=== PATIENT | female | born 1965 | race Caucasian/White ===

== ENCOUNTER → 2018-12-08 09:21 | Outpatient (CLI) | payer OTHER, SELFPAY ==
[2018-12-08 10:31] LABS: Albumin, Serum 3.7 g/dL (3.2-5.0); BUN 22 mg/dL (7-18); BUN/Creat Ratio 29.9 RATIO (10-20); Creatinine, Serum 0.74 mg/dL (0.55-1.02); EST Glomerular Filtration Rate 87 mL/min (>60); Est Glom Filt Rate - Afr Amer 105 mL/min (>60); Glucose 91 mg/dL (74-106); Protein, Total 7.1 g/dL (6.4-8.2)
[2018-12-08 10:32] LABS: ALB/GLOB Ratio 1.1 RATIO (0.9-2.4); AST(SGOT) 22 U/L (15-37); Alanine Aminotransfer ALT/SGPT 19 U/L (13-56); Alkaline Phosphatase 70 U/L (45-117); Anion Gap 6 (5-15); Calcium,Total 8.6 mg/dL (8.5-10.1); Chloride 107 mmol/L (98-107); Cholesterol 228 mg/dL (200); Globulin 3.4 g/dL (2.2-4.2); High Density Lipoprotein 71 mg/dL; Potassium 4.2 mmol/L (3.5-5.1); Sodium Level 138 mmol/L (136-145); Thyroid Stim Hormone (TSH) 3.24 uIU/mL (0.358-3.74); Triglycerides 42 mg/dL; Very Low Density Lipoprotein 8 mg/dL (5-40)
== END ==
PROVIDERS: Family Provider Family Medicine; PCP Family Medicine; Visit Provider Nurse Practitioner Family
DX: E03.9 Hypothyroidism, unspecified (principal); Z13.220 Encounter for screening for lipoid disorders
CPT/HCPCS: 36415; 80053; 80061; 84443

== ENCOUNTER → 2019-08-03 10:08 | Outpatient (CLI) | payer BC, SELFPAY ==
--- NOTE | 2019-08-03 10:14 | RAD_ITS ---
STUDY: X-RAY CHEST REASON FOR EXAM: Female, 54 years old. Shortness of breath TECHNIQUE: Two view of the chest were performed COMPARISON: None. FINDINGS: Lungs are clear. There is increased density in the right superior mediastinum, possibly related to the aorta. There is no pneumothorax, pulmonary edema, pleural effusions or cardiomegaly. Osseous structures are intact. There is no gas under the diaphragms. [ ] RAD/Chest PA and Lateral IMPRESSION: 1. No acute cardiorespiratory disease. [ 2. Questionable finding in the right superior mediastinum, incompletely evaluated. Recommend CT of the chest with contrast for more definitive assessment. Differential possibilities are vascular, such as aortic related versus mass. ] Electronically Signed: Richard Carranza, at 17:08 EDT Tel , Service support ,
== END ==
PROVIDERS: Family Provider Family Medicine; PCP Family Medicine; Referring Provider Family Medicine; Visit Provider Family Medicine
DX: R06.02 Shortness of breath (principal)
CPT/HCPCS: 71046

== ENCOUNTER → 2019-11-09 09:05 | Outpatient (CLI) | payer BC, SELFPAY ==
--- NOTE | 2019-11-09 09:09 | RAD_ITS ---
HISTORY: COMPARE WITH PRIOR CXR. THERE WAS A RIGHT MEDIASTINAL FINDING PER PATIENT THIS PAST JULY. ADDITIONAL HISTORY: None provided. COMPARISON: 08/03/2019, 08/20/2012, 01/21/2012 and 12/26/2011 TECHNIQUE: Frontal and lateral chest radiographs. Number of images including paperwork: 2 FINDINGS: LUNGS AND PLEURA: No consolidation, mass or pleural effusion. CARDIAC SILHOUETTE: Unremarkable. MEDIASTINUM AND YESY: Mild fullness is seen in the right suprahilar region and the expect location of the azygous arch, less prominent when compared with 08/03/2019 and generally less prominent when compared with multiple prior radiographs from 2011. This appears to change in size and is most likely related to venous distention involving the azygous arch. UPPER ABDOMEN: Unremarkable. SKELETON AND SOFT TISSUES: No acute findings. OTHER DEVICES AND HARDWARE: None. RAD/Chest PA and Lateral IMPRESSION: Decrease in fullness in the region of the right azygous arch compared to 08/03/2019. This finding has been present with varying size since 2011 and is likely related to venous distention of the azygous arch. at 2223 Reported and signed by: Susan Kidd MD Electronically Signed: Susan Kidd MD at 22:23 EST Tel , Service support ,
== END ==
PROVIDERS: PCP Family Medicine; Referring Provider Family Medicine; Visit Provider Family Medicine
DX: R93.89 Abnormal findings on diagnostic imaging of other specified body structures (principal)
CPT/HCPCS: 71046

== ENCOUNTER → 2020-03-16 17:35 | Outpatient (CLI) | payer BC, SELFPAY ==
[2020-03-18 19:09] LABS: HPV Reflexed? NOT INDICATED
== END ==
PROVIDERS: PCP Family Medicine; Referring Provider Family Medicine; Visit Provider Family Medicine
DX: Z01.419 Encounter for gynecological examination (general) (routine) without abnormal findings (principal)
CPT/HCPCS: 88175; G0145

== ENCOUNTER → 2021-06-01 07:09 | Outpatient (CLI) | payer BC, SELFPAY ==
[2021-06-01 10:30] LABS: Progesterone Level 0.27 ng/mL (See Comment)
[2021-06-01 10:41] LABS: Estradiol < 11.0 pg/mL; Free T3 2.8 pg/mL (2.18-3.98); T4 Free Direct 0.82 ng/dL (0.76-1.46); Thyroid Stim Hormone (TSH) 2.64 uIU/mL (0.358-3.74)
[2021-06-07 14:09] LABS: Testosterone, % Free 1.85 % (0.50-2.80); Testosterone, Free 0.19 ng/dL (0.10-0.85); Testosterone, Total 10 ng/dL (4-50)
[2021-06-08 12:46] LABS: DHEA Sulfate 71.5 ug/dL (29.4-220.5)
== END ==
PROVIDERS: PCP Family Medicine; Referring Provider Family Medicine; Visit Provider Family Medicine
DX: E03.9 Hypothyroidism, unspecified (principal); Z78.0 Asymptomatic menopausal state
CPT/HCPCS: 36415; 82627; 82670; 84144; 84402; 84403; 84439; 84443; 84481; 82626

== ENCOUNTER → 2022-06-27 | Outpatient (CLI) | payer SELFPAY, OTHER ==
--- NOTE | 2022-06-27 09:05 | RAD_ITS ---
STUDY: X-RAY - RIGHT SHOULDER REASON FOR EXAM: Right shoulder pain, right shoulder injury 2 months ago. TECHNIQUE: 4 view(s) of the shoulder. COMPARISON: None. FINDINGS: Normal glenohumeral articulation. There is mild acromioclavicular arthrosis. Normal acromion. Normal humeral head and visualized proximal humerus. The soft tissue structures are unremarkable. Normal visualized pulmonary apex. RAD/Shoulder min 2 Views IMPRESSION: Mild acromioclavicular arthrosis. No demonstrated fracture. Electronically Signed: Gene Rizzo MD at 9:54 EDT ,
== END | disposition home or self-care (01) ==
PROVIDERS: PCP Family Medicine; Referring Provider Nurse Practitioner Family; Visit Provider Nurse Practitioner Family
DX: M25.511 Pain in right shoulder (principal)
CPT/HCPCS: 73030

== ENCOUNTER → 2022-07-30 | Outpatient (CLI) | payer OTHER, SELFPAY ==
[2022-08-05 11:57] LABS: HPV APTIMA, High Risk Negative (Negative)
== END | disposition home or self-care (01) ==
LOC: LABSPEC 13:33
PROVIDERS: PCP Family Medicine; Visit Provider Student in an Organized Health Care Education/Training Program
DX: Z12.4 Encounter for screening for malignant neoplasm of cervix (principal)
CPT/HCPCS: 87624; 88175; G0145

== ENCOUNTER → 2023-01-08 | Outpatient (CLI) | payer OTHER, SELFPAY ==
[2023-01-08 20:26] LABS: ALB/GLOB Ratio 1.3 RATIO (0.9-2.4); AST(SGOT) 30 U/L (15-37); Alanine Aminotransfer ALT/SGPT 24 U/L (13-56); Alkaline Phosphatase 86 U/L (45-117); Anion Gap 8 (5-15); BUN 19 mg/dL (7-18); BUN/Creat Ratio 22.3 RATIO (10-20); Calcium,Total 9.4 mg/dL (8.5-10.1); Chloride 105 mmol/L (98-107); Creatinine, Serum 0.85 mg/dL (0.55-1.02); EST Glomerular Filtration Rate 73 mL/min (>60); Est Glom Filt Rate - Afr Amer 88 mL/min (>60); Globulin 3.1 g/dL (2.2-4.2); Glucose 87 mg/dL (74-106); Potassium 4.2 mmol/L (3.5-5.1); Protein, Total 7.1 g/dL (6.4-8.2); Sodium Level 141 mmol/L (136-145); T4 Free Direct 0.81 ng/dL (0.76-1.46); Thyroid Stim Hormone (TSH) 2.02 uIU/mL (0.358-3.74)
== END | disposition home or self-care (01) ==
LOC: MFPLAB 17:03
PROVIDERS: PCP Family Medicine; Referring Provider Family Medicine; Visit Provider Family Medicine
DX: E03.9 Hypothyroidism, unspecified (principal)
CPT/HCPCS: 36415; 80053; 84439; 84443

== ENCOUNTER → 2023-04-08 | Outpatient (CLI) | payer BC, SELFPAY ==
[2023-04-12 12:09] LABS: HPV APTIMA, High Risk Negative (Negative)
== END | disposition home or self-care (01) ==
LOC: LABSPEC 09:05
PROVIDERS: PCP Family Medicine; Visit Provider Student in an Organized Health Care Education/Training Program
DX: Z12.4 Encounter for screening for malignant neoplasm of cervix (principal)
CPT/HCPCS: 87624; 88175; G0145

== ENCOUNTER → 2023-04-15 | Outpatient (CLI) | payer BC, SELFPAY ==
--- NOTE | 2023-04-15 14:16 | BI_ITS ---
MAMMOGRAPHY - BILATERAL DIAGNOSTIC REASON FOR EXAM: Female, 58 years old. One month history of right nipple inversion. Remote left excisional breast biopsy. PERTINENT HISTORY: Non-contributory. TECHNIQUE: Digital bilateral breast neva (3D mammographic acquisition) in the CC and MLO projections. 2-D mediolateral oblique (MLO) and craniocaudad (CC) views of both breasts were obtained. CAD: Full Field Digital Mammography with Computer Added Detection was performed. COMPARISON: Comparison is made with prior study there November 30, 2014 and August 02, 2011. FINDINGS: Breast Composition: The breasts are heterogeneously dense, which may obscure small masses. There are no dominant masses or suspicious calcifications. No other significant abnormalities are identified. There has been no significant change since the prior study. BI/DIAG MAMM W/CAD, BILAT IMPRESSION: Stable bilateral diagnostic mammogram. With the patient''s history of a right nipple inversion, correlation with targeted ultrasound is recommended. ASSESSMENT CATEGORY: BIRADS Category 0: Incomplete. Need additional imaging evaluation. A letter regarding these results will be sent to the patient by the facility within 30 days. Approximately 10% of breast cancers are not detected by mammography. A normal mammogram should not delay biopsy of a clinically suspicious abnormality. Electronically Signed: Peter Miranda MD at 15:10 EDT ,
--- NOTE | 2023-04-15 14:16 | US_ITS ---
STUDY: ULTRASOUND BREAST - RIGHT REASON FOR EXAM: Female, 58 years old. Intermittent retraction of the right nipple. TECHNIQUE: Axial and longitudinal images of the RIGHT breast were performed with a high resolution ultrasound transducer. # OF IMAGES: 18 COMPARISON: Comparison is made with prior mammogram done earlier in the day. FINDINGS: RIGHT Breast: The retroareolar region of the right breast was examined with ultrasound. No sonographic abnormality is seen. US/Breast Limited Unilateral IMPRESSION: No sonographic abnormality is seen. ASSESSMENT CATEGORY: BIRADS Category 1: Negative. A letter regarding these results will be sent to the patient by the facility within 30 days. Electronically Signed: Peter Miranda MD at 13:55 EDT ,
== END | disposition home or self-care (01) ==
PROVIDERS: PCP Family Medicine; Referring Provider Student in an Organized Health Care Education/Training Program; Visit Provider Student in an Organized Health Care Education/Training Program
DX: Z12.31 Encounter for screening mammogram for malignant neoplasm of breast (principal); N64.53 Retraction of nipple
CPT/HCPCS: 76642; 77062; 77066; G0279

== ENCOUNTER → 2023-10-04 | Outpatient (CLI) | payer BC, SELFPAY ==
[2023-10-04 14:57] LABS: Absolute Lymphocyte Count 1.62 X10^3/uL (0.83-4.51); Absolute Neutrophil Count 3.9 X10^3/uL (2.0-7.7); Basophil# 0.06 X10^3/uL; Eosinophil# 0.12 X10^3/uL; Hematocrit 44.3 % (37-47); Hemoglobin 13.7 g/dL (12.0-15.0); Lymphocyte # 1.62 X10^3/ul (0.83-4.51); Lymphocyte % 26.3 % (19-41); Mean Corp Hgb Conc 30.9 g/dL (32-36); Mean Corpuscular Hgb 28.4 pg (27.0-32.0); Mean Corpuscular Volume 91.7 fL (81-99); Monocyte# 0.48 X10^3/uL; Monocyte% 7.8 % (0-10); NRBC Flagged by Analyzer 0 % (0-5); Neutrophil # 3.85 X10^3/uL (2.7-7.7); Neutrophil % 62.6 % (47-70); Platelet Count 291 K/mm3 (150-450); RBC Distribution Width CV 14.4 % (11.6-14.6); RBC Distribution Width SD 48.6 fl (35.1-43.9); Red Blood Count 4.83 M/mm3 (4.2-5.4); White Blood Count 6.2 K/mm3 (4.4-11.0)
[2023-10-04 15:00] LABS: Erythrocyte Sedimentation Rate 14 mm/hr (0-30)
[2023-10-04 15:32] LABS: ALB/GLOB Ratio 1.1 RATIO (0.9-2.4); AST(SGOT) 21 U/L (15-37); Alanine Aminotransfer ALT/SGPT 27 U/L (13-56); Albumin, Serum 3.8 g/dL (3.2-5.0); Alkaline Phosphatase 82 U/L (45-117); Anion Gap 5 (5-15); BUN 15 mg/dL (7-18); BUN/Creat Ratio 21.1 RATIO (10-20); CRP < 2.90 mg/L (0.0-3.0); Calcium,Total 9.1 mg/dL (8.5-10.1); Chloride 104 mmol/L (98-107); Creatinine, Serum 0.71 mg/dL (0.55-1.02); EST Glomerular Filtration Rate 89 mL/min (>60); Est Glom Filt Rate - Afr Amer 107 mL/min (>60); Globulin 3.6 g/dL (2.2-4.2); Glucose 95 mg/dL (74-106); Lipase 30 U/L (13-75); Potassium 3.9 mmol/L (3.5-5.1); Protein, Total 7.4 g/dL (6.4-8.2); Sodium Level 138 mmol/L (136-145)
== END | disposition home or self-care (01) ==
LOC: MTLAB 13:40
PROVIDERS: PCP Family Medicine; Referring Provider Family Medicine; Visit Provider Family Medicine
DX: R10.84 Generalized abdominal pain (principal)
CPT/HCPCS: 36415; 80053; 83690; 85025; 85652; 86140

== ENCOUNTER → 2023-10-05 | Outpatient (CLI) | payer BC, SELFPAY ==
[2023-10-11 13:07] LABS: Pancreatic Elastase, Fecal 391 (>200)
[2023-10-15 19:06] LABS: Calprotectin, Stool <5 ug/g (0-120); Fats, Neutral Normal (.); Fats, Total Normal (.)
== END | disposition home or self-care (01) ==
LOC: LABSPEC 09:52
PROVIDERS: PCP Family Medicine; Referring Provider Family Medicine; Visit Provider Family Medicine
DX: R10.84 Generalized abdominal pain (principal)
CPT/HCPCS: 82653; 82705; 83993

== ENCOUNTER → 2023-10-28 | Outpatient (CLI) | payer BC, SELFPAY ==
--- NOTE | 2023-10-28 16:48 | CT_ITS ---
STUDY: CT ABDOMEN AND PELVIS WITH CONTRAST REASON FOR EXAM: Female, 58 years old. IV and oral contrast RADIATION DOSAGE (If Supplied By Facility): CTDIvol = ( 11.97 ) mGy, DLP = ( 679.18 ) mGycm TECHNIQUE: Transaxial images were obtained from the dome of the diaphragm to the symphysis pubis without oral contrast. Oral and IV Readi-CAT and 100mL Isovue-300 was administered. Sagittal and coronal images were reconstructed. Individualized dose optimization techniques were used for this CT. COMPARISON: None. FINDINGS: Mild bilateral lower lobe atelectasis. The visualized portions of the heart are within normal limits. Several low-attenuation structures within the liver, largest seen at the left liver lobe near the hepatic hilum measuring 1 cm compatible with liver cysts. Remainder of the liver structures are too small to characterize measuring less than 5 mm, likely benign such as cyst in the absence of known neoplasm. Remainder of the liver is normal. Normal gallbladder and extrahepatic biliary system. Normal spleen. Normal pancreas. Normal bilateral adrenal glands. Normal right kidney. Normal left kidney. Normal visualized stomach. Mild distention of several proximal jejunal loops and duodenum with mild thickening of the wall/callosal hypertrophy which may indicate enteritis. Normal colon. There is non-visualization of the appendix. There is mild atherosclerotic calcification of the abdominal aorta, without a demonstrated aneurysm. Normal inferior vena cava. Normal retroperitoneum. Normal urinary bladder. The uterus is anteverted with multiple calcifications, largest measuring 1.5 cm most compatible with calcified uterine fibroids. Normal abdominal wall. Mild spondylosis of the spine, otherwise no acute fracture or subluxation. CT/Abdomen/Pelvis WITH Contrast IMPRESSION: Possible proximal enteritis. No bowel obstruction. Fibromatous uterus, remainder of the pelvic structures unremarkable. Likely benign liver lesions compatible with liver cysts, largest measuring 1 cm and some too small to characterize. If indicated, follow-up with right upper quadrant ultrasound recommended in nonacute setting to document simple liver cysts. Otherwise normal abdominal viscera. Electronically Signed: Wendy Mayo MD at 19:48 EST ,
--- OUTSIDE RECORDS SUMMARY | 2023-10-28 17:41 | XMS RPT_ITS | CCD ---
Author Name Unknown Address [address] [place] [address] Organization [facility] Results Test Name Value Interpretation Reference Range Facil ity Clinical Notes 07-03-2021 to 07-09-2021 Note Date & Type Note Facility 07-09-2021 Note HNO ID: [id number] Author: Eliza Lim RN Service: Care Management Author Type: Registered Nurse Type: Care Mgt Progress Note Filed: 07/09/2021 2:52 PM Note Text: CARE MANAGEMENT PROGRESS NOTE SERVICE DATE: 07/09/2021 SERVICE TIME: 1450 LOS: 5 days spoke with Violeta from [facility] [phone], she states that she left it at the nurses station. this CM went back to the [facility] and checked for this O2. informed Brit that there was no tank and that i just sent the script on sat 07/08/21. Brit states that they will send a new one out but she doesn't know what time. RN aware SIGNATURE: Eliza Lim RN PATIENT NAME: Sulma Chowdary DATE: July 09, 2021 TIME: 2:50 PM PAGER/CONTACT #: [phone] [facility] 07-09-2021 Note HNO ID: [id number] Author: Eliza Lim RN Service: Care Management Author Type: Registered Nurse Type: Care Mgt Progress Note Filed: 07/09/2021 2:37 PM Note Text: CARE MANAGEMENT PROGRESS NOTE SERVICE DATE: 07/09/2021 SERVICE TIME: 1430 LOS: 5 days called MICU and they state that they have no portable tank for this pt. [facility] message this CM and wanted my number. awaiting return phone call SIGNATURE: Eliza Lim RN PATIENT NAME: Sulma Epi Pringle DATE: July 09, 2021 TIME: 2:36 PM PAGER/CONTACT #: [phone] [facility] 07-09-2021 Note HNO ID: [id number] Author: Margo Donaldson MD Service: Pulmonary Disease Author Type: Physician Type: Progress Notes Filed: 07/09/2021 2:17 PM Note Text: Pulmonary/Critical Care Progress Note PATIENT NAME: Sulma Pringle DATE of SERVICE: July 09, 2021 TIME of SERVICE: 2:15 PM Admitting Physician: Herrera Alatorre MD Attending Physician: Herrera Alatorre MD S: Doing a little better today with improvement in her shortness of breath or cough. Denies chest pain. Tolerating anticoagulation well. Pertinent positive findings reported other system reviews were negative Current Facility-Administered Medications Medication Dose Route Frequency - NaCl 0.9% iv flush bag 20 mL INTRAVENOUS PRN - sodium chloride 0.9 % (flush) 3-5 mL (BD POSIFLUSH) 3-5 mL INTRAVENOUS q 12 H - ondansetron 4 mg tab(s) (ZOFRAN) 4 mg ORAL q 6 H PRN Or - ondansetron (PF) 4 mg injection (ZOFRAN) 4 mg INTRAVENOUS q 6 H PRN - docusate sodium 100 mg cap(s) (COLACE) 100 mg ORAL BID PRN - acetaminophen 650 mg tab(s) (TYLENOL) 650 mg ORAL q 6 H PRN - melatonin 3 mg tab(s) 3 mg ORAL HS PRN - guaiFENesin 600 mg ER tab(s) (MUCINEX) 600 mg ORAL q 12 H PRN - albuterol HFA 90 mcg/actuation 2 Puff (PROVENTIL HFA, VENTOLIN HFA) 2 Puff INHALATION q 4 H PRN - dexAMETHasone (DECADRON) tab(s) 6 mg 6 mg ORAL DAILY Or - dexAMETHasone sodium phosphate (PF) 6 mg injection (DECADRON) 6 mg INTRAVENOUS DAILY - thyroid 45 mg tab(s) 45 mg ORAL DAILY (7 AM) - benzonatate 100 mg cap(s) (TESSALON PERLE) 100 mg ORAL TID - HYDROcodone-homatropine 5-1.5 mg/5 mL (5 mL) 5 mL (HYDROMET) 5 mL ORAL HS PRN - iv contrast (radiology procedure) INTRAVENOUS DIRECTED PRN - apixaban 10 mg tab(s) (ELIQUIS) 10 mg ORAL BID Followed by - [START ON 07/16/2021] apixaban 5 mg tab(s) (ELIQUIS) 5 mg ORAL BID O: PHYSICAL EXAMINATION: Blood pressure 99/59, pulse (!) 58, temperature 36.7 ?C (98 ?F), temperature source Oral, resp. rate 16, height 154.9 cm (5' 1 ), weight 65.6 kg (144 lb 11.2 oz), last menstrual period 08/05/2013, SpO2 94 %., Body mass index is 27.34 kg/m?. GENERAL: Cooperative, pleasant, in no acute distress. NECK: no jugulovenous distention, supple LUNGS: Good breath sounds of both lung dixon with soft bibasilar crackles. CARDIAC: Regular rate and rhythm; no murmurs ABDOMEN: Abdomen soft, non-tender. BS normal. EXTREMITIES: No edema. LABORATORY: CBC, Coags, BMP, Mg, Phos Recent Labs 07/09/21 1210 07/08/21 0934 07/07/21 1913 07/07/21 0743 07/07/21 0743 WBC 14.36* 10.71 8.43 < > 8.33 HB 13.5 13.0 12.4 < > 13.4 HCT 41.6 40.8 38.0 < > 42.5 PLT 311 337 327 < > 343 NA 137 140 -- -- 137 K 4.5 4.1 -- -- 4.4 CHLOR 100 102 -- -- 105 CO2 26 24 -- -- 21* BUN 19 16 -- -- 14 CREAT 0.65* 0.62* -- -- 0.55* GLUC 113* 86 -- -- 96 CA 8.7 8.3* -- -- 8.5 MG 2.0 1.9 -- -- 2.1 < > = values in this interval not displayed. Liver Function, Amylase, AND Lipase Recent Labs 07/07/211912 TPROT 5.4* ALB 2.7* ALT 20 AST 19 ALKPHOS 50 TBILI 0.2 IMAGING STUDIES: CT of the chest was reviewed and results were discussed with the patient. Bilateral pulmonary embolism were seen. Groundglass opacities compatible with Covid pneumonia. 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 ASSESSMENT AND PLAN: Acute hypoxic respiratory failure: Likely secondary to COVID-19 pneumonia Now with evidence of acute pulmonary embolism on her CT scan of the chest. Was placed on full dose anticoagulation with Lovenox yesterday Plan to switch to oral anticoagulants today to facilitate discharge. Completed a 5-day course of remdesivir and continues to take dexamethasone. Hope to discharge home on oxygen supplementation today or tomorrow if she continues to improve. SIGNATURE: Margo Donaldson MD DATE: July 09, 2021 TIME: 2:15 PM This note was partially created using voice recognition software and is inherently subject to errors including those of syntax and sound-alike substitutions which may escape proofreading. In such instances, original meaning may be extrapolated by contextual derivation. [facility] 07-09-2021 Note HNO ID: [id number] Author: Eliza Lim RN Service: Care Management Author Type: Registered Nurse Type: Care Mgt Progress Note Filed: 07/09/2021 2:13 PM Note Text: CARE MANAGEMENT PROGRESS NOTE SERVICE DATE: 07/09/2021 SERVICE TIME: 1410 LOS: 5 days per [facility] they state they dropped off the O2 on , per nursing she went to the unit. this CM checked pt room and found no O2 tank. informed P that this CM just sent the script on 07/08/21. awaiting response SIGNATURE: Eliza Lim RN PATIENT NAME: Sulma Chowdary DATE: July 09, 2021 TIME: 2:11 PM PAGER/CONTACT #: [phone] [facility] 07-09-2021 Note HNO ID: [id number] Author: Eliza Lim RN Service: Care Management Author Type: Registered Nurse Type: Care Mgt Progress Note Filed: 07/09/2021 1:47 PM Note Text: CARE MANAGEMENT PROGRESS NOTE SERVICE DATE: 07/09/2021 SERVICE TIME: 1345 LOS: 5 days called pt pharmacy to [facility]. the [facility] is [phone], gave pt a card for eliques a free 30 day supply. also asked pt if she received her O2, she states no. [facility] states that they delivered an O2 tank last week. working with [facility] to fugure out where the O2 tank is SIGNATURE: Eliza Lim RN PATIENT NAME: Sulma Pringle DATE: July 09, 2021 TIME: 1:44 PM PAGER/CONTACT #: [phone] [facility] 07-09-2021 Note HNO ID: [id number] Author: Eliza Lim RN Service: Care Management Author Type: Registered Nurse Type: Care Mgt Progress Note Filed: 07/09/2021 1:12 PM Note Text: CARE MANAGEMENT PROGRESS NOTE SERVICE DATE: 07/09/2021 SERVICE TIME: 1310 LOS: 5 days script sent to [facility] on 07/08/21 for home O2. per notes pt CT of the chest showed bilateral PEs. CM to f/u SIGNATURE: Eliza Lim RN PATIENT NAME: Sulma Chowdary [place] DATE: July 09, 2021 TIME: 1:11 PM PAGER/CONTACT #: [phone] [facility] 07-09-2021 Note HNO ID: [id number] Author: Herrera Alatorre MD Service: General Internal Medicine Author Type: Physician Type: Progress Notes Filed: 07/09/2021 11:28 AM Note Text: INTERNAL MEDICINE PROGRESS NOTE Name: Sulma Chowdary [facility] SERVICE DATE: July 09, 2021 ASSESSMENT AND PLAN Active Problems: Pneumonia due to COVID-19 virus POA: Yes Assessment AND Plan: decadron. DC home today if insurance is paying for eliquis. PE, eliquis. SUBJECTIVE INTERVAL HPI: no c/o. OBJECTIVE PHYSICAL EXAM: Blood pressure 99/59, pulse (!) 58, temperature 36.7 ?C (98 ?F), temperature source Oral, resp. rate 16, height 154.9 cm (5' 1 ), weight 65.6 kg (144 lb 11.2 oz), last menstrual period 08/05/2013, SpO2 94 %., Body mass index is 27.34 kg/m?. GENERAL: Cooperative, pleasant, in no acute distress. SKIN: Skin color, texture, turgor normal. No rashes or lesions. NECK: no jugulovenous distention, supple. No lymphadenopathy. LUNGS: Lungs clear to auscultation. Good diaphragmatic excursion. CARDIAC: normal S1 and S2; no rubs, murmurs, or gallops ABDOMEN: Abdomen soft, non-tender. BS normal. No masses or organomegaly. EXTREMITIES: No deformities, edema, clubbing or skin discoloration. NEURO: Alert, oriented to person, place, and time. No focal weakness. PULSES: 2+ radial 2+ carotid MEDICATION: Current Facility-Administered Medications Medication Dose Route Frequency - NaCl 0.9% iv flush bag 20 mL INTRAVENOUS PRN - sodium chloride 0.9 % (flush) 3-5 mL (BD POSIFLUSH) 3-5 mL INTRAVENOUS q 12 H - ondansetron 4 mg tab(s) (ZOFRAN) 4 mg ORAL q 6 H PRN Or - ondansetron (PF) 4 mg injection (ZOFRAN) 4 mg INTRAVENOUS q 6 H PRN - docusate sodium 100 mg cap(s) (COLACE) 100 mg ORAL BID PRN - acetaminophen 650 mg tab(s) (TYLENOL) 650 mg ORAL q 6 H PRN - melatonin 3 mg tab(s) 3 mg ORAL HS PRN - guaiFENesin 600 mg ER tab(s) (MUCINEX) 600 mg ORAL q 12 H PRN - albuterol HFA 90 mcg/actuation 2 Puff (PROVENTIL HFA, VENTOLIN HFA) 2 Puff INHALATION q 4 H PRN - dexAMETHasone (DECADRON) tab(s) 6 mg 6 mg ORAL DAILY Or - dexAMETHasone sodium phosphate (PF) 6 mg injection (DECADRON) 6 mg INTRAVENOUS DAILY - thyroid 45 mg tab(s) 45 mg ORAL DAILY (7 AM) - benzonatate 100 mg cap(s) (TESSALON PERLE) 100 mg ORAL TID - HYDROcodone-homatropine 5-1.5 mg/5 mL (5 mL) 5 mL (HYDROMET) 5 mL ORAL HS PRN - iv contrast (radiology procedure) INTRAVENOUS DIRECTED PRN - apixaban 10 mg tab(s) (ELIQUIS) 10 mg ORAL BID Followed by - [START ON 07/16/2021] apixaban 5 mg tab(s) (ELIQUIS) 5 mg ORAL BID DATA: Disposition: Home URINE OUTPUT: No intake or output data in the 24 hours ending 07/09/21 1128 SIGNATURE: Herrera Alatorre MD DATE: July 09, 2021 [facility] 07-09-2021 Note HNO ID: [id number] Author: Elis Ann PA-C Service: General Internal Medicine Author Type: Physician Despatching And Receiving Clerk Type: Plan of Care Filed: 07/09/2021 5:02 AM Note Text: Received page that CT chest which was done overnight returned with bilateral acute PEs. VSS. She has been on prophylactic Lovenox 40 mg subq q24 hours. Will change to Lovenox treatment dosage at 1mg/kg subq q12 hours. Please notify primary attending and Pulmonary of findings in am. Elis Ann PA-C July 09, 2021 5:02 AM [facility] 07-08-2021 Note HNO ID: [id number] Author: Margo Donaldson MD Service: Pulmonary Disease Author Type: Physician Type: Progress Notes Filed: 07/08/2021 4:53 PM Note Text: Pulmonary/Critical Care Progress Note PATIENT NAME: Sulma Pringle DATE of SERVICE: July 08, 2021 TIME of SERVICE: 4:49 PM Admitting Physician: Herrera Alatorre MD Attending Physician: Herrera Alatorre MD S: Feels about the same with stable shortness of breath and nonproductive cough. Denies chest pain. Stable sats requiring 3 L nasal cannula. Pertinent positive findings reported other system reviews were negative Current Facility-Administered Medications Medication Dose Route Frequency - enoxaparin 40 mg injection (LOVENOX) 40 mg SUBCUTANEOUS q 24 HR - NaCl 0.9% iv flush bag 20 mL INTRAVENOUS PRN - sodium chloride 0.9 % (flush) 3-5 mL (BD POSIFLUSH) 3-5 mL INTRAVENOUS q 12 H - ondansetron 4 mg tab(s) (ZOFRAN) 4 mg ORAL q 6 H PRN Or - ondansetron (PF) 4 mg injection (ZOFRAN) 4 mg INTRAVENOUS q 6 H PRN - docusate sodium 100 mg cap(s) (COLACE) 100 mg ORAL BID PRN - acetaminophen 650 mg tab(s) (TYLENOL) 650 mg ORAL q 6 H PRN - melatonin 3 mg tab(s) 3 mg ORAL HS PRN - guaiFENesin 600 mg ER tab(s) (MUCINEX) 600 mg ORAL q 12 H PRN - albuterol HFA 90 mcg/actuation 2 Puff (PROVENTIL HFA, VENTOLIN HFA) 2 Puff INHALATION q 4 H PRN - dexAMETHasone (DECADRON) tab(s) 6 mg 6 mg ORAL DAILY Or - dexAMETHasone sodium phosphate (PF) 6 mg injection (DECADRON) 6 mg INTRAVENOUS DAILY - thyroid 45 mg tab(s) 45 mg ORAL DAILY (7 AM) - benzonatate 100 mg cap(s) (TESSALON PERLE) 100 mg ORAL TID - HYDROcodone-homatropine 5-1.5 mg/5 mL (5 mL) 5 mL (HYDROMET) 5 mL ORAL HS PRN - iv contrast (radiology procedure) INTRAVENOUS DIRECTED PRN O: PHYSICAL EXAMINATION: Blood pressure 109/57, pulse 70, temperature 36.7 ?C (98 ?F), temperature source Oral, resp. rate 18, height 154.9 cm (5' 1 ), weight 67.1 kg (148 lb), last menstrual period 08/05/2013, SpO2 95 %., Body mass index is 27.96 kg/m?. GENERAL: Cooperative, pleasant, in no acute distress. NECK: no jugulovenous distention, supple LUNGS: Good breath sounds of both lung dixon with soft bibasilar crackles. CARDIAC: Regular rate and rhythm; no murmurs ABDOMEN: Abdomen soft, non-tender. BS normal. EXTREMITIES: No edema. LABORATORY: CBC, Coags, BMP, Mg, Phos Recent Labs 07/08/21 0934 07/07/21 1913 07/07/21 0743 07/06/21 0533 07/06/21 0533 WBC 10.71 8.43 8.33 < > 8.95 HB 13.0 12.4 13.4 < > 13.3 HCT 40.8 38.0 42.5 < > 40.6 PLT 337 327 343 < > 323 NA 140 -- 137 -- 140 K 4.1 -- 4.4 -- Unable to assay. Specimen hemolyzed. CHLOR 102 -- 105 -- 106 CO2 24 -- 21* -- 23 BUN 16 -- 14 -- 14 CREAT 0.62* -- 0.55* -- 0.61* GLUC 86 -- 96 -- 92 CA 8.3* -- 8.5 -- 8.4* MG 1.9 -- 2.1 -- 2.0 < > = values in this interval not displayed. Liver Function, Amylase, AND Lipase Recent Labs 07/07/21 1913 TPROT 5.4* ALB 2.7* ALT 20 AST 19 ALKPHOS 50 TBILI 0.2 ASSESSMENT AND PLAN: Acute hypoxic respiratory failure: Likely secondary to COVID-19 pneumonia Clinically appears to be somewhat stable with a past 24 to 48 hours. D-dimer mildly increased to 12,300 today from 1533 days ago. CRP also increased some today. Lower extremity Dopplers were negative for DVT yesterday. I will repeat her CT scan of the chest with IV contrast given her marked increase in her D-dimer level and the questionable thrombus with there is a vigorous vein on her prior CT. Hold off on full dose anticoagulation for now given her relatively stable respiratory status pending CT results. Completed a 5-day course of remdesivir yesterday We will continue with dexamethasone. Discussed above with the patient in details. SIGNATURE: Margo Donaldson MD DATE: July 08, 2021 TIME: 4:49 PM This note was partially created using voice recognition software and is inherently subject to errors including those of syntax and sound-alike substitutions which may escape proofreading. In such instances, original meaning may be extrapolated by contextual derivation. [facility] 07-08-2021 Note HNO ID: [id number] Author: Herrera Alatorre MD Service: General Internal Medicine Author Type: Physician Type: Progress Notes Filed: 07/08/2021 9:35 PM Note Text: INTERNAL MEDICINE PROGRESS NOTE Name: Sulma Pringle SERVICE DATE: July 08, 2021 ASSESSMENT AND PLAN Active Problems: Pneumonia due to COVID-19 virus POA: Yes Assessment AND Plan: decadron. DC home in a.m. Hypotension, IV saline. Resolved. SUBJECTIVE INTERVAL HPI: no c/o. OBJECTIVE PHYSICAL EXAM: Blood pressure 106/65, pulse 61, temperature 37.1 ?C (98.7 ?F), temperature source Oral, resp. rate 18, height 154.9 cm (5' 1 ), weight 67.1 kg (148 lb), last menstrual period 08/05/2013, SpO2 93 %., Body mass index is 27.96 kg/m?. GENERAL: Cooperative, pleasant, in no acute distress. SKIN: Skin color, texture, turgor normal. No rashes or lesions. NECK: no jugulovenous distention, supple. No lymphadenopathy. LUNGS: Lungs clear to auscultation. Good diaphragmatic excursion. CARDIAC: normal S1 and S2; no rubs, murmurs, or gallops ABDOMEN: Abdomen soft, non-tender. BS normal. No masses or organomegaly. EXTREMITIES: No deformities, edema, clubbing or skin discoloration. NEURO: Alert, oriented to person, place, and time. No focal weakness. PULSES: 2+ radial 2+ carotid MEDICATION: Current Facility-Administered Medications Medication Dose Route Frequency - enoxaparin 40 mg injection (LOVENOX) 40 mg SUBCUTANEOUS q 24 HR - NaCl 0.9% iv flush bag 20 mL INTRAVENOUS PRN - sodium chloride 0.9 % (flush) 3-5 mL (BD POSIFLUSH) 3-5 mL INTRAVENOUS q 12 H - ondansetron 4 mg tab(s) (ZOFRAN) 4 mg ORAL q 6 H PRN Or - ondansetron (PF) 4 mg injection (ZOFRAN) 4 mg INTRAVENOUS q 6 H PRN - docusate sodium 100 mg cap(s) (COLACE) 100 mg ORAL BID PRN - acetaminophen 650 mg tab(s) (TYLENOL) 650 mg ORAL q 6 H PRN - melatonin 3 mg tab(s) 3 mg ORAL HS PRN - guaiFENesin 600 mg ER tab(s) (MUCINEX) 600 mg ORAL q 12 H PRN - albuterol HFA 90 mcg/actuation 2 Puff (PROVENTIL HFA, VENTOLIN HFA) 2 Puff INHALATION q 4 H PRN - dexAMETHasone (DECADRON) tab(s) 6 mg 6 mg ORAL DAILY Or - dexAMETHasone sodium phosphate (PF) 6 mg injection (DECADRON) 6 mg INTRAVENOUS DAILY - thyroid 45 mg tab(s) 45 mg ORAL DAILY (7 AM) - benzonatate 100 mg cap(s) (TESSALON PERLE) 100 mg ORAL TID - HYDROcodone-homatropine 5-1.5 mg/5 mL (5 mL) 5 mL (HYDROMET) 5 mL ORAL HS PRN - iv contrast (radiology procedure) INTRAVENOUS DIRECTED PRN DATA: Disposition: Home URINE OUTPUT: No intake or output data in the 24 hours ending 07/08/212133 SIGNATURE: Herrera Alatorre MD DATE: July 08, 2021 [facility] 07-07-2021 Note HNO ID: [id number] Author: Herrera Alatorre MD Service: General Internal Medicine Author Type: Physician Type: Progress Notes Filed: 07/08/2021 9:35 PM Note Text: INTERNAL MEDICINE PROGRESS NOTE Name: Sulma Pringle SERVICE DATE: July 07, 2021 ASSESSMENT AND PLAN Active Problems: Pneumonia due to COVID-19 virus POA: Yes Assessment AND Plan: decadron and remdesivir. Hypotension, IV saline. SUBJECTIVE INTERVAL HPI: no c/o. OBJECTIVE PHYSICAL EXAM: Blood pressure (!) 80/49, pulse 68, temperature 36.8 ?C (98.2 ?F), temperature source Oral, resp. rate 18, height 154.9 cm (5' 1 ), weight 68.4 kg (150 lb 11.2 oz), last menstrual period 08/05/2013, SpO2 94 %., Body mass index is 28.47 kg/m?. GENERAL: Cooperative, pleasant, in no acute distress. SKIN: Skin color, texture, turgor normal. No rashes or lesions. NECK: no jugulovenous distention, supple. No lymphadenopathy. LUNGS: Lungs clear to auscultation. Good diaphragmatic excursion. CARDIAC: normal S1 and S2; no rubs, murmurs, or gallops ABDOMEN: Abdomen soft, non-tender. BS normal. No masses or organomegaly. EXTREMITIES: No deformities, edema, clubbing or skin discoloration. NEURO: Alert, oriented to person, place, and time. No focal weakness. PULSES: 2+ radial 2+ carotid MEDICATION: Current Facility-Administered Medications Medication Dose Route Frequency - enoxaparin 40 mg injection (LOVENOX) 40 mg SUBCUTANEOUS q 24 HR - NaCl 0.9% iv flush bag 20 mL INTRAVENOUS PRN - sodium chloride 0.9 % (flush) 3-5 mL (BD POSIFLUSH) 3-5 mL INTRAVENOUS q 12 H - ondansetron 4 mg tab(s) (ZOFRAN) 4 mg ORAL q 6 H PRN Or - ondansetron (PF) 4 mg injection (ZOFRAN) 4 mg INTRAVENOUS q 6 H PRN - docusate sodium 100 mg cap(s) (COLACE) 100 mg ORAL BID PRN - acetaminophen 650 mg tab(s) (TYLENOL) 650 mg ORAL q 6 H PRN - melatonin 3 mg tab(s) 3 mg ORAL HS PRN - guaiFENesin 600 mg ER tab(s) (MUCINEX) 600 mg ORAL q 12 H PRN - albuterol HFA 90 mcg/actuation 2 Puff (PROVENTIL HFA, VENTOLIN HFA) 2 Puff INHALATION q 4 H PRN - dexAMETHasone (DECADRON) tab(s) 6 mg 6 mg ORAL DAILY Or - dexAMETHasone sodium phosphate (PF) 6 mg injection (DECADRON) 6 mg INTRAVENOUS DAILY - thyroid 45 mg tab(s) 45 mg ORAL DAILY (7 AM) - benzonatate 100 mg cap(s) (TESSALON PERLE) 100 mg ORAL TID - HYDROcodone-homatropine 5-1.5 mg/5 mL (5 mL) 5 mL (HYDROMET) 5 mL ORAL HS PRN DATA: Disposition: Home URINE OUTPUT: No intake or output data in the 24 hours ending 07/07/21 1636 SIGNATURE: Herrera Alatorre MD DATE: July 07, 2021 [facility] 07-07-2021 Note HNO ID: [id number] Author: Tammie Espitia APRN.CNP Service: General Internal Medicine Author Type: Nurse Practitioner Type: Progress Notes Filed: 07/07/2021 12:58 PM Note Text: DEPARTMENT OF INTERNAL MEDICINE PROGRESS NOTE Name: Sulma Pringle SERVICE DATE: 07/07/2021 SERVICE TIME: 12:39 PM Primary Attending: Tammie Espitia APRN.UPPER TIER ASSESSMENT AND PLAN This is a 56 year old female with PMH mild intermittent asthma, hypothyroidism who was transferred from [place] ED on 07/03 to [facility] after presenting for a second encounter for generalized weakness, fatigue, cough, nausea, diarrhea, and chills in setting of +COVID-19. Patient reports her symptoms started around 06/24/21.She went to an Urgent Care Center on 06/25/2021 and apparently tested positive for SARS-CoV-2. 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 CXR and CT were obtained prior to transfer to [facility]; Imaging findings significant for abnormal structure along there right side of the mediastinum just lateral to the inferior aspect of the trachea. ID and CTS were consulted upon arrival. She was started on RDV 07/03 in addition to decadron. After review of imaging by CTS and [facility] radiology it was their opinion that imaging demonstrates enlarged azygos vein/SVC venous system without thrombus. No surgical intervention was recommended. It has been advised for the patient to follow up for MRI Chest/Abd at [facility] to elucidate etiology of dilatation. The patient was transferred to ICU on 07/05/21 due to worsening oxygen requirements for HFNC. Her oxygen requirements improved and she was weaned to NC and transferred to [facility] on 07/06. Active Problems: Pneumonia due to COVID-19 virus Acute hypoxic respiratory failure Lung mass Mild intermittent asthma Breathing stable Weaned to 3 L NC today CRP improcing 1.6 dDimer increased 1530 (9.15) procal 0.09 (07/03) CXR 07/05/21- Bibasilar interstitial opacities better visualize in the recent CT chest. ?Compared to the previous chest x-ray there has been no significant interval change. CT chest as above US today negative for VTE Plan: Day 5 RDV Day 02/27 Decadron Continue lovenox PPx Continue bronchodilators PRN Add scheduled tessalon perle and hydromet HS PRN Continue mucinex Wean oxygent as tolerated OP FU Lung mass as outlined above Hypotension SBP 80s, appears near baseline Asymptomatic procal .09 No prior TTE Plan: Gentle hydration (as ordered by primary service) Resolved Problems: * No resolved hospital problems. * SUBJECTIVE INTERVAL HPI: Denies DODSON. Continue to have intermittent cough with phlem production. C/O chest tightness with coughing. No dizziness, abdominal pain, N/V/D. Denies calf pain. No significant bleeding or bruising. MEDICATIONS: Reviewed OBJECTIVE PHYSICAL EXAM: BP 80/49 Pulse 55 Temp (Src) 98.2 (Oral) Resp 18 Ht 5' 1 (1.55m) Wt 150 lb 11.2 oz (68.4kg) SpO2 94% LMP 08/05/2013 BMI 28.49 kg/(m2). O2 Therapy: Nasal Cannula, Liters: 3.00 GENERAL: Alert, no distress, cooperative SKIN: Skin color, texture, turgor normal. No rashes or lesions. NECK: No jugulovenous distention, Supple BACK: Back symmetric, Normal curvature, ROM normal LUNGS: Lungs clear to auscultation, Good diaphragmatic excursion CARDIAC: Normal S1 and S2; no rubs, murmurs, or gallops ABDOMEN: Abdomen soft, non-tender, BS normal EXTREMITIES: Extremities normal, No deformities, edema, clubbing or skin discoloration. Good capillary refill., No ulcers NEURO: Negative PULSES: 2+ radial, 2+ dorsalis pedis DATA: Diagnostic tests reviewed for today's visit: Most recent labs and imaging results. Most recent EKG VTE Prophylaxis: Lovenox 40mg Sub Q Daily Disposition: TBD Plan of care discussed with: Provider, RN, Patient SIGNATURE: Tammie Espitia CNP DATE: July 07, 2021 TIME: 12:39 PM [facility] 07-07-2021 Note HNO ID: [id number] Author: Herrera Alatorre MD Service: General Internal Medicine Author Type: Physician Type: Progress Notes Filed: 07/07/2021 11:36 AM Note Text: INTERNAL MEDICINE PROGRESS NOTE Name: Sulma Pringle SERVICE DATE: July 07, 2021 ASSESSMENT AND PLAN Active Problems: Pneumonia due to COVID-19 virus POA: Yes Assessment AND Plan: decadron and remdesivir. Hypotension, IV saline. SUBJECTIVE INTERVAL HPI: no c/o. OBJECTIVE PHYSICAL EXAM: Blood pressure (!) 80/49, pulse (!) 55, temperature 36.8 ?C (98.2 ?F), temperature source Oral, resp. rate 18, height 154.9 cm (5' 1 ), weight 68.4 kg (150 lb 11.2 oz), last menstrual period 08/05/2013, SpO2 94 %., Body mass index is 28.47 kg/m?. GENERAL: Cooperative, pleasant, in no acute distress. SKIN: Skin color, texture, turgor normal. No rashes or lesions. NECK: no jugulovenous distention, supple. No lymphadenopathy. LUNGS: Lungs clear to auscultation. Good diaphragmatic excursion. CARDIAC: normal S1 and S2; no rubs, murmurs, or gallops ABDOMEN: Abdomen soft, non-tender. BS normal. No masses or organomegaly. EXTREMITIES: No deformities, edema, clubbing or skin discoloration. NEURO: Alert, oriented to person, place, and time. No focal weakness. PULSES: 2+ radial 2+ carotid MEDICATION: Current Facility-Administered Medications Medication Dose Route Frequency - enoxaparin 40 mg injection (LOVENOX) 40 mg SUBCUTANEOUS q 24 HR - NaCl 0.9% iv flush bag 20 mL INTRAVENOUS PRN - sodium chloride 0.9 % (flush) 3-5 mL (BD POSIFLUSH) 3-5 mL INTRAVENOUS q 12 H - ondansetron 4 mg tab(s) (ZOFRAN) 4 mg ORAL q 6 H PRN Or - ondansetron (PF) 4 mg injection (ZOFRAN) 4 mg INTRAVENOUS q 6 H PRN - docusate sodium 100 mg cap(s) (COLACE) 100 mg ORAL BID PRN - acetaminophen 650 mg tab(s) (TYLENOL) 650 mg ORAL q 6 H PRN - melatonin 3 mg tab(s) 3 mg ORAL HS PRN - guaiFENesin 600 mg ER tab(s) (MUCINEX) 600 mg ORAL q 12 H PRN - albuterol HFA 90 mcg/actuation 2 Puff (PROVENTIL HFA, VENTOLIN HFA) 2 Puff INHALATION q 4 H PRN - remdesivir 100 mg in NaCl 0.9% 250 mL Vial-Mate/ADD-Philippi 100 mg INTRAVENOUS q 24 HR - dexAMETHasone (DECADRON) tab(s) 6 mg 6 mg ORAL DAILY Or - dexAMETHasone sodium phosphate (PF) 6 mg injection (DECADRON) 6 mg INTRAVENOUS DAILY - thyroid 45 mg tab(s) 45 mg ORAL DAILY (7 AM) - benzonatate 100 mg cap(s) (TESSALON PERLE) 100 mg ORAL TID - HYDROcodone-homatropine 5-1.5 mg/5 mL (5 mL) 5 mL (HYDROMET) 5 mL ORAL HS PRN DATA: Disposition: Home URINE OUTPUT: No intake or output data in the 24 hours ending 07/07/21 8505 SIGNATURE: Herrera Alatorre MD DATE: July 07, 2021 [facility] 07-06-2021 Note HNO ID: [id number] Author: Jean Marie Pantoja MD Service: Pulmonary Disease Author Type: Physician Type: Progress Notes Filed: 07/06/2021 5:27 PM Note Text: Pulmonary / Critical Care Progress Note Patient Name: Sulma Pringle Assessment/Plan: ? Acute respiratory failure Covid pneumonia Abnormal hilar/mediastinal structure could be dilated azygos vein versus adenopathy versus mass Continue to titrate oxygen down, later on could try on nasal cannula and titrate oxygen Continue remdesivir, Decadron Continue DVT prophylaxis Okay to regular medical floor Interval History Respiratory status is stable and she is better and has intermittent dry cough. She is on high flow oxygen 40% Objective: BP 95/46 Pulse 62 Temp (Src) 97.7 (Oral) Resp 23 Ht 5' 1 (1.55m) Wt 135 lb 5.8 oz (61.4kg) SpO2 92% LMP 08/05/2013 BMI 25.59 kg/(m2). O2 Therapy: Room Air, Liters: 3, %FIO2: 40 Pertinent positive findings reported other system reviews were negative Physical Exam: General appearance: Alert comfortable No distress Lungs: Clear to auscultation Heart: RRR No M/G Abdomen: Abdomen soft, non-tender. Bowel sounds normal. Extremities: No e/c/c Medications: Current Facility-Administered Medications Medication Dose Route Frequency - enoxaparin 40 mg injection (LOVENOX) 40 mg SUBCUTANEOUS q 24 HR - NaCl 0.9% iv flush bag 20 mL INTRAVENOUS PRN - sodium chloride 0.9 % (flush) 3-5 mL (BD POSIFLUSH) 3-5 mL INTRAVENOUS q 12 H - ondansetron 4 mg tab(s) (ZOFRAN) 4 mg ORAL q 6 H PRN Or - ondansetron (PF) 4 mg injection (ZOFRAN) 4 mg INTRAVENOUS q 6 H PRN - docusate sodium 100 mg cap(s) (COLACE) 100 mg ORAL BID PRN - acetaminophen 650 mg tab(s) (TYLENOL) 650 mg ORAL q 6 H PRN - melatonin 3 mg tab(s) 3 mg ORAL HS PRN - guaiFENesin 600 mg ER tab(s) (MUCINEX) 600 mg ORAL q 12 H PRN - albuterol HFA 90 mcg/actuation 2 Puff (PROVENTIL HFA, VENTOLIN HFA) 2 Puff INHALATION q 4 H PRN - benzonatate 100 mg cap(s) (TESSALON PERLE) 100 mg ORAL TID PRN - remdesivir 100 mg in NaCl 0.9% 250 mL Vial-Mate/ADD-Philippi 100 mg INTRAVENOUS q 24 HR - dexAMETHasone (DECADRON) tab(s) 6 mg 6 mg ORAL DAILY Or - dexAMETHasone sodium phosphate (PF) 6 mg injection (DECADRON) 6 mg INTRAVENOUS DAILY - thyroid 45 mg tab(s) 45 mg ORAL DAILY (7 AM) Labs: Hemoglobin (g/dL) Date Value 07/06/2021 13.3 Hematocrit (%) Date Value 07/06/2021 40.6 WBC (k/uL) Date Value 07/06/2021 8.95 Platelet Count (k/uL) Date Value 07/06/2021 323 Glucose (mg/dL) Date Value 07/06/2021 92 Potassium (mmol/L) Date Value 07/06/2021 Unable to assay. Specimen hemolyzed. Sodium (mmol/L) Date Value 07/06/2021 140 Chloride (mmol/L) Date Value 07/06/2021 106 CO2 (mmol/L) Date Value 07/06/2021 23 Creatinine (mg/dL) Date Value 07/06/2021 0.61 BUN (mg/dL) Date Value 07/06/2021 14 Anion Gap (mmol/L) Date Value 07/06/2021 11 Calcium (mg/dL) Date Value 07/06/2021 8.4 . Most recent labs / imaging / data from ancillary staff and consultants were reviewed ACTIVE PROBLEM LIST Pneumonia Due to Covid-19 Virus Jean Marie Pantoja MD. Pager # [phone] [facility] 07-06-2021 Note HNO ID: [id number] Author: Hrerera Alatorre MD Service: General Internal Medicine Author Type: Physician Type: Progress Notes Filed: 07/06/2021 8:09 PM Note Text: INTERNAL MEDICINE PROGRESS NOTE Name: Sulma Pringle SERVICE DATE: July 06, 2021 ASSESSMENT AND PLAN Active Problems: Pneumonia due to COVID-19 virus POA: Yes Assessment AND Plan: decadron and remdesivir. Resolved Problems: * No resolved hospital problems. * SUBJECTIVE INTERVAL HPI: C/o malaise, fatigue and dry cough. OBJECTIVE PHYSICAL EXAM: Blood pressure 97/57, pulse 89, temperature 36.5 ?C (97.7 ?F), temperature source Oral, resp. rate 23, height 154.9 cm (5' 1 ), weight 61.4 kg (135 lb 5.8 oz), last menstrual period 08/05/2013, SpO2 97 %., Body mass index is 25.58 kg/m?. GENERAL: Cooperative, pleasant, in no acute distress. SKIN: Skin color, texture, turgor normal. No rashes or lesions. NECK: no jugulovenous distention, supple. No lymphadenopathy. LUNGS: Lungs clear to auscultation. Good diaphragmatic excursion. CARDIAC: normal S1 and S2; no rubs, murmurs, or gallops ABDOMEN: Abdomen soft, non-tender. BS normal. No masses or organomegaly. EXTREMITIES: No deformities, edema, clubbing or skin discoloration. NEURO: Alert, oriented to person, place, and time. No focal weakness. PULSES: 2+ radial 2+ carotid MEDICATION: Current Facility-Administered Medications Medication Dose Route Frequency - enoxaparin 40 mg injection (LOVENOX) 40 mg SUBCUTANEOUS q 24 HR - NaCl 0.9% iv flush bag 20 mL INTRAVENOUS PRN - sodium chloride 0.9 % (flush) 3-5 mL (BD POSIFLUSH) 3-5 mL INTRAVENOUS q 12 H - ondansetron 4 mg tab(s) (ZOFRAN) 4 mg ORAL q 6 H PRN Or - ondansetron (PF) 4 mg injection (ZOFRAN) 4 mg INTRAVENOUS q 6 H PRN - docusate sodium 100 mg cap(s) (COLACE) 100 mg ORAL BID PRN - acetaminophen 650 mg tab(s) (TYLENOL) 650 mg ORAL q 6 H PRN - melatonin 3 mg tab(s) 3 mg ORAL HS PRN - guaiFENesin 600 mg ER tab(s) (MUCINEX) 600 mg ORAL q 12 H PRN - albuterol HFA 90 mcg/actuation 2 Puff (PROVENTIL HFA, VENTOLIN HFA) 2 Puff INHALATION q 4 H PRN - benzonatate 100 mg cap(s) (TESSALON PERLE) 100 mg ORAL TID PRN - remdesivir 100 mg in NaCl 0.9% 250 mL Vial-Mate/ADD-Philippi 100 mg INTRAVENOUS q 24 HR - dexAMETHasone (DECADRON) tab(s) 6 mg 6 mg ORAL DAILY Or - dexAMETHasone sodium phosphate (PF) 6 mg injection (DECADRON) 6 mg INTRAVENOUS DAILY - thyroid 45 mg tab(s) 45 mg ORAL DAILY (7 AM) DATA: Disposition: Home URINE OUTPUT: Intake/Output Summary (Last 24 hours) at 07/06/2021 1400 Last data filed at 07/06/2021 0900 Gross per 24 hour Intake 490 ml Output 1110 ml Net -620 ml SIGNATURE: Herrera Alatorre MD DATE: July 06, 2021 [facility] 07-06-2021 Note HNO ID: [id number] Author: Katie Robles APRN.CNP Service: Critical Care Author Type: Nurse Practitioner Type: Progress Notes Filed: 07/06/2021 11:28 AM Note Text: SERVICE DATE: 07/06/2021 SERVICE TIME: 11:27 AM MICU PROGRESS NOTE Admission Date: 07/03/2021 Hospital Day # 2 SUBJECTIVE Interval Events: Breathing improved, no pain. Tolerating 50L 40% HFNC, transfer to [facility] today OBJECTIVE Vital Signs (last filed) Range in last 24h Temp: 36.5 ?C (97.7 ?F) (07/06/21 1200) Temp Min: 36.5 ?C (97.7 ?F) Max: 36.9 ?C (98.4 ?F) Pulse: 86 (07/06/21 1100) Pulse Min: 44 Max: 86 Resp: 21 (07/06/21 1100) Resp Min: 9 Max: 25 BP: 97/57 (07/06/21 1000) BP Min: 78/49 Max: 105/55 MAP Non Invasive (Mean Arterial Pressure): 70 (07/06/21 1000) MAP Non Invasive (Mean Arterial Pressure) Min: 52 Max: 76 No data recorded SpO2: 94 % (07/06/21 1100) SpO2 Min: 87 % Max: 98 % Pain Level: 0 (07/06/21 0800) Fluid Balance: Intake/Output Summary (Last 24 hours) at 07/06/2021 0659 Last data filed at 07/05/20211999 Gross per 24 hour Intake 730 ml Output 1550 ml Net -820 ml Last Weight: 61.4 kg (135 lb 5.8 oz) (07/05/211999) Admit Weight: 61.2 kg (135 lb) (07/03/21323) DIET REGULAR Lines, Drains, and Airways Line Peripheral 07/03/21 0631 Left Forearm 22 Gauge 3 days Peripheral 07/05/21 1131 Right Hand 22 Gauge <1 day Vent/Oxygen: Supplemental Oxygen: Yes. FiO2 40 %FIO2 Min: 40 Max: 45 Physical Examination Performed Oral Mucosa: Moist mucous membranes Eyes: PERRLA Neck: Unremarkable; No adenopathy or JVD Cardiovascular: Regular rhythm Respiratory: Reduced breath sounds bilat Abdomen: Soft, Nontender and Positive bowel sounds Extremities: Edema- No Peripheral Pulses- Present all extremities Capillary Refill- less than 3 seconds Skin: Abnormalities- No Breakdown- No Neurologic: Awake, oriented, Alert, Follows commands and Moving all extremities Infusion Medications Diagnostic tests reviewed today: Most recent labs and imaging results. ICU Checklist Last Documented/Reviewed time: 07/06/2021 9:46 AM A= Assess, Prevent, Manage Pain Pain adequately controlled?: Yes C= Choice of Sedation and Analgesia RASS at Goal?: Yes B= Both Spontaneous Awakening and Breathing Trials Ventilator: None D= Delirium: Assess, Prevent and Manage ICU Delirium Status: CAM Negative - no action required Sleep adequate?: Yes Restraint Status: None E= Early Mobility/Excercise ICU Mobility: ICU Mobility-Pt Has Been Out of Bed: Yes F= Family Engagement and Empowerment ICU plan of care visit at bedside in last 24 hours: Yes, Provider, RN, Patient/ designee ICU Disposition: ICU Disposition- Is Patient Clinically Ready to Transfer to [facility] or SDU?: Yes, transfer to SDU or [facility] today Discharge Planning: To be determined Prevention: Line Status: None [place] Status: None Pressure Injury Status: None GI/Stress Ulcer Prophylaxis: None - not required Nutrition is at Goal: Yes VTE Prophylaxis: Chemoprophylaxis: Low Molecular Wt Heparin Mechanical Prophylaxis: Knee high SCD Indication for MICU Admission: Hypoxia, HFNC initiation, COVID19 Significant PMH/PSH: - Hypothyroid - Asthma Hospital Course: This is a 56yoF who was admitted to [facility] on 07/03 from [place] ED. She presented to ED with complaints of malaise, chills, nausea, dry cough, diarrhea. She was known to be COVID +, approximated 06/25 (symptoms began 06/24). 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 CXR with interstitial prominence in left perihilar region. CT Chest shows this to be an abnormal structure though to be a ?dilated azygos vein, mass, thrombus, or adenopathy. CT chest also significant for bilateral GGO and negative for PE. She was transferred to [facility] on 2L NC and initiated on decadron and remdesivir with ID and CTS consult. On 07/05 she became increasingly hypoxic, requiring 6L NC ->VM then transferred to MICU for HFNC initiation on 07/05. BP borderline with MAPs 60-70. Significant New Events Past 24 hrs: Initiated on HFNC yesterday, tolerating 50L 40%. Stable to m/o to [facility] with HFNC, accepted by Dr Estrada with Dr Pantoja on consult A/P of Major Active Problems: #COVID 19 PNA Unclear initiation of disease, believes +PCR on 06/25 #Acute hypoxic respiratory failure 2/2 COVID 19 #Abnormal ?Mass/thrombus of?Azygos-SVC junction CT Chest 07/02 - abnormal mediastinal structure, b/l GGO, no clear PE but poor study CRP 2.8 Plan: - Continue decadron (07/03-*), remdesivir (07/03-*) - ID consulted, appreciate recs - initiate HFNC, wean for SpO2>90% - trend COVID markers - lovenox prophylaxis - CTS consulted - enlarged azygos vein/SVC venous system without thrombus - No acute surgical intervention needed - MRI Chest/Abd to elucidate etiology of dilation @ CC (more content not included)... [facility] 07-06-2021 Note HNO ID: [id number] Author: QUYNH Rios Service: Care Management Author Type: Public Policy Associate Type: Care Mgt Progress Note Filed: 07/06/2021 9:33 AM Note Text: CARE MANAGEMENT PROGRESS NOTE SERVICE DATE: 07/06/2021 SERVICE TIME: 9:30 AM LOS: 2 days Needs Prior to Discharge: To Be Determined Patient remains on hi-flow 50/40. Per bed huddle, transfer out of ICU is anticipated today pending bed availability. CM continuing to follow and assist with D/C planning. SIGNATURE: QUYNH Rios PATIENT NAME: Sulma Pringle DATE: July 06, 2021 TIME: 9:32 AM PAGER/CONTACT #: [phone] [facility] 07-05-2021 Note HNO ID: [id number] Author: Jean Marie Pantoja MD Service: Pulmonary Disease Author Type: Physician Type: Progress Notes Filed: 07/05/2021 6:12 PM Note Text: Pulmonary / Critical Care PATIENT NAME: Sulma Fanbraulio Primary Care Physician: Rashad Ortez MD Chief Complaint / Reason for evaluation: Acute respiratory failure, Covid pneumonia HPI: This is a 56 year old female with past medical history significant for asthma, hypothyroidism. She was transferred to [facility] from [place] ED on July 03. She presented to the hospital with worsening shortness of breath, cough generalized fatigue and fever started around June 25. CT chest showed no pulmonary embolism and abnormal structure in the right hilum could be dilated azygos vein versus adenopathy versus mass. She was admitted to the medical floor she had increased oxygen requirement this morning and transferred to the intensive care unit. She is currently comfortable on high flow oxygen 45% FiO2. Past Medical History: PAST MEDICAL HISTORY Diagnosis Date - Asthma - Hypothyroidism Past Surgical History: PAST SURGICAL HISTORY Procedure Laterality Date - CATARACT EXTRACTION HX Bilateral 2016 - COLONOSCOP W/ OR W/O BRSH SPEC 09/14/2013 Colonoscopy - PAST SURGICAL HISTORY OF 1998 right foot surgery - PAST SURGICAL HISTORY OF 1994 lumpectomy left breast Family History: FAMILY HISTORY Problem Relation Age of Onset - Diabetes Mother - COPD Mother - Heart disease Mother - Cancer Father skin AND prostate - Parkinson?s Disease Father - Diabetes Brother borderline - Diabetes Paternal Grandmother Social History: Social History Tobacco Use - Smoking status: Never Smoker - Smokeless tobacco: Never Used Vaping Use - Vaping Use: Never used Substance Use Topics - Alcohol use: Yes Comment: once a month - Drug use: No Medications: albuterol HFA (PROVENTIL HFA, VENTOLIN HFA) 90 mcg/actuation inhaler, Inhale 2 Puffs as instructed as needed., Disp: , Rfl: ondansetron orally disintegrating (ZOFRAN ODT) 4 mg disintegrating tablet, Take 1 tablet by mouth every 8 hours as needed for nausea/vomiting for up to 5 days., Disp: 15 tablet, Rfl: 0 thyroid, pork, (ARMOUR THYROID) 60 mg tab, Take 45 mg by mouth once daily. , Disp: , Rfl: Current Facility-Administered Medications Medication Dose Route Frequency - enoxaparin 40 mg injection (LOVENOX) 40 mg SUBCUTANEOUS q 24 HR - NaCl 0.9% iv flush bag 20 mL INTRAVENOUS PRN - sodium chloride 0.9 % (flush) 3-5 mL (BD POSIFLUSH) 3-5 mL INTRAVENOUS q 12 H - ondansetron 4 mg tab(s) (ZOFRAN) 4 mg ORAL q 6 H PRN Or - ondansetron (PF) 4 mg injection (ZOFRAN) 4 mg INTRAVENOUS q 6 H PRN - docusate sodium 100 mg cap(s) (COLACE) 100 mg ORAL BID PRN - acetaminophen 650 mg tab(s) (TYLENOL) 650 mg ORAL q 6 H PRN - melatonin 3 mg tab(s) 3 mg ORAL HS PRN - guaiFENesin 600 mg ER tab(s) (MUCINEX) 600 mg ORAL q 12 H PRN - albuterol HFA 90 mcg/actuation 2 Puff (PROVENTIL HFA, VENTOLIN HFA) 2 Puff INHALATION q 4 H PRN - benzonatate 100 mg cap(s) (TESSALON PERLE) 100 mg ORAL TID PRN - remdesivir 100 mg in NaCl 0.9% 250 mL Vial-Mate/ADD-Philippi 100 mg INTRAVENOUS q 24 HR Allergies: ALLERGIES Allergen Reactions - Bactrim [Sulfametho* Rash, Itching - Latex Rash Review of Systems: All other reviewed and negative other than HPI. Vitals: Patient Vitals for the past 24 hrs: BP Temp Temp src Pulse Resp SpO2 07/05/21 1544 ? ? ? (!) 53 10 97 % 07/05/21 1400 91/51 ? ? 61 11 95 % 07/05/21 1300 105/55 ? ? (!) 53 15 97 % 07/05/21 1200 86/50 ? ? (!) 58 9 97 % 07/05/21 1145 ? ? ? (!) 59 16 97 % 07/05/21 1130 (!) 80/47 ? ? (!) 55 17 98 % 07/05/21 1115 ? ? ? (!) 55 8 97 % 07/05/21 1100 89/60 ? ? (!) 54 15 97 % 07/05/21 1045 90/54 ? ? (!) 57 11 96 % 07/05/21 1030 (!) 89/48 ? ? (!) 52 7 99 % 07/05/21 1015 91/59 ? ? (!) 57 17 99 % 07/05/21 1000 85/60 ? ? (!) 54 19 97 % 07/05/21 0945 (!) 78/50 ? ? (!) 57 17 93 % 07/05/21 0930 89/52 37.4 ?C (99.3 ?F) Axillary ? ? 95 % 07/05/21 0847 ? 93 % 07/05/21 0840 ? 88 % 07/05/21 0820 (!) 81/46 36.6 ?C (97.9 ?F) Oral (!) 57 21 92 % 07/05/21 0600 ? 93 % 07/05/21 0432 ? 92 % 07/04/212011 100/62 36.8 ?C (98.3 ?F) Oral (!) 50 20 96 % Body mass index is 25.51 kg/m?. Physical Exam: General appearance: Alert comfortable No distress Head Non traumatic, normal external ears Eyes: Clear sclera, normal eye movements Oropharynx: Clear mucosa Neck: Supple, no adenopathy; Lungs: Clear to auscultation Heart: RR No M/G Abdomen: Abdomen soft, non-tender. Bowel sounds normal. Extremities: No e/c/c Neuro: #1 acute respiratory failure oriented Non focal Labs: Glucose (mg/dL) Date Value 07/05/2021 89 Potassium (mmol/L) Date Value 07/05/2021 3.8 Sodium (mmol/L) Date Value 07/05/2021 140 Chloride (mmol/L) Date Value 07/05/2021 105 CO2 (mmol/L) (more content not included)... [facility] 07-05-2021 Note HNO ID: [id number] Author: QUYNH Rios Service: Care Management Author Type: Public Policy Associate Type: Care Mgt Progress Note Filed: 07/05/2021 1:02 PM Note Text: CARE MANAGEMENT PROGRESS NOTE SERVICE DATE: 07/05/2021 SERVICE TIME: 1:00 PM LOS: 1 day Needs Prior to Discharge: To Be Determined Patient transferred to ICU for hi-flow O2. Plan TBD. CM continuing to follow and assist. SIGNATURE: QUYNH Rios PATIENT NAME: Sulma Pringle DATE: July 05, 2021 TIME: 1:01 PM PAGER/CONTACT #: [phone] [facility] 07-04-2021 Note HNO ID: [id number] Author: Johnathon Elizalde APRN.CNP Service: General Internal Medicine Author Type: Nurse Practitioner Type: Progress Notes Filed: 07/04/2021 1:53 PM Note Text: INTERNAL MEDICINE PROGRESS NOTE SERVICE DATE: 07/04/2021 SERVICE TIME: 1500 ADMITTING PHYSICIAN: Herrera Alatorre MD Subjective CHIEF COMPLAINT: Weakness, cough, SOB, DODSON Current Facility-Administered Medications Medication Dose Route Frequency - enoxaparin 40 mg injection (LOVENOX) 40 mg SUBCUTANEOUS q 24 HR - NaCl 0.9% iv flush bag 20 mL INTRAVENOUS PRN - sodium chloride 0.9 % (flush) 3-5 mL (BD POSIFLUSH) 3-5 mL INTRAVENOUS q 12 H - ondansetron 4 mg tab(s) (ZOFRAN) 4 mg ORAL q 6 H PRN Or - ondansetron (PF) 4 mg injection (ZOFRAN) 4 mg INTRAVENOUS q 6 H PRN - docusate sodium 100 mg cap(s) (COLACE) 100 mg ORAL BID PRN - acetaminophen 650 mg tab(s) (TYLENOL) 650 mg ORAL q 6 H PRN - melatonin 3 mg tab(s) 3 mg ORAL HS PRN - guaiFENesin 600 mg ER tab(s) (MUCINEX) 600 mg ORAL q 12 H PRN - albuterol HFA 90 mcg/actuation 2 Puff (PROVENTIL HFA, VENTOLIN HFA) 2 Puff INHALATION q 4 H PRN - benzonatate 100 mg cap(s) (TESSALON PERLE) 100 mg ORAL TID PRN - dexAMETHasone sodium phosphate (PF) 6 mg injection (DECADRON) 6 mg INTRAVENOUS DAILY - remdesivir 100 mg in NaCl 0.9% 250 mL Vial-Mate/ADD-Philippi 100 mg INTRAVENOUS q 24 HR INTERVAL HISTORY OF PRESENT ILLNESS: Course/HPI: Admitted on 07/03was transferred here from [place] emergency room where she had presented for the second time with general malaise, chills nausea dry cough and diarrhea. Patient is unsure of when she exactly tested + believes it may have been one week ago. 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 One dose of decadron was started in the ED at [place] CXR and CT was obtained at [facility]. Imaging shows abnormal structure along there right side of the mediastinum just lateral to the inferior aspect of the trachea , for which we have now consulted CTS. 07/04: Patient chart reviewed and patient was seen examined and interviewed. No acute events overnight. States she feels about the same, has some mild shortness of breath at rest and shortness of breath and dyspnea on exertion. No chest pain. Has a dry cough. Cough is provoked by taking deep breaths. No fevers, no chills. No abdominal pain. No vomiting, nausea, diarrhea. Currently on remdesivir day #2 and dexamethasone day #2. Currently on 2 L O2 per nasal cannula SPO2 is 96% Objective PHYSICAL EXAM: Patient Vitals for the past 24 hrs: BP Temp Temp src Pulse Resp SpO2 07/04/21 1100 ? 96 % 07/04/21 0655 99/52 36.9 ?C (98.5 ?F) Oral 81 17 97 % 07/03/21 2024 100/57 36.8 ?C (98.3 ?F) Oral 64 16 94 % 07/03/21 1515 111/55 36.9 ?C (98.5 ?F) Oral 62 17 96 % Body mass index is 25.51 kg/m?. GENERAL: Alert, no distress, cooperative SKIN: Skin color, texture, turgor normal. No rashes or lesions. OROPHARYNX: Lips, mucosa, and tongue are normal.Teeth and gums, normal. Oropharynx normal. NECK: No jugulovenous distention, Supple LUNGS: Lungs clear to auscultation. Good diaphragmatic excursion. CARDIAC: Normal S1 and S2; no rubs, murmurs, or gallops ABDOMEN: Normal abdominal exam and Soft, nontender EXTREMITIES: Normal exam of the extremities NEURO: Alert, oriented X 3 PULSES: 2+ radial, 2+ carotid DATA: Diagnostic tests reviewed for today's visit: Most recent labs and imaging results. Assessment/Plan Active Problems: Pneumonia due to COVID-19 virus POA: Yes Acute hypoxic respiratory failure due to above -Continue remdesivir day #2, dexamethasone, day #2 -Infectious diseases following -Maintain SPO2 above 90%, currently on 2 L O2 per nasal cannula SPO2 is 96% -Supportive care -Lovenox for DVT proph Abnormal CT finding. ?Mass/thrombus of Azygos-SVC junction - Seen by CTS and per their recommendations, after having discussed with Radiology who is of the opinion that imaging demonstrates an enlarged azygos vein/SVC venous system without thrombusis that imaging - No acute surgical intervention needed - MRI Chest/Abd to elucidate etiology of dilation. However, this MRI is unable to be performed at [place] and will need to be done at [facility], presumably as outpatient. Patient counseled on plan of care Plan of care discussed with: Provider, RN, Patient. Total unit/floor time dedicated to this specific patient: 25 minutes. Greater than 50% of total time was spent in counseling and/or coordination of care and as detailed above. Resolved Problems: * No resolved hospital problems. * Medication and Non-Pharmacologic VTE Prophylaxis/Anticoagulants Anticoagulant AND Antiplatelet Medications (From admission, onward) Start Dose Route Frequency Last Action Ordered Stop 07/03/21 0330 enoxaparin 40 mg injection (LOVENOX) (RXTEST_VTEMEDRISK) 40 mg SUBCUTANEOUS EVERY 24 HOURS Given, 07/04 0353 (more content not included)... 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 Last discharge within 30 days: No Advance Directive: Current Advance Directive: None Computer Tech Attempted to Assist with AD Completion: Yes Action: Education Provided Health LiteracyHow often do you need to have someone help you when you read instructions, pamphlets, or other written material from your doctor or pharmacy? : 1 - Never How confident are you filling out medical forms by yourself?: 1 - Extremely If Patient scores > 3 on either question, the following interventions were put into place:: Patient did not score > 3 on either question. 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) Primary Contact: Extended Emergency Contact Information Primary Emergency Contact: Wally Pringle Address: [address] [place] [address] Mobile Relation: Spouse Supportive Patient Contact:: Yes Contact Resources: Family Family Name/Phone: Wally Merchant (spouse) [phone] Caregiver AssessmentCaregiver is ready, willing and able to meet the patient's needs as recommended by the inter-professional team:: No Caregiver needed Does the patient have an acute stroke diagnosis, or has the patient had a stroke during this admission?: No Patient's transition needs and plan for meeting these needs: Home, possibolRespiratory DME Patient's perception of need for this admission: COVID 19 + Medication Adherance I am convinced of the importance of my prescription medication: 0 - Agree Completely I worry that my prescription medication will do more harm than good to me : 0 - Disagree Completely I feel financially burdened by my mad-mt-acfcam expenses for my prescription medication:: 0 - Disagree Completely Risk Score: 0 Patient is categorized as: Low risk < 2 Are you interested in bedside delivery of your medications? No prefers [facility] Is Patient Psychosocially Complex?: No ASSESSMENT AND PLAN: Medical Needs: Medical Needs: Respiratory Insufficiency RT needs: Oxygen Psychosocial Needs: Psychosocial Needs: None FREEDOM OF CHOICE EXPLAINED: [place] of Choice Given: No Reason Not Given: No placements necessary POTENTIAL TRANSITION PLANS Respiratory;To Be Determined COVID 19+. CM assessment completed with pt telephonically after explanation of my role in her care. Imaging shows concern for developing COVID PNA. Also, abnormal finding on CT chest with concern for thrombus vs mass. ID consulted> on NC 2L, remdesivir until 07/05 and decadron with no listed stop date. CTS was consulted for abnormal CT finding. Pt has not been tested. She lives with her spouse in a ranch style home with 1 flight of steps to the basement. She maneuvers the steps without difficulty. Her spouse has not been vaccinated but is not ill at this time. She is IPTA. She drives. 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 She is not active with C, has no DME in the home and uses no assistive devices to assist with ambulation. She manages her prescription medications and is compliant. Anticipate no skilled needs at [place] but may eed home O2 arranged at [place]. She is agreeable to referral to [facility] if O2 is needed and is aware that CM will follow her case and assist as needed. She will have transportation home at [place]. Addendum 12:51 [facility] unable to provide O2 serviecs at [place], out of their service area. Referral placed to [facility] Patient for review. SIGNATURE: Maria Luz Ortez RN PATIENT NAME: Sulma Pringle DATE: (more content not included)... [facility] 07-04-2021 Note HNO ID: [id number] Author: Herrera Alatorre MD Service: General Internal Medicine Author Type: Physician Type: Progress Notes Filed: 07/06/2021 8:09 PM Note Text: INTERNAL MEDICINE PROGRESS NOTE Name: Sulma Pringle SERVICE DATE: July 04, 2021 ASSESSMENT AND PLAN Active Problems: Pneumonia due to COVID-19 virus POA: Yes Assessment AND Plan: decadron and remdesivir. Resolved Problems: * No resolved hospital problems. * SUBJECTIVE INTERVAL HPI: C/o malaise, fatigue and dry cough. OBJECTIVE PHYSICAL EXAM: Blood pressure 99/52, pulse 81, temperature 36.9 ?C (98.5 ?F), temperature source Oral, resp. rate 17, height 154.9 cm (5' 1 ), weight 61.2 kg (135 lb), last menstrual period 08/05/2013, SpO2 97 %., Body mass index is 25.51 kg/m?. GENERAL: Cooperative, pleasant, in no acute distress. SKIN: Skin color, texture, turgor normal. No rashes or lesions. NECK: no jugulovenous distention, supple. No lymphadenopathy. LUNGS: Lungs clear to auscultation. Good diaphragmatic excursion. CARDIAC: normal S1 and S2; no rubs, murmurs, or gallops ABDOMEN: Abdomen soft, non-tender. BS normal. No masses or organomegaly. EXTREMITIES: No deformities, edema, clubbing or skin discoloration. NEURO: Alert, oriented to person, place, and time. No focal weakness. PULSES: 2+ radial 2+ carotid MEDICATION: Current Facility-Administered Medications Medication Dose Route Frequency - enoxaparin 40 mg injection (LOVENOX) 40 mg SUBCUTANEOUS q 24 HR - NaCl 0.9% iv flush bag 20 mL INTRAVENOUS PRN - sodium chloride 0.9 % (flush) 3-5 mL (BD POSIFLUSH) 3-5 mL INTRAVENOUS q 12 H - ondansetron 4 mg tab(s) (ZOFRAN) 4 mg ORAL q 6 H PRN Or - ondansetron (PF) 4 mg injection (ZOFRAN) 4 mg INTRAVENOUS q 6 H PRN - docusate sodium 100 mg cap(s) (COLACE) 100 mg ORAL BID PRN - acetaminophen 650 mg tab(s) (TYLENOL) 650 mg ORAL q 6 H PRN - melatonin 3 mg tab(s) 3 mg ORAL HS PRN - guaiFENesin 600 mg ER tab(s) (MUCINEX) 600 mg ORAL q 12 H PRN - albuterol HFA 90 mcg/actuation 2 Puff (PROVENTIL HFA, VENTOLIN HFA) 2 Puff INHALATION q 4 H PRN - benzonatate 100 mg cap(s) (TESSALON PERLE) 100 mg ORAL TID PRN - dexAMETHasone sodium phosphate (PF) 6 mg injection (DECADRON) 6 mg INTRAVENOUS DAILY - remdesivir 100 mg in NaCl 0.9% 250 mL Vial-Mate/ADD-[place] 100 mg INTRAVENOUS q 24 HR DATA: Disposition: Home URINE OUTPUT: Intake/Output Summary (Last 24 hours) at 07/04/2021 1053 Last data filed at 07/04/2021 0655 Gross per 24 hour Intake 120 ml Output 400 ml Net -280 ml SIGNATURE: Herrera Alatorre MD DATE: July 04, 2021 [facility] 07-03-2021 Note HNO ID: [id number] Author: Vaishali Swann APRN.UPPER TIER Service: General Internal Medicine Author Type: Nurse Practitioner Type: Progress Notes Filed: 07/03/2021 3:35 PM Note Text: PROGRESS NOTE - INTERNAL MEDICINE SERVICE DATE: 07/03/2021 SERVICE TIME: 12:49 PM ADMITTING PHYSICIAN: Herrera Alatorre MD SUBJECTIVE CHIEF COMPLAINT: Shortness of Breath Current Facility-Administered Medications Medication Dose Route Frequency - enoxaparin 40 mg injection (LOVENOX) 40 mg SUBCUTANEOUS q 24 HR - NaCl 0.9% iv flush bag 20 mL INTRAVENOUS PRN - sodium chloride 0.9 % (flush) 3-5 mL (BD POSIFLUSH) 3-5 mL INTRAVENOUS q 12 H - ondansetron 4 mg tab(s) (ZOFRAN) 4 mg ORAL q 6 H PRN Or - ondansetron (PF) 4 mg injection (ZOFRAN) 4 mg INTRAVENOUS q 6 H PRN - docusate sodium 100 mg cap(s) (COLACE) 100 mg ORAL BID PRN - acetaminophen 650 mg tab(s) (TYLENOL) 650 mg ORAL q 6 H PRN - melatonin 3 mg tab(s) 3 mg ORAL HS PRN - guaiFENesin 600 mg ER tab(s) (MUCINEX) 600 mg ORAL q 12 H PRN - albuterol HFA 90 mcg/actuation 2 Puff (PROVENTIL HFA, VENTOLIN HFA) 2 Puff INHALATION q 4 H PRN - benzonatate 100 mg cap(s) (TESSALON PERLE) 100 mg ORAL TID PRN - dexAMETHasone sodium phosphate (PF) 6 mg injection (DECADRON) 6 mg INTRAVENOUS DAILY - remdesivir 200 mg in NaCl 0.9% 250 mL 200 mg INTRAVENOUS ONCE INTERVAL HISTORY OF PRESENT ILLNESS: Admitted on 07/03wa transferred here from [place] emergency room where she had presented for the second time with general malaise, chills nausea dry cough and diarrhea. Patient is unsure of when she exactly tested + believes it may have been one week ago. 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 One dose of decadron was started in the ED at [place] CXR and CT was obtained at [place]. Imaging shows abnormal structure along there right side of the mediastinum just lateral to the inferior aspect of the trachea , for which we have now consulted CTS. She is dyspneic with any exertion. I will continue her decadron and have consulted ID. Plan to start RDV today . OBJECTIVE PHYSICAL EXAM: Patient Vitals for the past 24 hrs: BP Temp Temp src Pulse Resp SpO2 Height Weight 07/03/21 1159 100/64 36.8 ?C (98.2 ?F) Oral 64 14 95 % ? ? 07/03/21 1119 ? 94 % ? ? 07/03/21 0903 ? 95 % ? ? 07/03/21 0901 100/52 36.7 ?C (98 ?F) Oral 61 16 92 % ? ? 07/03/21 0400 118/66 37.1 ?C (98.8 ?F) Oral 61 16 96 % ? ? 07/03/21 0324 ? 154.9 cm (5' 1 ) 61.2 kg (135 lb) 07/03/21 0107 90/55 36.9 ?C (98.5 ?F) Oral 64 16 95 % ? ? Body mass index is 25.51 kg/m?. GENERAL: Alert, no distress, cooperative SKIN: Skin color, texture, turgor normal. No rashes or lesions. OROPHARYNX: Lips, mucosa, and tongue are normal.Teeth and gums, normal. Oropharynx normal. NECK: No jugulovenous distention, No carotid bruits, Carotid pulse normal contour, Supple LUNGS: Lungs clear to auscultation. Good diaphragmatic excursion. CARDIAC: Normal S1 and S2; no rubs, murmurs, or gallops ABDOMEN: Abdomen soft, non-tender, BS normal, No masses or organomegaly EXTREMETIES: No ulcers, Extremities normal, No deformities, edema, clubbing or skin discoloration. Good capillary refill. NEURO: Alert, oriented X 3, Gait normal. Non-focal. Reflexes normal and symmetric. Sensation grossly intact., Cranial nerves II-XII intact PULSES: 2+ radial, 2+ carotid DATA: Diagnostic tests reviewed for today's visit: Most recent labs and imaging results. CBC, Coags, BMP, Mg, Phos Recent Labs 07/03/2163207/02/21190506/30/21 1815 WBC 3.48* 5.29 4.32 HB 13.5 12.9 13.8 HCT 42.3 39.3 42.1 PLT 241 210 178 INR -- 1.0 -- NA 138 129* 132* K 4.1 3.8 4.3 CHLOR 106 97 98 CO2 20* 18* 20* BUN 11 10 14 CREAT 0.63* 0.70 0.75 GLUC 137* 132* 120* CA 8.5 8.1* 8.6 MG -- 1.7 -- CSF AND Dilantin Liver Function, Amylase, AND Lipase Recent Labs 07/03/2163207/02/21190506/30/21 1815 TPROT 6.2 6.0* 6.7 ALB 3.4* 3.3* 3.9 ALT 29 26 17 AST 62* 58* 43* ALKPHOS 55 49 58 TBILI 0.3 0.4 0.3 LIPASE -- 51 -- Cardiac Enzymes ABGs Lipids: No results found for: CHOL, HDL, LDL, TG No results found for: LVEF No results found for: HBA1C Assessment/Plan Active Problems: Pneumonia due to COVID-19 virus POA: Yes Assessment AND Plan: Symptoms began over week ago unsure if she first tested + on 06/25 was in [place] ER x2 this weekend c/o myalgia cough diarrhea presented on 07/02 with abd pain , nausea and pleuritic type chest pain she is unvaccinated In [place] was mildly hypotensive 94/57 afebrile labs showed mild hyponatremia 129 HsTNT neg , ddimer 720 CT chest GGO and concern for abnormality ? Mass versus thrombus in the azygous vein leading to the SVC ferritin 574.7 crp 6.0 procal 0.09 AST 62 currently on supplemental Ox started on Decadron in ED plan: start RDV continue Decadron follow labs (more content not included)... [facility] 07-03-2021 Note HNO ID: [id number] Author: Herrera Alatorre MD Service: General Internal Medicine Author Type: Physician Type: Progress Notes Filed: 07/03/2021 7:47 PM Note Text: INTERNAL MEDICINE PROGRESS NOTE Name: Sulma Pringle SERVICE DATE: July 03, 2021 ASSESSMENT AND PLAN Active Problems: Pneumonia due to COVID-19 virus POA: Yes Assessment AND Plan: decadron and remdesivir. Resolved Problems: * No resolved hospital problems. * SUBJECTIVE INTERVAL HPI: C/o malaise, fatigue and dry cough. OBJECTIVE PHYSICAL EXAM: Blood pressure 100/52, pulse 61, temperature 36.7 ?C (98 ?F), temperature source Oral, resp. rate 16, height 154.9 cm (5' 1 ), weight 61.2 kg (135 lb), last menstrual period 08/05/2013, SpO2 95 %., Body mass index is 25.51 kg/m?. GENERAL: Cooperative, pleasant, in no acute distress. SKIN: Skin color, texture, turgor normal. No rashes or lesions. NECK: no jugulovenous distention, supple. No lymphadenopathy. LUNGS: Lungs clear to auscultation. Good diaphragmatic excursion. CARDIAC: normal S1 and S2; no rubs, murmurs, or gallops ABDOMEN: Abdomen soft, non-tender. BS normal. No masses or organomegaly. EXTREMITIES: No deformities, edema, clubbing or skin discoloration. NEURO: Alert, oriented to person, place, and time. No focal weakness. PULSES: 2+ radial 2+ carotid MEDICATION: Current Facility-Administered Medications Medication Dose Route Frequency - enoxaparin 40 mg injection (LOVENOX) 40 mg SUBCUTANEOUS q 24 HR - NaCl 0.9% iv flush bag 20 mL INTRAVENOUS PRN - sodium chloride 0.9 % (flush) 3-5 mL (BD POSIFLUSH) 3-5 mL INTRAVENOUS q 12 H - ondansetron 4 mg tab(s) (ZOFRAN) 4 mg ORAL q 6 H PRN Or - ondansetron (PF) 4 mg injection (ZOFRAN) 4 mg INTRAVENOUS q 6 H PRN - docusate sodium 100 mg cap(s) (COLACE) 100 mg ORAL BID PRN - acetaminophen 650 mg tab(s) (TYLENOL) 650 mg ORAL q 6 H PRN - melatonin 3 mg tab(s) 3 mg ORAL HS PRN - guaiFENesin 600 mg ER tab(s) (MUCINEX) 600 mg ORAL q 12 H PRN - albuterol HFA 90 mcg/actuation 2 Puff (PROVENTIL HFA, VENTOLIN HFA) 2 Puff INHALATION q 4 H PRN - benzonatate 100 mg cap(s) (TESSALON PERLE) 100 mg ORAL TID PRN DATA: Disposition: Home URINE OUTPUT: No intake or output data in the 24 hours ending 07/03/21 1008 LABORATORY: CBC, Coags, BMP, Mg, Phos Recent Labs 07/03/21 0633 07/02/21 1906 06/30/21 1815 WBC 3.48* 5.29 4.32 HB 13.5 12.9 13.8 HCT 42.3 39.3 42.1 PLT 241 210 178 INR -- 1.0 -- NA 138 129* 132* K 4.1 3.8 4.3 CHLOR 106 97 98 CO2 20* 18* 20* BUN 11 10 14 CREAT 0.63* 0.70 0.75 GLUC 137* 132* 120* CA 8.5 8.1* 8.6 MG -- 1.7 -- No results found for: TSH Liver Function, Amylase, AND Lipase Recent Labs 07/03/21 0633 07/02/21 1906 06/30/21 1815 TPROT 6.2 6.0* 6.7 ALB 3.4* 3.3* 3.9 ALT 29 26 17 AST 62* 58* 43* ALKPHOS 55 49 58 TBILI 0.3 0.4 0.3 LIPASE -- 51 -- Cardiac Enzymes ABGs SIGNATURE: Herrera Alatorre MD DATE: July 03, 2021 [facility] Summary Purpose Family History No Family History Records FoundNo Family History Records FoundNo Family History Records Found Advance Directives No Advanced Directives Records FoundNo Advanced Directives Records FoundNo Advanced Directives Records Found Additional Source Comments INFORMATION SOURCE (unrecogn ized section and content) DATE CREATED AUTHOR AUTHOR'S ORGANIZ ATION 07/11/2021 [facility] DATE CREATED AUTHOR AUTHOR'S ORGANIZ ATION 07/19/2021 [facility] FOR RECORDS PERTAINING TO PATIENTS WHO ARE OR HAVE BEEN ENROLLED IN A CHEMICAL DEPENDENCY/SUBSTANCEABUSE PROGRAM, SOME INFORMATION MAY BE OMITTED. This clinical summary was aggregated from multiple sources. Caution should be exercised in using it in the provision of clinical care. This summary normalizes information from multiple sources, and as a consequence, information in this document may materially change the coding, format and clinical context of patient data. In addition, data may be omitted in some cases. CLINICAL DECISIONS SHOULD BE BASED ON THE PRIMARY CLINICAL RECORDS. [facility]. provides no warranty or guarantee of the accuracy or completeness of information in this document.
== END | disposition home or self-care (01) ==
LOC: CT 16:43
PROVIDERS: PCP Family Medicine; Referring Provider Family Medicine; Visit Provider Family Medicine
DX: R10.84 Generalized abdominal pain (principal)
CPT/HCPCS: 74177; Q9967

== ENCOUNTER → 2023-10-31 | Outpatient (CLI) | payer BC, SELFPAY ==
--- OUTSIDE RECORDS SUMMARY | 2023-10-31 07:07 | XMS RPT_ITS | CCD ---
Author Name Unknown Address [address] [place] [address] Organization [facility] Results Test Name Value Interpretation Reference Range Facil ity Clinical Notes 07-03-2021 to 07-09-2021 Note Date & Type Note Facility 07-09-2021 Note HNO ID: [id number] Author: Eliza Lim RN Service: Care Management Author Type: Registered Nurse Type: Care Mgt Progress Note Filed: 07/09/2021 2:52 PM Note Text: CARE MANAGEMENT PROGRESS NOTE SERVICE DATE: 07/09/2021 SERVICE TIME: 1450 LOS: 5 days spoke with Violeta from [facility] [phone], she states that she left it at the nurses station. this CM went back to the [facility] and checked for this O2. informed Brit that there was no tank and that i just sent the script on sat 07/08/21. Brit states that they will send a new one out but she doesn't know what time. RN aware SIGNATURE: Eliza Lim RN PATIENT NAME: Sulma Chowdary DATE: July 09, 2021 TIME: 2:50 PM PAGER/CONTACT #: [phone] [facility] 07-09-2021 Note HNO ID: [id number] Author: Eliza Lim RN Service: Care Management Author Type: Registered Nurse Type: Care Mgt Progress Note Filed: 07/09/2021 2:37 PM Note Text: CARE MANAGEMENT PROGRESS NOTE SERVICE DATE: 07/09/2021 SERVICE TIME: 1430 LOS: 5 days called MICU and they state that they have no portable tank for this pt. [facility] message this CM and wanted my number. awaiting return phone call SIGNATURE: Eliza Lim RN PATIENT NAME: Sulma Epi Pringle DATE: July 09, 2021 TIME: 2:36 PM PAGER/CONTACT #: [phone] [facility] 07-09-2021 Note HNO ID: [id number] Author: Margo Donaldson MD Service: Pulmonary Disease [...] meaning may be extrapolated by contextual derivation. [facility] 07-09-2021 Note HNO ID: [id number] Author: Eliza Lim RN Service: Care Management [...] 09, 2021 TIME: 2:11 PM PAGER/CONTACT #: [phone] [facility] 07-09-2021 Note HNO ID: [id number] Author: Eliza Lim RN Service: Care Management Author Type: Registered Nurse Type: Care Mgt Progress Note Filed: 07/09/2021 1:47 PM Note Text: CARE MANAGEMENT PROGRESS NOTE SERVICE DATE: 07/09/2021 SERVICE TIME: 1345 LOS: 5 days called pt pharmacy to [facility]. the [facility] is [phone], gave pt a card for eliques a free 30 day supply. also asked pt if she received her O2, she states no. [facility] states that they delivered an O2 tank last week. working with [facility] to fugure out where the O2 tank is SIGNATURE: Eliza Lim RN PATIENT NAME: Sulma Pringle DATE: July 09, 2021 TIME: 1:44 PM PAGER/CONTACT #: [phone] [facility] 07-09-2021 Note HNO ID: [id number] Author: Eliza Lim RN Service: Care Management Author Type: Registered Nurse Type: Care Mgt Progress Note Filed: 07/09/2021 1:12 PM Note Text: CARE MANAGEMENT PROGRESS NOTE SERVICE DATE: 07/09/2021 SERVICE TIME: 1310 LOS: 5 days script sent to [facility] on 07/08/21 for home O2. per notes pt CT of the chest showed bilateral PEs. CM to f/u SIGNATURE: Eliza Lim RN PATIENT NAME: Sulma Chowdary [place] DATE: July 09, 2021 TIME: 1:11 PM PAGER/CONTACT #: [phone] [facility] 07-09-2021 Note HNO ID: [id number] Author: Herrera Alatorre MD Service: General Internal Medicine Author Type: Physician Type: Progress Notes Filed: 07/09/2021 11:28 AM Note Text: INTERNAL MEDICINE PROGRESS NOTE Name: [facility] SERVICE DATE: July 09, 2021 ASSESSMENT AND [...] Herrera Alatorre MD DATE: July 09, 2021 [facility] 07-09-2021 Note HNO ID: [id number] Author: Elis Ann PA-C Service: General Internal Medicine Author Type: Physician Volumetric Weigher Type: Plan of Care Filed: 07/09/2021 5:02 [...] Ann PA-C July 09, 2021 5:02 AM [facility] 07-08-2021 Note HNO ID: [id number] Author: Margo Donaldson MD Service: Pulmonary Disease [...] meaning may be extrapolated by contextual derivation. [facility] 07-08-2021 Note HNO ID: [id number] Author: Herrera Alatorre MD Service: General Internal [...] Herrera Alatorre MD DATE: July 08, 2021 [facility] 07-07-2021 Note HNO ID: [id number] Author: Herrera Alatorre MD Service: General Internal [...] Herrera Alatorre MD DATE: July 07, 2021 [facility] 07-07-2021 Note HNO ID: [id number] Author: Tammie Espitia APRN.CNP Service: General Internal Medicine Author Type: Nurse Practitioner Type: Progress Notes Filed: 07/07/2021 12:58 PM Note Text: DEPARTMENT OF INTERNAL MEDICINE PROGRESS NOTE Name: Sulma Pringle SERVICE DATE: 07/07/2021 SERVICE TIME: 12:39 PM Primary Attending: Tammie Espitia APRN.CUTTER GRIND TOOL TECHNICIAN ASSESSMENT AND PLAN This is a 56 year old female with PMH mild intermittent asthma, hypothyroidism who was transferred from [facility] ED on 07/03 to [facility] after presenting for a second encounter [...] decadron was started in the ED at [facility]. CXR and CT were obtained prior to transfer to [facility]; Imaging findings significant for abnormal structure along there right side of the mediastinum just lateral to the inferior aspect of the trachea. ID and CTS were consulted upon arrival. She was started on RDV 07/03 in addition to decadron. After review of imaging by CTS and [facility] radiology it was their opinion that imaging demonstrates enlarged azygos vein/SVC venous system without thrombus. No surgical intervention was recommended. It has been advised for the patient to follow up for MRI Chest/Abd at [facility] to elucidate etiology of dilatation. The patient was transferred to ICU on 07/05/21 due to worsening oxygen requirements for HFNC. Her oxygen requirements improved and she was weaned to NC and transferred to [facility] on 07/06. Active Problems: Pneumonia due to [...] DATE: July 07, 2021 TIME: 12:39 PM [facility] 07-07-2021 Note HNO ID: [id number] Author: Herrera Alatorre MD Service: General Internal [...] 100 mg in NaCl 0.9% 250 mL Vial-Mate/ADD-Newalla 100 mg INTRAVENOUS q 24 HR - [...] data in the 24 hours ending 07/07/21 7435 SIGNATURE: Herrera Alatorre MD DATE: July 07, 2021 [facility] 07-06-2021 Note HNO ID: [id number] Author: Jean Marie Pantoja MD Service: Pulmonary [...] 100 mg in NaCl 0.9% 250 mL Vial-Mate/ADD-Newalla 100 mg INTRAVENOUS q 24 HR - [...] Virus Jean Marie Pantoja MD. Pager # [phone] [facility] 07-06-2021 Note HNO ID: [id number] Author: Herrera Alatorre MD Service: General Internal [...] 100 mg in NaCl 0.9% 250 mL Vial-Mate/ADD-Newalla 100 mg INTRAVENOUS q 24 HR - [...] Herrera Alatorre MD DATE: July 06, 2021 [facility] 07-06-2021 Note HNO ID: [id number] Author: Katie Robles APRN.CNP Service: Critical Care Author Type: Nurse Practitioner Type: Progress Notes Filed: 07/06/2021 11:28 AM Note Text: SERVICE DATE: 07/06/2021 SERVICE TIME: 11:27 AM MICU PROGRESS NOTE Admission Date: 07/03/2021 Hospital Day # 2 SUBJECTIVE Interval Events: Breathing improved, no pain. Tolerating 50L 40% HFNC, transfer to [facility] today OBJECTIVE Vital Signs (last filed) Range [...] Is Patient Clinically Ready to Transfer to [facility] or SDU?: Yes, transfer to SDU or [facility] today Discharge Planning: To be determined Prevention: [...] is a 56yoF who was admitted to [facility] on 07/03 from [facility] ED. She presented to ED with complaints [...] negative for PE. She was transferred to [facility] on 2L NC and initiated on decadron and remdesivir with ID and CTS consult. On 07/05 she became increasingly hypoxic, requiring 6L NC ->VM then transferred to MICU for HFNC initiation on 07/05. BP borderline with MAPs 60-70. Significant New Events Past 24 hrs: Initiated on HFNC yesterday, tolerating 50L 40%. Stable to m/o to [facility] with HFNC, accepted by Dr Estrada with [...] dilation @ [facility] (more content not included)... [facility] 07-06-2021 Note HNO ID: [id number] Author: QUYNH Rios Service: Care Management Author Type: Dairy Husbandry Worker Type: Care Mgt Progress Note Filed: 07/06/2021 [...] 06, 2021 TIME: 9:32 AM PAGER/CONTACT #: [phone] [facility] 07-05-2021 Note HNO ID: [id number] Author: Jean Marie Pantoja MD Service: Pulmonary [...] for asthma, hypothyroidism. She was transferred to [facility] from [facility] ED on July 03. She presented to [...] 100 mg in NaCl 0.9% 250 mL Vial-Mate/ADD-Newalla 100 mg INTRAVENOUS q 24 HR Allergies: [...] 105 CO2 (mmol/L) (more content not included)... [facility] 07-05-2021 Note HNO ID: [id number] Author: QUYNH Rios Service: Care Management Author Type: Dairy Husbandry Worker Type: Care Mgt Progress Note Filed: 07/05/2021 1:02 PM Note Text: CARE MANAGEMENT PROGRESS NOTE SERVICE DATE: 07/05/2021 SERVICE TIME: 1:00 PM LOS: 1 day Needs Prior to Discharge: To Be Determined Patient transferred to ICU for hi-flow O2. Plan TBD. CM continuing to follow and assist. SIGNATURE: QUYNH Rios PATIENT NAME: Sulma Pringle DATE: July 05, 2021 TIME: 1:01 PM PAGER/CONTACT #: [phone] [facility] 07-04-2021 Note HNO ID: [id number] Author: Johnathon Elizalde APRN.CNP Service: General Internal Medicine Author Type: Nurse Practitioner Type: Progress Notes Filed: 07/04/2021 1:53 PM Note Text: INTERNAL MEDICINE PROGRESS NOTE SERVICE DATE: 07/04/2021 SERVICE TIME: 1500 ADMITTING PHYSICIAN: Herrera Alatorre MD Subjective CHIEF COMPLAINT: Weakness, cough, SOB, DODSNO Current Facility-Administered Medications Medication Dose Route Frequency [...] 100 mg in NaCl 0.9% 250 mL Vial-Mate/ADD-Newalla 100 mg INTRAVENOUS q 24 HR INTERVAL HISTORY OF PRESENT ILLNESS: Course/HPI: Admitted on 07/03was transferred here from [facility] emergency room where she had presented for [...] decadron was started in the ED at [facility] CXR and CT was obtained [facility]. Imaging shows abnormal structure along there right [...] MRI is unable to be performed at [facility] and will need to be done at [facility], presumably as outpatient. Patient counseled on plan [...] Given, 07/04 0353 (more content not included)... [facility] 07-04-2021 Note HNO ID: [id number] Author: Maria Luz Ortez RN Service: Care Management Author Type: Registered Nurse Type: Care Mgt Initial Assessment Filed: 07/04/2021 1:01 PM Note Text: CARE MANAGEMENT: ASSESSMENT AND DISCHARGE PLAN SERVICE DATE: July 04, 2021 SERVICE TIME: 11:03 AM PRIMARY CARE PHYSICIAN: Rashad Ortez MD (confirmed with pt) ADMISSION STATUS: Inpatient Needs Prior to Discharge: To Be Determined;Discharge Prescriptions;Oxygen Set-up MEDICAL: BLUE ACCESS PPO Patient/Child Neurologist Stated Goals: To have reduction in symptoms;To return home to life as it was;To be cured/healed Health Insurance: [employer] Issues Impacting Discharge Plan: Newly diagnosed;Chronic Newly Diagnosed: COVID 19 + Last Discharge Date: 07/03/21 Is this Within the Past 30 days? 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 No prefers [facility] Is Patient Psychosocially Complex?: No ASSESSMENT AND PLAN: Medical Needs: Medical Needs: Respiratory Insufficiency RT needs: Oxygen Psychosocial Needs: Psychosocial Needs: None FREEDOM OF CHOICE EXPLAINED: [place] of Choice Given: No Reason Not Given: [...] She drives. 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 She is not active with [facility], has no DME in the home and uses no assistive devices to assist with ambulation. She manages her prescription medications and is compliant. Anticipate no skilled needs at [place] but may eed home O2 arranged at [place]. She is agreeable to referral to [facility] if O2 is needed and is aware that CM will follow her case and assist as needed. She will have transportation home at [place]. Addendum 12:51 [facility] unable to provide [facility] serviecs at [place], out of their service area. Referral placed to [facility] Patient for review. SIGNATURE: Maria Luz Ortez RN PATIENT NAME: Sulma Pringle DATE: (more content not included)... [facility] 07-04-2021 Note HNO ID: [id number] Author: Herrera Alatorre MD Service: General Internal [...] 100 mg in NaCl 0.9% 250 mL Vial-Mate/ADD-Newalla 100 mg INTRAVENOUS q 24 HR DATA: Disposition: Home URINE OUTPUT: Intake/Output Summary (Last 24 hours) at 07/04/2021 1053 Last data filed at 07/04/2021 0655 Gross per 24 hour Intake 120 ml Output 400 ml Net -280 ml SIGNATURE: Herrera Alatorre MD DATE: July 04, 2021 [facility] 07-03-2021 Note HNO ID: [id number] Author: Vaishali Swann APRN.CUTTER GRIND TOOL TECHNICIAN Service: General Internal Medicine Author Type: Nurse [...] ILLNESS: Admitted on 07/03wa transferred here from [facility] emergency room where she had presented for [...] decadron was started in the ED at [facility] CXR and CT was obtained at [facility]. Imaging shows abnormal structure along there right [...] first tested + on 06/25 was in [facility] ER x2 this weekend c/o myalgia cough diarrhea presented on 07/02 with abd pain , nausea and pleuritic type chest pain she is unvaccinated [place] [facility] was mildly hypotensive 94/57 afebrile labs showed mild hyponatremia 129 HsTNT neg , ddimer 720 CT chest GGO and concern for abnormality ? Mass versus thrombus in the azygous vein leading to the SVC ferritin 574.7 crp 6.0 procal 0.09 AST 62 currently on supplemental Ox started on Decadron in ED plan: start RDV continue Decadron follow labs (more content not included)... [facility] 07-03-2021 Note HNO ID: [id number] Author: Herrera Alatorre MD Service: General Internal [...] Herrera Alatorre MD DATE: July 03, 2021 [facility] Summary Purpose Family History No Family History Records FoundNo Family History Records FoundNo Family History Records Found Advance Directives No Advanced Directives Records FoundNo Advanced Directives Records FoundNo Advanced Directives Records Found Additional Source Comments INFORMATION SOURCE (unrecogn ized section and content) DATE CREATED AUTHOR AUTHOR'S ORGANIZ ATION 07/11/2021 [facility] DATE CREATED AUTHOR AUTHOR'S ORGANIZ ATION 07/19/2021 [facility] FOR RECORDS PERTAINING TO PATIENTS WHO [...] BE BASED ON THE PRIMARY CLINICAL RECORDS. [employer] [facility]. provides no warranty or guarantee of the accuracy or completeness of information in this document.
[2023-10-31 10:22] LABS: Absolute Neutrophil Count 4.4 X10^3/uL (2.0-7.7); Basophil# 0.08 X10^3/uL; Basophil% 1.3 % (0-1); Eosinophil# 0.13 X10^3/uL; Erythrocyte Sedimentation Rate 23 mm/hr (0-30); Hematocrit 46.7 % (37-47); Hemoglobin 14.4 g/dL (12.0-15.0); Lymphocyte % 20.4 % (19-41); Mean Corp Hgb Conc 30.8 g/dL (32-36); Mean Corpuscular Hgb 28.5 pg (27.0-32.0); Mean Corpuscular Volume 92.5 fL (81-99); Mean Platelet Vol. 10.6 fl (6.2-12.0); Monocyte# 0.42 X10^3/uL; Monocyte% 6.6 % (0-10); NRBC Flagged by Analyzer 0 % (0-5); Neutrophil # 4.44 X10^3/uL (2.7-7.7); Neutrophil % 69.5 % (47-70); Platelet Count 313 K/mm3 (150-450); RBC Distribution Width CV 14.6 % (11.6-14.6); RBC Distribution Width SD 49.2 fl (35.1-43.9); Red Blood Count 5.05 M/mm3 (4.2-5.4); White Blood Count 6.4 K/mm3 (4.4-11.0)
[2023-10-31 11:00] LABS: ALB/GLOB Ratio 0.9 RATIO (0.9-2.4); AST(SGOT) 23 U/L (15-37); Alanine Aminotransfer ALT/SGPT 24 U/L (13-56); Albumin, Serum 3.5 g/dL (3.2-5.0); Alkaline Phosphatase 91 U/L (45-117); Anion Gap 6 (5-15); BUN 21 mg/dL (7-18); BUN/Creat Ratio 26.5 RATIO (10-20); CRP < 2.90 mg/L (0.0-3.0); Calcium,Total 9.6 mg/dL (8.5-10.1); Chloride 106 mmol/L (98-107); Creatinine, Serum 0.79 mg/dL (0.55-1.02); EST Glomerular Filtration Rate 78 mL/min (>60); Est Glom Filt Rate - Afr Amer 95 mL/min (>60); Globulin 3.8 g/dL (2.2-4.2); Glucose 80 mg/dL (74-106); Potassium 3.9 mmol/L (3.5-5.1); Protein, Total 7.3 g/dL (6.4-8.2); Sodium Level 139 mmol/L (136-145)
[2023-11-01 07:08] LABS: Toxoplasma Gondii IgG < 3.0 IU/mL (0.0-7.1); Toxoplasma Gondii IgM < 3.0 AU/mL (0.0-7.9)
== END | disposition home or self-care (01) ==
LOC: MTLAB 07:02
PROVIDERS: PCP Family Medicine; Referring Provider Family Medicine; Visit Provider Family Medicine
DX: K52.9 Noninfective gastroenteritis and colitis, unspecified (principal)
CPT/HCPCS: 36415; 80053; 85025; 85652; 86140; 86777; 86778

== ENCOUNTER → 2024-01-06 | Outpatient (CLI) | payer BC, SELFPAY ==
[2024-01-06 17:53] LABS: CRP < 2.90 mg/L (0.0-3.0)
[2024-01-08 15:08] LABS: Endomysial Antibody IgA Negative (Negative); Immunoglobulin A 176 mg/dL (87-352); t-Transglutaminase IgA <2 U/mL (0-3)
== END | disposition home or self-care (01) ==
LOC: MTLAB 15:37
PROVIDERS: PCP Family Medicine; Referring Provider Internal Medicine Gastroenterology; Visit Provider Internal Medicine Gastroenterology
DX: R10.9 Unspecified abdominal pain (principal)
CPT/HCPCS: 36415; 82784; 83516; 86140; 86255

== ENCOUNTER → 2024-01-29 | Outpatient (CLI) | payer BC, SELFPAY ==
--- NOTE | 2024-01-29 08:15 | RAD_ITS ---
PROCEDURE: SMALL BOWEL SERIES DATE OF EXAMINATION: January 29, 2024.. INDICATION: Female, 58 years old. Abdominal pain and bloating. PHYSICIAN: Peter Miranda M.D. TECHNIQUE: Radiographic and fluoroscopic images were taken of the small intestine following the ingestion of barium. COMPARISON: None. FINDINGS: A preliminary supine KUB was obtained. There is an unremarkable bowel gas pattern. Fecal material is present throughout the colon. Phleboliths are present within the pelvis. The lung bases are unremarkable. The osseous structures are normal. The patient orally ingested approximately 12 ounces of thin barium Normal visualized fundus, body, and antrum of the stomach. Normal duodenal bulb, C-loop, and proximal jejunum. Normal visualized mucosal folds of the jejunum and ileum. There are no demonstrated dilatations, strictures, or masses of the small intestine. There is no mass displacement of the loops of small intestine. There is a normal motor pattern with barium reaching the colon within approximately 30 minutes. Spot films under fluoroscopic observation demonstrated a normal terminal ileum and ileocecal valve. RAD/Small Bowel Series Only IMPRESSION: Normal small bowel series. Electronically Signed: Peter Miranda MD at 14:22 EDT ,
== END | disposition home or self-care (01) ==
LOC: RAD 07:55
PROVIDERS: PCP Family Medicine; Referring Provider Internal Medicine Gastroenterology; Visit Provider Internal Medicine Gastroenterology
DX: R10.9 Unspecified abdominal pain (principal)
CPT/HCPCS: 74250

== ENCOUNTER → 2024-06-01 | Outpatient (CLI) | payer BC, SELFPAY ==
[2024-06-01 08:57] LABS: Absolute Lymphocyte Count 1.27 X10^3/uL (0.83-4.51); Absolute Neutrophil Count 6.1 X10^3/uL (2.0-7.7); Basophil# 0.09 X10^3/uL; Basophil% 1.1 % (0-1); Eosinophil# 0.17 X10^3/uL; Eosinophils% 2.1 % (0-5); Hematocrit 42.5 % (37-47); Hemoglobin 13.2 g/dL (12.0-15.0); Lymphocyte # 1.27 X10^3/ul (0.83-4.51); Lymphocyte % 15.7 % (19-41); Mean Corp Hgb Conc 31.1 g/dL (32-36); Mean Corpuscular Hgb 28.4 pg (27.0-32.0); Mean Corpuscular Volume 91.6 fL (81-99); Monocyte# 0.46 X10^3/uL; Monocyte% 5.7 % (0-10); NRBC Flagged by Analyzer 0 % (0-5); Neutrophil # 6.05 X10^3/uL (2.7-7.7); Platelet Count 281 K/mm3 (150-450); RBC Distribution Width CV 14.7 % (11.6-14.6); RBC Distribution Width SD 49.3 fl (35.1-43.9); Red Blood Count 4.64 M/mm3 (4.2-5.4); White Blood Count 8.1 K/mm3 (4.4-11.0)
[2024-06-01 11:04] LABS: PTHIN 30.8 pg/mL (18.4-80.1)
[2024-06-01 12:07] LABS: ALB/GLOB Ratio 1.1 RATIO (0.9-2.4); AST(SGOT) 24 U/L (15-37); Alanine Aminotransfer ALT/SGPT 19 U/L (13-56); Albumin, Serum 3.5 g/dL (3.2-5.0); Alkaline Phosphatase 78 U/L (45-117); Anion Gap 4 (5-15); BUN 20 mg/dL (7-18); BUN/Creat Ratio 29.2 RATIO (10-20); Chloride 108 mmol/L (98-107); Cholesterol 220 mg/dL (200); Creatinine, Serum 0.68 mg/dL (0.55-1.02); EST Glomerular Filtration Rate 93 mL/min (>60); Est Glom Filt Rate - Afr Amer 112 mL/min (>60); Estradiol < 11.0 pg/mL; Free T3 2.1 pg/mL (2.18-3.98); Globulin 3.3 g/dL (2.2-4.2); Glucose 88 mg/dL (74-106); High Density Lipoprotein 67 mg/dL; Potassium 3.9 mmol/L (3.5-5.1); Protein, Total 6.8 g/dL (6.4-8.2); Sodium Level 140 mmol/L (136-145); T4 Free Direct 0.76 ng/dL (0.76-1.46); Thyroid Stim Hormone (TSH) 4.26 uIU/mL (0.358-3.74); Triglycerides 82 mg/dL; Very Low Density Lipoprotein 16 mg/dL (5-40)
== END | disposition home or self-care (01) ==
PROVIDERS: PCP Family Medicine; Referring Provider Family Medicine; Visit Provider Family Medicine
DX: E03.9 Hypothyroidism, unspecified (principal); J45.909 Unspecified asthma, uncomplicated; Z13.220 Encounter for screening for lipoid disorders
CPT/HCPCS: 36415; 80053; 80061; 82670; 83970; 84439; 84443; 84481; 85025

== ENCOUNTER → 2024-08-04 | Outpatient (CLI) | payer BC, SELFPAY ==
[2024-08-04 11:17] LABS: Free T3 5.8 pg/mL (2.18-3.98); T4 Free Direct 1.03 ng/dL (0.76-1.46); Thyroid Stim Hormone (TSH) 0.565 uIU/mL (0.358-3.740)
== END | disposition home or self-care (01) ==
LOC: MTLAB 07:31
PROVIDERS: PCP Family Medicine; Referring Provider Family Medicine; Visit Provider Family Medicine
DX: E03.9 Hypothyroidism, unspecified (principal)
CPT/HCPCS: 36415; 84439; 84443; 84481

== ENCOUNTER → 2025-06-30 | Outpatient (CLI) | payer OTHER, SELFPAY ==
[2025-06-30 12:57] LABS: Hematocrit 43.2 % (37-47); Hemoglobin 13.8 g/dL (12.0-15.0); Immature Granulocytes Count 0.020 X10^3/uL (0.0-0.0); Mean Corp Hgb Conc 31.9 g/dL (32-36); Mean Corpuscular Volume 90.2 fL (81-99); Mean Platelet Vol. 10.8 fl (6.2-12.0); NRBC Flagged by Analyzer 0 % (0-5); Platelet Count 293 K/mm3 (150-450); RBC Distribution Width CV 14.6 % (11.6-14.6); RBC Distribution Width SD 49.1 fl (35.1-43.9); Red Blood Count 4.79 M/mm3 (4.2-5.4); White Blood Count 5.7 K/mm3 (4.4-11.0)
[2025-06-30 13:20] LABS: AST(SGOT) 20 U/L (<=31); Alanine Aminotransfer ALT/SGPT 12 U/L (<=34); Albumin, Serum 4.4 g/dL (3.4-4.8); Alkaline Phosphatase 87 U/L (35-104); Anion Gap 12 (5-15); BUN 19 mg/dL (4-19); BUN/Creat Ratio 24.5 RATIO (10-20); Calcium,Total 9.8 mg/dL (7.6-11.0); Carbon Dioxide 22.7 mmol/L (21.0-32.0); Chloride 105 mmol/L (98-108); Cholesterol 251 mg/dL (<=200); Globulin 2.9 g/dL (2.2-4.2); Glucose 100 mg/dL (70-99); Low Density Lipoprotein Calc. 165 mg/dL; Potassium 4.3 mmol/L (3.3-5.1); Triglycerides 68 mg/dL; Very Low Density Lipoprotein 14 mg/dL (5-40); cholesterol:hdl ratio screen 3.47
[2025-06-30 14:00] LABS: Free T3 4.6 pg/mL (2.18-3.98)
[2025-07-01 04:07] LABS: PROGESTERONE 0.1 ng/mL (.)
[2025-07-02 09:08] LABS: HPV APTIMA, High Risk Negative (Negative)
== END | disposition home or self-care (01) ==
PROVIDERS: PCP Family Medicine; Referring Provider Family Medicine; Visit Provider Family Medicine
DX: Z12.4 Encounter for screening for malignant neoplasm of cervix (principal); N95.2 Postmenopausal atrophic vaginitis; E03.9 Hypothyroidism, unspecified; Z13.220 Encounter for screening for lipoid disorders; J45.909 Unspecified asthma, uncomplicated
CPT/HCPCS: 36415; 80053; 80061; 82670; 84144; 84403; 84439; 84443; 84481; 85025; 87624; 88175; G0145

== ENCOUNTER → 2025-07-16 | Outpatient (CLI) | payer OTHER, SELFPAY ==
--- NOTE | 2025-07-16 08:52 | US_ITS ---
EXAM: DIAG MAMM W/CAD, BILAT; BREAST LIMITED UNILATERAL; BILAT BRST KRISTINE STAND ALONE 07/16/2025 CLINICAL HISTORY: F, Age 60 y/o , INVERTED RIGHT NIPPLE; ABD MAMM; RT NIPPLE INVERSION TECHNIQUE: Procedure Code: BIDMWCADB; USBRSTLIMIT; BIBILATBRTOM Modality: MG; US Procedure: DIAG MAMM W/CAD, BILAT; BREAST LIMITED UNILATERAL; BILAT BRST KRISTINE STAND ALONE. COMPARISON: Prior exam(s) dated 04/15/2023, 11/30/2014. FINDINGS: MAMMOGRAM: TISSUE DENSITY: There are scattered areas of fibroglandular density. Bilateral Breast Mammographic Findings: The patient presents with right nipple inversion which the patient reports has not significantly changed over the past 2 years. On the present examination, there are no suspicious mammographic findings in the retroareolar right breast, to account for the patient's reported right nipple inversion. Otherwise, there are no suspicious findings in the right breast. No significant masses, calcifications or other abnormalities are identified in the left breast. ULTRASOUND: Ultrasound performed of the retroareolar right breast demonstrates no suspicious sonographic findings. US/Breast Limited Unilateral IMPRESSION: 1. There are no suspicious mammographic or sonographic findings to account for the patient's reported right nipple problem. Clinical management is recommended with physical examination. 2. There is no evidence of malignancy in either breast. OVERALL FINAL ASSESSMENT BI-RADS 1: NEGATIVE RECOMMENDATION: Routine annual follow-up in 1 Year Additional Recommendation none A letter with findings and recommendations will be mailed to the patient. Reading Location: [id number]
--- NOTE | 2025-07-16 08:56 | BI_ITS ---
EXAM: DIAG MAMM W/CAD, BILAT; BREAST LIMITED UNILATERAL; BILAT BRST KRISTINE STAND ALONE 07/16/2025 CLINICAL HISTORY: F, Age 60 y/o , INVERTED RIGHT NIPPLE; ABD MAMM; RT NIPPLE INVERSION TECHNIQUE: Procedure Code: [id number]; USBRSTLIMIT; BIBILATBRTOM Modality: MG; US Procedure: DIAG MAMM W/CAD, BILAT; BREAST LIMITED UNILATERAL; BILAT BRST KRISTINE STAND ALONE. COMPARISON: Prior exam(s) dated 04/15/2023, 11/30/2014. FINDINGS: MAMMOGRAM: TISSUE DENSITY: There are scattered areas of fibroglandular density. Bilateral Breast Mammographic Findings: The patient presents with right nipple inversion which the patient reports has not significantly changed over the past 2 years. On the present examination, there are no suspicious mammographic findings in the retroareolar right breast, to account for the patient's reported right nipple inversion. Otherwise, there are no suspicious findings in the right breast. No significant masses, calcifications or other abnormalities are identified in the left breast. ULTRASOUND: Ultrasound performed of the retroareolar right breast demonstrates no suspicious sonographic findings. BI/Bilat Brst Kristine Stand Alone IMPRESSION: 1. There are no suspicious mammographic or sonographic findings to account for the patient's reported right nipple problem. Clinical management is recommended with physical examination. 2. There is no evidence of malignancy in either breast. OVERALL FINAL ASSESSMENT BI-RADS 1: NEGATIVE RECOMMENDATION: Routine annual follow-up in 1 Year Additional Recommendation none A letter with findings and recommendations will be mailed to the patient. Reading Location: [id number]
--- NOTE | 2025-07-16 09:00 | BI_ITS ---
EXAM: DIAG MAMM W/CAD, BILAT; BREAST LIMITED UNILATERAL; BILAT BRST KRISTINE STAND ALONE 07/16/2025 CLINICAL HISTORY: F, Age 60 y/o , INVERTED RIGHT NIPPLE; ABD MAMM; RT NIPPLE INVERSION TECHNIQUE: Procedure Code: [id number]; USBRSTLIMIT; BIBILATBRTOM Modality: MG; US Procedure: DIAG MAMM W/CAD, BILAT; BREAST LIMITED UNILATERAL; BILAT BRST KRISTINE STAND ALONE. COMPARISON: Prior exam(s) dated 04/15/2023, 11/30/2014. FINDINGS: MAMMOGRAM: TISSUE DENSITY: There are scattered areas of fibroglandular density. Bilateral Breast Mammographic Findings: The patient presents with right nipple inversion which the patient reports has not significantly changed over the past 2 years. On the present examination, there are no suspicious mammographic findings in the retroareolar right breast, to account for the patient's reported right nipple inversion. Otherwise, there are no suspicious findings in the right breast. No significant masses, calcifications or other abnormalities are identified in the left breast. ULTRASOUND: Ultrasound performed of the retroareolar right breast demonstrates no suspicious sonographic findings. BI/DIAG MAMM W/CAD, BILAT IMPRESSION: 1. There are no suspicious mammographic or sonographic findings to account for the patient's reported right nipple problem. Clinical management is recommended with physical examination. 2. There is no evidence of malignancy in either breast. OVERALL FINAL ASSESSMENT BI-RADS 1: NEGATIVE RECOMMENDATION: Routine annual follow-up in 1 Year Additional Recommendation none A letter with findings and recommendations will be mailed to the patient. Reading Location: [id number]
== END | disposition home or self-care (01) ==
PROVIDERS: PCP Family Medicine; Referring Provider Family Medicine; Visit Provider Family Medicine
DX: N64.59 Other signs and symptoms in breast (principal); R92.8 Other abnormal and inconclusive findings on diagnostic imaging of breast
CPT/HCPCS: 76642; 77062; 77066; G0279

== ENCOUNTER → 2025-10-19 | Outpatient (CLI) | payer OTHER, SELFPAY ==
--- NOTE | 2025-10-19 14:59 | RAD_ITS ---
PROCEDURE: ABDOMEN SINGLE VIEW 10/19/2025 REASON FOR EXAM: BACK PAIN, PASSING KIDNEY STONES. TECHNIQUE: Procedure Code: RADABD Modality: DX Procedure: ABDOMEN SINGLE VIEW COMPARISON: World History Teacher for a small-bowel series of 01/29/2024 RAD/Abdomen Single View IMPRESSION: Calcified left small uterine fibroid again seen. Multiple pelvic phleboliths a gain noted. Degenerative changes of the spine appear stable. Mild symmetric sacroiliac joint degenerative changes are noted. The bowel-gas pattern is unremarkable. No mass or mass effect is seen. Although limited by overlying stool, no urinary tract calculus is clearly evide nt. Reading Location: [place] [id number]
--- OUTSIDE RECORDS SUMMARY | 2025-10-19 19:56 | XMS RPT_ITS | CCD ---
Author Organization [facility] CliniSyfl Care Team Providers Care Manager Machine Name Role Phone Pérez ANAYA, Dr. Solorzano Primary Care Physician Dr. Vanessa Ortez MD Attending Physician Dr. Vanessa Ortez MD Referring Provider Vanessa Ortez Attending Unavailable Vanessa Ortez Primary Care Unavailable Vanessa Ortez Referring Unavailable Vanessa Ortez Attending Unavailable Vanessa Ortez Primary Care Unavailable Vanessa Ortez Referring Unavailable Vanessa Ortez Referring Unavailable Vanessa Ortez Attending Unavailable Vanessa Ortez Primary Care Unavailable Vanessa Ortez Referring Unavailable Bj Guido Attending Unavailable Vanessa Ortez Primary Care Unavailable Allergies Allergy Classification Reported Allergen(s) Allergy Type Date of Onset Reaction(s) Facility (2 sources) Sulfamethoxazole Drug Allergy 5 [facility] (2 sources) Trimethoprim Drug Allergy 5 [facility] (1 source) Sulfamethoxazole Drug Allergy 5 [facility] (1 source) Trimethoprim Drug Allergy 5 [facility] Medications Current Medications Medication Drug Class(es) Dates Sig (Normalized) Sig (Original) [id number] 200 actuat albuterol 0.09 mg/actuat metered dose inhaler (2 sources) beta2-Adrenergic Agonist Start: 12-11-2024 estradiol 1 mg oral tablet (2 sources) Estrogen Start: 12-11-2024 take 1 tablet by mouth once daily ipratropium bromide 0.021 mg/actuat metered dose nasal spray (2 sources) Anticholinergic Start: 12-11-2024 meloxicam 15 mg oral tablet (2 sources) Nonsteroidal Anti-inflammatory Drug Start: 12-11-2024 take 1 mg by mouth once daily thyroid (mcc) 90 mg oral tablet (2 sources) Start: 12-11-2024 Completed/Discontinued Medications Medication Drug Class(es) Dates Sig (Normalized) Sig (Original) amoxicillin 875 mg / clavulanate 125 mg oral tablet (2 sources) Penicillin-class Antibacterial Start: 12-11-2024 End: 12-21-2024 Amoxicillin-Pot Clavulanate 875-125 mg tablet Discontinued 1 {tbl} PO Q12H 20 10 0 December 11, 2024 1:00am December 20, 2024 1:00am December 21, 2024 1:13am Acute sinusitis, unspecified Problems Active Problems Problem Classification Problem Date Documented Da te Episodic/Chronic Asthma (2 sources) Asthma; Translations: [Unspecified asthma, uncomplicated] 12-11-2024 Chronic Nonmalignant breast conditions (1 source) Other signs and symptoms in breast; Translations: [Other signs and symptoms in breast] Onset: 07-21-2025 Episodic Osteoarthritis (2 sources) Osteoarthritis; Translations: [Unspecified osteoarthritis, unspecified site] 12-11-2024 Chronic Other screening for suspected conditions (not mental disorders or infectious disease) (1 source) Encounter for screening for malignant neoplasm of cervix; Translations: [Encounter for screening for malignant neoplasm of cervix] Onset: 07-08-2025 Episodic Thyroid disorders (3 sources) Hypothyroidism; Translations: [Hypothyroidism, unspecified] Onset: 08-30-2024 12-11-2024 Chronic Past or Other Problems Problem Classification Problem Date Documented Da te Episodic/Chronic Other upper respiratory infections (5 sources) Acute sinusitis; Translations: [Acute sinusitis, unspecified] Onset: 12-11-2024 12-11-2024 Episodic Results Test Name Value Interpretation Reference Range Facility [facility] n 07-16-2025 Bilat [facility] Alone [facility] [address] [place] [address] Bil[facility] Alone MR#: [id number] Acct: [id number] Name: SULMA BHATIA Rep #: [id number] : 1965 F 60 From: Crystal Tiwari MD PCP: Dr. Vanessa Ortez MD Status: REG CLI Study: Bilat [facility]st [facility] Stand Alone Date of Exam: 06/22 04/14 Exam# [id number] Ordering Dr: Vanessa Ortez MD EXAM: DIAG MAMM W/CAD, BILAT; BREAST LIMITED UNILATERAL; BILAT BRST [facility] STAND ALONE 07/16/2025 CLINICAL HISTORY: F, Age 60 y/o , INVERTED RIGHT NIPPLE; ABD MAMM; RT NIPPLE INVERSION TECHNIQUE: Procedure Code: BIDMWCADB; USBRSTLIMIT; BIBILATBRTOM Modality: MG; US Procedure: DIAG MAMM W/CAD, BILAT; BREAST LIMITED UNILATERAL; BILAT BRST [facility] STAND ALONE. COMPARISON: Prior exam(s) dated 04/15/2023, 11/30/2014. FINDINGS: MAMMOGRAM: TISSUE DENSITY: There are scattered areas of fibroglandular density. Bilateral Breast Mammographic Findings: The patient presents with right nipple inversion which the patient reports has not significantly changed over the past 2 years. On the present examination, there are no suspicious mammographic findings in the retroareolar right breast, to account for the patient's reported right nipple inversion. Otherwise, there are no suspicious findings in the right breast. No significant masses, calcifications or other abnormalities are identified in the left breast. ULTRASOUND: Ultrasound performed of the retroareolar right breast demonstrates no suspicious sonographic findings. BI/Bilat [facility] Stand Alone IMPRESSION: 1. There are no suspicious mammographic or sonographic findings to account for the patient's reported right nipple problem. Clinical management is recommended with physical examination. 2. There is no evidence of malignancy in either breast. OVERALL FINAL ASSESSMENT BI-RADS 1: NEGATIVE RECOMMENDATION: Routine annual follow-up in 1 Year Additional Recommendation none A letter with findings and recommendations will be mailed to the patient. Reading Location: [id number] CC: Dr. Vanessa Ortez MD Computer Operations Technician: Signed Normal [facility] Breast Limited Unilateralon 07-16-2025 Breast Limited Unilateral [facility] [address] [place] [address] Breast Limited Unilateral MR#: [id number] Acct: [id number] Name: SULMA BHATIA Rep #: [id number] : 1965 F 60 From: Crystal Tiwari MD PCP: Dr. Vanessa Ortez MD Status: REG CLI Study: Breast Limited Unilateral Date of Exam: Exam# [id number] Ordering Dr: Vanessa Ortez MD EXAM: DIAG MAMM W/CAD, BILAT; BREAST LIMITED UNILATERAL; BILAT BRST [facility] STAND ALONE 07/16/2025 CLINICAL HISTORY: F, Age 60 y/o , INVERTED RIGHT NIPPLE; ABD MAMM; RT NIPPLE INVERSION TECHNIQUE: Procedure Code: BIDMWCADB; USBRSTLIMIT; BIBILATBRTOM Modality: MG; US Procedure: DIAG MAMM W/CAD, BILAT; BREAST LIMITED UNILATERAL; BILAT BRST [facility] STAND ALONE. COMPARISON: Prior exam(s) dated 04/15/2023, 11/30/2014. FINDINGS: MAMMOGRAM: TISSUE DENSITY: There are scattered areas of fibroglandular density. Bilateral Breast Mammographic Findings: The patient presents with right nipple inversion which the patient reports has not significantly changed over the past 2 years. On the present examination, there are no suspicious mammographic findings in the retroareolar right breast, to account for the patient's reported right nipple inversion. Otherwise, there are no suspicious findings in the right breast. No significant masses, calcifications or other abnormalities are identified in the left breast. ULTRASOUND: Ultrasound performed of the retroareolar right breast demonstrates no suspicious sonographic findings. US/Breast Limited Unilateral IMPRESSION: 1. There are no suspicious mammographic or sonographic findings to account for the patient's reported right nipple problem. Clinical management is recommended with physical examination. 2. There is no evidence of malignancy in either breast. OVERALL FINAL ASSESSMENT BI-RADS 1: NEGATIVE RECOMMENDATION: Routine annual follow-up in 1 Year Additional Recommendation none A letter with findings and recommendations will be mailed to the patient. Reading Location: [facility] CC: Dr. Vanessa Ortez MD Computer Operations Technician: Signed Normal [facility] Breast imaging reportOrdered By: Crystal Tiwari on 07-16-2025 Study report [facility] [address] [place] [address] DIAG MAMM W/CAD, BILAT MR#: [id number] Acct: [id number] Name: SULMA BHATIA Rep #: [id number] : 1965 F 60 From: Melinda Tiwari MD PCP: Dr. Vanessa Ortez MD Status: REG CLI Study:DIAG MAMM W/CAD, BILAT Date of Exam: 07/16/25 Exam# [id number] Ordering Dr: Dwaine Ortez MD EXAM: DIAG MAMM W/CAD, BILAT; BREAST LIMITED UNILATERAL; BILAT BRST [facility] STAND ALONE 07/16/2025 CLINICAL HISTORY: F, Age 60 y/o , INVERTED RIGHT NIPPLE; ABD MAMM; RT NIPPLE INVERSION TECHNIQUE: Procedure Code: BIDMWCADB; USBRSTLIMIT; BIBILATBRTOM Modality: MG; US Procedure:DIAG MAMM W/CAD, BILAT; BREAST LIMITED UNILATERAL; BILAT BRST [facility] STAND ALONE. COMPARISON: Prior exam(s) dated 04/15/2023, 11/30/2014. FINDINGS: MAMMOGRAM: TISSUE DENSITY: There are scattered areas of fibroglandular density. Bilateral Breast Mammographic Findings: The patient presents with right nipple inversion which the patient reports has not significantly changed over the past 2 years. On the present examination, there are no suspicious mammographic findings in theretroareolar right breast, to account for the patient's reported right nipple inversion. Otherwise, there are no suspicious findings in the right breast. No significant masses, calcifications or other abnormalities are identified in the left breast. ULTRASOUND: Ultrasound performed of the retroareolar right breast demonstrates no suspicioussonographic findings. BI/DIAG MAMM W/CAD, BILAT IMPRESSION: 1. There are no suspicious mammographic or sonographic findings to account for the patient's reported right nipple problem. Clinical management is recommended with physical examination. 2. There is no evidence of malignancy in either breast. OVERALL FINAL ASSESSMENT BI-RADS 1: NEGATIVE RECOMMENDATION: Routine annual follow-up in 1 Year Additional Recommendation none A letter with findings and recommendations will be mailed to the patient. Reading Location: [facility] CC: Dr. Vanessa Ortez MD ~ Computer Operations Technician: Signed [facility] Study report [facility] [address] [place], [place] [address] Bilat Brst [facility] Stand Alone MR#: [id number] Acct: [id number] Name: SULMA BHATIA Rep #: [id number] : 1965 F 60 From: Melinda Tiwari MD PCP: Dr. Vanessa Ortez MD Status: REG CLI Study:Bilat Brst [facility] Stand Alone Date of Exa m: 07/16/25 Exam# [id number] Ordering Dr: Dwaine Ortez MD EXAM: DIAG MAMM W/CAD, BILAT; BREAST LIMITED UNILATERAL; BILAT BRST [facility] STAND ALONE 07/16/2025 CLINICAL HISTORY: F, Age 60 y/o , INVERTED RIGHT NIPPLE; ABD MAMM; RT NIPPLE INVERSION TECHNIQUE: Procedure Code: BIDMWCADB; USBRSTLIMIT; BIBILATBRTOM Modality: MG; US Procedure:DIAG MAMM W/CAD, BILAT; BREAST LIMITED UNILATERAL; BILAT BRST [facility] STAND ALONE. COMPARISON: Prior exam(s) dated 04/15/2023, 11/30/2014. FINDINGS: MAMMOGRAM: TISSUE DENSITY: There are scattered areas of fibroglandular density. Bilateral Breast Mammographic Findings: The patient presents with right nipple inversion which the patient reports has not significantly changed over the past 2 years. On the present examination, there are no suspicious mammographic findings in theretroareolar right breast, to account for the patient's reported right nipple inversion. Otherwise, there are no suspicious findings in the right breast. No significant masses, calcifications or other abnormalities are identified in the left breast. ULTRASOUND: Ultrasound performed of the retroareolar right breast demonstrates no suspicioussonographic findings. BI/Bilat Brst [facility] Stand Alone IMPRESSION: 1. There are no suspicious mammographic or sonographic findings to account for the patient's reported right nipple problem. Clinical management is recommended with physical examination. 2. There is no evidence of malignancy in either breast. OVERALL FINAL ASSESSMENT BI-RADS 1: NEGATIVE RECOMMENDATION: Routine annual follow-up in 1 Year Additional Recommendation none A letter with findings and recommendations will be mailed to the patient. Reading Location: [facility] CC: Dr. Vanessa Ortez MD ~ Computer Operations Technician: Signed [facility] DIAG MAMM W/CAD, BILATon DIAG MAMM W/CAD, BILAT [facility] [address] [place], [place] [address] DIAG MAMM W/CAD, BILAT MR#: [id number] Acct: [id number] Name: SULMA BHATIA Rep #: [id number] : 1965 F 60 From: Crystal Tiwari MD PCP: Dr. Vanessa Ortez MD Status: REG CLI Study: DIAG MAMM W/CAD, BILAT Date of Exam: 07/16/25 Exam# [id number] Ordering Dr: Vanessa Ortez MD EXAM: DIAG MAMM W/CAD, BILAT; BREAST LIMITED UNILATERAL; BILAT BRST [facility] STAND ALONE 07/16/2025 CLINICAL HISTORY: F, Age 60 y/o , INVERTED RIGHT NIPPLE; ABD MAMM; RT NIPPLE INVERSION TECHNIQUE: Procedure Code: BIDMWCADB; USBRSTLIMIT; BIBILATBRTOM Modality: MG; US Procedure: DIAG MAMM W/CAD, BILAT; BREAST LIMITED UNILATERAL; BILAT BRST [facility] STAND ALONE. COMPARISON: Prior exam(s) dated 04/15/2023, 11/30/2014. FINDINGS: MAMMOGRAM: TISSUE DENSITY: There are scattered areas of fibroglandular density. Bilateral Breast Mammographic Findings: The patient presents with right nipple inversion which the patient reports has not significantly changed over the past 2 years. On the present examination, there are no suspicious mammographic findings in the retroareolar right breast, to account for the patient's reported right nipple inversion. Otherwise, there are no suspicious findings in the right breast. No significant masses, calcifications or other abnormalities are identified in the left breast. ULTRASOUND: Ultrasound performed of the retroareolar right breast demonstrates no suspicious sonographic findings. BI/DIAG MAMM W/CAD, BILAT IMPRESSION: 1. There are no suspicious mammographic or sonographic findings to account for the patient's reported right nipple problem. Clinical management is recommended with physical examination. 2. There is no evidence of malignancy in either breast. OVERALL FINAL ASSESSMENT BI-RADS 1: NEGATIVE RECOMMENDATION: Routine annual follow-up in 1 Year Additional Recommendation none A letter with findings and recommendations will be mailed to the patient. Reading Location: [id number] CC: Dr. Vanessa Ortez MD Computer Operations Technician: Signed Normal [facility] PAP IG HPV HR APTIMAon 07-02 ADEQ Comment Normal . [facility] Comment on above: Order Comment: Order Date: 06/30/25 Order Info: 0786-1 - CMP Order Info: [id number] - LIPID Order Info: 3051-0 - T3F Order Info: 3016-3 - TSH Order Info: 3027 - T4F Result Comment: Sati sfactory for evaluation. Endocervical and/or squamous metaplastic cells (endocervical component) are present. Performed By: #### L 501.9520, L506.0400, L100.0100, L500.4050, L500.4100, L501.01305 #### [facility] [address] [place], [place], [id number] COMM . Normal . [facility] Comment on above: Order Comment: Order Date: 06/30/25 Order Info: 0786-1 - CMP Order Info: [id number] - LIPID Order Info: 3051-0 - T3F Order Info: 3016-3 - TSH Order Info: 3024-7 - T4F Performed By: #### L 501.9520, L506.0400, L100.0100, L500.4050, L500.4100, L501.24260 #### [facility] [address] [place], [place], [id number] COMMENT Comment Normal . [facility] Comment on above: Order Comment: Order Date: 06/30/25 Order Info: 0786-1 - CMP Order Info: [id number] - LIPID Order Info: 3051-0 - T3F Order Info: 301-3 - TSH Order Info: 302-7 - T4F Result Comment: This liquid based ThinPrep(R) pap test was screened with the use of an image guided system. Performed By: #### L 501.9520, L506.0400, L100.0100, L500.4050, L500.4100, L501.18234 #### [facility] [address] [place], [place], [id number] DIAG Comment Normal . [facility] Comment on above: Order Comment: Order Date: 06/30/25 Order Info: 07-1 - CMP Order Info: [id number] - LIPID Order Info: 3051-0 - T3F Order Info: 3 - TSH Order Info: 302-7 - T4F Result Comment: NEGA TIVE FOR INTRAEPITHELIAL LESION OR MALIGNANCY. Performed By: #### L 501.9520, L506.0400, L100.0100, L500.4050, L500.4100, L501.00842 #### [facility] [address] [place], [place], [id number] HPV APTIMA, HR Negative Normal Negative [facility] Comment on above: Order Comment: Order Date: 06/30/25 Order Info: 0786-1 - CMP Order Info: [id number] - LIPID Order Info: 3051-0 - T3F Order Info: 3 - TSH Order Info: 302-7 - T4F Result Comment: This nucleic acid amplification test detects fourteen high- risk HPV types (16,18,31,33,35,39,45,51,52,56,58,59,66,68) without differentiation. Performed at: [address] [id number] Machine Grinder: Tierra Blas MD, Phone: [phone] Performed at: =[address] [id number] Machine Grinder: Tierra Blas MD, Phone: [phone] Performed By: #### L 501.9520, L506.0400, L100.0100, L500.4050, L500.4100, L501.71311 #### [facility] [address] [place], [place], [id number] PAPSMR Comment Normal . [facility] Comment on above: Order Comment: Order Date: 06/30/25 Order Info: 0786-1 - CMP Order Info: 30486-7 - LIPID Order Info: 3051-0 - T3F Order Info: 3016-3 - TSH Order Info: 3027 - T4F Result Comment: The Pap smear is a screening test designed to aid in the detection of premalignant and malignant conditions of the uterine cervix. It is not a diagnostic procedure and should not be used as the sole means of detecting cervical cancer. Both false-positive and false-negative reports do occur. Performed By: #### L 501.9520, L506.0400, L100.0100, L500.4050, L500.4100, L501.12545 #### [facility] [address] [place], [address] PERFORM Comment Normal . [facility] Comment on above: Order Comment: Order Date: 06/30/25 Order Info: 0786-1 - CMP Order Info: [id number] - LIPID Order Info: 3051-0 - T3F Order Info: 3 - TSH Order Info: 7 - T4F Result Comment: Cam Tanner, Counter Tender (ASCP) Performed By: #### L 501.9520, L506.0400, L100.0100, L500.4050, L500.4100, L501.27455 #### [facility] [address] [place], [place], [id number] PROGESTERONE 4317on 07-01-20 25 PROGESTERONE 0.1 ng/mL Normal . [facility] Comment on above: Order Comment: Order Date: 06/30/25 Order Info: 0786-1 - CMP Order Info: [id number] - LIPID Order Info: 3051-0 - T3F Order Info: 3016-3 - TSH Order Info: 3024-7 - T4F Result Comment: Foll icular phase 0.1 - 0.9 Luteal phase 1.8 - 23.9 Ovulation phase 0.1 - 12.0 First trimester 11.0 - 44.3 Second trimester 25.4 - 83.3 Third trimester 58.7 - 214.0 Postmenopausal 0.0 - 0.1 Performed at: [address] [id number] Machine Grinder: Thomas Cha PhD, Phone: [phone] Performed By: #### L 501.4920, L506.0400, L100.0100, L500.4050, L500.4100, L501.60220 #### [facility] [address] [place], [address] Absolute lymphocyte countOrd ered By: Vanessa Ortez on 06-30-2025 Lymphocytes Auto (Unsp spec) [#/Vol] 1.44 10*3/uL 0.83-4.51 [facility] Absolute neutrophil countOrd ered By: Vanessa Ortez on 06-30-2025 Neutrophils (Bld) [#/Vol] 3.7 10*3/uL 2.0-7.7 [facility] Anion gap in Serum or Plasma Ordered By: Vanessa Ortez on 06-30-2025 Anion gap [Moles/Vol] 12 mmol/L 5-15 [facility] Automated lymphocyte count a s percentage of total leukocytesOrdered By: Vanessa Ortez on 06-30-2025 Lymphocytes/100 WBC Auto (Unsp spec) 25.2 % 19-41 [facility] BUN/creatinine ratioOrdered By: Vanessa Ortez on 06-30-2025 Urea nitrogen/Creatinine [Mass ratio] 24.5 mg/mg High 10-20 [facility] Basophil percentageOrdered B y: Vanessa Ortez on 06-30-2025 Basophils/100 WBC (Bld) 1.2 % High 0-1 [facility] Bilirubin, totalOrdered By: Vanessa Ortez on 06-30-2025 Bilirubin [Mass/Vol] 0.47 mg/dL 0.00-1.30 [facility] CBC W/Diff, Automatedon 06-21 0-2024 Absolute Lymph 1.44 X10 3/uL Normal 0.83-4.51 [facility] Comment on above: Order Comment: Order Date: 06/30/25 Order Info: 183-10 - CBCD Performed By: #### L 501.9520, L506.0400, L100.0100, L500.4050, L500.4100, L501.00189 #### [facility] [address] [place], [address] Absolute Neut 3.7 X10 3/uL Normal 2.0-7.7 [facility] Comment on above: Order Comment: Order Date: 06/30/25 Order Info: 01801-19 - CBCD Performed By: #### L 501.9520, L506.0400, L100.0100, L500.4050, L500.4100, L501.92463 #### [facility] [address] [place], [address] Basophils/100 WBC (Bld) 1.2 % High 0-1 [facility] Comment on above: Order Comment: Order Date: 06/30/25 Order Info: 01801-19 - CBCD Performed By: #### L 501.9520, L506.0400, L100.0100, L500.4050, L500.4100, L501.51486 #### [facility] [address] [place], [address] Eosinophils/100 WBC (Bld) 2.1 % Normal 0-5 [facility] Comment on above: Order Comment: Order Date: 06/30/25 Order Info: 01801-19 - CBCD Performed By: #### L 501.9520, L506.0400, L100.0100, L500.4050, L500.4100, L501.50636 #### [facility] [address] [place], [place], [id number] Erythrocyte distribution width (RBC) [Ratio] 14.6 % Normal 11.6-14.6 [facility] Comment on above: Order Comment: Order Date: 06/30/25 Order Info: 0184-1 - CBCD Performed By: #### L 501.9520, L506.0400, L100.0100, L500.4050, L500.4100, L501.12471 #### [facility] [address] [place], [place], [id number] Hematocrit (Bld) [Volume fraction] 43.2 % Normal 37-47 [facility] Comment on above: Order Comment: Order Date: 06/30/25 Order Info: 0184-1 - CBCD Performed By: #### L 501.9520, L506.0400, L100.0100, L500.4050, L500.4100, L501.93644 #### [facility] [address] [place], [place], [id number] Hemoglobin (Bld) [Mass/Vol] 13.8 g/dL Normal 12.0-15.0 [facility] Comment on above: Order Comment: Order Date: 06/30/25 Order Info: 0184-1 - CBCD Performed By: #### L 501.9520, L506.0400, L100.0100, L500.4050, L500.4100, L501.74824 #### [facility] [address] [place], [place], [id number] IG% 0.400 Normal 0.0-0.9 [facility] Comment on above: Order Comment: Order Date: 06/30/25 Order Info: 0184-1 - CBCD Result Comment: IG% - Immature Granulocytes (promyelocytes, myelocytes and metamyelocytes) > 1% indicates that a LEFT SHIFT is Present. Performed By: #### L 501.9520, L506.0400, L100.0100, L500.4050, L500.4100, L501.34486 #### [facility] [address] [place], [address] Lymphocytes/100 WBC (Bld) 25.2 % Normal 19-41 [facility] Comment on above: Order Comment: Order Date: 06/30/25 Order Info: 01801-19 - CBCD Performed By: #### L 501.9520, L506.0400, L100.0100, L500.4050, L500.4100, L501.01292 #### [facility] [address] [place], [address] MCH (RBC) [Entitic mass] 28.8 pg Normal 27.0-32.0 [facility] Comment on above: Order Comment: Order Date: 06/30/25 Order Info: 01801-19 - CBCD Performed By: #### L 501.9520, L506.0400, L100.0100, L500.4050, L500.4100, L501.67934 #### [facility] [address] [place], [address] MCHC (RBC) [Mass/Vol] 31.9 g/dL Low 32-36 [facility] Comment on above: Order Comment: Order Date: 06/30/25 Order Info: 01801-19 - CBCD Performed By: #### L 501.9520, L506.0400, L100.0100, L500.4050, L500.4100, L501.63934 #### [facility] [address] [place], [address] MCV (RBC) [Entitic vol] 90.2 fL Normal 81-99 [facility] Comment on above: Order Comment: Order Date: 06/30/25 Order Info: 018- - CBCD Performed By: #### L 501.9520, L506.0400, L100.0100, L500.4050, L500.4100, L501.63872 #### [facility] [address] [place], [address] Monocytes/100 WBC (Bld) 7.2 % Normal 0-10 [facility] Comment on above: Order Comment: Order Date: 06/30/25 Order Info: 0184-1 - CBCD Performed By: #### L 501.9520, L506.0400, L100.0100, L500.4050, L500.4100, L501.51556 #### [facility] [address] [place], [address] Neutrophils/100 WBC (Bld) 63.9 % Normal 47-70 [facility] Comment on above: Order Comment: Order Date: 06/30/25 Order Info: 0184-1 - CBCD Performed By: #### L 501.9520, L506.0400, L100.0100, L500.4050, L500.4100, L501.44393 #### [facility] [address] [place], [address] Nucleated RBC (Bld) [#/Vol] 0 10*3/uL Normal 0-5 [facility] Comment on above: Order Comment: Order Date: 06/30/25 Order Info: 0184-1 - CBCD Performed By: #### L 501.9520, L506.0400, L100.0100, L500.4050, L500.4100, L501.16213 #### [facility] [address] [place], [address] Platelet mean volume (Bld) [Entitic vol] 10.8 fL Normal 6.2-12.0 [facility] Comment on above: Order Comment: Order Date: 06/30/25 Order Info: 0184-1 - CBCD Performed By: #### L 501.9520, L506.0400, L100.0100, L500.4050, L500.4100, L501.69119 #### [facility] [address] [place], [address] Platelets (Bld) [#/Vol] 293 10*3/uL Normal 150-450 [facility] Comment on above: Order Comment: Order Date: 06/30/25 Order Info: 0184-1 - CBCD Performed By: #### L 501.9520, L506.0400, L100.0100, L500.4050, L500.4100, L501.66697 #### [facility] [address] [place], [address] RBC (Bld) [#/Vol] 4.79 10*6/uL Normal 4.2-5.4 [facility] Comment on above: Order Comment: Order Date: 06/30/25 Order Info: 0184- - CBCD Performed By: #### L 501.9520, L506.0400, L100.0100, L500.4050, L500.4100, L501.91413 #### [facility] [address] [place], [address] RDW SD 49.1 fl High 35.1-43.9 [facility] Comment on above: Order Comment: Order Date: 06/30/25 Order Info: 0184-1 - CBCD Performed By: #### L 501.9520, L506.0400, L100.0100, L500.4050, L500.4100, L501.30707 #### [facility] [address] [place], [address] WBC (Bld) [#/Vol] 5.7 10*3/uL Normal 4.4-11.0 [facility] Comment on above: Order Comment: Order Date: 06/30/25 Order Info: 0184-1 - CBCD Performed By: #### L 501.9520, L506.0400, L100.0100, L500.4050, L500.4100, L501.87896 #### [facility] [address] [place], [address] Calculated very low density lipoprotein (VLDL) cholesterol measurementOrdered By: Vanessa Ortez on 06-30-2025 Calculated very low density lipoprotein (VLDL) cholesterol measurement 14 mg/dL 5-40 [facility] Carbon dioxide, total [Moles /volume] in Central venous bloodOrdered By: Vanessa Ortez on 06-30-2025 CO2 [Moles/Vol] 22.7 mmol/L 21.0-32.0 [facility] Cervical or vagninal specime n microscopic examination by cytology stain (reported asOrdered By: Vanessa Ortez on 06-30-2025 Cytology report Cyto stain Doc (Cvx/Vag) Comment . [facility] Comment on above: The Pap smear is a s creening test designed to aid in thedetection of premalignant and malignant conditions of theuterine cervix. It is not a diagnostic procedure andshould not be used as the sole means of detecting cervicalcancer. Both false-positive and false-negative reports dooccur. Chloride assayOrdered By: Dwaine Ortez on 06-30-2025 Chloride [Moles/Vol] 105 mmol/L 98-108 [facility] Comprehensive Metabolic Prof ilon 06-30-2025 Albumin [Mass/Vol] 4.4 g/dL Normal 3.4-4.8 [facility] Comment on above: Order Comment: Order Date: 06/30/25 Order Info: 0786-1 - CMP Order Info: [id number] - LIPID Order Info: 3051-0 - T3F Order Info: 3016-3 - TSH Order Info: 3024-7 - T4F Performed By: #### L 501.9520, L506.0400, L100.0100, L500.4050, L500.4100, L501.68593 #### [facility] [address] [place], [place], [address] Albumin/Globulin [Mass ratio] 1.5 {ratio} Normal 0.9-2.4 [facility] Comment on above: Order Comment: Order Date: 06/30/25 Order Info: 0786-1 - CMP Order Info: [id number] - LIPID Order Info: 3051-0 - T3F Order Info: 3016-3 - TSH Order Info: 3024-7 - T4F Performed By: #### L 501.9520, L506.0400, L100.0100, L500.4050, L500.4100, L501.46754 #### [facility] [address] [place], [address] ALK PHOS 87 U/L Normal 35-104 [facility] Comment on above: Order Comment: Order Date: 06/30/25 Order Info: 86-1 - CMP Order Info: [id number] - LIPID Order Info: 3051-0 - T3F Order Info: 3 - TSH Order Info: 3027 - T4F Performed By: #### L 501.9520, L506.0400, L100.0100, L500.4050, L500.4100, L501.96534 #### [facility] [address] [place], [address] ALT [Catalytic activity/Vol] 12 U/L Normal <=34 [facility] Comment on above: Order Comment: Order Date: 06/30/25 Order Info: 785- - CMP Order Info: [id number] - LIPID Order Info: 3051-0 - T3F Order Info: 3016-3 - TSH Order Info: 3024-7 - T4F Performed By: #### L 501.9520, L506.0400, L100.0100, L500.4050, L500.4100, L501.61975 #### [facility] [address] [place], [address] AST [Catalytic activity/Vol] 20 U/L Normal <=31 [facility] Comment on above: Order Comment: Order Date: 06/30/25 Order Info: 86-1 - CMP Order Info: [id number] - LIPID Order Info: 3051-0 - T3F Order Info: 3016-3 - TSH Order Info: 3024-7 - T4F Performed By: #### L 501.9520, L506.0400, L100.0100, L500.4050, L500.4100, L501.96468 #### [facility] [address] [place], [address] Bilirubin [Mass/Vol] 0.47 mg/dL Normal 0.00-1.30 [facility] Comment on above: Order Comment: Order Date: 06/30/25 Order Info: 07-1 - CMP Order Info: [id number] - LIPID Order Info: 3051-0 - T3F Order Info: 301-3 - TSH Order Info: 302-7 - T4F Performed By: #### L 501.9520, L506.0400, L100.0100, L500.4050, L500.4100, L501.79000 #### [facility] [address] [place], [place], [address] BUN/CRE 24.5 RATIO High 10-20 [facility] Comment on above: Order Comment: Order Date: 06/30/25 Order Info: 785-10 - CMP Order Info: - LIPID Order Info: 3051-0 - T3F Order Info: 3 - TSH Order Info: 3027 - T4F Performed By: #### L 501.9520, L506.0400, L100.0100, L500.4050, L500.4100, L501.02589 #### [facility] [address] [place], [address] Calcium [Mass/Vol] 9.8 mg/dL Normal 7.6-11.0 [facility] Comment on above: Order Comment: Order Date: 06/30/25 Order Info: 07-1 - CMP Order Info: [id number] - LIPID Order Info: 3051-0 - T3F Order Info: 3016-3 - TSH Order Info: 3024-7 - T4F Performed By: #### L 501.9520, L506.0400, L100.0100, L500.4050, L500.4100, L501.55712 #### [facility] [address] [place], [address] Chloride [Moles/Vol] 105 mmol/L Normal 98-108 [facility] Comment on above: Order Comment: Order Date: 06/30/25 Order Info: 0786-1 - CMP Order Info: [id number] - LIPID Order Info: 3051-0 - T3F Order Info: 3016-3 - TSH Order Info: 3024-7 - T4F Performed By: #### L 501.9520, L506.0400, L100.0100, L500.4050, L500.4100, L501.12769 #### [facility] [address] [place], [address] CO2 [Moles/Vol] 22.7 mmol/L Normal 21.0-32.0 [facility] Comment on above: Order Comment: Order Date: 06/30/25 Order Info: 785- - CMP Order Info: [id number] - LIPID Order Info: 3051-0 - T3F Order Info: 3016-3 - TSH Order Info: 3024-7 - T4F Performed By: #### L 501.9520, L506.0400, L100.0100, L500.4050, L500.4100, L501.88830 #### [facility] [address] [place], [address] Creatinine [Mass/Vol] 0.75 mg/dL Normal 0.70-1.20 [facility] Comment on above: Order Comment: Order Date: 06/30/25 Order Info: 785-1 - CMP Order Info: [id number] - LIPID Order Info: 3051-0 - T3F Order Info: 3016-3 - TSH Order Info: 3024-7 - T4F Performed By: #### L 501.9520, L506.0400, L100.0100, L500.4050, L500.4100, L501.02611 #### [facility] [address] [place], [place], [address] GAP 12 Normal 5-15 [facility] Comment on above: Order Comment: Order Date: 06/30/25 Order Info: 785- - CMP Order Info: - LIPID Order Info: 3051-0 - T3F Order Info: 3 - TSH Order Info: 7 - T4F Performed By: #### L 501.9520, L506.0400, L100.0100, L500.4050, L500.4100, L501.98586 #### [facility] [address] [place], [address] GFR/1.73 sq M.predicted among non-blacks MDRD (S/P/Bld) [Vol rate/Area] 89 mL/min/{1.73_m2} Normal >60 [facility] Comment on above: Order Comment: Order Date: 06/30/25 Order Info: 785-10 - CMP Order Info: - LIPID Order Info: 3050-0 - T3F Order Info: 3015-12 - TSH Order Info: 3024-04 - T4F Result Comment: mL/m in/1.73m2 CKD-EPI Creatinine Equation (2020) Performed By: #### L 501.9520, L506.0400, L100.0100, L500.4050, L500.4100, L501.30392 #### [facility] [address] [place], [place], [address] Globulin (S) [Mass/Vol] 2.9 g/dL Normal 2.2-4.2 [facility] Comment on above: Order Comment: Order Date: 06/30/25 Order Info: 785-10 - CMP Order Info: - LIPID Order Info: 3051-0 - T3F Order Info: 3 - TSH Order Info: 7 - T4F Performed By: #### L 501.9520, L506.0400, L100.0100, L500.4050, L500.4100, L501.16728 #### [facility] [address] [place], [address] Glucose [Mass/Vol] 100 mg/dL High 70-99 [facility] Comment on above: Order Comment: Order Date: 06/30/25 Order Info: 0786-1 - CMP Order Info: 63630-5 - LIPID Order Info: 3051-0 - T3F Order Info: 3016-3 - TSH Order Info: 3024-7 - T4F Performed By: #### L 501.9520, L506.0400, L100.0100, L500.4050, L500.4100, L501.67954 #### [facility] [address] [place], [address] Potassium [Moles/Vol] 4.3 mmol/L Normal 3.3-5.1 [facility] Comment on above: Order Comment: Order Date: 06/30/25 Order Info: 785-10 - CMP Order Info: [id number] - LIPID Order Info: 3051-0 - T3F Order Info: 3016-3 - TSH Order Info: 3024-7 - T4F Performed By: #### L 501.9520, L506.0400, L100.0100, L500.4050, L500.4100, L501.05733 #### [facility] [address] [place], [address] Sodium [Moles/Vol] 140 mmol/L Normal 133-145 [facility] Comment on above: Order Comment: Order Date: 06/30/25 Order Info: 785-1 - CMP Order Info: [id number] - LIPID Order Info: 3051-0 - T3F Order Info: 3016-3 - TSH Order Info: 3024-7 - T4F Performed By: #### L 501.9520, L506.0400, L100.0100, L500.4050, L500.4100, L501.45493 #### [facility] [address] [place], [address] T PROT 7.2 g/dL Normal 5.9-8.4 [facility] Comment on above: Order Comment: Order Date: 06/30/25 Order Info: 0786-1 - CMP Order Info: [id number] - LIPID Order Info: 3051-0 - T3F Order Info: 3016-3 - TSH Order Info: 3024-7 - T4F Performed By: #### L 501.9520, L506.0400, L100.0100, L500.4050, L500.4100, L501.29227 #### [facility] [address] [facility] [place], [place], [id number] Urea nitrogen [Mass/Vol] 19 mg/dL Normal 4-19 [facility] Comment on above: Order Comment: Order Date: 06/30/25 Order Info: 0786-1 - CMP Order Info: [id number] - LIPID Order Info: 3051-0 - T3F Order Info: 3 - TSH Order Info: 7 - T4F Performed By: #### L 501.9520, L506.0400, L100.0100, L500.4050, L500.4100, L501.42699 #### [facility] [address] [facility] [place], [place], [address] Detection in cervical specim en of any of human papilloma virus (HPV) 16, 18, 31, 33,Ordered By: Vanessa Ortez on 06-30-2025 HPV 16+18+31+33+35+39+45+51 +52+56+58+59+66+68 DNA Probe+sig amp Ql (Cvx) Negative Negative [facility] Comment on above: This nucleic acid am plification test detects fourteen high-risk HPV types (16,18,31,33,35,39,45,51,52,56,58,59,66,68)without differentiation.Performed at: [address] [id number] Director: Tierra Blas MD, Phone: [phone] at: =[address] [id number] Director: Tierra Blas MD, Phone: [phone] Eosinophil percentageOrdered By: Vanessa Ortez on 06-30-2025 Eosinophils/100 WBC (Bld) 2.1 % 0-5 [facility] Erythrocyte distribution wid th ratioOrdered By: Vanessa Ortez on 06-30-2025 Erythrocyte distribution width (RBC) [Ratio] 14.6 % 11.6-14.6 [facility] Erythrocyte distribution wid th standard deviationOrdered By: Vanessa Ortez on 06-30-2025 Erythrocyte distribution width (RBC) [Ratio] 49.1 fl High 35.1-43.9 [facility] Estradiolon 06-30-2025 ESTRADIOL < 5.0 Normal [facility] Comment on above: Order Comment: Order Date: 06/30/25 Order Info: 0786-1 - CMP Order Info: [id number] - LIPID Order Info: 3051-0 - T3F Order Info: 3016-3 - TSH Order Info: 3024-7 - T4F Result Comment: FEMA LES ADULT FEMALE: Premenopausal: 15-350 pg/mL(E2 levels vary widely through the menstrual cycle) Postmenopausal: <10 pg/mL DON STAGES MEAN AGE REFERENCE RANGES Stage I(>14 days and prepubertal) 7.1 years Undetectable-20 pg/mLL Stage II 10.5 years Undetectable-24 pg/mL Stage III 11.6 years Undetectable-60 pg/mL Stage IV 12.3 years 15-85 pg/mL Stage V 14.5 years 15-350 pg/mL Puberty onset (transition from Don stage I to Don stage II) occurs for girls at a median age of 10.5 (/- 2) years. There is evidence that it may occur up to 1 year earlier in obese girls and in girls. Progression through Don stages is variable. Don stage V (adult) should be reached by age 18. Performed By: #### L 501.9520, L506.0400, L100.0100, L500.4050, L500.4100, L501.89424 #### [facility] [address] [place], [address] Free G7Peogysg By: Vanessa woodard on 06-30-2025 Free T3 [Mass/Vol] 4.6 pg/mL High 2.18-3.98 [facility] Comment on above: Order Comment: Order Date: 06/30/25 Order Info: 0786-1 - CMP Order Info: [id number] - LIPID Order Info: 3051-0 - T3F Order Info: 3016-3 - TSH Order Info: 3024-7 - T4F N Performed By: #### L 501.9520, L506.0400, L100.0100, L500.4050, L500.4100, L501.05574 #### [facility] [address] [place], [place], [id number] Glomerular filtration rate ( GFR) estimation/1.73 sq m using serum, plasma, or whole bOrdered By: Vanessa Ortez on 06-30-2025 GFR/1.73 sq M.predicted among non-blacks MDRD (S/P/Bld) [Vol rate/Area] 89 mL/min/{1.73_m2} >60 [facility] Comment on above: mL/min/1.73m2 CKD-EP I Creatinine Equation (2020) Hematocrit Auto (Bld) [Volum e fraction]Ordered By: Vanessa Ortez on 06-30-2025 Hematocrit (Bld) [Volume fraction] 43.2 % 37-47 [facility] Hemoglobin measurementOrdere d By: Vanessa Ortez on 06-30-2025 Hemoglobin (Bld) [Mass/Vol] 13.8 g/dL 12.0-15.0 [facility] Immature granulocytes/100 WB C Auto (Bld)Ordered By: Vanessa Ortez on 06-30-2025 Immature granulocytes/100 WBC (Bld) 0.400 % 0.0-0.9 [facility] Comment on above: IG% - Immature Granu locytes (promyelocytes, myelocytes and metamyelocytes) > 1% indicates that a LEFT SHIFT is Present. L509.3001Ordered By: Vanessa bethea on 06-30-2025 Testosterone [Mass/Vol] 11.40 ng/dL Normal 5-32 [facility] Comment on above: Order Comment: Order Date: 06/30/25 Order Info: 0786- - CMP Order Info: [id number] - LIPID Order Info: 3051-0 - T3F Order Info: 3 - TSH Order Info: 3024-04 - T4F Performed By: #### L 501.9520, L506.0400, L100.0100, L500.4050, L500.4100, L501.22614 #### [facility] [address] [place], [place], [id number] LDL calc ser/plasOrdered By: Vanessa rOtez on 06-30-2025 Cholesterol in LDL [Mass/Vol] 165 mg/dL [facility] Comment on above: Vhtyivaxag=234-588 m g/dL & Higher Uymb=821 mg/dL or greaterFriedwald Equation for LDL-C Laboratory - Chemistry and C hemistry - challengeOrdered By: Vanessa Ortez on 06-30-2025 AST [Catalytic activity/Vol] 20 U/L <32 [facility] - CytologyOrdered By: Vanessa Ortez on 06-30-2025 Counter Tender Cyto stain Nom (Cvx/Vag) [ID] Comment . [facility] Comment on above: Alfredito Tanner, Cyt ologist (ASCP) Laboratory - Miscellaneous t estsOrdered By: Vanessa Ortez on 06-30-2025 Service comment (Unsp spec) [Interp] . . [facility] Lipid Profileon 06-30-2025 CHOL:HDL 3.47 Normal [facility] Comment on above: Order Comment: Order Date: 06/30/25 Order Info: 0786-1 - CMP Order Info: [id number] - LIPID Order Info: 0 - T3F Order Info: 3015-12 - TSH Order Info: 3024-04 - T4F Performed By: #### L 501.9520, L506.0400, L100.0100, L500.4050, L500.4100, L501.14668 #### [facility] [address] [place], [place], [id number] Cholesterol [Mass/Vol] 251 mg/dL High <=200 [facility] Comment on above: Order Comment: Order Date: 06/30/25 Order Info: 86- - CMP Order Info: - LIPID Order Info: 0 T3F Order Info: 3015-12 - TSH Order Info: 3024-04 T4 Result Comment: Chol esterol level, Desirable <200 mg/dL Borderline high cholesterol 200-239 mg/dL High cholesterol >=240 mg/dL Recommendations of the NCEP Adult Treatment Panel for the following risk-cutoff thresholds for the [place] population. Performed By: #### L 501.9520, L506.0400, L100.0100, L500.4050, L500.4100, L501.13200 #### [facility] [address] [place], [address] Cholesterol in HDL [Mass/Vol] 72 mg/dL Normal [facility] Comment on above: Order Comment: Order Date: 06/30/25 Order Info: 07 - CMP Order Info: - LIPID Order Info: T3F Order Info: 3015-12 - TSH Order Info: 3024-04 Result Comment: Yani onal Cholesterol Education Program (NCEP) guidelines: <40 mg/dL: Low HDL-cholesterol (major risk factor for CHD) >= 60 mg/dL: High HDL-cholesterol (negative risk factor for CHD) HDL-cholesterol is affected by a number of factors, e.g. smoking, exercise, hormones, sex and age. Performed By: #### L 501.9520, L506.0400, L100.0100, L500.4050, L500.4100, L501.84776 #### [facility] [address] [place], [address] Cholesterol in LDL [Mass/Vol] 165 mg/dL Normal [facility] Comment on above: Order Comment: Order Date: 06/30/25 Order Info: 0786 - CMP Order Info: [id number] - LIPID Order Info: 0 - T3F Order Info: 3015-12 - TSH Order Info: 3024-04 T4 Result Comment: Bord biepgf=210-740 mg/dL Higher Tdlf=213 mg/dL or greater Friedwald Equation for LDL-C Performed By: #### L 501.9520, L506.0400, L100.0100, L500.4050, L500.4100, L501.23445 #### [facility] [address] [place], [address] Cholesterol in VLDL [Mass/Vol] 14 mg/dL Normal 5-40 [facility] Comment on above: Order Comment: Order Date: 06/30/25 Order Info: 0786-1 - CMP Order Info: 73940-2 - LIPID Order Info: 3050-0 - T3F Order Info: 3015-12 - TSH Order Info: 3024-04 T4F Performed By: #### L 501.9520, L506.0400, L100.0100, L500.4050, L500.4100, L501.57039 #### [facility] [address] [place], [address] ( Triglyceride [Mass/Vol] 68 mg/dL Normal [facility] Comment on above: Order Comment: Order Date: 06/30/25 Order Info: 0786- - CMP Order Info: [id number] - LIPID Order Info: 0 - T3F Order Info: 3015-12 - TSH Order Info: 3024-04 - T4F Result Comment: The drugs N-Acetylcysteine and Metamizole may falsely depress this assay. Normal range: <150 mg/dL Borderline High: 150-199 mg/dL High: 200-499 mg/dL Very High: >500 mg/dL Performed By: #### L 501.9520, L506.0400, L100.0100, L500.4050, L500.4100, L501.76318 #### [facility] [address] [place], [place], [id number] MCV (mean corpuscular volume ) determinationOrdered By: Vanessa Ortez on 06-30-2025 MCV (RBC) [Entitic vol] 90.2 fL 81-99 [facility] Mean corpuscular hemoglobin (MCH) determinationOrdered By: Vanessa Ortez on 06-30-2025 MCH (RBC) [Entitic mass] 28.8 pg 27.0-32.0 [facility] Mean corpuscular hemoglobin concentration (MCHC) determinationOrdered By: Vanessa Ortez on 06-30-2025 MCHC (RBC) [Mass/Vol] 31.9 g/dL Low 32-36 [facility] Mean platelet volume determi nationOrdered By: Vanessa Ortez on 06-30-2025 Platelet mean volume (Bld) [Entitic vol] 10.8 fL 6.2-12.0 [facility] Monocyte percentageOrdered B y: Vanessa Ortez on 06-30-2025 Monocytes/100 WBC (Bld) 7.2 % 0-10 [facility] Neutrophil percentageOrdered By: Vanessa Ortez on 06-30-2025 Neutrophils/100 WBC (Bld) 63.9 % 47-70 [facility] No Panel InformationOrdered By: Vanessa Ortez on 06-30-2025 Pap Smear Specimen Adequacy Comment . [facility] Comment on above: Satisfactory for sumaya luation. Endocervical and/or squamous metaplasticcells (endocervical component) are present. Nucleated red blood cell per centageOrdered By: Vanessa Ortez on 06-30-2025 Nucleated RBC/100 WBC (Bld) [Ratio] 0 % 0-5 [facility] Platelet countOrdered By: Dwaine Ortez on 06-30-2025 Platelets (Bld) [#/Vol] 293 10*3/uL 150-450 [facility] Potassium measurement (mass/ volume)Ordered By: Vanessa Ortez on 06-30-2025 Potassium (Unsp spec) [Mass/Vol] 4.3 mmol/L 3.3-5.1 [facility] RBC Auto (Bld) [#/Vol]Ordere d By: Vanessa Ortez on 06-30-2025 RBC (Bld) [#/Vol] 4.79 10*6/uL 4.2-5.4 [facility] Screening total cholesterol/ high density lipoprotein (HDL) cholesterol ratioOrdered By: Vanessa Ortez on 06-30-2025 Cholesterol.total/Yumi sterol in HDL [Mass ratio] 3.47 {ratio} [facility] Serum creatinine measurement (mass/volume)Ordered By: Vanessa Ortez on 06-30-2025 Creatinine [Mass/Vol] 0.75 mg/dL 0.70-1.20 [facility] Serum globulin measurementOr dered By: Vanessa Ortez on 06-30-2025 Globulin (S) [Mass/Vol] 2.9 g/dL 2.2-4.2 [facility] Serum glucose measurement (m ass/volume)Ordered By: Vanessa Ortez on 06-30-2025 Glucose [Mass/Vol] 100 mg/dL High 70-99 [facility] Serum or plasma alanine weston otransferase (ALT) measurementOrdered By: Vanessa Ortez on 06-30-2025 ALT [Catalytic activity/Vol] 12 U/L <35 [facility] Serum or plasma albumin kerry urement (mass/volume)Ordered By: Vanessa Ortez on 06-30-2025 Albumin [Mass/Vol] 4.4 g/dL 3.4-4.8 [facility] Serum or plasma albumin/glob ulin mass ratioOrdered By: Vanessa Ortez on 06-30-2025 Albumin/Globulin [Mass ratio] 1.5 {ratio} 0.9-2.4 [facility] Serum or plasma alkaline jaky sphatase measurementOrdered By: Vanessa Ortez on 06-30-2025 ALP [Catalytic activity/Vol] 87 U/L 35-104 [facility] Serum or plasma calcium kerry urement (mass/volume)Ordered By: Vanessa Ortez on 06-30-2025 Calcium [Mass/Vol] 9.8 mg/dL 7.6-11.0 [facility] Serum or plasma cholesterol in HDL measurement (mass/volume)Ordered By: Vanessa Ortez on 06-30-2025 Cholesterol in HDL [Mass/Vol] 72 mg/dL >40 [facility] Comment on above: National Cholesterol Education Program (NCEP) guidelines:<40 mg/dL: Low HDL-cholesterol (major risk factor for CHD)>= 60 mg/dL: High HDL-cholesterol (negative risk factor for CHD)HDL-cholesterol is affected by a number of factors, e.g. smoking, exercise, hormones, sex and age. Serum or plasma cholesterol measurement (mass/volume)Ordered By: Vanessa Ortez on 06-30-2025 Cholesterol [Mass/Vol] 251 mg/dL High <201 [facility] Comment on above: Cholesterol level, D esirable <200 mg/dLBorderline high cholesterol 200-239 mg/dLHigh cholesterol >=240 mg/dLRecommendations of the NCEP Adult Treatment Panel for the following risk-cutoff thresholds for the [place] population. Serum or plasma estradiol me asurement after follitropin dose (mass/volume)Ordered By: Vanessa Ortez on 06-30-2025 E2 post dose follitropin [Mass/Vol] < 5.0 pg/mL [facility] Comment on above: FEMALES ADULT FEMALE : Premenopausal: 15-350 pg/mL(E2 levels vary widely through the menstrual cycle) Postmenopausal: <10 pg/mL DON STAGES MEAN AGE REFERENCE RANGES Stage I(>14 days and prepubertal) 7.1 years Undetectable-20 pg/mLL Stage II 10.5 years Undetectable-24 pg/mL Stage III 11.6 years Undetectable-60 pg/mL Stage IV 12.3 years 15-85 pg/mL Stage V 14.5 years 15-350 pg/mL Puberty onset (transition from Don stage I to Don stage II) occurs for girls at a median age of 10.5 (/- 2) years. There is evidence that it may occur up to 1 year earlier in obese girls and in girls.Progression through Don stages is variable. Don stage V (adult) should be reached by age 18. Serum or plasma urea nitroge n measurement (mass/volume)Ordered By: Vanessa Ortez on 06-30-2025 Urea nitrogen [Mass/Vol] 19 mg/dL 4-19 [facility] Sodium levelOrdered By: Vanessa Ortez on 06-30-2025 Sodium [Moles/Vol] 140 mmol/L 133-145 [facility] T4 Free Directon 06-30-2025 T4 FREE DIRECT 1.00 ng/dL Normal 0.76-1.46 [facility] Comment on above: Order Comment: Order Date: 06/30/25 Order Info: [id number] - CMP Order Info: [id number] - LIPID Order Info: [id number] - T3F Order Info: [id number] - TSH Order Info: [id number] - T4F N Performed By: #### L [id number], L506.0400, L100.0100, L500.4050, L500.4100, L501.65338 #### [facility] [address] [place], [place], [id number] T4 freeOrdered By: Vanessa woodard on 06-30-2025 Free T4 [Mass/Vol] 1.00 ng/dL 0.76-1.46 [facility] TSH DL <= 0.005 mIU/L QnOrde red By: Vanessa Ortez on 06-30-2025 TSH Qn 0.894 uIU/mL 0.300-4.200 [facility] Thyroid Stim Hormone (TSH)on 06-30-2025 TSH 0.894 uIU/mL Normal 0.300-4.200 [facility] Comment on above: Order Comment: Order Date: 06/30/25 Order Info: [id number] - CMP Order Info: [id number] - LIPID Order Info: [id number] - T3F Order Info: [id number] - TSH Order Info: [id number] - T4F Performed By: #### L [id number], L506.0400, L100.0100, L500.4050, L500.4100, L501.89231 #### [facility] [address] [place], [place], [id number] Total proteinOrdered By: Ana Ortez on 06-30-2025 Protein [Mass/Vol] 7.2 g/dL 5.9-8.4 [facility] Triglycerides measurementOrd ered By: Vanessa Ortez on 06-30-2025 Triglyceride [Mass/Vol] 68 mg/dL <199 [facility] Comment on above: The drugs N-Acetylcy steine and Metamizole may falsely depress this assay. Normal range: <150 mg/dLBorderline High: 150-199 mg/dLHigh: 200-499 mg/dLVery High: >500 mg/dL White blood cell (WBC) count Ordered By: Vanessa Ortez on 06-30-2025 WBC (Bld) [#/Vol] 5.7 10*3/uL 4.4-11.0 [facility] Urgent Care Visit Reporton 0 12-11-2024 Urgent Care Visit Report [facility] [address], [address] [place] [address] OFFICE VISIT Date of Service: 12/11/24 MR#: [id number] Acct: [id number] Name: SULMA BHATIA Rep #: [id number] : 1965 Provider: APOLLO Gold Age/Sex: 59/F Location: [facility] Status: Signed Intake Vital Signs 12/11/24 06:22 Height 5 ft 1 in Weight: 156 lb BMI 29.5 BP 126/64 H Blood Pressure Location Lt brachial Position Sitting Respiration 15 Pulse 56 L Pulse Source NIBP Temp 97.8 F Temp Source Oral Pulse Oximetry (%) 96 Oxygen Delivery Method room air Intake Visit Reasons: SORE THROAT Chief Complaint: ST, BLAS, drainage, ear pain, cough 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 Is patient in pain?: Yes Allergies sulfamethoxazole (From Bactrim) Allergy (Mild, Verified 12/11/24 06:23) Rash trimethoprim (From Bactrim) Allergy (Mild, Verified 12/11/24 06:23) Rash Medications ???Medication ???Instructions ???Recorded ???Confirmed ???Type albuterol sulfate 90 mcg/actuation 1 - 2 puff inhalation Q4 PRN cou gh 12/11/24 12/11/24 History aerosol inhaler amoxicillin 875 mg-potassium 1 tab PO Q12H 10 days #20 tabs 12/11/24 Rx clavulanate 125 mg tablet estradiol 1 mg tablet (Estrace) 1 mg PO QDAY 12/11/24 12/11/24 His tory ipratropium bromide 21 mcg (0.03 1 - 2 spray intranasal Q6 PRN coug h 12/11/24 12/11/24 History %) nasal spray meloxicam 15 mg tablet mg PO DAILY 12/11/24 12/11/24 Hist ory thyroid (pork) 90 mg tablet (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 denies fever, BA. concern for strep PFSH Medical History (Updated 12/11/24 @ 07:12 by Bj BUSTILLOS, PA) Hypothyroidism Asthma Osteoarthritis Surgical History (Updated 12/11/24 @ 06:32 by Kateryna Bishop) No significant past surgical history Family History (Updated 12/11/24 @ 06:33 by Kateryna Bishop) Other Diabetes Social History (Updated 12/11/24 @ 06:32 by Kateryna Bishop) Smoking Status: Never smoker alcohol intake: never substance use type: does not use HPI HPI Chief Complaint: ST, BLAS, drainage, ear pain, cough Details: SULMA BHATIA, is a 59 F who presents to the office today for complaint of sore throat, drainage and cough as well as sinus congestion for the past 5 days. Patient denies hemoptysis, shortness of breath or difficult breathing. No nausea, vomiting or diarrhea. No loss of taste or smell. No other associated symptoms or alleviating/aggravating factors. ROS Const Constitutional: No other Exam Const General: cooperative and healthy appearing HENMT Head: normal to inspection Ears: hearing grossly normal bilaterally, TM's normal bilaterally and EAC's normal Nose: nasal discharge purulent Face and sinus: sinus tenderness frontal and maxillary Mouth: oral mucosae normal Throat: abnormal tonsil bilaterally erythema and hypertrophy 1+ and postnasal drainage Resp Effort Inspection: normal respiratory effort Auscultation: Bilateral: Clear to Auscultation Cardio Rate: regular rate Rhythm: regular rhythm Neuro General: patient alert and CN's II-XI intact bilaterally Psych Appearance: grossly normal Mental Status: mental status grossly normal Results POC SALIMA Covid FluAB PCR POC Salima Covid PCR Not Detected Last Edit by Kateryna Bishop on 12/11/24 06:40 POC SALIMA FLU NOT DETECTED FLU A B Last Edit by Kateryna Bishop on 12/11/24 06:40 POC Salima Rapid Strep POC Salima Rapid Strep Negative Last Edit by Kateryna Bishop on 12/11/24 06:40 Coding Level of Care Code Off vis,new,level 3 Diagnoses Acute sinusitis J01.90 Assessment and Plan Assessment and Plan (1) Acute sinusitis: Status: Acute Plan: Augmentin as prescribed today. Patient tested negative for COVID and influenza as well as strep in the office today. Encouraged to get plenty of rest, drink lots of clear liquids, and use Tylenol or Ibuprofen (unless contraindicated) for fever and comfort. Patient also educated on other symptomatic management techniques. To be seen in 7-10 days if no improvement; sooner if worsening of symptoms. Patient advised of potential red flags and when appropriate to report to the ED. Patient verbalized understanding and agreement with all the above. (2) Acute sinusitis: Status: Acute Orders: Orders POC Salima Covid FLUAB PCR Today J02.9 - Acute pharyngitis, unspecified POC Salima Rapid Strep A Today Medications: New amoxicillin-pot clavulanate 875-125 mg 1 TAB PO Q12H 10 days 20 tabs 0RF J01.90 - Acute sinusitis, unspecified Clinical Quality Measures Fall (more content not included)... Normal [facility] Free T3on 08-04-2024 Free T3 [Mass/Vol] 5.8 pg/mL High 2.18-3.98 [facility] Comment on above: Performed By: #### L [id number], L501.9520, L506.0400 #### [facility] [address] [place], [address] T4 Free Directon 08-04-2024 T4 FREE DIRECT 1.03 ng/dL Normal 0.76-1.46 [facility] Comment on above: Performed By: #### L 501.67484, L501.9520, L506.0400 #### [facility] [address] [place], [address] Thyroid Stim Hormone (TSH)on 08-04-2024 TSH 0.565 uIU/mL Normal 0.358-3.740 [facility] Comment on above: Performed By: #### L 501.04229, L501.9520, L506.0400 #### [facility] [address] [place], [address] No Panel InformationOrdered By: Thomas Mercedes on 01-06-2024 C-Reactive Protein Extended Range < 2.90 mg/L 0.0-3.0 [facility] Comment on above: C-Reactive Protein ( CRP) provides useful information for thediagnosis, therapy and monitoring of inflammatory processesand associated diseases. For the evaluation of Relative Riskfor Cardiovascular Disease, a High Sensitivity CRP (HSCRP)should be ordered. Endomysial IgA Antibody Negative Negative [facility] Serum or plasma IgA measurem ent (mass/volume)Ordered By: Thomas Mercedes on 01-06-2024 IgA [Mass/Vol] 176 mg/dL 87-352 [facility] Comment on above: Performed at: [place] [id number] Director: Thomas Cha PhD, Phone: [phone] Serum tissue transglutaminas e IgA antibody assay (units/volume)Ordered By: Thomas Mercedes on 01-06-2024 tTG IgA Qn (S) <2 U/mL 0-3 [facility] Comment on above: Negative 0 - 3 Weak Positive 4 - 10 Positive >10 Tissue Transglutaminase (tTG) has been identified as the endomysial antigen. Studies have demonstr- ated that endomysial IgA antibodies have over 99% specificity for gluten sensitive enteropathy. Absolute lymphocyte countOrd ered By: Vanessa Ortez on 10-31-2023 Lymphocytes Auto (Unsp spec) [#/Vol] 1.30 10*3/uL 0.83-4.51 [facility] Basophil percentageOrdered B y: Vanessa Ortez on 10-31-2023 Basophils/100 WBC (Bld) 1.3 % 0-1 [facility] Bilirubin [Mass/Vol] 0.60 mg/dL 0.20-1.00 [facility] Comment on above: For patients on eltr ombopag therapy, use of Dimension [place] TBIL is not recommended. Chloride [Moles/Vol] 106 mmol/L 98-107 [facility] Eosinophils/100 WBC (Bld) 2.0 % 0-5 [facility] Glucose [Mass/Vol] 80 mg/dL 74-106 [facility] Neutrophils (Bld) [#/Vol] 4.4 10*3/uL 2.0-7.7 [facility] Neutrophils/100 WBC (Bld) 69.5 % 47-70 [facility] Potassium [Moles/Vol] 3.9 mmol/L 3.5-5.1 [facility] Protein [Mass/Vol] 7.3 g/dL 6.4-8.2 [facility] Sodium [Moles/Vol] 139 mmol/L 136-145 [facility] WBC (Bld) [#/Vol] 6.4 10*3/uL 4.4-11.0 [facility] Blood erythrocytes count (nu mber/volume)Ordered By: Vanessa Ortez on 10-31-2023 RBC (Bld) [#/Vol] 5.05 10*6/uL 4.2-5.4 [facility] Blood hemoglobin measurement (mass/volume)Ordered By: Vanessa Ortez on 10-31-2023 Hemoglobin (Bld) [Mass/Vol] 14.4 g/dL 12.0-15.0 [facility] Blood lymphocytes/100 leukoc ytesOrdered By: Vanessa Ortez on 10-31-2023 Lymphocytes/100 WBC (Bld) 20.4 % 19-41 [facility] Blood monocytes/100 leukocyt esOrdered By: Vanessa Ortez on 10-31-2023 Monocytes/100 WBC (Bld) 6.6 % 0-10 [facility] Blood platelet mean volumeOr dered By: Vanessa Ortez on 10-31-2023 Platelet mean volume (Bld) [Entitic vol] 10.6 fL 6.2-12.0 [facility] Determination of erythrocyte mean corpuscular volume (MCV)Ordered By: Vanessa Ortez on 10-31-2023 MCV (RBC) [Entitic vol] 92.5 fL 81-99 [facility] Erythrocyte sedimentation ra teOrdered By: Vanessa Ortez on 10-31-2023 ESR (Bld) [Velocity] 23 mm/h 0-30 [facility] Hematocrit Auto (Bld) [Volum e fraction]Ordered By: Vanessa Ortez on 10-31-2023 Hematocrit (Bld) [Volume fraction] 46.7 % 37-47 [facility] - Chemistry and C hemistry - challengeOrdered By: Vanessa Ortez on 10-31-2023 ALP [Catalytic activity/Vol] 91 U/L 45-117 [facility] ALT [Catalytic activity/Vol] 24 U/L 13-56 [facility] CO2 [Moles/Vol] 27.0 mmol/L 21.0-32.0 [facility] Globulin (S) [Mass/Vol] 3.8 g/dL 2.2-4.2 [facility] Urea nitrogen/Creatinine [Mass ratio] 26.5 mg/mg 10-20 [facility] - Hematology and Cell countsOrdered By: Vanessa Ortez on 10-31-2023 Erythrocyte distribution width (RBC) [Entitic vol] 49.2 fL 35.1-43.9 [facility] Erythrocyte distribution width (RBC) [Ratio] 14.6 % 11.6-14.6 [facility] Immature granulocytes/100 WBC (Bld) 0.200 % 0.0-0.9 [facility] Comment on above: IG% - Immature Granu locytes (promyelocytes, myelocytes and metamyelocytes) > 1% indicates that a LEFT SHIFT is Present. MCH (RBC) [Entitic mass] 28.5 pg 27.0-32.0 [facility] Nucleated RBC/100 WBC (Bld) [Ratio] 0 % 0-5 [facility] MCHC Auto (RBC) [Mass/Vol]Or dered By: Vanessa Ortez on 10-31-2023 MCHC (RBC) [Mass/Vol] 30.8 g/dL 32-36 [facility] No Panel InformationOrdered By: Vanessa Ortez on 10-31-2023 Estimated GFR (MDRD) Amer 95 mL/min >60 [facility] Comment on above: GFR Calc Estimated GFR (MDRD) Non-Af Amer 78 mL/min >60 [facility] Comment on above: Non- GFR Calc Platelets bldOrdered By: Ana Ortez on 10-31-2023 Platelets (Bld) [#/Vol] 313 10*3/uL 150-450 [facility] Serum Toxoplasma gondii IgG antibody assay (units/volume)Ordered By: Vanessa Ortez on 10-31-2023 T. gondii IgG Qn (S) < 3.0 IU/mL 0.0-7.1 [facility] Comment on above: Negative <7.2 Equivo mariely 7.2 - 8.7 Positive >8.7 Serum Toxoplasma gondii IgM antibody assay by immunoassay (units/volume)Ordered By: Vanessa Ortez on 10-31-2023 T. gondii IgM IA Qn (S) < 3.0 AU/mL 0.0-7.9 [facility] Comment on above: Negative <8.0 Equivo mariely 8.0 - 9.9 Positive >9.9 Serum or plasma C reactive p rotein measurement (mass/volume)Ordered By: Vanessa Ortez on 10-31-2023 CRP [Mass/Vol] mg/L 0.0-3.0 [facility] Comment on above: C-Reactive Protein ( CRP) provides useful information for thediagnosis, therapy and monitoring of inflammatory processesand associated diseases. For the evaluation of Relative Riskfor Cardiovascular Disease, a High Sensitivity CRP (HSCRP)should be ordered. Serum or plasma albumin kerry urement (mass/volume)Ordered By: Vanessa Ortez on 10-31-2023 Albumin [Mass/Vol] 3.5 g/dL 3.2-5.0 [facility] Serum or plasma albumin/glob ulin mass ratioOrdered By: Vanessa Ortez on 10-31-2023 Albumin/Globulin [Mass ratio] 0.9 {ratio} 0.9-2.4 [facility] Serum or plasma calcium kerry urement (mass/volume)Ordered By: Vanessa Ortez on 10-31-2023 Calcium [Mass/Vol] 9.6 mg/dL 8.5-10.1 [facility] Serum or plasma creatinine m easurement (mass/volume)Ordered By: Vanessa Ortez on 10-31-2023 Creatinine [Mass/Vol] 0.79 mg/dL 0.55-1.02 [facility] Comment on above: The validity of the calculated GFR & GFRAA in patients over 70 years has not been determined. Clinical correlation is essential. Serum or plasma urea nitroge n measurement (mass/volume)Ordered By: Vanessa Ortez on 10-31-2023 Urea nitrogen [Mass/Vol] 21 mg/dL 7-18 [facility] Thin prep Papanicolaou smear with manual screeningOrdered By: Vanessa Ortez on 10-31-2023 Thin prep Papanicolaou smear with manual screening 23 U/L 15-37 [facility] Thin prep Papanicolaou smear with manual screening 6 5-15 [facility] No Panel InformationOrdered By: Vanessa Ortez on 10-05-2023 Stool Calprotectin <5 ug/g 0-120 [facility] Comment on above: Concentration Interp retation Follow-Up< 5 - 50 ug/g Normal None>50 -120 ug/g Borderline Re-evaluate in 4-6 weeks >120 ug/g Abnormal Repeat as clinically indicatedPerformed at: [facility] [id number] Director: Thomas Cha PhD, Phone: [phone] at: [facility] [id number] Director: Carlos Alberto Bailey MD, Phone: [phone] Stool Neutral Fats Normal . [facility] Comment on above: Normal (<60 Droplets /HPF) Stool Pancreatic Elastase 391 >200 [facility] Comment on above: Result Units: ug Nidia st./g Severe Pancreatic Insufficiency: <100 Moderate Pancreatic Insufficiency: 100 - 200 Normal: >200Performed at: [facility] [id number] Director: Carlos Alberto Bailey MD, Phone: [phone] Qualitative fecal fat or lip idsOrdered By: Vansesa Ortez on 10-05-2023 Fat Ql (Stl) Normal . [facility] Comment on above: Normal (<100 Droplet s/HPF) Absolute lymphocyte countOrd ered By: Vanessa Ortez on 10-04-2023 Lymphocytes Auto (Unsp spec) [#/Vol] 1.62 10*3/uL 0.83-4.51 [facility] Basophil percentageOrdered B y: Vanessa Ortez on 10-04-2023 Basophils/100 WBC (Bld) 1.0 % 0-1 [facility] Bilirubin [Mass/Vol] 0.50 mg/dL 0.20-1.00 [facility] Comment on above: For patients on eltr ombopag therapy, use of Dimension [place] TBIL is not recommended. Chloride [Moles/Vol] 104 mmol/L 98-107 [facility] Eosinophils/100 WBC (Bld) 2.0 % 0-5 [facility] Glucose [Mass/Vol] 95 mg/dL 74-106 [facility] Neutrophils (Bld) [#/Vol] 3.9 10*3/uL 2.0-7.7 [facility] Neutrophils/100 WBC (Bld) 62.6 % 47-70 [facility] Potassium [Moles/Vol] 3.9 mmol/L 3.5-5.1 [facility] Protein [Mass/Vol] 7.4 g/dL 6.4-8.2 [facility] Sodium [Moles/Vol] 138 mmol/L 136-145 [facility] WBC (Bld) [#/Vol] 6.2 10*3/uL 4.4-11.0 [facility] Blood erythrocytes count (nu mber/volume)Ordered By: Vanessa Ortez on 10-04-2023 RBC (Bld) [#/Vol] 4.83 10*6/uL 4.2-5.4 [facility] Blood hemoglobin measurement (mass/volume)Ordered By: Vanessa Ortez on 10-04-2023 Hemoglobin (Bld) [Mass/Vol] 13.7 g/dL 12.0-15.0 [facility] Blood lymphocytes/100 leukoc ytesOrdered By: Vanessa Ortez on 10-04-2023 Lymphocytes/100 WBC (Bld) 26.3 % 19-41 [facility] Blood monocytes/100 leukocyt esOrdered By: Vanessa Ortez on 10-04-2023 Monocytes/100 WBC (Bld) 7.8 % 0-10 [facility] Blood platelet mean volumeOr dered By: Vanessa Ortez on 10-04-2023 Platelet mean volume (Bld) [Entitic vol] 10.0 fL 6.2-12.0 [facility] Determination of erythrocyte mean corpuscular volume (MCV)Ordered By: Vanessa Ortez on 10-04-2023 MCV (RBC) [Entitic vol] 91.7 fL 81-99 [facility] Erythrocyte sedimentation ra teOrdered By: Vanessa Ortez on 10-04-2023 ESR (Bld) [Velocity] 14 mm/h 0-30 [facility] Hematocrit Auto (Bld) [Volum e fraction]Ordered By: Vanessa Ortez on 10-04-2023 Hematocrit (Bld) [Volume fraction] 44.3 % 37-47 [facility] - Chemistry and C hemistry - challengeOrdered By: Vanessa Ortez on 10-04-2023 ALP [Catalytic activity/Vol] 82 U/L 45-117 [facility] ALT [Catalytic activity/Vol] 27 U/L 13-56 [facility] CO2 [Moles/Vol] 29.0 mmol/L 21.0-32.0 [facility] Globulin (S) [Mass/Vol] 3.6 g/dL 2.2-4.2 [facility] Lipase [Catalytic activity/Vol] 30 U/L 13-75 [facility] Comment on above: Please note:LIPASE r evised reference range effective 23. New Lipase methodology. Expected to produce lower values than the previous assay method. NEW Reference Range: 13 - 75 U/L Urea nitrogen/Creatinine [Mass ratio] 21.1 mg/mg 10-20 [facility] - Hematology and Cell countsOrdered By: Vanessa Ortez on 10-04-2023 Erythrocyte distribution width (RBC) [Entitic vol] 48.6 fL 35.1-43.9 [facility] Erythrocyte distribution width (RBC) [Ratio] 14.4 % 11.6-14.6 [facility] Immature granulocytes/100 WBC (Bld) 0.300 % 0.0-0.9 [facility] Comment on above: IG% - Immature Granu locytes (promyelocytes, myelocytes and metamyelocytes) > 1% indicates that a LEFT SHIFT is Present. MCH (RBC) [Entitic mass] 28.4 pg 27.0-32.0 [facility] Nucleated RBC/100 WBC (Bld) [Ratio] 0 % 0-5 [facility] MCHC Auto (RBC) [Mass/Vol]Or dered By: Vanessa Ortez on 10-04-2023 MCHC (RBC) [Mass/Vol] 30.9 g/dL 32-36 [facility] No Panel InformationOrdered By: Vanessa Ortez on 10-04-2023 Estimated GFR (MDRD) Amer 107 mL/min >60 [facility] Comment on above: GFR Calc Estimated GFR (MDRD) Non-Af Amer 89 mL/min >60 [facility] Comment on above: Non- GFR Calc Platelets bldOrdered By: Ana Ortez on 10-04-2023 Platelets (Bld) [#/Vol] 291 10*3/uL 150-450 [facility] Serum or plasma C reactive p rotein measurement (mass/volume)Ordered By: Vanessa Ortez on 10-04-2023 CRP [Mass/Vol] mg/L 0.0-3.0 [facility] Comment on above: C-Reactive Protein ( CRP) provides useful information for thediagnosis, therapy and monitoring of inflammatory processesand associated diseases. For the evaluation of Relative Riskfor Cardiovascular Disease, a High Sensitivity CRP (HSCRP)should be ordered. Serum or plasma albumin kerry urement (mass/volume)Ordered By: Vanessa Ortez on 10-04-2023 Albumin [Mass/Vol] 3.8 g/dL 3.2-5.0 [facility] Serum or plasma albumin/glob ulin mass ratioOrdered By: Vanessa Ortez on 10-04-2023 Albumin/Globulin [Mass ratio] 1.1 {ratio} 0.9-2.4 [facility] Serum or plasma calcium kerry urement (mass/volume)Ordered By: Vanessa Ortez on 10-04-2023 Calcium [Mass/Vol] 9.1 mg/dL 8.5-10.1 [facility] Serum or plasma creatinine m easurement (mass/volume)Ordered By: Vanessa Ortez on 10-04-2023 Creatinine [Mass/Vol] 0.71 mg/dL 0.55-1.02 [facility] Comment on above: The validity of the calculated GFR & GFRAA in patients over 70 years has not been determined. Clinical correlation is essential. Serum or plasma urea nitroge n measurement (mass/volume)Ordered By: Vanessa Ortez on 10-04-2023 Urea nitrogen [Mass/Vol] 15 mg/dL 7-18 [facility] Thin prep Papanicolaou smear with manual screeningOrdered By: Vanessa Ortez on 10-04-2023 Thin prep Papanicolaou smear with manual screening 21 U/L 15-37 [facility] Thin prep Papanicolaou smear with manual screening 5 5-15 [facility] Cervical or vagninal specime n microscopic examination by cytology stain (reported asOrdered By: Dr. Bernal on 04-08-2023 Cytology report Cyto stain Doc (Cvx/Vag) Comment . [facility] Comment on above: The Pap smear is a s creening test designed to aid in thedetection of premalignant and malignant conditions of theuterine cervix. It is not a diagnostic procedure andshould not be used as the sole means of detecting cervicalcancer. Both false-positive and false-negative reports dooccur. Detection in cervical specim en of any of human papilloma virus (HPV) 16, 18, 31, 33,Ordered By: Dr. Bernal on 04-08-2023 HPV 16+18+31+33+35+39+45+51 +52+56+58+59+66+68 DNA Probe+sig amp Ql (Cvx) Negative Negative [facility] Comment on above: This nucleic acid am plification test detects fourteen high-risk HPV types (16,18,31,33,35,39,45,51,52,56,58,59,66,68)without differentiation. Laboratory - CytologyOrdered By: Dr. Bernal on 04-08-2023 Counter Tender Cyto stain Nom (Cvx/Vag) [ID] Comment . [facility] Comment on above: Michael Harkins totechnologist (ASCP) Laboratory - Miscellaneous t estsOrdered By: Dr. Bernal on 04-08-2023 Service comment (Unsp spec) [Interp] Comment . [facility] Comment on above: This liquid based Th inPrep(R) pap test was screened withthe use of an image guided system. Service comment (Unsp spec) [Interp] . . [facility] Liquid-based cerv Pap + CT/G C by TIMOTHY w reflex to high-risk HPV for ASCUSOrdered By: Dr. Bernal on 04-08-2023 Cytology report Cyto stain.thin prep Doc (Cvx/Vag) Comment . [facility] Comment on above: Criteria not met, HP V Genotype not performed.Performed at: [facility] [id number] Director: Tierra Blas MD, Phone: [phone] at: [facility] [id number] [place], [place] [id number] Director: Eric Emery MD, Phone: [phone] at: =G - [facility] [id number] [id number] Director: Tierra Blas MD, Phone: [phone] No Panel InformationOrdered By: Dr. Bernal on 04-08-2023 Pap Smear QC Review Comment . [facility] Comment on above: Michael Mckeon totechnologist Pathology report final diagnosis Narrative Comment . [facility] Comment on above: NEGATIVE FOR INTRAEP ITHELIAL LESION OR MALIGNANCY.THIS SPECIMEN WAS RESCREENED PART OF OUR SIDER PROGRAM. Basophil percentageOrdered B y: Dr. Ortez on 01-08-2023 Bilirubin [Mass/Vol] 0.30 mg/dL 0.20-1.00 [facility] Comment on above: For patients on eltr ombopag therapy, use of Dimension [place] TBIL is not recommended. Chloride [Moles/Vol] 105 mmol/L 98-107 [facility] Glucose [Mass/Vol] 87 mg/dL 74-106 [facility] Potassium [Moles/Vol] 4.2 mmol/L 3.5-5.1 [facility] Protein [Mass/Vol] 7.1 g/dL 6.4-8.2 [facility] Sodium [Moles/Vol] 141 mmol/L 136-145 [facility] Laboratory - Chemistry and C hemistry - challengeOrdered By: Dr. Ortez on 01-08-2023 ALP [Catalytic activity/Vol] 86 U/L 45-117 [facility] ALT [Catalytic activity/Vol] 24 U/L 13-56 [facility] CO2 [Moles/Vol] 28.0 mmol/L 21.0-32.0 [facility] Free T4 [Mass/Vol] 0.81 ng/dL 0.76-1.46 [facility] Globulin (S) [Mass/Vol] 3.1 g/dL 2.2-4.2 [facility] Urea nitrogen/Creatinine [Mass ratio] 22.3 mg/mg 10-20 [facility] No Panel InformationOrdered By: Dr. Ortez on 01-08-2023 Estimated GFR (MDRD) Amer 88 mL/min >60 [facility] Comment on above: GFR Calc Estimated GFR (MDRD) Non-Af Amer 73 mL/min >60 [facility] Comment on above: Non- GFR Calc Thyroid Stimulating Hormone (TSH) 2.02 uIU/mL 0.358-3.74 [facility] Serum or plasma albumin kerry urement (mass/volume)Ordered By: Dr. Ortez on 01-08-2023 Albumin [Mass/Vol] 4.0 g/dL 3.2-5.0 [facility] Serum or plasma albumin/glob ulin mass ratioOrdered By: Dr. Ortez on 01-08-2023 Albumin/Globulin [Mass ratio] 1.3 {ratio} 0.9-2.4 [facility] Serum or plasma calcium kerry urement (mass/volume)Ordered By: Dr. Ortez on 01-08-2023 Calcium [Mass/Vol] 9.4 mg/dL 8.5-10.1 [facility] Serum or plasma creatinine m easurement (mass/volume)Ordered By: Dr. Ortez on 01-08-2023 Creatinine [Mass/Vol] 0.85 mg/dL 0.55-1.02 [facility] Comment on above: The validity of the calculated GFR & GFRAA in patients over 70 years has not been determined. Clinical correlation is essential. Serum or plasma urea nitroge n measurement (mass/volume)Ordered By: Dr. Ortez on 01-08-2023 Urea nitrogen [Mass/Vol] 19 mg/dL 7-18 [facility] Thin prep Papanicolaou smear with manual screeningOrdered By: Dr. Ortez on 01-08-2023 Thin prep Papanicolaou smear with manual screening 30 U/L 15-37 [facility] Thin prep Papanicolaou smear with manual screening 8 5-15 [facility] CNPNon [facility] -------- SULMA BHATIA ([id number]) 1965 F Date Time Provider Department 07/18/21 VANESSA ORTEZ During your visit today, we recorded the following information about you: James Ferreira 07/18/2021 12:45 PM Signed PATIENT INFORMATION Record ID: [id number] Patient Name: [facility] Hospital: Mishel Schoenchen: [facility] Attending: Herrera Alatorre Center: Internal Medicine and Geriatrics INSTRUCTIONS SN to remind patient of next upcoming appointment date, time, location All Clear SURVEY INFORMATION Medical/Nurse Behavioral Geneticist: James Alcaraz 1. Your discharge instructions are important in guiding you through the recovery process. Is there anything I could help you clarify on your discharge instructions? (Standard Question) No, no clarification needed 2. We encourage a follow up appointment with your physician. Do you have one scheduled? If not; What is the name of the doctor you should be seeing for your follow-up care? (Standard Question) Yes 3. Many patients have concerns about their medications once they are home. Do you have any questions about getting or taking your medications? (Standard Question) No 4. Do you have any new or worsening symptoms? (Standard Question) No Allergies As of Date: 07/18/2021 Noted Allergy Reaction BACTRIM (SULFAMETHOXAZOLE) 08/21/2013 2 - Rash 9 - Itching LATEX 08/21/2013 2 - Rash Date Reviewed: 07/10/2021 Reviewed by: Kami Sepulveda RN - Fully Assessed Reason for Visit: Follow Up Phone Call [[phone]] Cmt: All clear Prescriptions as of 07/18/2021 - apixaban (ELIQUIS) 5 mg tab(s) Take 1 tablet by mouth twice daily. - albuterol HFA (PROVENTIL HFA, VENTOLIN HFA) 90 mcg/actuation inhaler Inhale 2 Puffs as instructed as needed. - thyroid, pork, (ARMOUR THYROID) 60 mg tab Take 45 mg by mouth once daily. Problem List As Of Date 07/18/2021 Noted Resolved Pneumonia due to COVID-19 virus [U07.1, J12.82] 07/03/2021 Encounter Status:Closed by JAMES LE on 07/18/21 Normal [facility] Basic Metabolic Panlon 07-10 Anion gap [Moles/Vol] 10 mmol/L Normal 9-18 [facility] Comment on above: Performed By: #### C BC, BMP, MG1, CRP ####[place] [phone] Calcium [Mass/Vol] 8.8 mg/dL Normal 8.5-10.5 [facility] Comment on above: Performed By: #### C BC, BMP, MG1, CRP ####[place] [phone] Chloride [Moles/Vol] 101 mmol/L Normal 98-110 [facility] Comment on above: Performed By: #### C BC, BMP, MG1, CRP ####[place] [phone] CO2 [Moles/Vol] 28 mmol/L Normal 23-32 [facility] Comment on above: Performed By: #### C BC, BMP, MG1, CRP ####[place] [phone] Creatinine [Mass/Vol] 0.74 mg/dL Normal 0.70-1.40 [facility] Comment on above: Performed By: #### C BC, BMP, MG1, CRP ####[place] [phone] eGFR- Amer. >60 Normal >60 [facility] Comment on above: Performed By: #### C BC, BMP, MG1, CRP ####[place] [phone] eGFR-All Other Races >60 Normal >60 [facility] Comment on above: Result Comment: eGFR (Estimated GFR) Units of measure: mL/min/1.73 meters squared eGFR is derived from the reexpressed MDRD Study equation using the following parameters: serum creatinine, age, gender and race. The creatinine assay has been calibrated to be traceable to IDMS. An eGFR <60 mL/min/1.73m2 for >3 months is consistent with chronic kidney disease. Refer to KDOQI guidelines for clinical interpretation. In patients with unstable renal function, e.g. those with acute kidney injury, the eGFR may not accurately reflect actual GFR. Performed By: #### C BC, BMP, MG1, CRP ####[place] [phone] Glucose [Mass/Vol] 94 mg/dL Normal 65-100 [facility] Comment on above: Performed By: #### C BC, BMP, MG1, CRP ####[place] [phone] Potassium [Moles/Vol] 4.7 mmol/L Normal 3.5-5.0 [facility] Comment on above: Performed By: #### C BC, BMP, MG1, CRP ####[place] [phone] Sodium [Moles/Vol] 139 mmol/L Normal 132-148 [facility] Comment on above: Performed By: #### C BC, BMP, MG1, CRP ####[place] [phone] Urea nitrogen [Mass/Vol] 18 mg/dL Normal 8-25 [facility] Comment on above: Performed By: #### C BC, BMP, MG1, CRP ####[place] [phone] C-Reactive Proteinon 021 C-Reactive Protein 1.9 mg/dL High <0.9 [facility] Comment on above: Performed By: #### C BC, BMP, MG1, CRP ####[place] [phone] CBCon 07-10-2021 Absolute nRBC <0.01 Normal <0.01 [facility] Comment on above: Performed By: #### C BC, BMP, MG1, CRP ####[place] [phone] Erythrocyte distribution width (RBC) [Ratio] 13.9 % Normal 11.5-15.0 [facility] Comment on above: Performed By: #### C BC, BMP, MG1, CRP ####[place] [phone] Hematocrit (Bld) [Volume fraction] 40.8 % Normal 36.0-46.0 [facility] Comment on above: Performed By: #### C BC, BMP, MG1, CRP ####[place] [address] Hemoglobin (Bld) [Mass/Vol] 13.0 g/dL Normal 11.5-15.5 [facility] Comment on above: Performed By: #### C BC, BMP, MG1, CRP ####[place] [address] MCH 28.3 pG Normal 26.0-34.0 [facility] Comment on above: Performed By: #### C BC, BMP, MG1, CRP ####[place] [address] MCHC (RBC) [Mass/Vol] 31.9 g/dL Normal 30.5-36.0 [facility] Comment on above: Performed By: #### C BC, BMP, MG1, CRP ####[place] [address] MCV (RBC) [Entitic vol] 88.9 fL Normal 80.0-100.0 [facility] Comment on above: Performed By: #### C BC, BMP, MG1, CRP ####[place] [address] Platelet mean volume (Bld) [Entitic vol] 9.8 fL Normal 9.0-12.7 [facility] Comment on above: Performed By: #### C BC, BMP, MG1, CRP ####[address] [place] [phone] Platelets (Bld) [#/Vol] 294 10*3/uL Normal 150-400 [facility] Comment on above: Performed By: #### C BC, BMP, MG1, CRP ####[address] [phone] RBC (Bld) [#/Vol] 4.59 10*6/uL Normal 3.90-5.20 [facility] Comment on above: Performed By: #### C BC, BMP, MG1, CRP ####[address] [phone] WBC (Bld) [#/Vol] 9.68 10*3/uL Normal 3.70-11.00 [facility] Comment on above: Performed By: #### C BC, BMP, MG1, CRP ####[address] [phone] CNDSon 07-10-2021 [facility] HNO ID: [id number] Author: Herrera Alatorre MD Service: General Internal Medicine Author Type: Physician Type: Discharge Summary Filed: 07/10/2021 2:01 PM Note Text: DISCHARGE SUMMARY PATIENT NAME: Sulma Bhatia ADMISSION DATE: 07/03/2021 DISCHARGE DATE: 07/10/2021 Attending Physician: Herrera Alatorre MD Code Status: Full Code Highest Readmission Risk Score: 19 The 30 day readmissions risk score is derived from an internally validated risk model which evaluates patient level characteristics, utilization history, medication orders and lab results up until the day of discharge. Patients with a score of 40 or above are considered highest risk for readmission. Specific patient level drivers will be listed at the bottom of the summary. Reason for Hospitalization: Diagnosis: Active Problems: Pneumonia due to COVID-19 virus POA: Yes Resolved Problems: * No resolved hospital problems. * Hospital Course as Described to the Patient: You were admitted for covid pneumonia and treated with decadron and remdesivir. Developed Pulmonary embolism (clots in the lung) from covid. Home with blood thinners for 3 months. Follow up with your physician in 2-4 weeks. LABS AND PROCEDURES PENDING AT DISCHARGE: No pending results. Operations During Hospitalization: Procedures During Hospitalization: Consulting Teams During Hospitalization: Treatment Team: Attending Provider: Herrera Alatorre MD Consulting: Loida Russell V, MD Consulting: Jean Marie Pantoja MD Consulting: Jayro Merino MD None Patient Condition @ Discharge: Discharge Disposition: Discharge Physical Exam: VITAL SIGNS: BP (!) 91/49 Pulse 64 Temp 36.6 ?C (97.9 ?F) (Oral) Resp 16 Ht 154.9 cm (5' 1) Wt 65.6 kg (144 lb 11.2 oz) LMP 08/05/2013 SpO2 95% BMI 27.34 kg/m? GENERAL: Alert, no distress, cooperative NECK: No jugulovenous distention, No carotid bruits, Carotid pulse normal contour, Supple LUNGS: Lungs clear to auscultation, Good diaphragmatic excursion CARDIAC: Normal S1 and S2; no rubs, murmurs, or gallops ABDOMEN: Abdomen soft, non-tender, BS normal, No masses or organomegaly EXTREMITIES: Extremities normal, no deformities, edema, clubbing or skin discoloration. Good capillary refill., No ulcers Diet: Activity: Wound/Surgical Site Care: ALLERGIES Allergen Reactions - Bactrim [Sulfametho* Rash, Itching - Latex Rash Discharge Medications: Current Discharge Medication List START taking these medications !! apixaban (ELIQUIS) 10 mg Take 10 mg by mouth twice daily. Qty: 28 tablet Refills: 0 !! apixaban (ELIQUIS) 5 mg Take 5 mg by mouth twice daily. Qty: 60 tablet Refills: 2 dexAMETHasone (DECADRON) 6 mg Take 6 mg by mouth once daily. Qty: 4 tablet Refills: 0 !! - Potential duplicate medications found. Please discuss with provider. CONTINUE these medications which have NOT CHANGED albuterol HFA (PROVENTIL HFA, VENTOLIN HFA) 2 Puffs Inhale 2 Puffs as instructed as needed. thyroid (pork) 45 mg Take 45 mg by mouth once daily. STOP taking these medications ondansetron orally disintegrating (ZOFRAN ODT) 4 mg Comments: Reason for Stopping: Future Appointments: Follow Up with PCP: Vanessa Ortez MD Appointments for Next 45 Days None Discharge Information Row Name Admission (Current) from 07/03/2021 in [facility] PK1C Durable Medical Equipment Agency [facility] [place] Equipment Needed O2- PLEASE CALL OFFICE WHEN YOU ARE HOME. TY The patient's risk for 30-day readmission is determined using the following contributing factors: Pt variables contributing to increased readmission risk: 18 Most Recent BUN Result 17 Active Medication Orders 8.5 First Resulted Calcium During Admission 2 Number of Previous ED Visits (6 mos.) 1 Previous ED Visit (6 mos.)? 1 Insurance - Private Coverage 1 Discharge Disposition - Home 1 Active Anticoagulant TIME OF CARE: Discharge Management: I personally spent greater than 30 minutes involved in the discharge management of this patient. SIGNATURE: Herrera Alatorre MD PATIENT NAME: Sulma Bhatia DATE: July 10, 2021 TIME: 1:59 PM Normal [facility] CONSULT PROGon 07-10-2021 CONSULT PROG HNO ID: [id number] Author: Shirley Dior APRN.CORK FLOOR INSTALLER Service: Pulmonary Disease Author Type: Nurse Practitioner Type: Consult Progress Note Filed: 07/10/2021 3:03 PM Note Text: Pulmonary/Critical Care Progress Note PATIENT NAME: Sulma Bhatia DATE of SERVICE: July 10, 2021 TIME of SERVICE: 2:59 PM Admitting Physician: Herrera Alatorre MD Attending Physician: Herrera Alatorre MD S: patient states less sob today, minimal cough, no chest pain, currently on 2L NC. Pertinent positive findings reported other system reviews [...] ORAL BID O: PHYSICAL EXAMINATION: Blood pressure (!) 91/49, pulse 64, temperature 36.6 ?C (97.9 ?F), temperature source Oral, resp. rate 16, height 154.9 cm (5' 1), weight 65.6 kg (144 lb 11.2 oz), last menstrual period 08/05/2013, SpO2 95 %., Body mass index is 27.34 kg/m?. GENERAL: Cooperative, pleasant, in no acute distress. NECK: no jugulovenous distention, supple LUNGS: Lungs clear with slight crackles in left lower lobe. CARDIAC: Regular rate and rhythm; no murmurs ABDOMEN: Abdomen soft, non-tender. BS normal. EXTREMITIES: No edema. LABORATORY: CBC, Coags, BMP, Mg, Phos Recent Labs 07/10/21 0756 07/09/21 1210 07/08/21 0934 WBC 9.68 14.36* 10.71 HB 13.0 13.5 13.0 HCT 40.8 41.6 40.8 PLT 294 311 337 NA 139 137 140 K 4.7 4.5 4.1 CHLOR 101 100 102 CO2 28 26 24 BUN 18 19 16 CREAT 0.74 0.65* 0.62* GLUC 94 113* 86 CA 8.8 8.7 8.3* MG 2.3 2.0 1.9 Liver Function, Amylase, AND Lipase Recent Labs 07/07/21 191 TPROT 5.4* ALB 2.7* ALT 20 AST 19 ALKPHOS 50 TBILI 0.2 IMAGING STUDIES: CT chest with bilateral pulmonary embolisms noted and groundglass opacities that are correlating with COVID pneumonia. ASSESSMENT AND PLAN: Acute Hypoxic Respiratory Failure: Likely secondary to COVID Pneumonia. New evidence of bilateral pulmonary embolism on recent CT of chest. Treatment plan transitioned to oral Eliquis, patient tolerating medication well so far. Patient completed 5-day course of Remdesivir with plan to finish 2 more days of dexamethasone outpatient. Plan for discharge today with home oxygen, patient with overall improvement in respiratory status, can be cleared for discharge from pulmonary perspective. SIGNATURE: Shirley Dior APRN.CORK FLOOR INSTALLER DATE: July 10, 2021 TIME: 2:59 PM This note was partially created using voice recognition software and is inherently subject to errors including those of syntax and sound-alike substitutions which may escape proofreading. In such instances, original meaning may be extrapolated by contextual derivation. Normal [facility] Magnesiumon 07-10-2021 Magnesium [Mass/Vol] 2.3 mg/dL Normal 1.7-2.6 [facility] Comment on above: Performed By: #### C BC, BMP, MG1, CRP ####[facility] [place], [place] [phone] NURSING PROGon 07-10-2021 NURSING PROG HNO ID: [id number] Author: Kami Sepulveda RN Service: ? Author Type: Registered Nurse Type: Nursing Progress Note Filed: 07/10/2021 5:33 PM Note Text: Nursing Progress Note Patient Name: Sulma Bhatia Patient Location: [id number]/[id number] Daily Note: 162- This RN went over D/c instructions with pt and pt understands everything explained to her. Pt has her o2 tank in the room with her. Pt states she has all of her belongings. Pt states her is on his way to pick pt up. 4- Spoke with Pharmacist Ryan about giving pt eliquis early before discharge and he gave ok to give. This note was completed by: Kami Sepulveda Normal [facility] Basic Metabolic Panlon 07-09 Anion gap [Moles/Vol] 11 mmol/L Normal 9-18 [facility] Comment on above: Performed By: #### C BC, BMP, MG1 ####[place] [phone] Calcium [Mass/Vol] 8.7 mg/dL Normal 8.5-10.5 [facility] Comment on above: Performed By: #### C BC, BMP, MG1 ####[place] [phone] Chloride [Moles/Vol] 100 mmol/L Normal 98-110 [facility] Comment on above: Performed By: #### C BC, BMP, MG1 ####[place] [phone] CO2 [Moles/Vol] 26 mmol/L Normal 23-32 [facility] Comment on above: Performed By: #### C BC, BMP, MG1 ####[place] [phone] Creatinine [Mass/Vol] 0.65 mg/dL Low 0.70-1.40 [facility] Comment on above: Performed By: #### C BC, BMP, MG1 ####[place] [phone] eGFR- Amer. >60 Normal >60 [facility] Comment on above: Performed By: #### C BC, BMP, MG1 ####[place] [phone] eGFR-All Other Races >60 Normal >60 [facility] Comment on above: Result Comment: eGFR (Estimated GFR) Units of measure: mL/min/1.73 meters squared eGFR is derived from the reexpressed MDRD Study equation using the following parameters: serum creatinine, age, gender and race. The creatinine assay has been calibrated to be traceable to IDMS. An eGFR <60 mL/min/1.73m2 for >3 months is consistent with chronic kidney disease. Refer to KDOQI guidelines for clinical interpretation. In patients with unstable renal function, e.g. those with acute kidney injury, the eGFR may not accurately reflect actual GFR. Performed By: #### C BC BMP, MG1 ####[place] [phone] Glucose [Mass/Vol] 113 mg/dL High 65-100 [facility] Comment on above: Performed By: #### Laxmi BC BMP, MG1 ####[place] [phone] Potassium [Moles/Vol] 4.5 mmol/L Normal 3.5-5.0 [facility] Comment on above: Performed By: #### Laxmi BC BMP, MG1 ####[place] [phone] Sodium [Moles/Vol] 137 mmol/L Normal 132-148 [facility] Comment on above: Performed By: #### Laxmi BC BMP, MG1 ####[place] [phone] Urea nitrogen [Mass/Vol] 19 mg/dL Normal 8-25 [facility] Comment on above: Performed By: #### C BC, BMP, MG1 ####[place] [phone] CBCon 07-09-2021 Absolute nRBC <0.01 Normal <0.01 [facility] Comment on above: Performed By: #### Laxmi BC, BMP, MG1 ####[place] [phone] Erythrocyte distribution width (RBC) [Ratio] 13.9 % Normal 11.5-15.0 [facility] Comment on above: Performed By: #### C GEETA LONG, MG1 ####[place] [phone] Hematocrit (Bld) [Volume fraction] 41.6 % Normal 36.0-46.0 [facility] Comment on above: Performed By: #### C GEETA LONG, MG1 ####[place] [phone] Hemoglobin (Bld) [Mass/Vol] 13.5 g/dL Normal 11.5-15.5 [facility] Comment on above: Performed By: #### C GEETA LONG, MG1 ####[place] [phone] MCH 28.4 pG Normal 26.0-34.0 [facility] Comment on above: Performed By: #### GEETA BRAR, MG1 ####[place] [address] MCHC (RBC) [Mass/Vol] 32.5 g/dL Normal 30.5-36.0 [facility] Comment on above: Performed By: #### C GEETA LONG, MG1 ####[place] [phone] MCV (RBC) [Entitic vol] 87.4 fL Normal 80.0-100.0 [facility] Comment on above: Performed By: #### C GEETA LONG, MG1 ####[place] [phone] Platelet mean volume (Bld) [Entitic vol] 10.1 fL Normal 9.0-12.7 [facility] Comment on above: Performed By: #### GEETA BRAR, MG1 ####[place] [phone] Platelets (Bld) [#/Vol] 311 10*3/uL Normal 150-400 [facility] Comment on above: Performed By: #### C ETHAN BMP, MG1 ####[facility] [place], [place] [phone] RBC (Bld) [#/Vol] 4.76 10*6/uL Normal 3.90-5.20 [facility] Comment on above: Performed By: #### C BC, BMP, MG1 ####[facility] [place], [place] [phone] WBC (Bld) [#/Vol] 14.36 10*3/uL High 3.70-11.00 [facility] Comment on above: Performed By: #### C BC, BMP, MG1 ####[facility] [place], [place] [phone] CT CHEST W IVCON PEon 2020 CT CHEST W IVCON PE * * *Final Report* * * DATE OF EXAM: Jul 09 2021 4:12AM [facility] 0540 - CT CHEST W IVCON PE / PROCEDURE REASON: PE suspected, intermediate prob, positive D-dimer * * * * Physician Interpretation * * * * EXAMINATION: CHEST CT WITH CONTRAST (PULMONARY EMBOLISM PROTOCOL) CLINICAL HISTORY: Chest pain, Covid Technique: Spiral CT acquisition of the chest from the thoracic inlet to the upper abdomen following IV contrast. Axial 1 and 3 mm thick slices plus coronal and sagittal reformatted images. MQ: CTCP_5 Contrast: 85 mL Omnipaque [address] Radiation dose: Integrated Dose-length product (DLP) for this visit = 399 mGy*cm CT Dose Reduction Employed: Automated exposure control (AEC) Comparison: CT chest 07/02/2021 RESULT: Limitations: None. Evaluation for thromboembolic disease: - Right heart chambers: No thromboembolic disease. - Main pulmonary arteries: No thromboembolic disease. - Lobar pulmonary arteries: No thromboembolic disease. - Segmental pulmonary arteries: Right upper lobe, left lower lobe - Subsegmental pulmonary arteries: Right upper lobe, left lower lobe, right lower lobe - Additional pulmonary artery findings: The main pulmonary artery is normal in caliber. Lines, tubes, and devices: None. Lung parenchyma and airways: Scattered rounded and confluent areas of groundglass opacities, heaviest in the lung bases is not significantly changed compared to the prior exam. Pleural space: No pleural effusion. No pleural thickening. Lower neck, lymph nodes, and mediastinum: Redemonstration of a 1.2 cm nodule along the inferior aspect of the right thyroid lobe could represent an exophytic right thyroid lobe nodule versus a parathyroid lesion. No lymphadenopathy in the supraclavicular, axillary, mediastinal, or hilar regions. 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 Heart, pericardium, and thoracic vessels: The thoracic aorta is normal in caliber. The cardiac chambers are normal in size. No coronary artery atherosclerotic calcifications are noted, although the study is not optimized for coronary assessment. No pericardial effusion or thickening. Bones and soft tissues: No destructive bone lesion. Chest wall is unremarkable. Upper abdomen: No abnormality in the imaged upper abdomen. Public Health Sanitarian Technician (topogram) images: No additional findings. IMPRESSION: 1. Right upper and left lower lobe segmental pulmonary emboli along with right upper and bilateral lower lobe subsegmental pulmonary emboli. 2. Bilateral groundglass opacities consistent with Covid pneumonia. 3. 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 CRITICAL TEST/RESULTS: CRITICAL TEST/RESULTS: Acuity: Critical Finding: Pulmonary embolus Communication: Communicated with Anali, the patient's nurse, on 07/09/2021 at 0432 hours via verbal communication. Computer Operations Technician: LEVON Transcribe Date/Time: Jul 09 2021 4:14A Dictated by : HENRIK GALLARDO MD This examination was interpreted and the report reviewed and electronically signed by: HENRIK GALLARDO MD on Jul 09 2021 4:36AM EST [id number] CRITICAL!! Invalid Interpretation Code [facility] Magnesiumon 07-09-2021 Magnesium [Mass/Vol] 2.0 mg/dL Normal 1.7-2.6 [facility] Comment on above: Performed By: #### C ETHAN, BMP, MG1 ####[facility] [place], [place] [phone] NURSING PROGon 07-09-2021 NURSING PROG HNO ID: [id number] Author: Gabby Peng RN Service: Nursing Author Type: Registered Nurse Type: Nursing Progress Note Filed: 07/09/2021 5:07 AM Note Text: Nursing Progress Note Patient Name: Sulma Bhatia [id number] Daily Note: 0430: spoke with radiology regarding pt's chest CT. Positive for bilateral PEs . Covering house LIP notified by this RN. Pt on 2 L NC stating at 94%. No reports of chest pain or shortness of breath. Vitals stable. Will continue to assess and monitor pt. 0500: Lovenox dose switched from 40mg Q24 hours to 70mg Q12 hours. Administering first dose now. Will continue to assess and monitor pt. This note was completed by: Gabby Peng Normal [facility] Basic Metabolic Panlon 07-08 Anion gap [Moles/Vol] 14 mmol/L Normal -18 [facility] Comment on above: Performed By: #### B MP, CRP, MG1, CBC ####[address] [phone] Calcium [Mass/Vol] 8.3 mg/dL Low 8.5-10.5 [facility] Comment on above: Performed By: #### B MP, CRP, MG1, CBC ####[address] [phone] Chloride [Moles/Vol] 102 mmol/L Normal 98-110 [facility] Comment on above: Performed By: #### B MP, CRP, MG1, CBC ####[address] [phone] CO2 [Moles/Vol] 24 mmol/L Normal 23-32 [facility] Comment on above: Performed By: #### B MP, CRP, MG1, CBC ####[address] [phone] Creatinine [Mass/Vol] 0.62 mg/dL Low 0.70-1.40 [facility] Comment on above: Performed By: #### B MP, CRP, MG1, CBC ####[place] [phone] eGFR- Amer. >60 Normal >60 [facility] Comment on above: Performed By: #### B MP, CRP, MG1, CBC ####[place] [phone] eGFR-All Other Races >60 Normal >60 [facility] Comment on above: Result Comment: eGFR (Estimated GFR) Units of measure: mL/min/1.73 meters squared eGFR is derived from the reexpressed MDRD Study equation using the following parameters: serum creatinine, age, gender and race. The creatinine assay has been calibrated to be traceable to IDMS. An eGFR <60 mL/min/1.73m2 for >3 months is consistent with chronic kidney disease. Refer to KDOQI guidelines for clinical interpretation. In patients with unstable renal function, e.g. those with acute kidney injury, the eGFR may not accurately reflect actual GFR. Performed By: #### B MP, CRP, MG1, CBC ####[place] [phone] Glucose [Mass/Vol] 86 mg/dL Normal 65-100 [facility] Comment on above: Performed By: #### B MP, CRP, MG1, CBC ####[place] [phone] Potassium [Moles/Vol] 4.1 mmol/L Normal 3.5-5.0 [facility] Comment on above: Performed By: #### B MP, CRP, MG1, CBC ####[place] [phone] Sodium [Moles/Vol] 140 mmol/L Normal 132-148 [facility] Comment on above: Performed By: #### B MP, CRP, MG1, CBC ####[place] [phone] Urea nitrogen [Mass/Vol] 16 mg/dL Normal 8-25 [facility] Comment on above: Performed By: #### B MP, CRP, MG1, CBC ####[place] [phone] C-Reactive Proteinon 021 C-Reactive Protein 3.6 mg/dL High <0.9 [facility] Comment on above: Performed By: #### B MP, CRP, MG1, CBC ####[place] [phone] CBCon 07-08-2021 Absolute nRBC <0.01 Normal <0.01 [facility] Comment on above: Performed By: #### B MP, CRP, MG1, CBC ####[place] [phone] Erythrocyte distribution width (RBC) [Ratio] 14.1 % Normal 11.5-15.0 [facility] Comment on above: Performed By: #### B MP, CRP, MG1, CBC ####[place] [phone] Hematocrit (Bld) [Volume fraction] 40.8 % Normal 36.0-46.0 [facility] Comment on above: Performed By: #### B MP, CRP, MG1, CBC ####[place] [phone] Hemoglobin (Bld) [Mass/Vol] 13.0 g/dL Normal 11.5-15.5 [facility] Comment on above: Performed By: #### B MP, CRP, MG1, CBC ####[place] [phone] MCH 28.6 pG Normal 26.0-34.0 [facility] Comment on above: Performed By: #### B MP, CRP, MG1, CBC ####[place] [phone] MCHC (RBC) [Mass/Vol] 31.9 g/dL Normal 30.5-36.0 [facility] Comment on above: Performed By: #### B MP, CRP, MG1, CBC ####[place] [phone] MCV (RBC) [Entitic vol] 89.9 fL Normal 80.0-100.0 [facility] Comment on above: Performed By: #### B MP, CRP, MG1, CBC ####[place] [phone] Platelet mean volume (Bld) [Entitic vol] 10.4 fL Normal 9.0-12.7 [facility] Comment on above: Performed By: #### B MP, CRP, MG1, CBC ####[place] [phone] Platelets (Bld) [#/Vol] 337 10*3/uL Normal 150-400 [facility] Comment on above: Performed By: #### B MP, CRP, MG1, CBC ####[place] [phone] RBC (Bld) [#/Vol] 4.54 10*6/uL Normal 3.90-5.20 [facility] Comment on above: Performed By: #### B MP, CRP, MG1, CBC ####[place] [phone] WBC (Bld) [#/Vol] 10.71 10*3/uL Normal 3.70-11.00 [facility] Comment on above: Performed By: #### B MP, CRP, MG1, CBC ####[place] [phone] D dimeron 07-08-2021 D dimer 31691 ng/mL FEU High <500 [facility] Comment on above: Result Comment: 500 ng/mL FEU is the D Dimer cutoff to exclude DVT (deep vein thrombosis) and PE (pulmonary embolism) in patients with a low pre test probability. Supplemental Comment: In patients over 50 years with a low pre test probability for DVT and/or PE, an age adjusted D dimer cutoff can be calculated as [age x 10] ng/mL FEU. For example, a patient of 88 years would have an age adjusted D dimer cutoff of 880 ng/mL FEU. For patients with a suspected DVT, a D dimer level below 500 ng/mL FEU has a negative predictive value of >98.9%, a sensitivity of >96.9% and a specificity of >35.7%. For patients with a suspected PE, a D dimer level below 500 ng/mL FEU has a negative predictive value of >98.5%, and a sensitivity of >96.5% and a specificity of >38.8%. Reference: Ale M, et al. AUSTIN 2014 311:1117 and Jack Lao N, et al. Anila Int Med 2016 165:253. Performed By: #### D DMER #### [place] [id number] [place] [address] Magnesiumon 07-08-2021 Magnesium [Mass/Vol] 1.9 mg/dL Normal 1.7-2.6 [facility] Comment on above: Performed By: #### C DPCR #### [facility] [employer] [address] [place], [place] [address] Basic Metabolic Panlon 07-07 Anion gap [Moles/Vol] 11 mmol/L Normal 9-18 [facility] Comment on above: Performed By: #### C DPCR #### [facility] [employer] [address] [place], [place] [address] Calcium [Mass/Vol] 8.5 mg/dL Normal 8.5-10.5 [facility] Comment on above: Performed By: #### C DPCR #### [facility] [employer] [address] [place], [place] [address] Chloride [Moles/Vol] 105 mmol/L Normal 98-110 [facility] Comment on above: Performed By: #### C DPCR #### [facility] [employer] [address] [place], [place] [address] CO2 [Moles/Vol] 21 mmol/L Low 23-32 [facility] Comment on above: Performed By: #### C DPCR #### [facility] [employer] [address] [place], [place] [address] Creatinine [Mass/Vol] 0.55 mg/dL Low 0.70-1.40 [facility] Comment on above: Performed By: #### C DPCR #### [facility] [employer] [address] [place], [place] [address] eGFR- Amer. >60 Normal >60 [facility] Comment on above: Performed By: #### C DPCR #### [facility] [employer] [address] [place], [place] [address] eGFR-All Other Races >60 Normal >60 [facility] Comment on above: Result Comment: eGFR (Estimated GFR) Units of measure: mL/min/1.73 meters squared eGFR is derived from the reexpressed MDRD Study equation using the following parameters: serum creatinine, age, gender and race. The creatinine assay has been calibrated to be traceable to IDMS. An eGFR <60 mL/min/1.73m2 for >3 months is consistent with chronic kidney disease. Refer to KDOQI guidelines for clinical interpretation. In patients with unstable renal function, e.g. those with acute kidney injury, the eGFR may not accurately reflect actual GFR. Performed By: #### C DPCR #### [facility] [employer] [address] [place], [place] [address] Glucose [Mass/Vol] 96 mg/dL Normal 65-100 [facility] Comment on above: Performed By: #### C DPCR #### [facility] [employer] [address] [place], [place] [address] Potassium [Moles/Vol] 4.4 mmol/L Normal 3.5-5.0 [facility] Comment on above: Performed By: #### C DPCR #### [facility] [employer] [address] [place], [place] [address] Sodium [Moles/Vol] 137 mmol/L Normal 132-148 [facility] Comment on above: Performed By: #### C DPCR #### [facility] [employer] [address] [place], [place] [address] Urea nitrogen [Mass/Vol] 14 mg/dL Normal 8-25 [facility] Comment on above: Performed By: #### C DPCR #### [facility] [employer] [address] [place], [place] [address] CASE MANAGEMon 07-07-2021 CASE MANAGEM HNO ID: [id number] Author: HOSSEIN Xiao Service: ? Author Type: Crab Fisherman Type: Care Mgt Progress Note Filed: 07/07/2021 3:56 PM Note Text: CARE MANAGEMENT WEEKEND PLANNING NOTE DISCHARGE OR POSSIBLE DISCHARGE Date/Time: 07/08 Disposition: DME - Equipment Needed: o2, Company: [employer], Phone #: [phone], Fax #: ., Delivery Date: 07/09 and Delivery Location: Hospital Transport: Car family Other Concerns: Possible weekend dc. 3L of o2. Will need paper script Weekend Job Placement Counselor Pager #: ELIZA HO [phone] SIGNATURE: HOSSEIN Xiao PATIENT NAME: Sulma Chowdary DATE: July 07, 2021 TIME: 3:55 PM PAGER/CONTACT #: [phone] Normal [facility] CBCon 07-07-2021 Absolute nRBC <0.01 Normal <0.01 [facility] Comment on above: Performed By: #### C BC, HFP #### [place] [address] Erythrocyte distribution width (RBC) [Ratio] 13.6 % Normal 11.5-15.0 [facility] Comment on above: Performed By: #### C BC, HFP #### [place] [address] Hematocrit (Bld) [Volume fraction] 38.0 % Normal 36.0-46.0 [facility] Comment on above: Performed By: #### C BC, HFP #### [place] [address] Hemoglobin (Bld) [Mass/Vol] 12.4 g/dL Normal 11.5-15.5 [facility] Comment on above: Performed By: #### C BC, HFP #### [place] [address] MCH 28.6 pG Normal 26.0-34.0 [facility] Comment on above: Performed By: #### C BC, HFP #### [place] [address] MCHC (RBC) [Mass/Vol] 32.6 g/dL Normal 30.5-36.0 [facility] Comment on above: Performed By: #### C BC, HFP #### [place] [address] MCV (RBC) [Entitic vol] 87.8 fL Normal 80.0-100.0 [facility] Comment on above: Performed By: #### C BC, HFP #### [place] [address] Platelet mean volume (Bld) [Entitic vol] 10.3 fL Normal 9.0-12.7 [facility] Comment on above: Performed By: #### C BC, HFP #### [place] [address] Platelets (Bld) [#/Vol] 327 10*3/uL Normal 150-400 [facility] Comment on above: Performed By: #### C BC, HFP #### [place] [phone] RBC (Bld) [#/Vol] 4.33 10*6/uL Normal 3.90-5.20 [facility] Comment on above: Performed By: #### C BC, HFP #### [address] [address] WBC (Bld) [#/Vol] 8.43 10*3/uL Normal 3.70-11.00 [facility] Comment on above: Performed By: #### C BC, HFP #### [facility] [address] [place] [id number] Absolute nRBC <0.01 Normal <0.01 [facility] Comment on above: Performed By: #### C DPCR #### [place] [address] [place], [place] [address] Erythrocyte distribution width (RBC) [Ratio] 14.0 % Normal 11.5-15.0 [facility] Comment on above: Performed By: #### C DPCR #### [place] [address] [place], [place] [address] Hematocrit (Bld) [Volume fraction] 42.5 % Normal 36.0-46.0 [facility] Comment on above: Performed By: #### C DPCR #### [place] [address] [place], [place] [address] Hemoglobin (Bld) [Mass/Vol] 13.4 g/dL Normal 11.5-15.5 [facility] Comment on above: Performed By: #### C DPCR #### [place] [address] [place], [place] [address] MCH 28.3 pG Normal 26.0-34.0 [facility] Comment on above: Performed By: #### C DPCR #### [place] [address] [place], [place] [address] MCHC (RBC) [Mass/Vol] 31.5 g/dL Normal 30.5-36.0 [facility] Comment on above: Performed By: #### C DPCR #### [facility] [address] [place], [place] [address] MCV (RBC) [Entitic vol] 89.7 fL Normal 80.0-100.0 [facility] Comment on above: Performed By: #### C DPCR #### [facility] [address] [place], [place] [address] Platelet mean volume (Bld) [Entitic vol] 10.4 fL Normal 9.0-12.7 [facility] Comment on above: Performed By: #### C DPCR #### [facility] [address] [place], [place] [address] Platelets (Bld) [#/Vol] 343 10*3/uL Normal 150-400 [facility] Comment on above: Performed By: #### C DPCR #### [facility] [address] [place], [place] [id number] RBC (Bld) [#/Vol] 4.74 10*6/uL Normal 3.90-5.20 [facility] Comment on above: Performed By: #### C DPCR #### [facility] [address] [place], [place] [id number] WBC (Bld) [#/Vol] 8.33 10*3/uL Normal 3.70-11.00 [facility] Comment on above: Performed By: #### C DPCR #### [place] [address] [place], [place] [address] CONSULT PROGon 07-07-2021 CONSULT PROG HNO ID: [id number] Author: Margo Donaldson MD Service: Pulmonary Disease Author Type: Physician Type: Consult Progress Note Filed: 07/07/2021 4:40 PM Note Text: Pulmonary/Critical Care Progress Note PATIENT NAME: Sulma Bhatia DATE of SERVICE: July 07, 2021 TIME of SERVICE: 3:51 PM Admitting Physician: Herrera Alatorre MD Attending Physician: Herrera Alatorre MD S: patient with less shortness of breath today, mild non-productive cough, currently 3L NC. Pertinent positive findings reported other system reviews [...] mL (HYDROMET) 5 mL ORAL HS PRN O: PHYSICAL EXAMINATION: Blood pressure (!) 80/49, pulse 68, temperature 36.8 ?C (98.2 ?F), temperature source Oral, resp. rate 18, height 154.9 cm (5' 1), weight 68.4 kg (150 lb 11.2 oz), last menstrual period 08/05/2013, SpO2 94 %., Body mass index is 28.47 kg/m?. GENERAL: Cooperative, pleasant, in no acute distress. NECK: no jugulovenous distention, supple LUNGS: Lungs slightly diminished in bases. CARDIAC: Regular rate and rhythm; no murmurs ABDOMEN: Abdomen soft, non-tender. BS normal. EXTREMITIES: No edema. LABORATORY: CBC, Coags, BMP, Mg, Phos Recent Labs 07/07/21 0743 07/06/21 0533 07/05/21 0704 WBC 8.33 8.95 8.91 HB 13.4 13.3 12.9 HCT 42.5 40.6 40.3 PLT 343 323 307 NA 137 140 140 K 4.4 Unable to assay. Specimen hemolyzed. 3.8 CHLOR 105 106 105 CO2 21* 23 22* BUN 14 14 16 CREAT 0.55* 0.61* 0.76 GLUC 96 92 89 CA 8.5 8.4* 8.2* MG 2.1 2.0 -- Liver Function, Amylase, AND Lipase Recent Labs 07/05/21 0704 TPROT 5.5* ALB 2.9* ALT 24 AST 32 ALKPHOS 47 TBILI 0.4 ASSESSMENT AND PLAN: Acute Hypoxic Respiratory Failure: Likely related to COVID Pneumonia, and abnormal hilar/mediastinal structure on exam. CT chest with bilateral lower lobe infiltrates and and abnormal hilar/mediastinal structure, will consult CT surgery for follow up. Patient with overall improvement, initially requiring HF NC and able to be weaned down to NC. Completed Remdesivir treatment today, Decadron until 07/12. Continue to wean supplemental oxygen and attempt 2L NC today. Continue with bronchodilator therapy as ordered. SIGNATURE: Shirley Dior APRN.[employer] FLOOR INSTALLER DATE: July 07, 2021 TIME: 3:51 PM This note was partially created using voice recognition software and is inherently subject to errors including those of syntax and sound-alike substitutions which may escape proofreading. In such instances, original meaning may be extrapolated by contextual derivation. Pulmonary/critical care attending. I have seen and evaluated the patient and discussed the case with the nurse practitioner. Labs and imaging studies have been reviewed. I agree with the physical exam, assessment and plan as documented in the nurse practitioner?s note. Acute hypoxic respiratory failure: Likely secondary to COVID-19 pneumonia Slowly improving with current treatment plan We will continue with remdesivir (day 5/5), dexamethasone and Lovenox for DVT prophylaxis. Wean down FiO2 as tolerated. Likely DC home on supplemental oxygen. Thank you, will follow Margo Donaldson MD, FCCP July 07, 2021 Normal [facility] Hepatic Functn Panelon 07-07 Albumin [Mass/Vol] 2.7 g/dL Low 3.5-5.0 [facility] Comment on above: Performed By: #### C , [facility] #### [place] [id number] [place] [address] ALP [Catalytic activity/Vol] 50 U/L Normal 34-123 [facility] Comment on above: Performed By: #### C BC, HFP #### [place] [phone] ALT [Catalytic activity/Vol] 20 U/L Normal 0-45 [facility] Comment on above: Performed By: #### C BC, HFP #### [place] [phone] AST [Catalytic activity/Vol] 19 U/L Normal 7-40 [facility] Comment on above: Performed By: #### C BC, HFP #### [place] [phone] Bilirubin [Mass/Vol] 0.2 mg/dL Normal 0.2-1.3 [facility] Comment on above: Performed By: #### C BC, HFP #### [place] [phone] Bilirubin,Conjugated <0.2 Normal <0.2 [facility] Comment on above: Performed By: #### C BC, HFP #### [place] [phone] Protein [Mass/Vol] 5.4 g/dL Low 6.0-8.4 [facility] Comment on above: Performed By: #### C BC, HFP #### [place] [phone] MEDICAL EMERon 07-07-2021 MEDICAL SAMIR HNO ID: [id number] Author: Philippe Chen APRN.[employer] F[employer] INSTALLER Service: General Internal Medicine Author Type: Nurse Practitioner Type: Chg in Clinical Condition Filed: 07/07/2021 8:01 AM Note Text: Pt's + hypotension, SBP 80, ordered 1 L IVF NS. Monitor - continue with orders in Mani Chen APRN.[employer] FLOOR INSTALLER, house coverage Normal [facility] Magnesiumon 07-07-2021 Magnesium [Mass/Vol] 2.1 mg/dL Normal 1.7-2.6 [facility] Comment on above: Performed By: #### C DPCR #### [facility] [address] [place], [place] [address] NT Pro BNPon 07-07-2021 PRO B Natr Peptide 836 pg/mL High <125 [facility] Comment on above: Performed By: #### D DMER, TSH, FIBCT #### [facility] [address] [place] [address] NURSING PROGon 07-07-2021 NURSING PROG HNO ID: [id number] Author: Earlene Garcia, RN Service: Nursing Author Type: Registered Nurse Type: Nursing Progress Note Filed: 07/07/2021 8:02 AM Note Text: Nursing Progress Note Patient Name: Sulma Bhatia Patient Location: [place] [address]/[place] [address] Daily Note: 0752: Pt BP 80/49. Page sent to house. Pt not symptomatic. Will continue to monitor 0802: order received for bolus This note was completed by: Tami Garcia Normal [facility] THERAPY NTon 07-07-2021 THERAPY NT HNO ID: [id number] Author: Rosamaria Haddad, PT Service: Physical Therapy Author Type: Physical Therapist Type: Therapy (PT/OT/Speech/Resp) Filed: 07/07/2021 12:02 PM Note Text: Physical Therapy Evaluation SERVICE DATE: 07/07/2021 SERVICE TIME: 1125 to 1140 ROOM: [place] [address] Recommended Discharge Disposition: Home PT 6 Clicks Score: 24 Precautions/Activity Restrictions: Lines/Tubes/Drains Isolation Type: Contact AND Droplet Precautions-Plus Eyewear Reason for Hospital Admission: Covid pneumonia, acute respiratory failure Relevant Past Medical History: asthma, hypothyroid Response to Therapy Interventions: Good participation in activities Treatment Interventions: Education Home Environment Patient Lives With: Spouse Assistance Available: PRN Entry To Home: Stairs;With Rail Number Of Stairs Into Home: 3 Number Of Stairs To Bed/Bath: 0 Equipment Owned: (none) Prior Functional Level: Within Functional Limits Prior Functional Level Comments: pt independent Patient Report: pt pleasant and cooperative CURRENT FUNCTIONAL STATUS: Most recent performance Current Functional Mobility Assist Level Additional Information Rolling Modified Independent Supine to Sit Modified Independent Sit to Supine Modified Independent Scooting Modified Independent Sit to Stand Modified Independent Stand to Sit Modified Independent Bed to Chair Toilet/Commode Gait Modified Independent Gait Device: None Gait Distance (feet): 30' in room Stairs Curb Step Car Transfer Blank dixon indicate activity not attempted Balance: Dynamic Standing Dynamic Standing Balance: Good Patient accepts moderate challenge, able to maintain balance while picking up object off floor -HLM: 7: Walk 25 feet or more Learning/Educational Needs: Safety Goals for Plan of Care: Patient /Caregiver Goals: Go Home Patient will be discontinued from Physical Therapy when no further skilled needs are identified in this setting. PLAN: PT Frequency: Discontinue therapy services Reasons Therapy Services Discontinued: No skilled needs;Independent in all functional mobility Plan of Care developed with: Patient TREATMENT INTERVENTIONS: Therapy Diagnosis: No Skilled Need Interventions Provided: Evaluation $ Evaluation-Low (46918) Billed Units: 1 unit Educated in use of IS, pursed lip breathing, energy conservation, importance of mobility as tolerated Training AND education provided in: Energy conservation, Role of Physical Therapy, Benefits of in-hospital mobility The following therapeutic skills were used: Activity dosing, Assessment of tolerance including vitals response to activity Total Treatment Time (minutes): 15 Please see discipline specific clinical documentation flowsheet for complete details for this therapy evaluation/treatment. SIGNATURE: Rosamaria Haddad PT PATIENT NAME: Sulma Bhatia DATE: July 07, 2021 TIME: 12:02 PM [facility] US DVT LOWER BILon 1 US DVT LOWER MARKIE * * *Final Report* * * DATE OF EXAM: Jul 07 2021 9:59AM FVU 1005 - US DVT LOWER MARKIE / PROCEDURE REASON: Leg swelling * * * * Physician Interpretation * * * * EXAMINATION: RIGHT AND LEFT LOWER EXTREMITY DEEP VENOUS ULTRASOUND WITH DOPPLER IMAGING CLINICAL HISTORY: Covid positive TECHNIQUE: Grayscale with compression maneuvers, color Doppler and spectral Doppler imaging of the right and left proximal deep veins was performed. Grayscale with compression maneuvers of the right and left peroneal and posterior tibial veins was performed. The right and left great and small saphenous veins were evaluated at their insertion to the deep system. Images were obtained and stored in a permanent archive. MQ: [id number] COMPARISON: None RESULT: RIGHT LOWER EXTREMITY PROXIMAL DEEP VEINS Distal External Iliac, Common Femoral and Proximal Profunda Veins: Compression: Normal Doppler: Normal, spontaneous respirophasic flow. Normal response to augmentation. Femoral vein: Compression: Normal Doppler: Normal, spontaneous respirophasic flow. Normal response to augmentation. Popliteal vein: Compression: Normal Doppler: Normal, spontaneous respirophasic flow. Normal response to augmentation. CALF DEEP VEINS Peroneal veins: Normal compression. Posterior tibial veins: Normal compression. Gastrocnemius and Soleal veins: Not imaged. SUPERFICIAL VEINS Great saphenous: Patent and compressible at insertion into common femoral vein; not otherwise assessed. Small Saphenous: Patent and compressible in the proximal calf, not otherwise assessed. LEFT LOWER EXTREMITY PROXIMAL DEEP VEINS Distal External Iliac, Common Femoral and Proximal Profunda Veins: Compression: Normal Doppler: Normal, spontaneous respirophasic flow. Normal response to augmentation. Femoral vein: Compression: Normal Doppler: Normal, spontaneous respirophasic flow. Normal response to augmentation. Popliteal vein: Compression: Normal Doppler: Normal, spontaneous respirophasic flow. Normal response to augmentation. CALF DEEP VEINS Peroneal veins: Normal compression. Posterior tibial veins: Normal compression. Gastrocnemius and Soleal veins: Not imaged. SUPERFICIAL VEINS Great saphenous: Patent and compressible at insertion into common femoral vein; not otherwise assessed. Small Saphenous: Patent and compressible in the proximal calf, not otherwise assessed. IMPRESSION: Negative study for proximal DVT in the left and right lower extremities. Negative study for calf DVT in the left and right lower extremities. Negative study for superficial thrombophlebitis in the imaged segments of the left and right lower extremities. Computer Operations Technician: PSCB Transcribe Date/Time: Jul 07 2021 10:03A Dictated by : ZACHERY MICHAEL MD This examination was interpreted and the report reviewed and electronically signed by: ZACHERY MICHAEL MD on Jul 07 2021 10:03AM EST [id number] Normal [facility] Basic Metabolic Panlon 07-06 Anion gap [Moles/Vol] 11 mmol/L Normal 9-18 [facility] Comment on above: Performed By: #### C DPCR #### [facility] [employer] [address] [place], [place] [address] Calcium [Mass/Vol] 8.4 mg/dL Low 8.5-10.5 [facility] Comment on above: Performed By: #### C DPCR #### [facility] [employer] [address] [place], [place] [address] Chloride [Moles/Vol] 106 mmol/L Normal 98-110 [facility] Comment on above: Performed By: #### C DPCR #### [facility] [employer] [address] [place] [address] CO2 [Moles/Vol] 23 mmol/L Normal 23-32 [facility] Comment on above: Performed By: #### C DPCR #### [facility] [employer] [address] [place] [address] Creatinine [Mass/Vol] 0.61 mg/dL Low 0.70-1.40 [facility] Comment on above: Performed By: #### C DPCR #### [facility] [employer] [address] [place] [id number] eGFR- Amer. >60 Normal >60 [facility] Comment on above: Performed By: #### C DPCR #### [facility] [employer] [address] [place] [id number] eGFR-All Other Races >60 Normal >60 [facility] Comment on above: Result Comment: eGFR (Estimated GFR) Units of measure: mL/min/1.73 meters squared eGFR is derived from the reexpressed MDRD Study equation using the following parameters: serum creatinine, age, gender and race. The creatinine assay has been calibrated to be traceable to IDMS. An eGFR <60 mL/min/1.73m2 for >3 months is consistent with chronic kidney disease. Refer to KDOQI guidelines for clinical interpretation. In patients with unstable renal function, e.g. those with acute kidney injury, the eGFR may not accurately reflect actual GFR. Performed By: #### C DPCR #### [facility] [employer] [address], [place] [id number] Glucose [Mass/Vol] 92 mg/dL Normal 65-100 [facility] Comment on above: Performed By: #### C DPCR #### [facility] [employer] [address] [place], [place] [phone] Potassium Unable to assay. Specimen hemolyzed. Normal 3.5-5.0 [facility] Comment on above: Performed By: #### C DPCR #### [facility] [employer] [address] [place], [place] [phone] Sodium [Moles/Vol] 140 mmol/L Normal 132-148 [facility] Comment on above: Performed By: #### C DPCR #### [facility] [employer] [address] [place], [place] [phone] Urea nitrogen [Mass/Vol] 14 mg/dL Normal 8-25 [facility] Comment on above: Performed By: #### C DPCR #### [facility] [employer] [address] [place], [place] [phone] C-Reactive Proteinon 021 C-Reactive Protein 2.8 mg/dL High <0.9 [facility] Comment on above: Performed By: #### C DPCR #### [facility] [employer] [address] [place], [place] [address] CASE MANAGEMon 07-06-2021 CASE MANAGEM HNO ID: [id number] Author: HOSSEIN Xiao Service: ? Author Type: Crab Fisherman Type: Care Mgt Progress Note Filed: 07/06/2021 12:34 PM Note Text: CARE MANAGEMENT PROGRESS NOTE SERVICE DATE: 07/06/2021 SERVICE TIME: 12:34 PM LOS: 2 days Needs Prior to Discharge: To Be Determined Transfer back from ICU. On high-flow. Anticipate dc home with home o2. SIGNATURE: HOSSEIN Xiao PATIENT NAME: Sulma Chowdary DATE: July 06, 2021 TIME: 12:34 PM PAGER/CONTACT #: [phone] Normal [facility] CBCon 07-06-2021 Absolute nRBC <0.01 Normal <0.01 [facility] Comment on above: Performed By: #### C DPCR #### [facility] [employer] [address] [place], [place] [address] Erythrocyte distribution width (RBC) [Ratio] 14.1 % Normal 11.5-15.0 [facility] Comment on above: Performed By: #### C DPCR #### [facility] [employer] [facility] [place], [place] [address] Hematocrit (Bld) [Volume fraction] 40.6 % Normal 36.0-46.0 [facility] Comment on above: Performed By: #### C DPCR #### [facility] [employer] [address] [place] [address] Hemoglobin (Bld) [Mass/Vol] 13.3 g/dL Normal 11.5-15.5 [facility] Comment on above: Performed By: #### C DPCR #### [facility] [employer] [facility] [place], [place] [address] MCH 29.0 pG Normal 26.0-34.0 [facility] Comment on above: Performed By: #### C DPCR #### [facility] [employer] [facility] [place], [place] [address] MCHC (RBC) [Mass/Vol] 32.8 g/dL Normal 30.5-36.0 [facility] Comment on above: Performed By: #### C DPCR #### [facility] [employer] [facility] [place], [place] [address] MCV (RBC) [Entitic vol] 88.6 fL Normal 80.0-100.0 [facility] Comment on above: Performed By: #### C DPCR #### [facility] [employer] [facility] [place], [place] [address] Platelet mean volume (Bld) [Entitic vol] 9.9 fL Normal 9.0-12.7 [facility] Comment on above: Performed By: #### C DPCR #### [facility] [address] [place] [id number] Platelets (Bld) [#/Vol] 323 10*3/uL Normal 150-400 [facility] Comment on above: Performed By: #### C DPCR #### [place] [address] [place] [id number] RBC (Bld) [#/Vol] 4.58 10*6/uL Normal 3.90-5.20 [facility] Comment on above: Performed By: #### C DPCR #### [place] [address] [place] [address] WBC (Bld) [#/Vol] 8.95 10*3/uL Normal 3.70-11.00 [facility] Comment on above: Performed By: #### C DPCR #### [place] [id number] Magnesiumon 07-06-2021 Magnesium [Mass/Vol] 2.0 mg/dL Normal 1.7-2.6 [facility] Comment on above: Performed By: #### C DPCR #### [place] [address] [place] [id number] NURSING PROGon 07-06-2021 NURSING PROG HNO ID: [id number] Author: Dhara Fitzpatrick RN Service: ? Author Type: Registered Nurse Type: Nursing Progress Note Filed: 07/06/2021 12:01 PM Note Text: Nursing Progress Note Patient Name: Sulma Bhatia Patient Location: [facility]/[id number] Transfer Note: Patient transferred into room/unit [facility] 135 in stable condition on a NR mask. Respiratory called to set up patient on Hi-Flow. Actions taken: No futher actions taken at this time. Will continue to monitor and check with patient. This note was completed by: Dhara Fitzpatrick [facility] NURSING PROG HNO ID: [id number] Author: Beatriz Mccauley RN Service: Nursing Author Type: Registered Nurse Type: Nursing Progress Note Filed: 07/06/2021 11:59 AM Note Text: Nursing Progress Note Patient Name: Sulma Bhatia [facility] [place] [address] Note: 0700 Report received from off going RN 08 Assessment complete see doc flowsheet, pt awake, remains HFNC, vitals stable at this time, pt denies pain/discomfort at this time 1000 Dr. Pantoja and medical team rounding, pt to be possibly moved to [facility]. Medical floor 1110 Report called to Jesenia SIDDIQUI, pt to be transferred to [facility] without tele, transport to be called. 1140 Transport at bedside pt to transport without tele per orders, belongings with pt, vitals stable, care relinquished This note was completed by: Beatriz Mccauley [facility] THERAPY NTon 07-06-2021 THERAPY NT HNO ID: [id number] Author: Nilsa Conteh OT/Una Service: Occupational Therapy Author Type: Occupational Therapist Type: Therapy (PT/OT/Speech/Resp) Filed: 07/06/2021 3:11 PM Note Text: OCCUPATIONAL THERAPY MISSED VISIT SERVICE DATE: 07/06/2021 SERVICE TIME: 1510 to 1510 ROOM: [place] [address] Attempted Evaluation. Patient not seen due to No Skilled Needs. Per RN, pt ind with functional mobility and ADLs. Has been ambulating to the bathroom on her own. No Skilled OT needs required. Will discontinue OT consult at this time. SIGNATURE: Nilsa Conteh OT/L PATIENT NAME: Sulma Bhatia DATE: July 06, 2021 TIME: 3:10 PM Normal [facility] ALLIED HEALTHon 07-05-2021 ALLIED HEALTH HNO ID: [id number] Author: RT Bailee(R) Service: Radiology Author Type: Technologist Type: Allied Health Filed: 07/05/2021 11:24 AM Note Text: Radiology Service Progress Note PATIENT NAME: Sulma Bhatia DATE OF SERVICE: July 05, 2021 TIME: 11:23 AM PATIENT IDENTITY VERIFICATION COMPLETED USING TWO (2) IDENTIFIERS: Name and Date of confirmed by patient verbally and Name and Date of confirmed by identification band. FALL SCREENING: Has the patient had 2 falls in the last year or 1 fall with injury or currently using an Ambulatory Assistive Device (Walker, Cane, Wheelchair, Crutches, etc.)? Inpatient: Screened on floor PATIENT GENDER DATA: Male PATIENT RELEVANT IMPLANT DATA REVIEWED: Not Applicable RADIOLOGY DEPARTMENT: General X-ray: Exam(s) Completed: Chest X-Ray PERIPHERAL IV DATA: Not applicable SIGNED BY: RT Bailee(R) July 05, 2021 11:23 AM Normal [facility] C-Reactive Proteinon 021 C-Reactive Protein 1.6 mg/dL High <0.9 [facility] Comment on above: Performed By: #### D DMER, TSH, FIBCT #### [place] [phone] CBC and Differentialon 07-05 Abs Baso 0.00 k/uL Normal <0.11 [facility] Comment on above: Performed By: #### D DMER, TSH, FIBCT #### [place] [phone] Abs Dickenson 0.45 k/uL Normal <0.87 [facility] Comment on above: Performed By: #### D DMER, TSH, FIBCT #### [place] [phone] Abs Neut 7.93 k/uL High 1.45-7.50 [facility] Comment on above: Performed By: #### D DMER, TSH, FIBCT #### [place] [phone] ANC(includeSEG+BAND) 7.93 k/uL Normal [facility] Comment on above: Performed By: #### D DMER, TSH, FIBCT #### [place] [phone] Basophils/100 WBC (Bld) 0.0 % Normal [facility] Comment on above: Performed By: #### D DMER, TSH, FIBCT #### [address] DTYPE Manual Diff Normal [facility] Comment on above: Performed By: #### D DMER, TSH, FIBCT #### [address] Eosinophils (Bld) [#/Vol] 0.00 10*3/uL Normal <0.46 [facility] Comment on above: Performed By: #### D DMER, TSH, FIBCT #### [address] Eosinophils/100 WBC (Bld) 0.0 % Normal [facility] Comment on above: Performed By: #### D DMER, TSH, FIBCT #### [address] Erythrocyte distribution width (RBC) [Ratio] 14.4 % Normal 11.5-15.0 [facility] Comment on above: Performed By: #### D DMER, TSH, FIBCT #### [address] Hematocrit (Bld) [Volume fraction] 40.3 % Normal 36.0-46.0 [facility] Comment on above: Performed By: #### D DMER, TSH, FIBCT #### [place] [phone] Hemoglobin (Bld) [Mass/Vol] 12.9 g/dL Normal 11.5-15.5 [facility] Comment on above: Performed By: #### D DMER, TSH, FIBCT #### [place] [phone] Lymphocytes (Bld) [#/Vol] 0.53 10*3/uL Low 1.00-4.00 [facility] Comment on above: Performed By: #### D DMER, TSH, FIBCT #### [phone] Lymphocytes/100 WBC (Bld) 6.0 % Normal [facility] Comment on above: Performed By: #### D DMER, TSH, FIBCT #### [place] [phone] MCH 28.7 pG Normal 26.0-34.0 [facility] Comment on above: Performed By: #### D DMER, TSH, FIBCT #### [place] [phone] MCHC (RBC) [Mass/Vol] 32.0 g/dL Normal 30.5-36.0 [facility] Comment on above: Performed By: #### D DMER, TSH, FIBCT #### [place] [phone] MCV (RBC) [Entitic vol] 89.8 fL Normal 80.0-100.0 [facility] Comment on above: Performed By: #### D DMER, TSH, FIBCT #### [place] [phone] Monocytes/100 WBC (Bld) 5.0 % Normal [facility] Comment on above: Performed By: #### D DMER, TSH, FIBCT #### [place] [phone] Neutrophils/100 WBC (Bld) 89.0 % Normal [facility] Comment on above: Performed By: #### D DMER, TSH, FIBCT #### [place] [address] Platelet Estimate Platelet estimate adequate Normal [facility] Comment on above: Performed By: #### D DMER, TSH, FIBCT #### [place] [address] Platelet mean volume (Bld) [Entitic vol] 10.6 fL Normal 9.0-12.7 [facility] Comment on above: Performed By: #### D DMER, TSH, FIBCT #### [place] [address] Platelets (Bld) [#/Vol] 307 10*3/uL Normal 150-400 [facility] Comment on above: Performed By: #### D DMER, TSH, FIBCT #### [place] [address] RBC (Bld) [#/Vol] 4.49 10*6/uL Normal 3.90-5.20 [facility] Comment on above: Performed By: #### D DMER, TSH, FIBCT #### [place] [address] Red Cell Morph SEE COMMENT Normal [facility] Comment on above: Result Comment: Unre markable Performed By: #### D DMER, TSH, FIBCT #### [place] [address] WBC (Bld) [#/Vol] 8.91 10*3/uL Normal 3.70-11.00 [facility] Comment on above: Performed By: #### D DMER, TSH, FIBCT #### [place] [address] Comp Metabolic Panelon 07-05 Albumin [Mass/Vol] 2.9 g/dL Low 3.5-5.0 [facility] Comment on above: Performed By: #### D DMER, TSH, FIBCT #### [place] [address] ALP [Catalytic activity/Vol] 47 U/L Normal 34-123 [facility] Comment on above: Performed By: #### D DMER, TSH, FIBCT #### [place] [phone] ALT [Catalytic activity/Vol] 24 U/L Normal 0-45 [facility] Comment on above: Performed By: #### D DMER, TSH, FIBCT #### [place] [phone] Anion gap [Moles/Vol] 13 mmol/L Normal 9-18 [facility] Comment on above: Performed By: #### D DMER, TSH, FIBCT #### [place] [phone] AST [Catalytic activity/Vol] 32 U/L Normal 7-40 [facility] Comment on above: Performed By: #### D DMER, TSH, FIBCT #### [place] [phone] Bilirubin [Mass/Vol] 0.4 mg/dL Normal 0.2-1.3 [facility] Comment on above: Performed By: #### D DMER, TSH, FIBCT #### [place] [phone] Calcium [Mass/Vol] 8.2 mg/dL Low 8.5-10.5 [facility] Comment on above: Performed By: #### D DMER, TSH, FIBCT #### [place] [phone] Chloride [Moles/Vol] 105 mmol/L Normal 98-110 [facility] Comment on above: Performed By: #### D DMER, TSH, FIBCT #### [place] [phone] CO2 [Moles/Vol] 22 mmol/L Low 23-32 [facility] Comment on above: Performed By: #### D DMER, TSH, FIBCT #### [place] [phone] Creatinine [Mass/Vol] 0.76 mg/dL Normal 0.70-1.40 [facility] Comment on above: Performed By: #### D DMER TSH, FIBCT #### [place] [phone] eGFR- Amer. >60 Normal >60 [facility] Comment on above: Performed By: #### D DMER TSH, FIBCT #### [place] [phone] eGFR-All Other Races >60 Normal >60 [facility] Comment on above: Result Comment: eGFR (Estimated GFR) Units of measure: mL/min/1.73 meters squared eGFR is derived from the reexpressed MDRD Study equation using the following parameters: serum creatinine, age, gender and race. The creatinine assay has been calibrated to be traceable to IDMS. An eGFR <60 mL/min/1.73m2 for >3 months is consistent with chronic kidney disease. Refer to KDOQI guidelines for clinical interpretation. In patients with unstable renal function, e.g. those with acute kidney injury, the eGFR may not accurately reflect actual GFR. Performed By: #### D DMER TSH, FIBCT #### [place] [phone] Glucose [Mass/Vol] 89 mg/dL Normal 65-100 [facility] Comment on above: Performed By: #### D DMER TSH, FIBCT #### [place] [phone] Potassium [Moles/Vol] 3.8 mmol/L Normal 3.5-5.0 [facility] Comment on above: Performed By: #### D DMER TSH, FIBCT #### [place] [phone] Protein [Mass/Vol] 5.5 g/dL Low 6.0-8.4 [facility] Comment on above: Performed By: #### D DMER, TSH, FIBCT #### [place] [address] Sodium [Moles/Vol] 140 mmol/L Normal 132-148 [facility] Comment on above: Performed By: #### D DMER, TSH, FIBCT #### [place] [id number] [place] [phone] Urea nitrogen [Mass/Vol] 16 mg/dL Normal 8-25 [facility] Comment on above: Performed By: #### D DMER, TSH, FIBCT #### [facility] [address] [place] [phone] D dimeron 07-05-2021 D dimer 1530 ng/mL FEU High <500 [facility] Comment on above: Result Comment: 500 ng/mL FEU is the D Dimer cutoff to exclude DVT (deep vein thrombosis) and PE (pulmonary embolism) in patients with a low pre test probability. Supplemental Comment: In patients over 50 years with a low pre test probability for DVT and/or PE, an age adjusted D dimer cutoff can be calculated as [age x 10] ng/mL FEU. For example, a patient of 88 years would have an age adjusted D dimer cutoff of 880 ng/mL FEU. For patients with a suspected DVT, a D dimer level below 500 ng/mL FEU has a negative predictive value of >98.9%, a sensitivity of >96.9% and a specificity of >35.7%. For patients with a suspected PE, a D dimer level below 500 ng/mL FEU has a negative predictive value of >98.5%, and a sensitivity of >96.5% and a specificity of >38.8%. Reference: Ale M, et al. AUSTIN 2014 311:1117 and Jack Lao N, et al. Anila Int Med 2016 165:253. Performed By: #### D DMER, TSH, FIBCT #### [place] [id number] [place] [phone] Fibrinogenon 07-05-2021 Fibrinogen 421 mg/dL High 200-400 [facility] Comment on above: Performed By: #### D DMER, TSH, FIBCT #### [place] [id number] [place] [phone] HISTORY PHYSICALon HISTORY PHYSICAL HNO ID: [id number] Author: Katie Robles APRN.CORK FLOOR INSTALLER Service: Critical Care Author Type: Nurse Practitioner Type: HANDP Filed: 07/05/2021 11:50 AM Note Text: SERVICE DATE: 07/05/2021 SERVICE TIME: 11:46 AM MICU ADMISSION HISTORY AND PHYSICAL NOTE Admission Date: 07/03/2021 HPI Indication for MICU Admission: Hypoxia, HFNC initiation, COVID19 Significant PMH/PSH: - Hypothyroid - Asthma Hospital Course: This is a 56yoF who was admitted to [facility] on 07/03 from [place] [facility]. She presented to ED with complaints [...] negative for PE. She was transferred to [facility] on 2L NC and initiated on decadron and remdesivir with ID and CTS consult. Significant New Events Past 24 hrs: Hypoxic intermittently with exertion requiring increase to 6L NC in the AM of 07/05 with SpO2 saturations maintaining in the 80s. Increased to VM with improved saturations however increasing dyspnea. Unable to diurese given hypotension with SBP in the 80s. Transferred to MICU 07/05 for HFNC initiation. 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 CT Chest 07/02 - abnormal mediastinal structure, b/l GGO, no clear PE but poor study Plan: - Continue decadron (07/03-*), remdesivir (07/03-*) - ID consulted, appreciate recs - initiate HFNC, wean for SpO2>90% - trend COVID markers - check ABG, CXR on admission - lovenox prophylaxis - CTS consulted - enlarged azygos vein/SVC venous system without thrombus - No acute surgical intervention needed - MRI Chest/Abd to elucidate etiology of dilation @ [facility] o/p - resume thyroid tab, check TSH Barriers to transfer out of MICU: HFNC SUBJECTIVE PAST MEDICAL HISTORY Diagnosis Date - Asthma - Hypothyroidism PAST SURGICAL HISTORY Procedure Laterality Date - CATARACT EXTRACTION HX Bilateral 2015 - COLONOSCOP W/ OR W/O [facility] SPEC 09/14/2013 Colonoscopy - PAST SURGICAL HISTORY OF 1998 right foot surgery - PAST SURGICAL HISTORY OF 1994 lumpectomy left breast FAMILY HISTORY Problem Relation Age of Onset - Diabetes Mother - COPD Mother - Heart disease Mother - Cancer Father skin AND prostate - Parkinson?s Disease Father - Diabetes Brother borderline - Diabetes Paternal Grandmother Social History Tobacco Use - Smoking status: Never Smoker - Smokeless tobacco: Never Used Vaping Use - Vaping Use: Never used Substance Use Topics - Alcohol use: Yes Comment: once a month - Drug use: No ALLERGIES Allergen Reactions - Bactrim [Sulfametho* Rash, Itching - Latex Rash Prior to Admission Medications albuterol HFA (PROVENTIL HFA, VENTOLIN HFA) 90 [...] mouth once daily. , Disp: , Rfl: Review of Systems ROS: GENERAL: Positive for fever at home, malaise intermittently HEENT: Negative RESPIRATORY: Positive for productive cough, shortness of breath on exertion CARDIOVASCULAR: Positive for chest tightness when short of breath GI: Negative for abdominal discomfort, blood in stools or black stools : Negative for dysuria, frequency and incontinence MUSCULOSKELETAL: Negative for joint pain or swelling, back pain, and muscle pain. ENDOCRINE: Negative for cold or heat intolerance, polyuria, polydipsia and goiter. NEURO: Negative All other systems negative. OBJECTIVE Admission Weight: Weight: 61.2 kg (135 lb). BMI 25.51 kg/(m2) Vital Signs Temp: 37.4 ?C (99.3 ?F) (07/05/21 0930) Pulse: (!) 55 (07/05/21 1115) Resp: 8 (07/05/21 1115) BP: 89/60 (07/05/21 1100) MAP Non Invasive (Mean Arterial Pressure): 67 (07/05/21 1100) SpO2: 97 % (07/05/21 1115) Pain Level: 0 (07/05/21 0945) Diet Orders Placed This Encounter DIET REGULAR Infusion Medications Lines, Drains, and Airways Line Peripheral 07/03/21 0631 Left Forearm 22 Gauge 2 days Peripheral 07/05/21 1131 Right Hand 22 Gauge <1 day Physical Examination Performed Oral Mucosa: Moist mucous membranes Feeding Tube: No Eyes: PERRLA Neck: Unremarkable; No adenopathy or JVD Cardiovascular: Regular rhythm Relevant Hemodynamic Data: hypotensive, SBP 80 Respiratory: Reduced breath sounds bilat O2 Therapy: Hi-Flow Face M (more content not included)... Normal [facility] MEDICAL EMERon 07-05-2021 MEDICAL [facility] HNO ID: [id number] Author: Johnathon Elizalde APRN.CORK FLOOR INSTALLER Service: General Internal Medicine Author Type: Nurse Practitioner Type: Chg in Clinical Condition Filed: 07/05/2021 9:10 AM Note Text: Patient seen and assessed this morning. Informed by RN that patient is now requiring 6 L oxygen with oxygen saturations in the mid 80s. Increasing FiO2 to a Ventimask. Patient is hypotensive with systolic in the 80s. Patient seen and examined admits to worsening shortness of breath, not feeling well this morning, breathing is worse. On exam she is resting in bed no distress, appears dyspneic with conversation. Has bilateral crackles to the lungs posteriorly from bases up to the apices. Normal heart sounds. Discussed case with Dr. Pantoja. Patient accepted to the ICU for high flow initiation. Holding off on Lasix due to hypotension Ordered CXR and ABG Considering to Give one time Lovenox 20 mg to equal 60 mg total for PE treatment dose. Although per radiology report, no obvious large thromboembolus within the main pulmonary arteryary embolus the comments do remark CT Chest was of limited diagnostic quality for assessment for acute pulmonary embolus. Patient got bed in ICU quickly - can obtain CXR and ABG in ICU to expedite transfer. WIll update Dr. Alatorre A/P COVID 19 pneumonia Acute hypoxic respiratory failure - continue Dexa, Remdesivir. O2,. Anticipates needs HFNC and if she goes on HFNC may be candidate for Baricitinib Will repeat CRP STAT. D/w Dr. Pantoja and Dr. Mora. Abnormal CT - Enlarged azygos vein/SVC -Seen by CTS and per their recommendations, after having discussed with Radiology who is of the opinion that imaging demonstrates an enlarged azygos vein/SVC venous system without thrombusis that imaging - No acute surgical intervention needed - MRI Chest/Abd to elucidate etiology of dilation. However, this MRI is unable to be performed at [place] and will need to be done at [facility], presumably as outpatient. Total unit/floor time dedicated to this specific patient: 40 minutes. Greater than 50% of total time was spent in counseling and/or coordination of care and as detailed above. SIGNATURE: Johnathon Elizalde APRN.CNP PATIENT NAME: Sulma Bhatia DATE: July 05, 2021 TIME: 9:02 AM Pager/Contact #: [phone] [facility] NURSING PROGon 07-05-2021 NURSING PROG HNO ID: [id number] Author: Sania Botello RN Service: ? Author Type: Registered Nurse Type: Nursing Progress Note Filed: 07/06/2021 7:04 AM Note Text: Nursing Progress Note Patient Name: Sulma Bhatia Patient [facility] [place] [address] Note: 1910 Report received from off going nurse. 2000 Assessment complete, see flowsheet. 0000 Assessment complete, see flowsheet. 0040 Multidisciplinary team rounding and received update on patient status, anticipates patient may be transferred out of MICU per team. 0400 Assessment complete, see flowsheet. 0710 Report given to oncoming nurse. This note was completed by: Sania Botello [facility] NURSING PROG HNO ID: [id number] Author: Jena Key, RN Service: Nursing Author Type: Registered Nurse Type: Nursing Progress Note Filed: 07/05/2021 6:54 PM Note Text: Nursing Progress Note Patient Name: Sulma Bhatia [facility] Daily Note: 924: Pt arrived from [facility] via bed on 45% VM. 929: Pt had to use toilet to urinate and was able to ambulate with minimal assistance. 0945: Pt assessment complete. Pt AANDOx3, pleasant and cooperative. Pt denies pain, denies SOB. Pt placed on 50L/45% Hi-Flow. 1020: Dr Pantoja in to see pt during rounds. 1100: CXR done bedside. 1200: Pt assessment complete. No changes from earlier. 1400: Pt remains in bed, watching TV. No s/s of distress. 1600: Pt assessment complete. No changes from earlier. 1800: Pt resting. No s/s of distress. 1900: Report given to night order selector RN. This note was completed by: Jena Key [facility] NURSING PROG HNO ID: [id number] Author: Dhara Fitzpatrick RN Service: ? Author Type: Registered Nurse Type: Nursing Progress Note Filed: 07/05/2021 9:38 AM Note Text: Nursing Progress Note Patient Name: Sulma Bhatia [facility] Daily Note: Patient called out to nurse's station stated she was having some chest tightness. Vitals upon assessment were BP 81/46 and O2 88-90% on 6L O2. Patient stated her BP runs low but is never this low. She stated she was not lightheaded or dizzy and had not got up to go to the bathroom. Not complaining of shortness of breath, just chest tightness. Patient began to eat breakfast and desatted to 85% on the 6L. VENUS Henriquez at bedside rounding. Stated he will call ICU to assess patient for Hi-Flow. 0930: Patient transferred to MICU bed 23 on a Venti Mask 45% This note was completed by: Dhara Fitzpatrick [facility] NURSING PROG HNO ID: [id number] Author: Henrik Arvizu RN Service: Nursing Author Type: Registered Nurse Type: Nursing Progress Note Filed: 07/05/2021 6:13 AM Note Text: Nursing Progress Note Patient Name: Sulma Bhatia Patient Location: [place] [address] [address] Daily Note: 0430: Pt on 2L NC with oxygen saturation at 89-91%. This RN increased oxygen to 3.5L. Pt saturation is at 93%. 0600: Pt was up walking to bathroom. Pt's oxygen began to drop to 86-88%. Increased O2 to 6L. Patient is back to bed and oxygen is 94-95% on 6L. Pt complains of sore,dry throat from coughing. Humidification added to oxygen. No other complaints at this time. Will continue to monitor. This note was completed by: Henrik Arvizu [facility] Staph aureus PCRon 1 MRSA PCR Negative [facility] Comment on above: Performed By: #### D DMER, TSH, FIBCT #### [address] [address] S aureus Spec Source Nasal [facility] Comment on above: Performed By: #### D DMER, TSH, FIBCT #### [place] [phone] Staph aureus PCR Negative Normal [facility] Comment on above: Performed By: #### D DMER, TSH, FIBCT #### [phone] TSHon 07-05-2021 TSH Qn 5.950 m[IU]/L High 0.270-4.200 [facility] Comment on above: Performed By: #### D DMER, TSH, FIBCT #### [place] [phone] XR CHEST 1V FRONTALon 2020 XR CHEST 1V FRONTAL * * *Final Report* * * DATE OF EXAM: Jul 05 2021 11:21AM FVX 5290 - XR CHEST 1V FRONTAL / PROCEDURE REASON: Acute respiratory illness * * * * Physician Interpretation * * * * EXAMINATION: CHEST RADIOGRAPH (SINGLE VIEW AP OR PA) CLINICAL HISTORY: Acute respiratory illness MQ: XC1_5 Comparison: 07/02/2021 at [address] also obtained the same day RESULT: Lines, tubes, and devices: None. Lungs and pleura: There is interstitial prominence bilaterally. These findings were better visualize in the recent CT scan. These involve the lung bases and the left upper lobe. There is no pneumothorax or effusions. Cardiomediastinal silhouette: Normal cardiomediastinal silhouette. Other: . IMPRESSION: Bibasilar interstitial opacities better visualize in the recent CT chest. Compared to the previous chest x-ray there has been no significant interval change.. Computer Operations Technician: PSCAngi Transcribe Date/Time: Jul 05 2021 11:27A Dictated by : GEORGE AQUINO MD This examination was interpreted and the report reviewed and electronically signed by: GEORGE AQUINO MD on Jul 05 2021 11:29AM EST [id number] Normal [facility] Bilirubin,Conjugatedon 07-04 Bilirubin,Conjugated <0.2 Normal <0.2 [facility] Comment on above: Performed By: #### D DMER, TSH, FIBCT #### [place] [phone] CBC and Differentialon 07-04 Abs Baso <0.03 Normal <0.11 [facility] Comment on above: Performed By: #### D DMER, TSH, FIBCT #### [place] [phone] Abs Eosin <0.03 Normal <0.46 [facility] Comment on above: Performed By: #### D DMER, TSH, FIBCT #### [place] [phone] Abs Dickenson 0.21 k/uL Normal <0.87 [facility] Comment on above: Performed By: #### D DMER, TSH, FIBCT #### [place] [phone] Abs Neut 8.07 k/uL High 1.45-7.50 [facility] Comment on above: Performed By: #### D DMER, TSH, FIBCT #### [place] [phone] Absolute nRBC <0.01 Normal <0.01 [facility] Comment on above: Performed By: #### D DMER, TSH, FIBCT #### [place] [phone] Basophils/100 WBC (Bld) 0.0 % Normal [facility] Comment on above: Performed By: #### D DMER, TSH, FIBCT #### [place] [phone] DTYPE Auto Diff Normal [facility] Comment on above: Performed By: #### D DMER, TSH, FIBCT #### [place] [phone] Eosinophils/100 WBC (Bld) 0.0 % Normal [facility] Comment on above: Performed By: #### D DMER, TSH, FIBCT #### [place] [phone] Erythrocyte distribution width (RBC) [Ratio] 14.5 % Normal 11.5-15.0 [facility] Comment on above: Performed By: #### D DMER, TSH, FIBCT #### [place] [phone] Hematocrit (Bld) [Volume fraction] 40.3 % Normal 36.0-46.0 [facility] Comment on above: Performed By: #### D DMER, TSH, FIBCT #### [place] [phone] Hemoglobin (Bld) [Mass/Vol] 12.8 g/dL Normal 11.5-15.5 [facility] Comment on above: Performed By: #### D DMER, TSH, FIBCT #### [place] [phone] Lymphocytes (Bld) [#/Vol] 0.89 10*3/uL Low 1.00-4.00 [facility] Comment on above: Performed By: #### D DMER, TSH, FIBCT #### [place] [phone] Lymphocytes/100 WBC (Bld) 9.7 % Normal [facility] Comment on above: Performed By: #### D DMER, TSH, FIBCT #### [place] [phone] MCH 28.3 pG Normal 26.0-34.0 [facility] Comment on above: Performed By: #### D DMER, TSH, FIBCT #### [place] [address] MCHC (RBC) [Mass/Vol] 31.8 g/dL Normal 30.5-36.0 [facility] Comment on above: Performed By: #### D DMER, TSH, FIBCT #### [place] [address] MCV (RBC) [Entitic vol] 89.2 fL Normal 80.0-100.0 [facility] Comment on above: Performed By: #### D DMER, TSH, FIBCT #### [phone] Monocytes/100 WBC (Bld) 2.3 % Normal [facility] Comment on above: Performed By: #### D DMER, TSH, FIBCT #### [place] [phone] Neutrophils/100 WBC (Bld) 88.0 % Normal [facility] Comment on above: Performed By: #### D DMER, TSH, FIBCT #### [place] [phone] NRBCs 0.0 /100 WBC Normal 0 [facility] Comment on above: Performed By: #### D DMER, TSH, FIBCT #### [place] [phone] Platelet mean volume (Bld) [Entitic vol] 10.8 fL Normal 9.0-12.7 [facility] Comment on above: Performed By: #### D DMER, TSH, FIBCT #### [place] [phone] Platelets (Bld) [#/Vol] 284 10*3/uL Normal 150-400 [facility] Comment on above: Performed By: #### D DMER, TSH, FIBCT #### [place] [phone] RBC (Bld) [#/Vol] 4.52 10*6/uL Normal 3.90-5.20 [facility] Comment on above: Performed By: #### D DMER, TSH, FIBCT #### [place] [phone] WBC (Bld) [#/Vol] 9.17 10*3/uL Normal 3.70-11.00 [facility] Comment on above: Performed By: #### D DMER, TSH, FIBCT #### [place] [address] CONSULTon 07-04-2021 CONSULT HNO ID: [id number] Author: Otis Aquino PA-C Service: Thoracic Surgery Author Type: Physician Behavioral Geneticist Type: Consults Filed: 07/04/2021 11:37 AM Note Text: // [facility] SUR[facility] CONSULT NOTE Sulma Bhatia [id number] Requesting Provider: Vaishali Swann APRN.[employer] FLOOR INSTALLER Cardiothoracic Physician: Jayro Merino MD Admit Date: 07/03/2021 LOS : 0 Chief Complaint: Abnormal CT finding. ?Mass/thrombus of Azygos-SVC junction. HPI: Sulma Bhatia is a 56 year old female who presented to [facility] ED early this AM with complaint of abdominal pain, nausea, productive cough, and bilateral pleuritic chest pain - worse with inspiration. Patient states her symptoms have been intermittent since recently being diagnosed with COVID-19 on 06/25/2021, per patient. She reported that as of late, her symptoms had been worsening. Patient denied fevers, however patient stated she was weak. CXR revealed mild interstitial prominence left perihilar region, concerning for developing pneumonia. A follow up CT revealed bilateral ground-glass opacities consistent with COVID-19 and an abnormal structure right mediastinum unclear etiology. ?mass/thrombus in or near azygos-SVC junction. Patient transferred to [facility] for further monitoring and workup. Thoracic surgery service consulted. Patient not vaccinated for COVID-19.?No history of anticoagulation. Currently receiving dexamethasone and remdesivir. Patient stable, afebrile, without leukocytosis. Saturating 95% on 2L NC. LDH, CRP, and procalcitonin elevated. PAST MEDICAL HISTORY: PAST MEDICAL HISTORY Diagnosis Date - Asthma - Hypothyroidism PAST SURGICAL HISTORY: PAST SURGICAL HISTORY Procedure Laterality Date - CATARACT EXTRACTION HX Bilateral 2016 - COLONOSCOP W/ OR W/O [facility] SPEC 09/14/2013 Colonoscopy - PAST SURGICAL HISTORY OF 1998 right foot surgery - PAST SURGICAL HISTORY OF 1994 lumpectomy left breast FAMILY HISTORY: FAMILY HISTORY Problem Relation Age of Onset - Diabetes Mother - COPD Mother - Heart disease Mother - Cancer Father skin AND prostate - Parkinson?s Disease Father - Diabetes Brother borderline - Diabetes Paternal Grandmother SOCIAL HISTORY: Social History Tobacco Use - Smoking status: Never Smoker - Smokeless tobacco: Never Used Vaping Use - Vaping Use: Never used Substance Use Topics - Alcohol use: Yes Comment: once a month - Drug use: No MEDICATIONS: Prior to Admission Medications: albuterol HFA (PROVENTIL HFA, VENTOLIN HFA) 90 mcg/actuation inhaler Inhale 2 Puffs as instructed as needed. ondansetron orally disintegrating (ZOFRAN ODT) 4 mg disintegrating tablet Take 1 tablet by mouth every 8 hours as needed for nausea/vomiting for up to 5 days. thyroid, pork, (ARMOUR THYROID) 60 mg tab Take 45 mg by mouth once daily. ALLERGIES: ALLERGIES Allergen Reactions - Bactrim [Sulfametho* Rash, Itching - Latex Rash COMPLETE REVIEW OF SYSTEMS Constitutional: No weight loss, malaise or fevers. HEENT: Negative for frequent or significant headaches, No changes in hearing or vision, no nose bleeds or other nasal problems Resp: Pleuritic pain. Negative for cough, wheezing, or shortness of breath Cardiovascular: Negative for chest pain, leg swelling or palpitations GI: Abd pain, nausea. Negative for blood in stools or black stools or change in bowel habits : No history of dysuria, frequency, or incontinence and No difficulty urination, nocturia >1 times per night or hematuria Musculoskeletal: Negative for joint pain or swelling, back pain or muscle pain Endo: Negative for cold or heat intolerance, polyuria, polydipsia and goiter Neurologic: No history or headaches, syncope, paralysis, seizures or tremors Skin: Negative for lesions, rash, and itching. Pain: Negative for pain, history of chronic pain, or current treatment for a chronic pain condition Additional systems reviewed: No additional systems reviewed PHYSICAL EXAM Constitutional: Well developed and Well nourished HEENT: PERRLA Resp: Clear and Respiratory effort: normal Cardiovascular: Regular rate AND rhythm GI: Soft and Non-tender Integumentary: Clammy Musculoskeletal: No deformities Neurological/Psychiatric : Oriented to time, place AND person Additional systems reviewed: No additional systems reviewed DATA: Laboratory: Recent Labs 07/03/21 0633 07/02/21 1906 06/30/21 1815 WBC 3.48* 5.29 4.32 HB 13.5 12.9 13.8 HCT 42.3 39.3 42.1 PLT 241 210 178 Recent Labs 07/03/21 0633 07/02/21 1906 06/30/21 1815 NA 138 129* 132* K 4.1 3.8 4.3 BUN 11 10 14 CREAT 0.63* 0.70 0.75 GLUC 137* 132* 120* MG -- 1.7 -- Recent Labs 07/02/21 1906 INR 1.0 Radiology: CT Chest W IV CON: IMPRESSION: 1. Abnormal structure along the right side of the mediastinum just lateral to the inferior aspect of the trachea. This m (more content not included)... Normal [facility] Comp Metabolic Panelon 07-04 Albumin [Mass/Vol] 3.0 g/dL Low 3.5-5.0 [facility] Comment on above: Performed By: #### D DMER, TSH, FIBCT #### [address] [address] ALP [Catalytic activity/Vol] 48 U/L Normal 34-123 [facility] Comment on above: Performed By: #### D DMER, TSH, FIBCT #### [address] [address] ALT [Catalytic activity/Vol] 27 U/L Normal 0-45 [facility] Comment on above: Performed By: #### D DMER, TSH, FIBCT #### [address] [address] Anion gap [Moles/Vol] 13 mmol/L Normal 9-18 [facility] Comment on above: Performed By: #### D DMER, TSH, FIBCT #### [address] [address] AST [Catalytic activity/Vol] 43 U/L High 7-40 [facility] Comment on above: Performed By: #### D DMER, TSH, FIBCT #### [place] [address] Bilirubin [Mass/Vol] 0.3 mg/dL Normal 0.2-1.3 [facility] Comment on above: Performed By: #### D DMER, TSH, FIBCT #### [place] [phone] Calcium [Mass/Vol] 8.4 mg/dL Low 8.5-10.5 [facility] Comment on above: Performed By: #### D DMER, TSH, FIBCT #### [place] [phone] Chloride [Moles/Vol] 105 mmol/L Normal 98-110 [facility] Comment on above: Performed By: #### D DMER, TSH, FIBCT #### [place] [phone] CO2 [Moles/Vol] 20 mmol/L Low 23-32 [facility] Comment on above: Performed By: #### D DMER, TSH, FIBCT #### [place] [phone] Creatinine [Mass/Vol] 0.65 mg/dL Low 0.70-1.40 [facility] Comment on above: Performed By: #### D DMER, TSH, FIBCT #### [phone] eGFR- Amer. >60 Normal >60 [facility] Comment on above: Performed By: #### D DMER, TSH, FIBCT #### [place] [phone] eGFR-All Other Races >60 Normal >60 [facility] Comment on above: Result Comment: eGFR (Estimated GFR) Units of measure: mL/min/1.73 meters squared eGFR is derived from the reexpressed MDRD Study equation using the following parameters: serum creatinine, age, gender and race. The creatinine assay has been calibrated to be traceable to IDMS. An eGFR <60 mL/min/1.73m2 for >3 months is consistent with chronic kidney disease. Refer to KDOQI guidelines for clinical interpretation. In patients with unstable renal function, e.g. those with acute kidney injury, the eGFR may not accurately reflect actual GFR. Performed By: #### D DMER, TSH, FIBCT #### [place] [phone] Glucose [Mass/Vol] 158 mg/dL High 65-100 [facility] Comment on above: Performed By: #### D DMER, TSH, FIBCT #### [place] [address] Potassium [Moles/Vol] 3.8 mmol/L Normal 3.5-5.0 [facility] Comment on above: Performed By: #### D DMER, TSH, FIBCT #### [place] [phone] Protein [Mass/Vol] 5.5 g/dL Low 6.0-8.4 [facility] Comment on above: Performed By: #### D DMER, TSH, FIBCT #### [place] [phone] Sodium [Moles/Vol] 138 mmol/L Normal 132-148 [facility] Comment on above: Performed By: #### D DMER, TSH, FIBCT #### [place] [phone] Urea nitrogen [Mass/Vol] 14 mg/dL Normal 8-25 [facility] Comment on above: Performed By: #### D DMER, TSH, FIBCT #### [place] [phone] Protimeon 07-04-2021 PT INR 1.0 Normal 0.9-1.3 [facility] Comment on above: Result Comment: Myesha min K Antagonist (VKA) Therapeutic Range: INR 2 to 3 (Target INR of 2.5) Note: For patients treated with VKA drugs, such as warfarin, the [place] [employer] 2012 Guideline recommends a therapeutic INR range of 2 to 3 (target INR of 2.5). This recommendation includes high-risk patients with antiphospholipid syndrome with previous arterial or venous thromboembolism, current-generation mechanical or bioprosthetic aortic heart valve replacement. Note: Patients with mechanical aortic valve replacement and additional risk factors for thromboembolic events (atrial fibrillation, previous thromboembolism, LV dysfunction, hypercoagulable conditions) or an older generation mechanical AVR (i.e., ball in-Cage) or any mechanical MVR should have a INR therapeutic range of 2.5 to 3.5 (target INR of 3). Grace GH, et al. Chest 2012, 141:7S-47S Magdy OROPEZA et al. [facility] 2017, 70: 252-289 Performed By: #### P T #### [facility] [address] [place] [address] PT Sec 10.3 sec Normal 9.7-13.0 [facility] Comment on above: Performed By: #### P T #### [facility] [address] [place] [address] ALLIED HEALTHon 07-03-2021 ALLIED HEALTH HNO ID: [id number] Author: Mary Hernandez It Security Consulting Director Service: Quality Author Type: ? Type: Allied Health Filed: 07/03/2021 7:26 AM Note Text: ISOLATION NOTE Admission Date: 07/03/2021 Type of Isolation Recommended: Contact and Droplet Precautions Plus Eyewear (Cranberry Isolation Sign) Indication: COVID-19 ? Maintain Contact/Droplet and Eyewear isolation signage ? Remain in private room or cohort when deemed appropriate ? Don an N95 (or PAPR) prior to entering the patient room ? Avoid entering room during aerosol generating procedure when possible ? Restrict room access to essential personnel only ? Contact Infection Prevention prior to discontinuing precautions when criteria are met ? Limit transport and movement of the patient to medically necessary purposes Date Isolation Initiated: 07/03/2021 Anticipated Duration of Isolation: In consultation with Infection Prevention Type and Date of Positive Test(s): 06/25/2021 SIGNATURE: Mary Hernandez It Security Consulting Director PATIENT NAME: Sulma Chowdary DATE: July 03, 2021 TIME: 7:24 AM PAGER/CONTACT #: [phone] Infection Prevention after hours/weekend pager: Consult [facility] Infection Prevention Call Schedule Normal [facility] C difficile PCRon 07-03-2021 C difficile PCR Negative Normal [facility] Comment on above: Performed By: #### C DPCR #### [facility] [employer] [address] [place] [id number] C-Reactive Proteinon 021 C-Reactive Protein 6.0 mg/dL High <0.9 [facility] Comment on above: Performed By: #### D DMER, TSH, FIBCT #### [place] [phone] CBC and Differentialon 07-03 Abs Baso <0.03 Normal <0.11 [facility] Comment on above: Performed By: #### D DMER, TSH, FIBCT #### [phone] Abs Eosin <0.03 Normal <0.46 [facility] Comment on above: Performed By: #### D DMER, TSH, FIBCT #### [place] [phone] Abs Dickenson 0.19 k/uL Normal <0.87 [facility] Comment on above: Performed By: #### D DMER, TSH, FIBCT #### [phone] Abs Neut 2.69 k/uL Normal 1.45-7.50 [facility] Comment on above: Performed By: #### D DMER, TSH, FIBCT #### [place] [phone] Absolute nRBC <0.01 Normal <0.01 [facility] Comment on above: Performed By: #### D DMER, TSH, FIBCT #### [phone] Basophils/100 WBC (Bld) 0.0 % Normal [facility] Comment on above: Performed By: #### D DMER, TSH, FIBCT #### [place] [phone] DTYPE Auto Diff Normal [facility] Comment on above: Performed By: #### D DMER, TSH, FIBCT #### [place] [address] Eosinophils/100 WBC (Bld) 0.0 % Normal [facility] Comment on above: Performed By: #### D DMER, TSH, FIBCT #### [place] [phone] Erythrocyte distribution width (RBC) [Ratio] 14.4 % Normal 11.5-15.0 [facility] Comment on above: Performed By: #### D DMER, TSH, FIBCT #### [phone] Hematocrit (Bld) [Volume fraction] 42.3 % Normal 36.0-46.0 [facility] Comment on above: Performed By: #### D DMER, TSH, FIBCT #### [place] [phone] Hemoglobin (Bld) [Mass/Vol] 13.5 g/dL Normal 11.5-15.5 [facility] Comment on above: Performed By: #### D DMER, TSH, FIBCT #### [phone] Lymphocytes (Bld) [#/Vol] 0.59 10*3/uL Low 1.00-4.00 [facility] Comment on above: Performed By: #### D DMER, TSH, FIBCT #### [phone] Lymphocytes/100 WBC (Bld) 17.0 % Normal [facility] Comment on above: Performed By: #### D DMER, TSH, FIBCT #### [phone] MCH 28.6 pG Normal 26.0-34.0 [facility] Comment on above: Performed By: #### D DMER, TSH, FIBCT #### [place] [phone] MCHC (RBC) [Mass/Vol] 31.9 g/dL Normal 30.5-36.0 [facility] Comment on above: Performed By: #### D DMER, TSH, FIBCT #### [place] [phone] MCV (RBC) [Entitic vol] 89.6 fL Normal 80.0-100.0 [facility] Comment on above: Performed By: #### D DMER, TSH, FIBCT #### [place] [phone] Monocytes/100 WBC (Bld) 5.5 % Normal [facility] Comment on above: Performed By: #### D DMER, TSH, FIBCT #### [place] [phone] Neutrophils/100 WBC (Bld) 77.5 % Normal [facility] Comment on above: Performed By: #### D DMER, TSH, FIBCT #### [place] [phone] NRBCs 0.0 /100 WBC Normal 0 [facility] Comment on above: Performed By: #### D DMER, TSH, FIBCT #### [place] [phone] Platelet mean volume (Bld) [Entitic vol] 10.9 fL Normal 9.0-12.7 [facility] Comment on above: Performed By: #### D DMER, TSH, FIBCT #### [place] [phone] Platelets (Bld) [#/Vol] 241 10*3/uL Normal 150-400 [facility] Comment on above: Performed By: #### D DMER, TSH, FIBCT #### [place] [phone] RBC (Bld) [#/Vol] 4.72 10*6/uL Normal 3.90-5.20 [facility] Comment on above: Performed By: #### D DMER, TSH, FIBCT #### [place] [phone] WBC (Bld) [#/Vol] 3.48 10*3/uL Low 3.70-11.00 [facility] Comment on above: Performed By: #### D DMER, TSH, FIBCT #### [facility] [address] [place] [address] CONSULTon 07-03-2021 CONSULT HNO ID: [id number] Author: Loida Russell V, MD Service: Infectious Disease Author Type: Physician Type: Consults Filed: 07/03/2021 7:39 PM Note Text: BRIEF CONSULT NOTE SERVICE DATE: 07/03/2021 SERVICE TIME: 11 am Patient seen. Full consult dictated. RECOMMENDATIONS/PLAN Active Problems: Pneumonia due to COVID-19 virus POA: Yes Hypoxic respiratory failure. Abnormal CT chest per radiologist, will review with our radiologist and comment further. Continue dexamethasone and I have added remdesivir. SIGNATURE: Loida Russell MD PATIENT NAME: Sulma Bhatia DATE: July 03, 2021 TIME: 7:38 PM Normal [facility] CONSULT HNO ID: [id number] Author: Loida Russell V, MD Service: Infectious Disease Author Type: Physician Type: Consults Filed: 07/05/2021 9:25 AM Note Text: [facility] - Consultation SPRINGSULMA JIMENEZ : 1965 AGE: 56 SEX: F CSN: [id number] [facility]: [facility] LOCATION: [facility] ATTENDING PHYSICIAN: Herrera Alatorre M.D. DATE OF SERVICE: 07/03/2021 TIME OF SERVICE: 11:00 AM CONSULTING PHYSICIAN: Mariola Russell M.D. REQUESTING PHYSICIAN: Herrera Alatorre M.D. HISTORY OF PRESENT ILLNESS: Patient is a 56-year-old female apparently unvaccinated developed early symptoms of COVID-19, i.e., sore throat, cough, fatigue, headaches, and chills. 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 She has been staying home since then. Apparently, her symptoms have gotten worse and started to notice worsening of her nausea, fatigue, cough, and diarrhea and therefore went to [facility] where she was evaluated and noted to be not hypoxemic and after receiving some fluids and Zofran, she got better. It states she was given Decadron, I am not sure how many doses of Decadron were administered and advised to return to the emergency room if she notices any worsening of her breathing. The patient came back to the emergency room yesterday and during this evaluation, it appears she was noted to be worse and there was a CT scan done, which showed a questionable abnormality, possibly mass versus thrombus in the azygos leading to the SVC, as the patient also had COVID and the CT findings did reveal bilateral pulmonary infiltrates and she was advised to be admitted and was sent to [facility]. It appears that patient has become hypoxemic while in the hospital here and the patient was started on Decadron and this morning also started on remdesivir. 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 She has a few coworkers including the endband sizer and his , who works in the office also developed symptoms of COVID-19. Even her has not been vaccinated and nobody else lives at home. PAST MEDICAL HISTORY: History of mild asthma, otherwise no other significant history. She is not a smoker. FAMILY HISTORY: No other sick contacts. REVIEW OF SYSTEMS: Essentially as noted above. LABORATORY DATA: So far reveals going back to 06/30, her white cell count has varied from 4.3 to 5.2 to 3.4 this morning. Hemoglobin, hematocrit, platelet count were all within the normal range. She does have absolute lymphocytopenia. Chemistry reveals mild hyponatremia on admission yesterday. Today, this is recovered. Her BUN is 11 and creatinine is 0.63. Her AST was 43 on 06/30, has gone back up to 62 today. Her ALT is within the normal range. Alkaline phosphatase and bilirubin are normal. Her CRP is 6.0, ferritin is 574.7. She had a D-dimer obtained on 07/02, which was 720. MICROBIOLOGY RESULTS: CONSTRUCTION ENGINEERING MANAGER swab per patient done at the Urgent Care Center positive for COVID-19. IMAGING: A chest x-ray obtained on 06/30 revealed a questionable patchy infiltrate in the left lung. There is worsening of this bilaterally on 07/02 x- ray. CT of the chest obtained on 07/02 has been read by the radiologist as bilateral ground-glass opacities. They are also reading an abnormal structure along the right side of the mediastinum just lateral to the inferior aspect of the trachea. Their differential diagnosis is dilated terminus of the azygos vein at the junction of the SVC. They are also raising the possibility of a thrombus or a mass associated with the azygos vein extending into the SVC, other issues related to mediastinal mass or adenopathy, nonvascular associated mass, etc. They have suggested a delayed phase CT chest. PHYSICAL EXAMINATION: Vital Signs: The patient since admission has been afebrile in the hospital. As noted above, she was not requiring much oxygen on admission. Her saturation was around 96%, but this morning her saturation has gone down and she is requiring 2 L of oxygen. She appears ill, coughing during my exam, does not appear to be significantly short of breath. HEENT: Unremarkable. Heart: Reveals S1 and S2 to be normal. Lungs: Reveal diminished breath sounds bilaterally. Abdomen: Soft and nontender. Neurologic: She is intact. IMPRESSION: This is a 56-year-old, non-vaccinated for COVID-19, presents with the progressive symptoms associated COVID-19. She is hypoxemic. She is on dexamethasone and I have started her on remdesivir also this morning. I will review the CT scan with our radiologist and give you further advice. We thank you very much for allowing us to participate in taking care of this patient. We will follow the patient as needed by you. Mariola Russell M.D. Infectious Disease [id number] T: 06/21 (more content not included)... Normal [facility] Comp Metabolic Panelon 07-03 Albumin [Mass/Vol] 3.4 g/dL Low 3.5-5.0 [facility] Comment on above: Performed By: #### D DMER, TSH, FIBCT #### [facility] [address] [place] [id number] ALP [Catalytic activity/Vol] 55 U/L Normal 34-123 [facility] Comment on above: Performed By: #### D DMER, TSH, FIBCT #### [phone] ALT [Catalytic activity/Vol] 29 U/L Normal 0-45 [facility] Comment on above: Performed By: #### D DMER, TSH, FIBCT #### [place] [phone] Anion gap [Moles/Vol] 12 mmol/L Normal 9-18 [facility] Comment on above: Performed By: #### D DMER, TSH, FIBCT #### [place] [phone] AST [Catalytic activity/Vol] 62 U/L High 7-40 [facility] Comment on above: Performed By: #### D DMER, TSH, FIBCT #### [place] [phone] Bilirubin [Mass/Vol] 0.3 mg/dL Normal 0.2-1.3 [facility] Comment on above: Performed By: #### D DMER, TSH, FIBCT #### [place] [phone] Calcium [Mass/Vol] 8.5 mg/dL Normal 8.5-10.5 [facility] Comment on above: Performed By: #### D DMER, TSH, FIBCT #### [place] [phone] Chloride [Moles/Vol] 106 mmol/L Normal 98-110 [facility] Comment on above: Performed By: #### D DMER, TSH, FIBCT #### [place] [phone] CO2 [Moles/Vol] 20 mmol/L Low 23-32 [facility] Comment on above: Performed By: #### D DMER, TSH, FIBCT #### [place] [phone] Creatinine [Mass/Vol] 0.63 mg/dL Low 0.70-1.40 [facility] Comment on above: Performed By: #### D DMER, TSH, FIBCT #### [place] [address] eGFR- Amer. >60 Normal >60 [facility] Comment on above: Performed By: #### D DMER, TSH, FIBCT #### [place] [phone] eGFR-All Other Races >60 Normal >60 [facility] Comment on above: Result Comment: eGFR (Estimated GFR) Units of measure: mL/min/1.73 meters squared eGFR is derived from the reexpressed MDRD Study equation using the following parameters: serum creatinine, age, gender and race. The creatinine assay has been calibrated to be traceable to IDMS. An eGFR <60 mL/min/1.73m2 for >3 months is consistent with chronic kidney disease. Refer to KDOQI guidelines for clinical interpretation. In patients with unstable renal function, e.g. those with acute kidney injury, the eGFR may not accurately reflect actual GFR. Performed By: #### D DMER, TSH, FIBCT #### [place] [phone] Glucose [Mass/Vol] 137 mg/dL High 65-100 [facility] Comment on above: Performed By: #### D DMER, TSH, FIBCT #### [place] [phone] Potassium [Moles/Vol] 4.1 mmol/L Normal 3.5-5.0 [facility] Comment on above: Performed By: #### D DMER, TSH, FIBCT #### [place] [phone] Protein [Mass/Vol] 6.2 g/dL Normal 6.0-8.4 [facility] Comment on above: Performed By: #### D DMER, TSH, FIBCT #### [place] [phone] Sodium [Moles/Vol] 138 mmol/L Normal 132-148 [facility] Comment on above: Performed By: #### D DMER, TSH, FIBCT #### [place] [phone] Urea nitrogen [Mass/Vol] 11 mg/dL Normal 8-25 [facility] Comment on above: Performed By: #### D DMER, TSH, FIBCT #### [place] [phone] ED NOTEon 07-03-2021 ED NOTE HNO ID: [id number] Author: Carrol Chapman RN Service: Emergency Medicine Author Type: Registered Nurse Type: ED Notes Filed: 07/02/2021 11:59 PM Note Text: [facility] here, report and chart provided. Normal [facility] ED NOTE HNO ID: [id number] Author: Carrol Chapman RN Service: Emergency Medicine Author Type: Registered Nurse Type: ED Notes Filed: 07/02/2021 11:14 PM Note Text: Called transfer line and inquired about bed status. Bed given at [place] - PK1 - Pod C, Bed 33, called [facility] for [facility], eta 30-45 minutes Normal [facility] Ferritinon 07-03-2021 Ferritin [Mass/Vol] 574.7 ng/mL High 14.7-205.1 [facility] Comment on above: Performed By: #### D DMER, TSH, FIBCT #### [place] [phone] HISTORY PHYSICALon HISTORY PHYSICAL HNO ID: [id number] Author: Elis Ann PA-C Service: General Internal Medicine Author Type: Physician Behavioral Geneticist Type: HANDP Filed: 07/03/2021 4:11 AM Note Text: DEPARTMENT OF HOSPITAL MEDICINE HISTORY AND PHYSICAL EXAM SERVICE DATE: 07/03/2021 SERVICE TIME: 3:56 AM Primary Care Physician: Vanessa Ortez MD Subjective CHIEF COMPLAINT: +COVID-19; Generalized Weakness, Fatigue, Cough, Nausea, Diarrhea HPI: Sulma Bhatia is a 56 year old female with history of Hypothyroid and Asthma who was transferred from [facility] for generalized weakness, fatigue, cough, nausea, diarrhea, and chills in setting of +COVID-19. Patient reports her symptoms started around 06/24/21 with fevers (now resolved), myalgias, fatigue, generalized weakness, dry cough, clear rhinorrhea, nausea, and watery diarrhea up to 5x/day. She thinks she tested +COVID-19 on 06/25/21. Endorses some mild dyspnea on exertion. Denies headache, loss taste/smell, dizziness, anorexia, sore throat, earache, CP, orthopnea, palpitations, peripheral edema, abdominal pain, vomiting, or urinary symptoms. No hx of cardiac dz, PE/DVT, DM, smoking, etc. She DID NOT get the COVID-19 vaccines. PAST MEDICAL HISTORY Diagnosis Date - Asthma - Hypothyroidism PAST SURGICAL HISTORY Procedure Laterality Date - CATARACT EXTRACTION HX Bilateral 2015 - COLONOSCOP W/ OR W/O [facility] SPEC 09/14/2013 Colonoscopy - PAST SURGICAL HISTORY OF 1998 right foot surgery - PAST SURGICAL HISTORY OF 1994 lumpectomy left breast FAMILY HISTORY Problem Relation Age of Onset - Diabetes Mother - COPD Mother - Heart disease Mother - Cancer Father skin AND prostate - Parkinson?s Disease Father - Diabetes Brother borderline - Diabetes Paternal Grandmother Social History Tobacco Use - Smoking status: Never Smoker - Smokeless tobacco: Never Used Vaping Use - Vaping Use: Never used Substance Use Topics - Alcohol use: Yes Comment: once a month - Drug use: No I have confirmed and edited as necessary, the PFSH obtained by others. MEDICATIONS: Reviewed albuterol HFA (PROVENTIL HFA, VENTOLIN HFA) 90 [...] mouth once daily. , Disp: , Rfl: ALLERGIES Allergen Reactions - Bactrim [Sulfametho* Rash, Itching - Latex Rash REVIEW OF SYSTEM: Refer to HPI for detailed ROS. Negative unless otherwise documented. Objective PHYSICAL EXAM: BP 90/55 Pulse 64 Temp (Src) 98.5 (Oral) Resp 16 Ht 5' 1 (1.55m) Wt 135 lb (61.2kg) SpO2 95% LMP 08/05/2013 BMI 25.52 kg/(m2). O2 Therapy: Room Air Physical Exam Performed: GENERAL: Alert, no distress, cooperative, Ill-appearing. SKIN: +Cool, clammy HEAD/SINUSES: No significant findings EYES: PERRLA, EOMI EARS: External ears normal, canals clear NOSE: Nares normal. Septum midline. OROPHARYNX: Lips, mucosa, and tongue normal. Teeth and gums normal. Oropharynx normal. LUNGS: Lungs clear to auscultation, Good diaphragmatic excursion CARDIAC: Normal S1 and S2; no rubs, murmurs, or gallops ABDOMEN: Abdomen soft, non-tender, BS normal, No masses or organomegaly EXTREMITIES: Extremities normal, no deformities, edema, clubbing or skin discoloration. Good capillary refill., No ulcers NEURO: AANDOx3. Strength and sensation intact throughout. PULSES: 2+ radial, 2+ posterial tibial, 2+ popliteal, 2+ dorsalis pedis Lines, Drains, and Airways None DATA: Diagnostic tests reviewed for today's visit: Most recent labs and imaging results. Assessment/Plan Pneumonia due to COVID-19 virus POA: Yes Right Mediastinal Lesion Unspecified POA: Yes Hx Asthma POA: Yes Assessment AND Plan: Symptoms started on 06/24/21 with fevers (now resolved), myalgias, fatigue, generalized weakness, dry cough, clear rhinorrhea, nausea, and watery diarrhea up to 5x/day. +Mild dyspnea on exertion. Tested +COVID-19 on 06/25/21. Did not receive vaccine. Sent by [facility] for further monitoring and evaluation. No hypoxia. Given Decadron 6 mg IV x1, IVF, Toradol IV, and Pepcid IV at [facility]. -CXR showed left perihilar interstitial prominence -CT chest w/ was limited for PE; bilateral ground-glass opacities consistent with COVID-19; abnormal structure right mediastinum unclear etiology -No EKG for review -Labs: Component Latest Ref Rng AND Units 07/02/2021 07/02/2021 7:06 PM 8:23 PM WBC 3.70 - 11.00 k/uL 5.29 RBC 3.90 - 5.20 m/uL 4.53 Hemoglobin 11.5 - 15.5 g/dL 12.9 Hematocrit 36.0 - 46.0 % 39.3 MCV 80.0 - 100.0 fL 86.8 MCH 26.0 - 34.0 pg 28.5 MCHC 30.5 - 36.0 g/dL 32.8 RDW-CV 11.5 - 15.0 % 14.5 Platelet Count 150 - 400 k/uL 210 MPV 9.0 - 12.7 fL 10.5 Neut% % 86.6 Abs (more content not included)... Normal [facility] LDon 07-03-2021 LD 385 U/L High 100-220 [facility] Comment on above: Performed By: #### D DMER, TSH, FIBCT #### [place] [phone] Procalcitoninon 07-03-2021 Procalcitonin 0.09 ng/mL High <0.09 [facility] Comment on above: Result Comment: For a guided interpretation of test results, please visit the Change in Procalcitonin Calculator, [email or web address]. Performed By: #### D DMER, TSH, FIBCT #### [place] [phone] CBC W Auto Differential pane l (Bld)on 07-02-2021 Basophils (Bld) [#/Vol] 10*3/uL Normal <0.11 [facility] Comment on above: Order Comment: Speci men Type: BLOOD SPECIMEN Performed By: #### 5 7021-8 #### [facility] CLIA [id number] [address] [place] [address] [place] Basophils/100 WBC (Bld) 0.2 % Normal [facility] Comment on above: Order Comment: Speci men Type: BLOOD SPECIMEN Performed By: #### 5 7021-8 #### [facility] CLIA [id number] [address] [place] [address] [place] Differential cell count method Nom (Bld) Auto Normal [facility] Comment on above: Order Comment: Speci men Type: BLOOD SPECIMEN Performed By: #### 5 7021-8 #### [facility] CLIA [id number] [address] [facility] [address] [place] Eosinophils (Bld) [#/Vol] 10*3/uL Normal <0.46 [facility] Comment on above: Order Comment: Speci men Type: BLOOD SPECIMEN Performed By: #### 5 7021-8 #### [facility] CLIA [id number] [address] [facility] [address] [place] Eosinophils/100 WBC (Bld) 0.0 % Normal [facility] Comment on above: Order Comment: Speci men Type: BLOOD SPECIMEN Performed By: #### 5 7021-8 #### [facility] CLIA [id number] [address] [facility] [address] [place] Erythrocyte distribution width (RBC) [Ratio] 14.5 % Normal 11.5-15.0 [facility] Comment on above: Order Comment: Speci men Type: BLOOD SPECIMEN Performed By: #### 5 7021-8 #### [facility] CLIA [id number] [address] [facility] [address] [place] Hematocrit (Bld) [Volume fraction] 39.3 % Normal 36.0-46.0 [facility] Comment on above: Order Comment: Speci men Type: BLOOD SPECIMEN Performed By: #### 5 7021-8 #### [facility] CLIA [id number] [address] [facility] [place] [address] [place] Hemoglobin (Bld) [Mass/Vol] 12.9 g/dL Normal 11.5-15.5 [facility] Comment on above: Order Comment: Speci men Type: BLOOD SPECIMEN Performed By: #### 5 7021-8 #### [facility] CLIA [id number] [address] [facility] [place] [address] [place] Lymphocytes (Bld) [#/Vol] 0.45 10*3/uL Low 1.00-4.00 [facility] Comment on above: Order Comment: Speci men Type: BLOOD SPECIMEN Performed By: #### 5 7021-8 #### [facility] CLIA [id number] [address] [facility] [place] [address] [facility] Lymphocytes/100 WBC (Bld) 8.5 % Normal [facility] Comment on above: Order Comment: Speci men Type: BLOOD SPECIMEN Performed By: #### 5 7021-8 #### [facility] CLIA [id number] [address] [facility] [address] [facility] [place] MCH (RBC) [Entitic mass] 28.5 pg Normal 26.0-34.0 [facility] Comment on above: Order Comment: Speci men Type: BLOOD SPECIMEN Performed By: #### 5 7021-8 #### [facility] CLIA [id number] [address] [facility] [address] [place] MCHC (RBC) [Mass/Vol] 32.8 g/dL Normal 30.5-36.0 [facility] Comment on above: Order Comment: Speci men Type: BLOOD SPECIMEN Performed By: #### 5 7021-8 #### [facility] CLIA [id number] [address] [facility] [place] [address] [facility] [place] MCV (RBC) [Entitic vol] 86.8 fL Normal 80.0-100.0 [facility] Comment on above: Order Comment: Speci men Type: BLOOD SPECIMEN Performed By: #### 5 7021-8 #### [facility] CLIA [id number] [address] [facility] [place] [address] [place] Monocytes (Bld) [#/Vol] 0.25 10*3/uL Normal <0.87 [facility] Comment on above: Order Comment: Speci men Type: BLOOD SPECIMEN Performed By: #### 5 7021-8 #### [facility] CLIA [id number] [address] [facility] [place] [address] [place] Monocytes/100 WBC (Bld) 4.7 % Normal [facility] Comment on above: Order Comment: Speci men Type: BLOOD SPECIMEN Performed By: #### 5 7021-8 #### [facility] CLIA [id number] [address] [facility] [place] [address] [place] Neutrophils (Bld) [#/Vol] 4.58 10*3/uL Normal 1.45-7.50 [facility] Comment on above: Order Comment: Speci men Type: BLOOD SPECIMEN Performed By: #### 5 7021-8 #### [facility] CLIA [id number] [address] [facility] [place] [address] [place] [facility] Neutrophils/100 WBC (Bld) 86.6 % Normal [facility] Comment on above: Order Comment: Speci men Type: BLOOD SPECIMEN Performed By: #### 5 7021-8 #### [facility] CLIA [id number] [address] [facility] [place] [address] [place] Platelet mean volume (Bld) [Entitic vol] 10.5 fL Normal 9.0-12.7 [facility] Comment on above: Order Comment: Speci men Type: BLOOD SPECIMEN Performed By: #### 5 7021-8 #### [facility] CLIA [id number] [address] [facility] [place] [place] [address] [place] Platelets (Bld) [#/Vol] 210 10*3/uL Normal 150-400 [facility] Comment on above: Order Comment: Speci men Type: BLOOD SPECIMEN Performed By: #### 5 7021-8 #### [facility] CLIA [id number] [address] [facility] [place] [address] [place] RBC (Bld) [#/Vol] 4.53 10*6/uL Normal 3.90-5.20 [facility] Comment on above: Order Comment: Speci men Type: BLOOD SPECIMEN Performed By: #### 5 7021-8 #### [facility] CLIA [id number] [address] [facility] [place] [address] [place] WBC (Bld) [#/Vol] 5.29 10*3/uL Normal 3.70-11.00 [facility] Comment on above: Order Comment: Speci men Type: BLOOD SPECIMEN Performed By: #### 5 7021-8 #### [facility] CLIA [id number] [address] [place] [address] [facility] [place] CT CHEST W IVCON PEon 2020 CT CHEST W IVCON PE * * *Final Report* * * DATE OF EXAM: Jul 02 2021 8:16PM [facility] 0540 - CT CHEST W IVCON PE / PROCEDURE REASON: PE suspected, high pretest prob * * * * Physician Interpretation * * * * EXAMINATION: CHEST CT WITH CONTRAST (PULMONARY EMBOLISM PROTOCOL) CLINICAL HISTORY: PE suspected, high pretest prob shortness of breath; elevated d-dimer; Covid positive Technique: Spiral CT acquisition of the chest from the thoracic inlet to the upper abdomen following IV contrast. Axial 1 and 3 mm thick slices plus coronal and sagittal reformatted images. MQ: CTCP_5 Contrast: 100 mL Omnipaque [address] Radiation dose: Integrated Dose-length product (DLP) for this visit = 178 mGy*cm CT Dose Reduction Employed: Automated exposure control (AEC) Comparison: No relevant prior studies available. RESULT: Limitations: Motion degradation limits the assessment of the pulmonary arteries. Evaluation for thromboembolic disease: -No obvious large thromboembolus within the main pulmonary artery. No obvious thromboembolus within the proximal lobar branches. Distal to this the vessels are insufficiently assessed. Lines, tubes, and devices: None. Lung parenchyma and airways: There are moderate bilateral areas of groundglass density within the lungs, more so at the lung bases. No pleural effusion or pneumothorax is seen. Pleural space: No pleural effusion. No pleural thickening. Lower neck, lymph nodes, and mediastinum: There is an abnormal soft tissue density structure within the lower right paratracheal region. This measures approximately 4.5 cm AP by 3 cm TV by 3.3 cm CC (series 4 image 75 and coronal image 56). This structure is of uncertain etiology. There are faint hyperdense linear opacities which resemble the injected contrast. At the more inferior aspect this structure may join the SVC. This may be contiguous with the azygos vein. The azygos vein is dilated. This could potentially represent thrombus or a mass within the azygos vein. This appears to have slight mass effect upon the distal aspect of the trachea. The SVC appears to be predominantly patent, however the contrast opacification is somewhat more diminutive at the inferior aspect. There is a possible 1.2 cm nodule of the more posterior aspect of the right thyroid lobe. This could represent a parathyroid lesion. (Series 4 image 30). Heart, pericardium, and thoracic vessels: The heart is normal in size. No pericardial effusion. Thoracic aorta is normal in caliber. Bones and soft tissues: No destructive bone lesion. Chest wall is unremarkable. Upper abdomen: No abnormality in the imaged upper abdomen. Public Health Sanitarian Technician (topogram) images: IMPRESSION: 1. Abnormal structure along the right side of the mediastinum just lateral to the inferior aspect of the trachea. This may represent a dilated terminus of the azygos vein at the junction with the SVC. This appears significantly more prominent than is typically seen and there may be soft tissue density present. This could represent a thrombus or a mass associated with the azygos vein extending into the SVC. A nonvascular associated mass could also be considered. Adenopathy is not excludable. Given the appearance, an abnormality of the vessels would be the diagnosis of exclusion prior to any potential percutaneous intervention/biopsy. Further assessment with a delayed phase CT chest could be of benefit. Angiographic study could also be considered. 2. Bilateral groundglass opacities within the lungs. The appearance is typical for Covid associated pneumonia. 3. The study is of limited diagnostic quality for assessment for acute pulmonary embolus. No obvious large thromboembolus within the main pulmonary artery. These findings were discussed with Dr. Hanna at approximately 2050 hours Computer Operations Technician: LVEON Transcribe Date/Time: Jul 02 2021 8:24P Dictated by : JOSÉ MIGUEL CONTRERAS MD This examination was interpreted and the report reviewed and electronically signed by: JOSÉ MIGUEL CONTRERAS MD on Jul 02 2021 8:52PM EST [id number] Normal [facility] Comprehensive metabolic 2000 panelon 07-02-2021 Albumin [Mass/Vol] 3.3 g/dL Low 3.9-4.9 [facility] Comment on above: Order Comment: Speci men Type: BLOOD SPECIMEN Performed By: #### 2 4323-8, 3040-3, 93445-1, 95197-1 #### [facility] CLIA [id number] [address] [facility] [address] [place] ALP [Catalytic activity/Vol] 49 U/L Normal 34-123 [facility] Comment on above: Order Comment: Speci men Type: BLOOD SPECIMEN Performed By: #### 2 4323-8, 3040-3, 32279-3, 56697-2 #### [facility] CLIA [id number] [address] [facility] [address] [place] ALT With P-5'-P [Catalytic activity/Vol] 26 U/L Normal 7-38 [facility] Comment on above: Order Comment: Speci men Type: BLOOD SPECIMEN Performed By: #### 2 4323-8, 3040-3, 22035-7, 02354-2 #### [facility] CLIA [id number] [address] [facility] [place] [address] [place] [facility] Anion gap [Moles/Vol] 14 mmol/L Normal 9-18 [facility] Comment on above: Order Comment: Speci men Type: BLOOD SPECIMEN Performed By: #### 2 4323-8, 3040-3, 71601-0, 89613-2 #### [facility] CLIA [id number] [address] [facility] [place] [address] [place] AST With P-5'-P [Catalytic activity/Vol] 58 U/L High 13-35 [facility] Comment on above: Order Comment: Speci men Type: BLOOD SPECIMEN Performed By: #### 2 4323-8, 3040-3, 49620-1, 06064-3 #### [facility] CLIA [id number] [address] [facility] [place] [address] [place] Bilirubin [Mass/Vol] 0.4 mg/dL Normal 0.2-1.3 [facility] Comment on above: Order Comment: Speci men Type: BLOOD SPECIMEN Performed By: #### 2 4323-8, 3040-3, 34396-2, 55484-2 #### [facility] CLIA [id number] [address] [facility] [place] [address] [place] Calcium [Mass/Vol] 8.1 mg/dL Low 8.5-10.2 [facility] Comment on above: Order Comment: Speci men Type: BLOOD SPECIMEN Performed By: #### 2 4323-8, 3040-3, 60793-7, 06644-1 #### [facility] CLIA [id number] [address] [facility] [place] [address] [place] Chloride [Moles/Vol] 97 mmol/L Normal 97-105 [facility] Comment on above: Order Comment: Speci men Type: BLOOD SPECIMEN Performed By: #### 2 4323-8, 3040-3, 08081-7, 83457-0 #### [facility] CLIA [id number] [address] [facility] [place] [address] [place] CO2 [Moles/Vol] 18 mmol/L Low 22-30 [facility] Comment on above: Order Comment: Speci men Type: BLOOD SPECIMEN Performed By: #### 2 4323-8, 3040-3, 78866-9, 36960-4 #### [facility] CLIA [id number] [address] [facility] [address] [place] Creatinine [Mass/Vol] 0.70 mg/dL Normal 0.58-0.96 [facility] Comment on above: Order Comment: Speci men Type: BLOOD SPECIMEN Performed By: #### 2 4323-8, 3040-3, 75269-3, 68788-2 #### [facility] CLIA [id number] [address] [facility] [place] [address] [place] GFR/1.73 sq M.predicted among blacks MDRD (S/P/Bld) [Vol rate/Area] mL/min/{1.73_m2} Normal [facility] Comment on above: Order Comment: Speci men Type: BLOOD SPECIMEN Performed By: #### 2 4323-8, 3040-3, 63530-7, 11928-8 #### [facility] CLIA [id number] [address] [place] [address] [place] GFR/1.73 sq M.predicted among non-blacks MDRD (S/P/Bld) [Vol rate/Area] mL/min/{1.73_m2} Normal [facility] Comment on above: Order Comment: Speci men Type: BLOOD SPECIMEN Result Comment: eGFR (Estimated GFR) Units of measure: mL/min/1.73 meters squared eGFR is derived from the reexpressed MDRD Study equation using the following parameters: serum creatinine, age, gender and race. The creatinine assay has been calibrated to be traceable to IDMS. An eGFR <60 mL/min/1.73m2 for >3 months is consistent with chronic kidney disease. Refer to KDOQI guidelines for clinical interpretation. In patients with unstable renal function, e.g. those with acute kidney injury, the eGFR may not accurately reflect actual GFR. Performed By: #### 2 4323-8, 3040-3, 64842-4, 51049-3 #### [facility] CLIA [id number] [address] [place] [address] [place] Glucose [Mass/Vol] 132 mg/dL High 74-99 [facility] Comment on above: Order Comment: Speci men Type: BLOOD SPECIMEN Result Comment: The [place] [employer] (ADA) provides guidance for cutoff values for fasting glucose and random glucose. The ADA defines fasting as no caloric intake for at least 8 hours. Fasting plasma glucose results between 100 to 125 mg/dL indicate increased risk for diabetes (prediabetes). Fasting plasma glucose results greater than or equal to 126 mg/dL meet the criteria for diagnosis of diabetes. In the absence of unequivocal hyperglycemia, results should be confirmed by repeat testing. In a patient with classic symptoms of hyperglycemia or hyperglycemic crisis, random plasma glucose results greater than or equal to 200 mg/dL meet the criteria for diagnosis of diabetes. Reference: Standards of Medical Care in Diabetes 2016, [place] [employer]. Diabetes Care. 2016.39(Suppl 1). Performed By: #### 2 4323-8, 3040-3, 86831-2, 72656-7 #### [facility] CLIA [id number] [address] [facility] [place] [address] [place] Potassium [Moles/Vol] 3.8 mmol/L Normal 3.7-5.1 [facility] Comment on above: Order Comment: Speci men Type: BLOOD SPECIMEN Performed By: #### 2 4323-8, 3040-3, 95324-3, 66964-3 #### [facility] CLIA [id number] [address] [facility] [place] [address] [place] Protein [Mass/Vol] 6.0 g/dL Low 6.3-8.0 [facility] Comment on above: Order Comment: Speci men Type: BLOOD SPECIMEN Performed By: #### 2 4323-8, 3040-3, 62460-0, 39902-4 #### [facility] CLIA [id number] [address] [facility] [place] [address] [place] Sodium [Moles/Vol] 129 mmol/L Low 136-144 [facility] Comment on above: Order Comment: Speci men Type: BLOOD SPECIMEN Performed By: #### 2 4323-8, 3040-3, 24902-7, 60588-1 #### [facility] CLIA [id number] [address] [facility] [place] [address] [place] Urea nitrogen [Mass/Vol] 10 mg/dL Normal 7-21 [facility] Comment on above: Order Comment: Speci men Type: BLOOD SPECIMEN Performed By: #### 2 4323-8, 3040-3, 70784-5, 94975-6 #### [facility] CLIA [id number] [address] [facility] [place] [address] [place] D dimer FEU PPP-mCncon 07-02 Fibrin D-dimer FEU (PPP) [Mass/Vol] 720 ng/mL FEU High <500 [facility] Comment on above: Order Comment: Speci men Type: BLOOD SPECIMEN Performed By: #### 3 4528-0, 54541-7 #### [facility] CLIA [id number] [address] [place] [address] OF [facility] ED NOTEon 07-02-2021 ED NOTE HNO ID: [id number] Author: Evelyne Tatum RN Service: Emergency Medicine Author Type: Registered Nurse Type: ED Notes Filed: 07/02/2021 6:15 PM Note Text: Patient reports covid + SOB started last night abd pain x 2 days Normal [facility] ED PROV NOTEon 07-02-2021 ED PROV NOTE HNO ID: [id number] Author: Clemente Hanna MD Service: Emergency Medicine Author Type: Physician Type: ED Provider Notes Filed: 07/03/2021 4:58 AM Note Text: ED Provider Note Patient Name: Sulma Bhatia SERVICE DATE: 07/02/21 History Patient presents with: Covid19 Concern Patient presents the emergency room with complaints of abdominal pain associate with nausea, and a pleuritic type chest pain. Patient states has had these symptoms off and on since recently being diagnosed with Covid, however they are currently worsening. Patient states 2 Sundays ago she was diagnosed with Covid at a urgent care clinic. Patient was seen in the ER 2 days ago with similar symptoms. Patient denies fevers, however patient states she is weak. Patient's chest pain is worse with inspiration. There is cough without sputum production. There is no current sick contacts, there is no nausea no vomiting. Chest Pain Pain location: L lateral chest and R lateral chest Pain quality: dull Pain radiates to: Does not radiate Pain severity: Mild Onset quality: Gradual Timing: Intermittent Progression: Worsening Chronicity: New Context: breathing Relieved by: Nothing Worsened by: Deep breathing, coughing and movement Ineffective treatments: None tried Associated symptoms: abdominal pain and fatigue Associated symptoms: no shortness of breath PAST MEDICAL HISTORY Diagnosis Date - Asthma - Hypothyroidism PAST SURGICAL HISTORY Procedure Laterality Date - CATARACT EXTRACTION HX Bilateral 2015 - COLONOSCOP W/ OR W/O [facility] SPEC 09/14/2013 Colonoscopy - PAST SURGICAL HISTORY OF 1998 right foot surgery - PAST SURGICAL HISTORY OF 1994 lumpectomy left breast FAMILY HISTORY Problem Relation Age of Onset - Diabetes Mother - COPD Mother - Heart disease Mother - Cancer Father skin AND prostate - Parkinson?s Disease Father - Diabetes Brother borderline - Diabetes Paternal Grandmother Social History Tobacco Use - Smoking status: Never Smoker - Smokeless tobacco: Never Used Vaping Use - Vaping Use: Never used Substance and Sexual Activity - Alcohol use: Yes Comment: once a month - Drug use: No - Sexual activity: Not on file ALLERGIES Allergen Reactions - Bactrim [Sulfametho* Rash, Itching - Latex Rash Review of Systems Constitutional: Positive for fatigue. Respiratory: Negative for shortness of breath. Cardiovascular: Positive for chest pain. Gastrointestinal: Positive for abdominal pain. All other systems reviewed and are negative. Physical Exam BP 94/57 Pulse 78 Temp (Src) 97.9 (Temporal) Resp 18 Ht 5' 1 (1.55m) Wt 135 lb (61.2kg) SpO2 97% LMP 08/05/2013 BMI 25.52 kg/(m2). Physical Exam Vitals and nursing note reviewed. Constitutional: Appearance: Normal appearance. HENT: Head: Normocephalic and atraumatic. Mouth/Throat: Mouth: Mucous membranes are moist. Eyes: Extraocular Movements: Extraocular movements intact. Cardiovascular: Rate and Rhythm: Normal rate and regular rhythm. Pulses: Normal pulses. Pulmonary: Effort: No respiratory distress. Breath sounds: No wheezing. Abdominal: General: There is distension. Palpations: Abdomen is soft. Tenderness: There is no abdominal tenderness. There is no right CVA tenderness, left CVA tenderness or guarding. Comments: Soft abdomen, without peritoneal findings, there is very mild epigastric tenderness, however there is no rebound no guarding no peritoneal findings, the abdomen is overall Musculoskeletal: General: Tenderness present. No swelling. Normal range of motion. Cervical back: No rigidity. Right lower leg: No edema. Left lower leg: No edema. Skin: General: Skin is warm and dry. Neurological: General: No focal deficit present. Mental Status: She is alert and oriented to person, place, and time. Diagnostic Testing ED Labs Ordered and Reviewed - No data to display Procedures ED Course / Clinical Impression Clinical Impressions as of Jul 02 2257 Pneumonia due to COVID-19 virus Chest pain, unspecified type Abnormal findings on imaging test - (SVC mass v thrombus) MDM / Disposition / Plan This a 56-year-old female past history of thyroid disease, asthma, who presents the emergency department with concerns related to Covid. Patient states she tested positive Covid at urgent care 2 days ago and her symptoms continue to worsen. Patient states today she is having abdominal pain associate with nausea, and a pleuritic type chest pain. Patient states she has a cough with a dry sputum, however she does not have fevers. Patient admits to congestion. Patient has no previous history of PE, DVT, cardiac disease. Patient did not receive the coronavirus vaccine. EKG 18:57 Sinus rhythm with short MO interval of 104 ms, other intervals are normal, no STEMI, no ectopy, no axis deviation, no ischemic changes Lab (more content not included)... Normal [facility] Fibrin D-dimer FEU (PPP) [Ma ss/Vol]on 07-02-2021 D DIMER AGE-RELATED CUTOFF 580 ng/mL FEU Normal [facility] Comment on above: Order Comment: Bethi men Type: BLOOD SPECIMEN Performed By: #### 3 4528-0, 89282-0 #### [facility] CLIA [id number] [address] [place] [address] [place] HIGH SENSITIVITY TROPONIN To n 07-02-2021 HIGH SENSITIVITY VÍCTOR 10 ng/L Normal <12 [facility] Comment on above: Order Comment: [facility] [place] Type: BLOOD SPECIMEN Result Comment: When assessing risk for acute coronary syndromes: In patients undergoing blood draw greater than or equal to 2 hours from symptom onset, with history of very low to moderate risk and non-ischemic ECG, an initial hs-Troponin T less than 12 ng/L AND a 1 hour delta hs-Troponin T less than 3 ng/L should be considered very low risk for 30 day MACE. Performed By: #### H STNT #### [facility] CLIA [id number] [address] [place] [address] [facility] HIGH SENSITIVITY VÍCTOR 9 ng/L Normal <12 [facility] Comment on above: Order Comment: [facility] [place] Type: BLOOD SPECIMEN Result Comment: When assessing risk for acute coronary syndromes: In patients undergoing blood draw greater than or equal to 2 hours from symptom onset, with history of very low to moderate risk and non-ischemic ECG, an initial hs-Troponin T less than 12 ng/L AND a 1 hour delta hs-Troponin T less than 3 ng/L should be considered very low risk for 30 day MACE. Performed By: #### 2 4323-8, 3040-3, 93547-7, 44020-0 #### [facility] CLIA [id number] [address] [facility] [address] [facility] Lipase SerPl-cCncon 07-02-20 Lipase [Catalytic activity/Vol] 51 U/L Normal 16-61 [facility] Comment on above: Order Comment: Speci men Type: BLOOD SPECIMEN Performed By: #### 2 4323-8, 3040-3, 48052-2, 58497-3 #### [facility] CLIA [id number] [address] [place] [address] [facility] Magnesium SerPl-mCncon 07-02 Magnesium [Mass/Vol] 1.7 mg/dL Normal 1.7-2.3 [facility] Comment on above: Order Comment: Speci men Type: BLOOD SPECIMEN Performed By: #### 2 4323-8, 3040-3, 67189-5, 40973-9 #### [facility] CLIA [id number] [address] [place] [address] [facility] NT-proBNP SerPl-mCncon 07-02 Natriuretic peptide.B prohormone N-Terminal [Mass/Vol] 572 pg/mL High <125 [facility] Comment on above: Order Comment: Speci men Type: BLOOD SPECIMEN Performed By: #### 2 4323-8, 3040-3, 94161-6, 03023-3 #### [facility] CLIA [id number] [address] [facility] [place] [address] [facility] PT panel Coag (PPP)on 2020 INR Coag (PPP) [Relative time] 1.0 {INR} Normal 0.9-1.3 [facility] Comment on above: Order Comment: Speci men Type: BLOOD SPECIMEN Result Comment: Myesha min K Antagonist (VKA) Therapeutic Range: INR 2 to 3 (Target INR of 2.5) Note: For patients treated with VKA drugs, such as warfarin, the [place] [employer] 2012 Guideline recommends a therapeutic INR range of 2 to 3 (target INR of 2.5). This recommendation includes high-risk patients with antiphospholipid syndrome with previous arterial or venous thromboembolism, current-generation mechanical or bioprosthetic aortic heart valve replacement. Note: Patients with mechanical aortic valve replacement and additional risk factors for thromboembolic events (atrial fibrillation, previous thromboembolism, LV dysfunction, hypercoagulable conditions) or an older generation mechanical AVR (i.e., ball in-Cage) or any mechanical MVR should have a INR therapeutic range of 2.5 to 3.5 (target INR of 3). Grace GH, et al. Chest 2012, 141:7S-47S Magdy RA, et al. [facility] 2017, 70: 252-289 Performed By: #### 3 4528-0, 17708-3 #### [facility] CLIA [id number] [address] [place] [address] [place] PT Coag (PPP) [Time] 9.8 s Normal 9.7-13.0 [facility] Comment on above: Order Comment: Speci men Type: BLOOD SPECIMEN Performed By: #### 3 4528-0, 71347-6 #### [facility] CLIA [id number] [address] [place] [address] [place] XR CHEST 1V FRONTALon 2020 XR CHEST 1V FRONTAL * * *Final Report* * * DATE OF EXAM: Jul 02 2021 7:37PM LDX 5290 - XR CHEST 1V FRONTAL / PROCEDURE REASON: Chest pain or SOB, pleurisy or effusion suspected * * * * Physician Interpretation * * * * EXAMINATION: CHEST RADIOGRAPH (SINGLE VIEW AP OR PA) CLINICAL HISTORY: Shortness of breath; Covid MQ: XC1_5 Comparison: Chest x-ray 06/30/2021 RESULT: Lines, tubes, and devices: None. Lungs and pleura: Mildly increased density within the left midlung region which appears primarily interstitial. No sizable consolidation, pleural effusion or evidence of a pneumothorax. Cardiomediastinal silhouette: Normal cardiomediastinal silhouette. Other: . IMPRESSION: Mild interstitial prominence left perihilar region. This may represent developing pneumonia. Computer Operations Technician: PSCB Transcribe Date/Time: Jul 02 2021 7:52P Dictated by : JOSÉ MIGUEL CONTRERAS MD This examination was interpreted and the report reviewed and electronically signed by: JOSÉ MIGUEL CONTRERAS MD on Jul 02 2021 7:54PM EST [id number] Normal [facility] CBC W Auto Differential pane l (Bld)on 06-30-2021 Basophils (Bld) [#/Vol] 10*3/uL Normal <0.11 [facility] Comment on above: Order Comment: Speci men Type: BLOOD SPECIMEN Performed By: #### 2 4323-8, 3040-3, 24852-7, 61638-0 #### [facility] CLIA [id number] [address] [place] [address] [place] Basophils/100 WBC (Bld) 0.2 % Normal [facility] Comment on above: Order Comment: Speci men Type: BLOOD SPECIMEN Performed By: #### 2 4323-8, 3040-3, 78558-4, 51924-0 #### [facility] CLIA [id number] [address] [place] [address] [place] Differential cell count method Nom (Bld) Auto Normal [facility] Comment on above: Order Comment: Speci men Type: BLOOD SPECIMEN Performed By: #### 2 4323-8, 3040-3, 05229-2, 49135-8 #### [facility] CLIA [id number] [address] [facility] [place] [address] [place] Eosinophils (Bld) [#/Vol] 10*3/uL Normal <0.46 [facility] Comment on above: Order Comment: Speci men Type: BLOOD SPECIMEN Performed By: #### 2 4323-8, 3040-3, 76360-0, 94769-0 #### [facility] CLIA [id number] [address] [facility] [place] [address] [place] Eosinophils/100 WBC (Bld) 0.0 % Normal [facility] Comment on above: Order Comment: Speci men Type: BLOOD SPECIMEN Performed By: #### 2 4323-8, 3040-3, 56773-0, 78368-3 #### [facility] CLIA [id number] [address] [facility] [place] [address] [place] Erythrocyte distribution width (RBC) [Ratio] 14.5 % Normal 11.5-15.0 [facility] Comment on above: Order Comment: Speci men Type: BLOOD SPECIMEN Performed By: #### 2 4323-8, 3040-3, 83577-9, 44852-0 #### [facility] CLIA [id number] [address] [place] [address] [place] Hematocrit (Bld) [Volume fraction] 42.1 % Normal 36.0-46.0 [facility] Comment on above: Order Comment: Speci men Type: BLOOD SPECIMEN Performed By: #### 2 4323-8, 3040-3, 07665-0, 05694-0 #### [facility] CLIA [id number] [address] [place] [address] [place] Hemoglobin (Bld) [Mass/Vol] 13.8 g/dL Normal 11.5-15.5 [facility] Comment on above: Order Comment: Speci men Type: BLOOD SPECIMEN Performed By: #### 2 4323-8, 3040-3, 13494-8, 48714-7 #### [facility] CLIA [id number] [address] [facility] [address] [place] Lymphocytes (Bld) [#/Vol] 0.55 10*3/uL Low 1.00-4.00 [facility] Comment on above: Order Comment: Speci men Type: BLOOD SPECIMEN Performed By: #### 2 4323-8, 3040-3, 73642-6, 02894-0 #### [facility] CLIA [id number] [address] [facility] [place] [address] [place] Lymphocytes/100 WBC (Bld) 12.7 % Normal [facility] Comment on above: Order Comment: Speci men Type: BLOOD SPECIMEN Performed By: #### 2 4323-8, 3040-3, 54741-1, 00034-3 #### [facility] CLIA [id number] [address] [facility] [place] [address] [place] MCH (RBC) [Entitic mass] 28.5 pg Normal 26.0-34.0 [facility] Comment on above: Order Comment: Speci men Type: BLOOD SPECIMEN Performed By: #### 2 4323-8, 3040-3, 82431-1, 37845-6 #### [facility] CLIA [id number] [address] [facility] [address] [facility] MCHC (RBC) [Mass/Vol] 32.8 g/dL Normal 30.5-36.0 [facility] Comment on above: Order Comment: Speci men Type: BLOOD SPECIMEN Performed By: #### 2 4323-8, 3040-3, 75103-7, 07614-0 #### [facility] CLIA [id number] [address] [facility] [place] [address] [facility] [place] MCV (RBC) [Entitic vol] 86.8 fL Normal 80.0-100.0 [facility] Comment on above: Order Comment: Speci men Type: BLOOD SPECIMEN Performed By: #### 2 4323-8, 3040-3, 05355-1, 27088-8 #### [facility] CLIA [id number] [address] [facility] [place] [address] [place] [facility] Monocytes (Bld) [#/Vol] 0.27 10*3/uL Normal <0.87 [facility] Comment on above: Order Comment: Speci men Type: BLOOD SPECIMEN Performed By: #### 2 4323-8, 3040-3, 85452-9, 66249-8 #### [facility] CLIA [id number] [address] [facility] [place] [address] [place] Monocytes/100 WBC (Bld) 6.3 % Normal [facility] Comment on above: Order Comment: Speci men Type: BLOOD SPECIMEN Performed By: #### 2 4323-8, 3040-3, 35420-8, 53150-8 #### [facility] [place] [facility] CLIA [id number] [address] [place] [address] [place] Neutrophils (Bld) [#/Vol] 3.49 10*3/uL Normal 1.45-7.50 [facility] Comment on above: Order Comment: Speci men Type: BLOOD SPECIMEN Performed By: #### 2 4323-8, 3040-3, 53178-3, 90043-2 #### [facility] [place] [facility] CLIA [id number] [address] [facility] [address] [facility] Neutrophils/100 WBC (Bld) 80.8 % Normal [facility] Comment on above: Order Comment: Speci men Type: BLOOD SPECIMEN Performed By: #### 2 4323-8, 3040-3, 31262-9, 38847-2 #### [facility] [place] [facility] CLIA [id number] [address] [facility] [place] [address] [place] Platelet mean volume (Bld) [Entitic vol] 10.4 fL Normal 9.0-12.7 [facility] Comment on above: Order Comment: Speci men Type: BLOOD SPECIMEN Performed By: #### 2 4323-8, 3040-3, 06031-3, 96716-2 #### [facility] [place] [facility] CLIA [id number] [address] [facility] [address] [place] Platelets (Bld) [#/Vol] 178 10*3/uL Normal 150-400 [facility] Comment on above: Order Comment: Speci men Type: BLOOD SPECIMEN Performed By: #### 2 4323-8, 3040-3, 14872-6, 21109-5 #### [facility] [place] [facility] CLIA [id number] [address] [facility] [place] [address] [place] RBC (Bld) [#/Vol] 4.85 10*6/uL Normal 3.90-5.20 [facility] Comment on above: Order Comment: Speci men Type: BLOOD SPECIMEN Performed By: #### 2 4323-8, 3040-3, 32881-2, 33856-9 #### [id number] [place] [facility] CLIA [id number] [address] [place] [address] [facility] WBC (Bld) [#/Vol] 4.32 10*3/uL Normal 3.70-11.00 [facility] Comment on above: Order Comment: Speci men Type: BLOOD SPECIMEN Performed By: #### 2 4323-8, 3040-3, 17508-2, 63362-5 #### [facility] [place] [facility] CLIA [id number] [address] [facility] [place] [address] [facility] Comprehensive metabolic 2000 panelon 06-30-2021 Albumin [Mass/Vol] 3.9 g/dL Normal 3.9-4.9 [facility] Comment on above: Order Comment: Speci men Type: BLOOD SPECIMEN Performed By: #### 2 4323-8 #### [facility] [place] [facility] CLIA [id number] [address] [place] [address] [place] ALP [Catalytic activity/Vol] 58 U/L Normal 34-123 [facility] Comment on above: Order Comment: Speci men Type: BLOOD SPECIMEN Performed By: #### 2 4323-8 #### [facility] [place] [facility] CLIA [id number] [address] [place] [address] [place] ALT With P-5'-P [Catalytic activity/Vol] 17 U/L Normal 7-38 [facility] Comment on above: Order Comment: Speci men Type: BLOOD SPECIMEN Performed By: #### 2 4323-8 #### [facility] [place] [facility] CLIA [id number] [address] [facility] [place] [address] [facility] Anion gap [Moles/Vol] 14 mmol/L Normal 9-18 [facility] Comment on above: Order Comment: Speci men Type: BLOOD SPECIMEN Performed By: #### 2 4323-8 #### [facility] [place] [facility] CLIA [id number] [address] [place] [address] [place] AST With P-5'-P [Catalytic activity/Vol] 43 U/L High 13-35 [facility] Comment on above: Order Comment: Speci men Type: BLOOD SPECIMEN Performed By: #### 2 4323-8 #### [facility] [place] [facility] CLIA [id number] [address] [facility] [place] [address] [place] Bilirubin [Mass/Vol] 0.3 mg/dL Normal 0.2-1.3 [facility] Comment on above: Order Comment: Speci men Type: BLOOD SPECIMEN Performed By: #### 2 4323-8 #### [facility] [place] [facility] CLIA [id number] [address] [facility] [place] [address] [place] Calcium [Mass/Vol] 8.6 mg/dL Normal 8.5-10.2 [facility] Comment on above: Order Comment: Speci men Type: BLOOD SPECIMEN Performed By: #### 2 4323-8 #### [facility] [place] [facility] CLIA [id number] [address] [facility] [place] [address] [place] Chloride [Moles/Vol] 98 mmol/L Normal 97-105 [facility] Comment on above: Order Comment: Speci men Type: BLOOD SPECIMEN Performed By: #### 2 4323-8 #### [facility] [place] [facility] CLIA [id number] [address] [facility] [place] [address] [place] CO2 [Moles/Vol] 20 mmol/L Low 22-30 [facility] Comment on above: Order Comment: Speci men Type: BLOOD SPECIMEN Performed By: #### 2 4323-8 #### [facility] [place] [facility] CLIA [id number] [address] [facility] [place] [address] [place] Creatinine [Mass/Vol] 0.75 mg/dL Normal 0.58-0.96 [facility] Comment on above: Order Comment: Speci men Type: BLOOD SPECIMEN Performed By: #### 2 4323-8 #### [facility] CLIA [id number] [address] [place] [address] [place] GFR/1.73 sq M.predicted among blacks MDRD (S/P/Bld) [Vol rate/Area] mL/min/{1.73_m2} Normal [facility] Comment on above: Order Comment: Speci men Type: BLOOD SPECIMEN Performed By: #### 2 4323-8 #### [facility] CLIA [id number] [address] [place] [address] [place] GFR/1.73 sq M.predicted among non-blacks MDRD (S/P/Bld) [Vol rate/Area] mL/min/{1.73_m2} Normal [facility] Comment on above: Order Comment: Speci men Type: BLOOD SPECIMEN Result Comment: eGFR (Estimated GFR) Units of measure: mL/min/1.73 meters squared eGFR is derived from the reexpressed MDRD Study equation using the following parameters: serum creatinine, age, gender and race. The creatinine assay has been calibrated to be traceable to IDMS. An eGFR <60 mL/min/1.73m2 for >3 months is consistent with chronic kidney disease. Refer to KDOQI guidelines for clinical interpretation. In patients with unstable renal function, e.g. those with acute kidney injury, the eGFR may not accurately reflect actual GFR. Performed By: #### 2 4323-8 #### [facility] CLIA [id number] [address] [place] [address] [place] Glucose [Mass/Vol] 120 mg/dL High 74-99 [facility] Comment on above: Order Comment: Speci men Type: BLOOD SPECIMEN Result Comment: The [place] [employer] (ADA) provides guidance for cutoff values for fasting glucose and random glucose. The ADA defines fasting as no caloric intake for at least 8 hours. Fasting plasma glucose results between 100 to 125 mg/dL indicate increased risk for diabetes (prediabetes). Fasting plasma glucose results greater than or equal to 126 mg/dL meet the criteria for diagnosis of diabetes. In the absence of unequivocal hyperglycemia, results should be confirmed by repeat testing. In a patient with classic symptoms of hyperglycemia or hyperglycemic crisis, random plasma glucose results greater than or equal to 200 mg/dL meet the criteria for diagnosis of diabetes. Reference: Standards of Medical Care in Diabetes 2016, [place] [employer]. Diabetes Care. 2016.39(Suppl 1). Performed By: #### 2 4323-8 #### [facility] [place] [facility] CLIA [id number] [address] [facility] [place] [address] [place] Potassium [Moles/Vol] 4.3 mmol/L Normal 3.7-5.1 [facility] Comment on above: Order Comment: Speci men Type: BLOOD SPECIMEN Performed By: #### 2 4323-8 #### [facility] [place] [facility] CLIA [id number] [address] [facility] [address] [place] Protein [Mass/Vol] 6.7 g/dL Normal 6.3-8.0 [facility] Comment on above: Order Comment: Speci men Type: BLOOD SPECIMEN Performed By: #### 2 4323-8 #### [facility] [place] [facility] CLIA [id number] [address] [facility] [place] [address] [place] Sodium [Moles/Vol] 132 mmol/L Low 136-144 [facility] Comment on above: Order Comment: Speci men Type: BLOOD SPECIMEN Performed By: #### 2 4323-8 #### [facility] [place] [facility] CLIA [id number] [address] [facility] [address] [place] Urea nitrogen [Mass/Vol] 14 mg/dL Normal 7-21 [facility] Comment on above: Order Comment: Speci men Type: BLOOD SPECIMEN Performed By: #### 2 4323-8 #### [facility] [place] [facility] CLIA [id number] [address] [facility] [address] [facility] ED NOTEon 06-30-2021 ED NOTE HNO ID: [id number] Author: Teri Marie RN Service: Emergency Medicine Author Type: Registered Nurse Type: ED Notes Filed: 06/30/2021 9:53 PM Note Text: Patient is alert, talkative, no distress noted. States that she feels better. Tolerating PO fluids, crackers. Decrease in diarrhea and coughing. Patient instructed on use of incentive spirometry but RT, encouraged to use at least every 2 hours, as well as frequent ambulating and increased fluids, as well as small scheduled meals. Patient encouraged to return with new symptoms, SOB or inability to keep down food or fluids. Treat fever with tylenol and/or ibuprofen. Patient instructed to oyster picker scrip for zofran. Patient instructed to follow up with PCP, return with any new, worsening, or recurrent symptoms. Verbalizes understanding of all instructions. Ambulates with ease to lobby, no distress. MD aware of BP, patient states that she does normally run low. Normal [facility] ED NOTE HNO ID: [id number] Author: Teri Marie RN Service: Emergency Medicine Author Type: Registered Nurse Type: ED Notes Filed: 06/30/2021 8:10 PM Note Text: Dr. Alvarez at bedside to re-eval Normal [facility] ED NOTE HNO ID: [id number] Author: Teri Marie RN Service: Emergency Medicine Author Type: Registered Nurse Type: ED Notes Filed: 06/30/2021 7:59 PM Note Text: Patient informed: the name of medication, why we are giving it, possible side effects, what they may expect to feel, and was offered a chance to ask questions, prior to the administration of Tylenol, Toradol. Normal [facility] ED NOTE HNO ID: [id number] Author: Teri Marie RN Service: Emergency Medicine Author Type: Registered Nurse Type: ED Notes Filed: 06/30/2021 5:54 PM Note Text: Patient informed: the name of medication, why we are giving it, possible side effects, what they may expect to feel, and was offered a chance to ask questions, prior to the administration of zofran, decadron. Normal [facility] ED NOTE HNO ID: [id number] Author: Teri Marie RN Service: Emergency Medicine Author Type: Registered Nurse Type: ED Notes Filed: 06/30/2021 5:09 PM Note Text: Patient states that she tested positive for Covid on Saturday. She is having weakness, diarrhea and cough. Normal [facility] ED PROV NOTEon 06-30-2021 ED PROV NOTE HNO ID: [id number] Author: Wally Alvarez MD Service: Emergency Medicine Author Type: Physician Type: ED Provider Notes Filed: 06/30/2021 9:29 PM Note Text: ED Provider Note Patient Name: Sulma Bhatia SERVICE DATE: 06/30/21 History Patient presents with: Covid19 Concern Nausea Fatigue Diarrhea Sulma Bhatia is a 56 year old female with history of asthma who presents with Covid19 Concern, Nausea, Fatigue, and Diarrhea. Patient took nothing for this prior to arrival. - Symptoms began 5 days prior to arrival. - Severity: moderate - Timing: constant - Quality: Nausea diarrhea cough fatigue - Covid19 Concern, Nausea, Fatigue, and Diarrhea is exacerbated by movement. - Covid19 Concern, Nausea, Fatigue, and Diarrhea is not exacerbated by laying down. - Symptoms are associated with chills, diarrhea and nausea. - Symptoms are not associated with abdominal pain, chest pain and shortness of breath. - Improved by nothing. - Not improved by rest and OTC medications History of asthma patient did not take Covid vaccinations PAST MEDICAL HISTORY Diagnosis Date - Asthma - Hypothyroidism PAST SURGICAL HISTORY Procedure Laterality Date - CATARACT EXTRACTION HX Bilateral 2015 - COLONOSCOP W/ OR W/O [facility] SPE[facility] 09/14/2013 Colonoscopy - PAST SURGICAL HISTORY OF 1998 right foot surgery - PAST SURGICAL HISTORY OF 1994 lumpectomy left breast FAMILY HISTORY Problem Relation Age of Onset - Diabetes Mother - COPD Mother - Heart disease Mother - Cancer Father skin AND prostate - Parkinson?s Disease Father - Diabetes Brother borderline - Diabetes Paternal Grandmother Social History Tobacco Use - Smoking status: Never Smoker - Smokeless tobacco: Never Used Substance and Sexual Activity - Alcohol use: Yes Comment: once a month - Drug use: No - Sexual activity: Not on file ALLERGIES Allergen Reactions - Bactrim [Sulfametho* Rash, Itching - Latex Rash Review of Systems Constitutional: Positive for chills and fatigue. Negative for fever. HENT: Negative for congestion and sore throat. Respiratory: Positive for cough. Negative for shortness of breath. Cardiovascular: Negative for chest pain and palpitations. Gastrointestinal: Positive for diarrhea and nausea. Negative for abdominal pain and vomiting. Genitourinary: Negative for decreased urine volume, dysuria and flank pain. Skin: Negative for color change, pallor, rash and wound. Allergic/Immunologic: Negative for environmental allergies, food allergies and immunocompromised state. Neurological: Negative for dizziness and syncope. Psychiatric/Behavioral: Negative for confusion. The patient is not nervous/anxious. Physical Exam BP 95/58 Pulse 71 Temp (Src) 101.5 (Temporal) Resp 18 Ht 5' 1 (1.55m) Wt 135 lb (61.2kg) SpO2 95% LMP 08/05/2013 BMI 25.52 kg/(m2). Physical Exam Vitals reviewed. Constitutional: General: She is not in acute distress. Appearance: Normal appearance. She is normal weight. She is ill-appearing. She is not toxic-appearing or diaphoretic. HENT: Head: Normocephalic and atraumatic. Right Ear: External ear normal. Left Ear: External ear normal. Eyes: General: No scleral icterus. Right eye: No discharge. Left eye: No discharge. Extraocular Movements: Extraocular movements intact. Pulmonary: Effort: Pulmonary effort is normal. No respiratory distress. Breath sounds: Rales present. Comments: Few rales heard in the left base Abdominal: General: There is no distension. Palpations: Abdomen is soft. Tenderness: There is no abdominal tenderness. Musculoskeletal: General: No swelling or tenderness. Normal range of motion. Cervical back: Normal range of motion and neck supple. No tenderness. Skin: General: Skin is warm and dry. Capillary Refill: Capillary refill takes less than 2 seconds. Findings: No rash. Neurological: General: No focal deficit present. Mental Status: She is alert and oriented to person, place, and time. Psychiatric: Mood and Affect: Mood normal. Behavior: Behavior normal. Thought Content: Thought content normal. Judgment: Judgment normal. Diagnostic Testing ED Labs Ordered and Reviewed CBC + DIFF - Abnormal; Notable for the following components: Result Value Ref Range Abs Lymph 0.55 (*) 1.00 - 4.00 k/uL All other components within normal limits COMP METABOLIC PANEL - Abnormal; Notable for the following components: AST 43 (*) 13 - 35 U/L Glucose 120 (*) 74 - 99 mg/dL Sodium 132 (*) 136 - 144 mmol/L CO2 20 (*) 22 - 30 mmol/L All other components within normal limits COMP METABOLIC PANEL Procedures ED Course / Clinical Impression Clinical Impressions as of Jun 30 2038 COVID-19 MDM / Disposition / Plan No hypoxia feeling better after IV fluids but she did develop fever also gave her Zofran for nausea and she is holding fluids down here. (more content not included)... Normal [facility] XR CHEST 1V FRONTALon 2020 XR CHEST 1V FRONTAL * * *Final Report* * * DATE OF EXAM: Jun 30 2021 6:47PM LDX 5290 - XR CHEST 1V FRONTAL / PROCEDURE REASON: Acute respiratory illness * * * * Physician Interpretation * * * * EXAMINATION: CHEST RADIOGRAPH (SINGLE VIEW AP OR PA) CLINICAL HISTORY: Acute respiratory illness MQ: XC1_5 Comparison: 12/22/2007. RESULT: Lines, tubes, and devices: None. Lungs and pleura: There are questionable left lower lung infiltrates. A follow-up exam with chest PA and lateral views recommended when the patient's condition will permit. No consolidation. No lung mass. No pleural effusion. Cardiomediastinal silhouette: Normal cardiomediastinal silhouette. Other: None. IMPRESSION: Questionable left lower lung infiltrate. A follow-up exam is recommended. Computer Operations Technician: LEVON Transcribe Date/Time: Jun 30 2021 7:08P Dictated by : DONNY DAVEY MD This examination was interpreted and the report reviewed and electronically signed by: DONNY DAVEY MD on Jun 30 2021 7:09PM EST [id number] Normal [facility] Encounters Encounter Date Encounter Type Care Provider Facility Start: 07-16-2025 End: 07-16-[address] Vanessa Ortez MD Work Phone: -Outpatient [facility] Start: 07-16-2025 End: 07-16-[address] Vansesa Ortez MD -Outpatient Breast Imaging Work Phone: Start: 07-16-2025 End: 07-16-2025 ambulatory Vanessa Ortez Facility:[facility] Start: 06-30-2025 End: 06-30-[address] Vanessa Ortez MD Work Phone: -[facility] Start: 06-30-2025 End: 06-30-[address] Vanessa Ortez MD -[facility] Start: 06-30-2025 End: 06-30-2025 ambulatory Vanessa Ortez Facility:[facility] Start: 12-11-2024 End: 12-11-2024 ambulatory Vanessa Ortez Facility:[facility] Start: 08-04-2024 End: 08-04-2024 ambulatory Vanessa Ortez Facility:[facility] Start: 01-29-2024 End: 01-29-2024 ambulatory [facility] Work Phone: Start: 01-29-2024 End: 01-29-2024 Patient encounter procedure [facility]-Radiology, [facility] Work Phone: Start: 01-06-2024 End: 01-06-2024 ambulatory [facility] Work Phone: Start: 01-06-2024 End: 01-06-2024 Patient encounter procedure [facility]-Laboratory, [place] Work Phone: Start: 10-31-2023 End: 10-31-2023 ambulatory [facility] Work Phone: Start: 10-31-2023 End: 10-31-2023 [facility] Start: 10-28-2023 End: 10-28-2023 ambulatory [facility] Work Phone: Start: 10-28-2023 End: 10-28-2023 Patient encounter procedure [facility]-Cat Scan, [facility] Work Phone: Start: 10-05-2023 End: 10-05-2023 ambulatory [facility] Work Phone: Start: 10-05-2023 End: 10-05-2023 Patient encounter procedure [facility]-Laboratory, [facility] Work Phone: Start: 10-04-2023 End: 10-04-2023 ambulatory [facility] Work Phone: Start: 10-04-2023 End: 10-04-2023 Patient encounter procedure [facility]-Laboratory, [place] Work Phone: Start: 04-15-2023 End: 04-15-2023 ambulatory [facility] Work Phone: Start: 04-15-2023 End: 04-15-2023 Patient encounter procedure [facility]-Outpatient Breast Imaging Work Phone: Start: 04-08-2023 End: 04-08-2023 ambulatory [facility] Work Phone: Start: 04-08-2023 End: 04-08-2023 Patient encounter procedure [facility]-Laboratory, [facility] Start: 01-08-2023 End: 01-08-2023 ambulatory [facility] Work Phone: Start: 01-08-2023 End: 01-08-2023 Patient encounter procedure [facility] Start: 07-30-2022 End: 07-30-2022 ambulatory [facility] Work Phone: Start: 07-30-2022 End: 07-30-2022 Patient encounter procedure [facility]-Laboratory, [facility] Start: 06-27-2022 End: 06-27-2022 ambulatory [facility] Work Phone: Start: 06-27-2022 End: 06-27-2022 Patient encounter procedure [facility]-Radiology, [place] Procedures Date Procedure Procedure Detail Performing Clinician Start: 07-16-2025 Bilateral mammography Brad Ortez MD Work Phone: Start: 07-16-[address] Vanessa Ortez MD Work Phone: Start: 06-30-[address] Vanessa Ortez MD Work Phone: Comment on above: Follicular phase 0.1 - 0.9 Luteal phase 1.8 - 23.9 Ovulation phase 0.1 - 12.0 First trimester 11.0 - 44.3 Second trimester 25.4 - 83.3 Third trimester 58.7 - 214.0 Postmenopausal 0.0 - 0.1Performed at: [place] [id number] Director: Thomas Cha PhD, Phone: [phone] Start: 06-30-2025 Liquid based cervica l cytology screening Dr. Vanessa Ortez MD Work Phone: Comment on above: NEGATIVE FOR INTRAEP ITHELIAL LESION OR MALIGNANCY. This liquid based Th inPrep(R) pap test was screened withthe use of an image guided system. Start: 01-29-2024 Small bowel series Start: 10-28-2023 Computed tomography of abdomen and pelvis with contrast Start: 04-15-2023 Bilateral mammography Start: 04-15-2023 Ultrasonography of breast Start: 06-27-2022 Plain X-ray of shoulder Plan of Treatment Date Care Activity Detail Author Start: 10-05-2023 Elastase, pancreatic (el-1), fecal; quantitative [facility] Start: 10-05-2023 Protein measurement [facility] Fat [Mass/mass] in Stool [facility] Fat.neutral [Presence] in Stool [facility] Path report.final Dx Spec [facility] Work Phone: Toxoplasma gondii Ig G Ab [Units/volume] in Serum [facility] Toxoplasma gondii Ig M Ab [Units/volume] in Serum [facility] Payers Date Payer Category Payer Unknown [id number] 2024 Self-pay [id number] 2024 Unknown [id number] Unknown MEDISHARE COLLECT SP [id number] Unknown [id number] Unknown [id number] Unknown [id number] Unknown [id number] Unknown [id number] Unknown [id number] Social History Date Type Detail [facility] Work Phone: Start: 1965 Sex Assigned At Female [facility] Start: 12-11-2024 [facility] Sex Female [facility] Clinical Notes 07-03-2021 to 07-16-2025 Note Date & Type Note Facility 07-16-2025 Radiology Diagnostic study note [facility] [address] [place] [address] Breast Limited Unilateral MR#: [id number] Acct: [id number] Name: SULMA BHATIA Rep #: [id number] : 1965 F 60 From: Melinda Tiwari MD PCP: Dr. Vanessa Ortez MD Status: REG CLI Study:Breast Limited Unilateral Date of Exam: 07/16/25 Exam# [id number] Ordering Dr: Dwaine Ortez MD EXAM: DIAG MAMM W/CAD, BILAT; BREAST LIMITED UNILATERAL; BILAT BRST [facility] STAND ALONE 07/16/2025 CLINICAL HISTORY: F, Age 60 y/o , INVERTED RIGHT NIPPLE; ABD MAMM; RT NIPPLE INVERSION TECHNIQUE: Procedure Code: [id number]; USBRSTLIMIT; BIBILATBRTOM Modality: MG; US Procedure:DIAG MAMM W/CAD, BILAT; BREAST LIMITED UNILATERAL; BILAT BRST JOHN PAUL STAND ALONE. COMPARISON: Prior exam(s) dated 04/15/2023, 11/30/2014. FINDINGS: MAMMOGRAM: TISSUE DENSITY: There are scattered areas of fibroglandular density. Bilateral Breast Mammographic Findings: The patient presents with right nipple inversion which the patient reports has not significantly changed over the past 2 years. On the present examination, there are no suspicious mammographic findings in theretroareolar right breast, to account for the patient's reported right nipple inversion. Otherwise, there are no suspicious findings in the right breast. No significant masses, calcifications or other abnormalities are identified in the left breast. ULTRASOUND: Ultrasound performed of the retroareolar right breast demonstrates no suspicioussonographic findings. US/Breast Limited Unilateral IMPRESSION: 1. There are no suspicious mammographic or sonographic findings to account for the patient's reported right nipple problem. Clinical management is recommended with physical examination. 2. There is no evidence of malignancy in either breast. OVERALL FINAL ASSESSMENT BI-RADS 1: NEGATIVE RECOMMENDATION: Routine annual follow-up in 1 Year Additional Recommendation none A letter with findings and recommendations will be mailed to the patient. Reading Location: [id number] CC: Dr. Vanessa Ortez MD ~ Computer Operations Technician: Signed [facility] 04-08-2023 Note [facility] Pap Smear Specimen Adequacy April 08, 2023 8:39am Comment . Satisfactory for evaluation. Endocervical and/or squamous metaplasticcells (endocervical component) are present. Comment on above: Satisfactory for sumaya luation. Endocervical and/or squamous metaplasticcells (endocervical component) are present. 04-08-2023 Note [facility] Pap Smear Specimen Adequacy April 08, 2023 8:39am Comment . Satisfactory for evaluation. Endocervical and/or squamous metaplasticcells (endocervical component) are present. Comment on above: Satisfactory for sumaya luation. Endocervical and/or squamous metaplasticcells (endocervical component) are present. 07-09-2021 Note HNO ID: [id number] Author: Eliza Lim RN Service: Care Management Author Type: Registered Nurse Type: Care Mgt Progress Note Filed: 07/09/2021 2:52 PM Note Text: CARE MANAGEMENT PROGRESS NOTE SERVICE DATE: 07/09/2021 SERVICE TIME: 1450 LOS: 5 days spoke with Violeta from [facility] [phone], she states that she left it at the nurses station. this CM went back to the [facility] and checked for this O2. informed Brit that there was no tank and that i just sent the script on sat 07/08/21. Brit states that they will send a new one out but she doesn't know what time. RN aware SIGNATURE: Eliza Lim RN PATIENT NAME: Sulma Tellez DATE: July 09, 2021 TIME: 2:50 PM PAGER/CONTACT #: [phone] [facility] 07-09-2021 Note HNO ID: [id number] Author: Eliza Lim RN Service: Care Management Author Type: Registered Nurse Type: Care Mgt Progress Note Filed: 07/09/2021 2:37 PM Note Text: CARE MANAGEMENT PROGRESS NOTE SERVICE DATE: 07/09/2021 SERVICE TIME: 1430 LOS: 5 days called MICU and they state that they have no portable tank for this pt. AHP message this CM and wanted my number. awaiting return phone call SIGNATURE: Eliza Lim RN PATIENT NAME: Sulma Chowdary DATE: July 09, 2021 TIME: 2:36 PM PAGER/CONTACT #: [phone] [facility] 07-09-2021 Note HNO ID: [id number] Author: Margo Donaldson MD Service: Pulmonary Disease Author Type: Physician Type: Progress Notes Filed: 07/09/2021 2:17 PM Note Text: Pulmonary/Critical Care Progress Note PATIENT NAME: Sulma Bhatia DATE of SERVICE: July 09, 2021 TIME [...] resp. rate 16, height 154.9 cm (5' 1), weight 65.6 kg (144 lb 11.2 oz), [...] Phos Recent Labs 07/09/21 1210 07/08/21 0934 07/07/21191207/07/21 0743 07/07/21 0743 WBC 14.36* 10.71 8.43 [...] meaning may be extrapolated by contextual derivation. [facility] 07-09-2021 Note HNO ID: [id number] Author: Eliza Lim RN Service: Care Management Author Type: Registered Nurse Type: Care Mgt Progress Note Filed: 07/09/2021 2:13 PM Note Text: CARE MANAGEMENT PROGRESS NOTE SERVICE DATE: 07/09/2021 SERVICE TIME: 1410 LOS: 5 days per P they state they dropped off the O2 on , per nursing she went to the unit. this CM checked pt room and found no O2 tank. informed P that this CM just sent the script on 07/08/21. awaiting response SIGNATURE: Eliza Lim RN PATIENT NAME: Sulma Chowdary DATE: July 09, 2021 TIME: 2:11 PM PAGER/CONTACT #: [phone] [facility] 07-09-2021 Note HNO ID: [id number] Author: Eliza Lim RN Service: Care Management Author Type: Registered Nurse Type: Care Mgt Progress Note Filed: 07/09/2021 1:47 PM Note Text: CARE MANAGEMENT PROGRESS NOTE SERVICE DATE: 07/09/2021 SERVICE TIME: 1345 LOS: 5 days called pt pharmacy to [facility]. the [facility] is [phone], gave pt a card for eliques a free 30 day supply. also asked pt if she received her O2, she states no. P states that they delivered an O2 tank last week. working with [facility] to fugure out where the O2 tank is SIGNATURE: Eliza Lim RN PATIENT NAME: Sulma Chowdary DATE: July 09, 2021 TIME: 1:44 PM PAGER/CONTACT #: [phone] [facility] 07-09-2021 Note HNO ID: [id number] Author: Eliza Lim RN Service: Care Management Author Type: Registered Nurse Type: Care Mgt Progress Note Filed: 07/09/2021 1:12 PM Note Text: CARE MANAGEMENT PROGRESS NOTE SERVICE DATE: 07/09/2021 SERVICE TIME: 1310 LOS: 5 days script sent to [facility] on 07/08/21 for home O2. per notes pt CT of the chest showed bilateral PEs. CM to f/u SIGNATURE: Eliza Lim RN PATIENT NAME: Sulma Chowdary DATE: July 09, 2021 TIME: 1:11 PM PAGER/CONTACT #: [phone] [facility] 07-09-2021 Note HNO ID: [id number] Author: Herrera Alatorre MD Service: General Internal Medicine Author Type: Physician Type: Progress Notes Filed: 07/09/2021 11:28 AM Note Text: INTERNAL MEDICINE PROGRESS NOTE Name: Sulma Bhatia SERVICE DATE: July 09, 2021 ASSESSMENT AND PLAN Active Problems: Pneumonia due to COVID-19 virus POA: Yes Assessment AND Plan: decadron. DC home today if insurance is paying for eliquis. PE, eliquis. SUBJECTIVE INTERVAL HPI: no c/o. OBJECTIVE PHYSICAL EXAM: Blood pressure 99/59, pulse (!) 58, temperature 36.7 ?C (98 ?F), temperature source Oral, resp. rate 16, height 154.9 cm (5' 1), weight 65.6 kg (144 lb 11.2 oz), [...] Herrera Alatorre MD DATE: July 09, 2021 [facility] 07-09-2021 Note HNO ID: [id number] Author: Elis Ann PA-C Service: General Internal Medicine Author Type: Physician Behavioral Geneticist Type: Plan of Care Filed: 07/09/2021 5:02 [...] Ann PA-C July 09, 2021 5:02 AM [facility] 07-08-2021 Note HNO ID: [id number] Author: Margo Donaldson MD Service: Pulmonary Disease Author Type: Physician Type: Progress Notes Filed: 07/08/2021 4:53 PM Note Text: Pulmonary/Critical Care Progress Note PATIENT NAME: Sulma Bhatia DATE of SERVICE: July 08, 2021 TIME [...] resp. rate 18, height 154.9 cm (5' 1), weight 67.1 kg (148 lb), last menstrual [...] meaning may be extrapolated by contextual derivation. [facility] 07-08-2021 Note HNO ID: [id number] Author: Herrera Alatorre MD Service: General Internal Medicine Author Type: Physician Type: Progress Notes Filed: 07/08/2021 9:35 PM Note Text: INTERNAL MEDICINE PROGRESS NOTE Name: Sulma Bhatia SERVICE DATE: July 08, 2021 ASSESSMENT AND PLAN Active Problems: Pneumonia due to COVID-19 virus POA: Yes Assessment AND Plan: decadron. DC home in a.m. Hypotension, IV saline. Resolved. SUBJECTIVE INTERVAL HPI: no c/o. OBJECTIVE PHYSICAL EXAM: Blood pressure 106/65, pulse 61, temperature 37.1 ?C (98.7 ?F), temperature source Oral, resp. rate 18, height 154.9 cm (5' 1), weight 67.1 kg (148 lb), last menstrual [...] Herrera Alatorre MD DATE: July 08, 2021 [facility] 07-07-2021 Note HNO ID: [id number] Author: Herrera Alatorre MD Service: General Internal Medicine Author Type: Physician Type: Progress Notes Filed: 07/08/2021 9:35 PM Note Text: INTERNAL MEDICINE PROGRESS NOTE Name: Sulma Bhatia SERVICE DATE: July 07, 2021 ASSESSMENT AND PLAN Active Problems: Pneumonia due to COVID-19 virus POA: Yes Assessment AND Plan: decadron and remdesivir. Hypotension, IV saline. SUBJECTIVE INTERVAL HPI: no c/o. OBJECTIVE PHYSICAL EXAM: Blood pressure (!) 80/49, pulse 68, temperature 36.8 ?C (98.2 ?F), temperature source Oral, resp. rate 18, height 154.9 cm (5' 1), weight 68.4 kg (150 lb 11.2 oz), [...] Herrera Alatorre MD DATE: July 07, 2021 [facility] 07-07-2021 Note HNO ID: [id number] Author: Tammie Espitia APRN.CORK FLOOR INSTALLER Service: General Internal Medicine Author Type: Nurse Practitioner Type: Progress Notes Filed: 07/07/2021 12:58 PM Note Text: DEPARTMENT OF INTERNAL MEDICINE PROGRESS NOTE Name: Sulma Bhatia SERVICE DATE: 07/07/2021 SERVICE TIME: 12:39 PM Primary Attending: Tammie Espitia APRN.CORK FLOOR INSTALLER ASSESSMENT AND PLAN This is a 56 year old female with PMH mild intermittent asthma, hypothyroidism who was transferred from [facility] on 07/03 to [facility] after presenting for a second encounter for [...] decadron was started in the ED at [facility]. CXR and CT were obtained prior to transfer to [facility]; Imaging findings significant for abnormal structure along there right side of the mediastinum just lateral to the inferior aspect of the trachea. ID and CTS were consulted upon arrival. She was started on RDV 07/03 in addition to decadron. After review of imaging by CTS and [facility] radiology it was their opinion that imaging demonstrates enlarged azygos vein/SVC venous system without thrombus. No surgical intervention was recommended. It has been advised for the patient to follow up for MRI Chest/Abd at [facility] to elucidate etiology of dilatation. The patient was transferred to ICU on 07/05/21 due to worsening oxygen requirements for HFNC. Her oxygen requirements improved and she was weaned to NC and transferred to [facility] on 07/06. Active Problems: Pneumonia due [...] DATE: July 07, 2021 TIME: 12:39 PM [facility] 07-07-2021 Note HNO ID: [id number] Author: Herrera Alatorre MD Service: General Internal Medicine Author Type: Physician Type: Progress Notes Filed: 07/07/2021 11:36 AM Note Text: INTERNAL MEDICINE PROGRESS NOTE Name: Sulma Bhatia SERVICE DATE: July 07, 2021 ASSESSMENT AND PLAN Active Problems: Pneumonia due to COVID-19 virus POA: Yes Assessment AND Plan: decadron and remdesivir. Hypotension, IV saline. SUBJECTIVE INTERVAL HPI: no c/o. OBJECTIVE PHYSICAL EXAM: Blood pressure (!) 80/49, pulse (!) 55, temperature 36.8 ?C (98.2 ?F), temperature source Oral, resp. rate 18, height 154.9 cm (5' 1), weight 68.4 kg (150 lb 11.2 oz), [...] 100 mg in NaCl 0.9% 250 mL Vial-Mate/ADD-Geff 100 mg INTRAVENOUS q 24 HR - [...] data in the 24 hours ending 07/07/21 1135 SIGNATURE: Herrera Alatorre MD DATE: July 07, 2021 [facility] 07-06-2021 Note HNO ID: [id number] Author: Jean Marie Pantoja MD Service: Pulmonary Disease Author Type: Physician Type: Progress Notes Filed: 07/06/2021 5:27 PM Note Text: Pulmonary / Critical Care Progress Note Patient Name: Sulma Bhatia Assessment/Plan: ? Acute respiratory failure Covid pneumonia [...] 100 mg in NaCl 0.9% 250 mL Vial-Mate/ADD-Geff 100 mg INTRAVENOUS q 24 HR - [...] Virus Jean Marie Pantoja MD. Pager # [phone] [facility] 07-06-2021 Note HNO ID: [id number] Author: Herrera Alatorre MD Service: General Internal Medicine Author Type: Physician Type: Progress Notes Filed: 07/06/2021 8:09 PM Note Text: INTERNAL MEDICINE PROGRESS NOTE Name: Sulma Bhatia SERVICE DATE: July 06, 2021 ASSESSMENT AND PLAN Active Problems: Pneumonia due to COVID-19 virus POA: Yes Assessment AND Plan: decadron and remdesivir. Resolved Problems: * No resolved hospital problems. * SUBJECTIVE INTERVAL HPI: C/o malaise, fatigue and dry cough. OBJECTIVE PHYSICAL EXAM: Blood pressure 97/57, pulse 89, temperature 36.5 ?C (97.7 ?F), temperature source Oral, resp. rate 23, height 154.9 cm (5' 1), weight 61.4 kg (135 lb 5.8 oz), [...] 100 mg in NaCl 0.9% 250 mL Vial-Mate/ADD-Geff 100 mg INTRAVENOUS q 24 HR - [...] Herrera Alatorre MD DATE: July 06, 2021 [facility] 07-06-2021 Note HNO ID: [id number] Author: Katie Robles APRN.CORK FLOOR INSTALLER Service: Critical Care Author Type: Nurse Practitioner Type: Progress Notes Filed: 07/06/2021 11:28 AM Note Text: SERVICE DATE: 07/06/2021 SERVICE TIME: 11:27 AM MICU PROGRESS NOTE Admission Date: 07/03/2021 Hospital Day # 2 SUBJECTIVE Interval Events: Breathing improved, no pain. Tolerating 50L 40% HFNC, transfer to [facility] today OBJECTIVE Vital Signs (last filed) [...] Checklist Last Documented/Reviewed time: 07/06/2021 9:46 AM ----- A= Assess, Prevent, Manage Pain Pain adequately [...] Clinically Ready to Transfer to [facility] or SDU?: Yes, transfer to SDU or [facility] today Discharge Planning: To be determined [...] is a 56yoF who was admitted to [facility] on 07/03 from [facility]. She presented to ED with complaints [...] negative for PE. She was transferred to [facility] on 2L NC and initiated on decadron and remdesivir with ID and CTS consult. On 07/05 she became increasingly hypoxic, requiring 6L NC ->VM then transferred to MICU for HFNC initiation on 07/05. BP borderline with MAPs 60-70. Significant New Events Past 24 hrs: Initiated on HFNC yesterday, tolerating 50L 40%. Stable to m/o to [facility] with HFNC, accepted by Dr Estrada with Dr Pantoja on consult A/P of Major Active Problems: #COVID 19 PNA Unclear initiation of disease, believes +PCR on 06/25 #Acute hypoxic respiratory failure 2/ COVID 19 #Abnormal ?Mass/thrombus of?Azygos-SVC junction CT [...] dilation @ CC (more content not included)... [facility] 07-06-2021 Note HNO ID: [id number] Author: QUYNH Rios Service: Care Management Author Type: Crab Fisherman Type: Care Mgt Progress Note Filed: 07/06/2021 [...] planning. SIGNATURE: QUYNH Rios PATIENT NAME: Sulma Chowdary DATE: July 06, 2021 TIME: 9:32 AM PAGER/CONTACT #: [phone] [facility] 07-05-2021 Note HNO ID: [id number] Author: Jean Marie Pantoja MD Service: Pulmonary Disease Author Type: Physician Type: Progress Notes Filed: 07/05/2021 6:12 PM Note Text: Pulmonary / Critical Care PATIENT NAME: Sulma Bhatia Primary Care Physician: Vanessa Ortez MD Chief Complaint / Reason for evaluation: Acute respiratory failure, Covid pneumonia HPI: This is a 56 year old female with past medical history significant for asthma, hypothyroidism. She was transferred to [facility] from [facility] on July 03. She presented to the [...] Laterality Date - CATARACT EXTRACTION HX Bilateral 2015 - COLONOSCOP W/ OR W/O [facility] SPEC 09/14/2013 Colonoscopy - PAST SURGICAL HISTORY [...] 100 mg in NaCl 0.9% 250 mL Vial-Mate/ADD-Geff 100 mg INTRAVENOUS q 24 HR Allergies: [...] 105 CO2 (mmol/L) (more content not included)... [facility] 07-05-2021 Note HNO ID: [id number] Author: QUYNH Rios Service: Care Management Author Type: Crab Fisherman Type: Care Mgt Progress Note Filed: 07/05/2021 1:02 PM Note Text: CARE MANAGEMENT PROGRESS NOTE SERVICE DATE: 07/05/2021 SERVICE TIME: 1:00 PM LOS: 1 day Needs Prior to Discharge: To Be Determined Patient transferred to ICU for hi-flow O2. Plan TBD. CM continuing to follow and assist. SIGNATURE: QUYNH Rios PATIENT NAME: Sulma Chowdary DATE: July 05, 2021 TIME: 1:01 PM PAGER/CONTACT #: [phone] [facility] 07-04-2021 Note HNO ID: [id number] Author: Johnathon Elizalde APRN.KAMERON Service: General Internal Medicine Author Type: Nurse [...] 100 mg in NaCl 0.9% 250 mL Vial-Mate/ADD-Geff 100 mg INTRAVENOUS q 24 HR INTERVAL HISTORY OF PRESENT ILLNESS: Course/HPI: Admitted on 07/03wa transferred here from [facility] emergency room where she had presented for [...] decadron was started in the ED at [facility] CXR and CT was obtained [facility]. Imaging shows abnormal structure along there right [...] MRI is unable to be performed at [place] and will need to be done at [facility], presumably as outpatient. Patient counseled on [...] Given, 07/04 0353 (more content not included)... [facility] 07-04-2021 Note HNO ID: [id number] Author: Maria Luz Ortez RN Service: Care Management Author Type: Registered Nurse Type: Care Mgt Initial Assessment Filed: 07/04/2021 1:01 PM Note Text: CARE MANAGEMENT: ASSESSMENT AND DISCHARGE PLAN SERVICE DATE: July 04, 2021 SERVICE TIME: 11:03 AM PRIMARY CARE PHYSICIAN: Vanessa Ortez MD (confirmed with pt) ADMISSION STATUS: Inpatient Needs Prior to Discharge: To Be Determined;Discharge Prescriptions;Oxygen Set-up MEDICAL: BLUE ACCESS PPO Patient/Personal Assistant Stated Goals: To have reduction in symptoms;To return home to life as it was;To be cured/healed Health Insurance: [place] [facility] Issues Impacting Discharge Plan: Newly diagnosed;Chronic Newly Diagnosed: COVID 19 + Last Discharge Date: 9/13/21 Is this Within the Past 30 days? 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 No prefers [facility] Is Patient Psychosocially Complex?: No ASSESSMENT AND PLAN: Medical Needs: Medical Needs: Respiratory Insufficiency RT needs: Oxygen Psychosocial Needs: Psychosocial Needs: None FREEDOM OF CHOICE EXPLAINED: [place] of Choice Given: No Reason Not Given: [...] She drives. 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 She is not active with [facility], has no DME in the home and uses no assistive devices to assist with ambulation. She manages her prescription medications and is compliant. Anticipate no skilled needs at [place] but may eed home O2 arranged at [place]. She is agreeable to referral to [facility] if O2 is needed and is aware that CM will follow her case and assist as needed. She will have transportation home at [place]. Addendum 12:51 [facility] at [place], out of their service area. Referral placed to [facility] Patient for review. SIGNATURE: Maria uLz Ortez RN PATIENT NAME: Sulma Bhatia DATE: (more content not included)... [facility] 07-04-2021 Note HNO ID: [id number] Author: Herrera Alatorre MD Service: General Internal Medicine Author Type: Physician Type: Progress Notes Filed: 07/06/2021 8:09 PM Note Text: INTERNAL MEDICINE PROGRESS NOTE Name: Sulma Bhatia SERVICE DATE: July 04, 2021 ASSESSMENT AND PLAN Active Problems: Pneumonia due to COVID-19 virus POA: Yes Assessment AND Plan: decadron and remdesivir. Resolved Problems: * No resolved hospital problems. * SUBJECTIVE INTERVAL HPI: C/o malaise, fatigue and dry cough. OBJECTIVE PHYSICAL EXAM: Blood pressure 99/52, pulse 81, temperature 36.9 ?C (98.5 ?F), temperature source Oral, resp. rate 17, height 154.9 cm (5' 1), weight 61.2 kg (135 lb), last menstrual [...] 100 mg in NaCl 0.9% 250 mL Vial-Mate/ADD-Geff 100 mg INTRAVENOUS q 24 HR DATA: Disposition: Home URINE OUTPUT: Intake/Output Summary (Last 24 hours) at 07/04/2021 1053 Last data filed at 07/04/2021 0655 Gross per 24 hour Intake 120 ml Output 400 ml Net -280 ml SIGNATURE: Herrera Alatorre MD DATE: July 04, 2021 [facility] 07-03-2021 Note HNO ID: [id number] Author: Vaishali Swann APRN.CORK FLOOR INSTALLER Service: General Internal Medicine Author Type: Nurse [...] INTERVAL HISTORY OF PRESENT ILLNESS: Admitted on 07/03was transferred here from [facility] emergency room where she had presented for [...] decadron was started in the ED at [facility] CXR and CT was obtained at [facility]. Imaging shows abnormal structure along there right [...] ? 07/03/21 0324 ? 154.9 cm (5' 1) 61.2 kg (135 lb) 07/03/21 0107 90/55 [...] Coags, BMP, Mg, Phos Recent Labs 07/03/21 0607/02/21190506/30/21 1815 WBC 3.48* 5.29 4.32 HB 13.5 [...] first tested + on 06/25 was in [facility] ER x2 this weekend c/o myalgia cough diarrhea presented on 07/02 with abd pain , nausea and pleuritic type chest pain [facility] 94/57 afebrile labs showed mild hyponatremia 129 HsTNT neg , ddimer 720 CT chest GGO and concern for abnormality ? Mass versus thrombus in the azygous vein leading to the SVC ferritin 574.7 crp 6.0 procal 0.09 AST 62 currently on supplemental Ox started on Decadron in ED plan: start RDV continue Decadron follow labs (more content not included)... [facility] 07-03-2021 Note HNO ID: [id number] Author: Herrera Alatorre MD Service: General Internal Medicine Author Type: Physician Type: Progress Notes Filed: 07/03/2021 7:47 PM Note Text: INTERNAL MEDICINE PROGRESS NOTE Name: Sulma Bhatia SERVICE DATE: July 03, 2021 ASSESSMENT AND PLAN Active Problems: Pneumonia due to COVID-19 virus POA: Yes Assessment AND Plan: decadron and remdesivir. Resolved Problems: * No resolved hospital problems. * SUBJECTIVE INTERVAL HPI: C/o malaise, fatigue and dry cough. OBJECTIVE PHYSICAL EXAM: Blood pressure 100/52, pulse 61, temperature 36.7 ?C (98 ?F), temperature source Oral, resp. rate 16, height 154.9 cm (5' 1), weight 61.2 kg (135 lb), last menstrual [...] Herrera Alatorre MD DATE: July 03, 2021 [facility] Evaluation note No assessment information availa ble [facility] Work Phone: Reason for referral (narrative) No reason for referral information available [facility] Work Phone: Summary Purpose Family History Relationship Condition Age at Onset Recorded Date/T michael Not Specified Diabetes mellitus Unknown Advance Directives No Advanced Directives Records FoundNo Advanced Directives Records FoundNo Advanced Directives Records FoundNo Advanced Directives Records Found Chief Complaint and Reason for Visit Chief Complaint EORDER Chief Complaint RETRACTION OF RIGHT NIPPLE Chief Complaint ABD PAIN *IV & ORAL CONTRAST* EORDER Chief Complaint ABD PAIN *IV & ORAL CONTRAST* EORDER ABD PAIN Chief Complaint ABD PAIN *IV & ORAL CONTRAST* EORDER ABD PAIN ABD PAIN Chief Complaint Admit Date INVERTED NIPPLE ? BREAST July 16, 2025 8:45am Additional Source Comments INFORMATION SOURCE (unrecogn ized section and content) DATE CREATED AUTHOR 07/02/2021 [facility] DATE CREATED AUTHOR AUTHOR'S ORGANIZ ATION 07/11/2021 [facility] DATE CREATED AUTHOR AUTHOR'S ORGANIZ ATION 07/19/2021 [facility] DATE CREATED AUTHOR AUTHOR'S ORGANIZ ATION 07/23/2025 [facility] Goals (unrecognized section and content) Goals may be documented in a n alternate sectionGoals may be documented in an alternate sectionGoals may be documented in an alternate sectionGoals may be documented in an alternate sectionGoals may be documented in an alternate sectionGoals may be documented in an alternate sectionGoals may be documented in an alternate sectionGoals may be documented in an alternate sectionGoals may be documented in an alternate sectionGoals may be documented in an alternate sectionGoals may be documented in an alternate sectionGoals may be documented in an alternate sectionGoals may be documented in an alternate section Care Teams (unrecognized sec tion and content) Team Status: Active Member Role Status Dates Dr. Vanessa Ortez MD Family Provider Active Dr. Vanessa Ortez MD Primary Care Provider Active Team Status: Inactive Member Role Status Dates Dr. Vanessa Ortez MD Primary Care Provide r, Attending Provider, Referring Provider Active Team Status: Inactive Member Role Status Dates Dr. Vanessa Ortez MD Primary Care Provider Active Dr. Naa Bernal DO Attending Provider Active Team Status: Inactive Member Role Status Dates Dr. Vanessa Ortez MD Primary Care Provider Active Dr. Naa Bernal DO Attending Provider, Referrin g Provider Active Team Status: Active Member Role Status Dates Dr. Vanessa Ortez MD Primary Care Provide r, Attending Provider, Referring Provider Active Team Status: Inactive Member Role Status Dates Dr. Vanessa Ortez MD Primary Care Provider Active Dr. Thomas Mercedes MD Attending Provider, Referring Provider Active Team Status: Active Member Role/Relationship Status Dates Dr. Vanessa Ortez MD Primary care physician Active Team Status: Inactive Member Role/Relationship Status Dates Dr. Vanessa Ortez MD Primary care physician Active Start: June 30, 2025 End: June 30, 2025 Dr. Vanessa Ortez MD Attending physician Active S tart: June 30, 2025 End: June 30, 2025 Dr. Vanessa Ortez MD Referring Provider Active St art: June 30, 2025 End: June 30, 2025 Team Status: Inactive Member Role/Relationship Status Dates Dr. Vanessa Ortez MD Primary care physician Active Start: July 16, 2025 End: July 16, 2025 Dr. Vanessa Ortez MD Attending physician Active S tart: July 16, 2025 End: July 16, 2025 Dr. Vanessa Ortez MD Referring Provider Active St art: July 16, 2025 End: July 16, 2025 FOR RECORDS PERTAINING TO PATIENTS WHO ARE [...] BE BASED ON THE PRIMARY CLINICAL RECORDS. [employer] [facility]. provides no warranty or guarantee of the accuracy or completeness of information in this document.
== END | disposition home or self-care (01) ==
PROVIDERS: PCP Family Medicine
DX: N39.0 Urinary tract infection, site not specified (principal)
CPT/HCPCS: 74018; 87077; 87086; 87088; 87186